=== PATIENT | male | born 1940 | race Caucasian/White ===

== ENCOUNTER 2017-06-22 16:45 | Emergency (ER) | payer MEDICARE ==
[~2017-06-22] VITALS: Ht 177.8 cm; Wt 94.4 kg
[~2017-06-22 16:45] MED LIST: ACET125 PO; CIPR500T4 PO; DICY1TAB26 PO; KCL20 PO; LEVO112T2 PO; TAB-TAB PO
[2017-06-22 16:54] VITALS: BP 121/58; PULSE 73; RESP 18; TEMP 98
[2017-06-22] MEDS ORDERED: PRED5TAB PO (17:35)
[2017-06-22] MEDS ORDERED: LISI10TA3 PO (17:35)
[2017-06-22] MEDS ORDERED: MULTTAB67 PO (17:35)
[2017-06-22] MEDS ORDERED: LEVO112T2 PO (17:35)
[2017-06-22] MEDS ORDERED: HYDR25TA5 PO ×2 (17:35→18:25)
--- NOTE | 2017-06-22 17:35 | PD ---
HPI Chief Complaint: Edema Time Seen by Provider: 17:04 Travel History International Travel<30 days: No Contact w/Intl Traveler<30days: No Traveled to known affect area: No History of Present Illness HPI This 76-year-old male is complaining of swelling of his legs. He says he called his doctor today to get a prescription for hydrochlorothiazide which he has been on and he was told he should come here for evaluation. He has had swelling of his legs he says since she's been on prednisone. He is on the prednisone because he had temporal arteritis. He has been on prednisone for about a year and is currently being tapered. He is on 5 mg daily at this time. He gets a little short of breath with exertion. He is not aware of any heart disease. He has a history of vertigo and gets a lot of wax in his years. He says that his ears are clogged up now. PFSH Past Medical History Hx Anticoagulant Therapy: Yes (asa) Cancer: Yes (PROSTATE) Cardiovascular Problems: No Chemotherapy: No Cerebrovascular Accident: No Diabetes: No Diminished Hearing: No Hypertension: Yes Medical other: Yes (TEMPORAL ARTERITIS) Respiratory: No Thyroid Disease: Yes Past Surgical History Cholecystectomy: Yes Other Surgery: Yes (SHUNT IN HEAD, BRAIN TUMOR) Social History Alcohol Use: Yes (DAILY) Tobacco Use: No (QUIT 1984) Substance Use: No Allergies-Medications (Allergen,Severity, Reaction): Coded Allergies: morphine (Unverified Allergy, Severe, CONFUSION, 06/22/17) oyster extract (Unverified Allergy, Mild, Anaphylaxis, 06/22/17) Reported Meds & Prescriptions Reported Meds & Active Scripts Active Reported Prednisone 5 Mg Tab 5 Mg PO DAILY Hydrochlorothiazide 25 Mg Tab 25 Mg PO DAILY Multiple Vitamin 1 Tab 1 Tab PO DAILY Lisinopril 10 Mg Tab 10 Mg PO DAILY Levothyroxine (Levothyroxine Sodium) 112 Mcg Tab 112 Mcg PO DAILY Review of Systems General / Constitutional: No: Fever, Chills Eyes: No: Diploplia HENT: Positive: Headaches, Other (cerumen impaction) Cardiovascular: No: Chest Pain or Discomfort, Palpitations Respiratory: No: Cough, Shortness of Breath Gastrointestinal: No: Vomiting, Diarrhea Musculoskeletal: No: Myalgias Skin: No Rash, No Itching Neurologic: No: Weakness Hematologic/Lymphatic: No: Easy Bruising Physical Exam Narrative GENERAL: [-] SKIN: Focused skin assessment warm/dry. HEAD: Atraumatic. Normocephalic. EYES: Pupils equal and round. No scleral icterus. No injection or drainage. ENT: No nasal bleeding or discharge. Mucous membranes pink and moist. He has bilateral cerumen impactions NECK: Trachea midline. No JVD. CARDIOVASCULAR: Regular rate and rhythm. No murmur appreciated. RESPIRATORY: No accessory muscle use. Clear to auscultation. Breath sounds equal bilaterally. GASTROINTESTINAL: Abdomen soft, non-tender, nondistended. Hepatic and splenic margins not palpable. MUSCULOSKELETAL: No obvious deformities. No clubbing. No cyanosis. No edema. NEUROLOGICAL: Awake and alert. No obvious cranial nerve deficits. Motor grossly within normal limits. Normal speech. PSYCHIATRIC: Appropriate mood and affect; insight and judgment normal. Data Data Last Documented VS Vital Signs Date Time Temp Pulse Resp B/P (MAP) Pulse Ox O2 Delivery O2 Flow Rate FiO2 06/22/17 16:54 98.0 73 18 121/58 (79) Orders Orders Complete Blood Count With Diff (06/22/17 17:26) Comprehensive Metabolic Panel (06/22/17 17:26) B-Type Natriuretic Peptide (06/22/17 17:26) Magnesium (Mg) (06/22/17 17:26) Chest, Single Ap (06/22/17 17:26) Ear Irrigation (06/22/17 17:29) Labs Laboratory Tests Test 06/22/17 17:30 White Blood Count 5.9 TH/MM3 Red Blood Count 4.02 MIL/MM3 Hemoglobin 12.7 GM/DL Hematocrit 36.3 % Mean Corpuscular Volume 90.3 FL Mean Corpuscular Hemoglobin 31.5 PG Mean Corpuscular Hemoglobin Concent 34.9 % Red Cell Distribution Width 13.4 % Platelet Count 183 TH/MM3 Mean Platelet Volume 7.5 FL Neutrophils (%) (Auto) 73.5 % Lymphocytes (%) (Auto) 11.9 % Monocytes (%) (Auto) 13.3 % Eosinophils (%) (Auto) 0.9 % Basophils (%) (Auto) 0.4 % Neutrophils # (Auto) 4.3 TH/MM3 Lymphocytes # (Auto) 0.7 TH/MM3 Monocytes # (Auto) 0.8 TH/MM3 Eosinophils # (Auto) 0.1 TH/MM3 Basophils # (Auto) 0.0 TH/MM3 CBC Comment DIFF FINAL Differential Comment Blood Urea Nitrogen 17 MG/DL Creatinine 0.90 MG/DL Random Glucose 97 MG/DL Total Protein 7.2 GM/DL Albumin 3.2 GM/DL Calcium Level 8.5 MG/DL Magnesium Level 1.8 MG/DL Alkaline Phosphatase 89 U/L Aspartate Amino Transf (AST/SGOT) 26 U/L Alanine Aminotransferase (ALT/SGPT) 21 U/L Total Bilirubin 0.7 MG/DL Sodium Level 132 MEQ/L Potassium Level 3.8 MEQ/L Chloride Level 95 MEQ/L Carbon Dioxide Level 29.0 MEQ/L Anion Gap 8 MEQ/L Estimat Glomerular Filtration Rate 82 ML/MIN B-Type Natriuretic Peptide 99 PG/ML MDM Medical Decision Making Medical Screen Exam Complete: Yes Emergency Medical Condition: Yes Medical Record Reviewed: Yes Differential Diagnosis Differential includes cerumen impaction, CHF, edema Narrative Course BNP is normal and chest x-ray is normal. There is no evidence of CHF. His albumin is slightly low at 3.2 and this may be part of the cause of his edema. He has been on prednisone for some time. His use of been irrigated and repeat examination shows a cerumen to be cleared. Diagnosis Primary Impression: Edema Qualified Codes: R60.9 - Edema, unspecified Additional Impression: Impacted cerumen of both ears Scripts Hydrochlorothiazide (Hydrochlorothiazide) 25 Mg Tab 25 MG PO DAILY, #30 TAB 0 Refills Prov: Basilio Luna MD 06/22/17 Disposition: 01 DISCHARGE HOME Condition: Stable Basilio Luna MD Jun 22, 2017 17:35
[2017-06-22 17:41] LABS: AUTOMATED NEUTROPHIL # 4.3 TH/MM3 (1.8-7.7); BASOPHIL % 0.4 % (0.0-2.0); EOSINOPHIL # 0.1 TH/MM3 (0-0.4); EOSINOPHIL % 0.9 % (0.0-4.0); HEMATOCRIT 36.3 % (39.0-51.0); HEMO FLAGS DIFF FINAL; LYMPH % 11.9 % (9.0-44.0); LYMPHOCYTE # 0.7 TH/MM3 (1.0-4.8); MEAN CELL VOLUME 90.3 FL (80.0-100.0); MEAN CORPUSCULAR HEMOGLOBIN 31.5 PG (27.0-34.0); MEAN CORPUSCULAR HGB CONC 34.9 % (32.0-36.0); MONO % 13.3 % (0.0-8.0); NEUT % 73.5 % (16.0-70.0); PLATELET COUNT 183 TH/MM3 (150-450); RED BLOOD COUNT 4.02 MIL/MM3 (4.50-5.90); RED CELL DISTRIBUTION WIDTH 13.4 % (11.6-17.2); WHITE BLOOD COUNT 5.9 TH/MM3 (4.0-11.0)
[2017-06-22 17:49] LABS: CHLORIDE 95 MEQ/L (98-107); POTASSIUM 3.8 MEQ/L (3.5-5.1); SODIUM (NA) 132 MEQ/L (136-145)
[2017-06-22 17:53] LABS: ANION GAP 8 MEQ/L (5-15); BLOOD UREA NITROGEN 17 MG/DL (7-18); MAGNESIUM 1.8 MG/DL (1.5-2.5)
--- NOTE | 2017-06-22 17:53 | RADRPT ---
EXAM DATE/TIME: 06/22/2017 17:37 [facility] COMPARISON: RIBS LEFT(W PA CXR MIN 3VWS), January 26, 2015, 12:10. INDICATIONS : Chest discomfort; swelling in bilateral lower extremities. MEDICAL HISTORY : Hypertension. Carcinoma, prostatic. Brain tumor. Temporal arteritis. SURGICAL HISTORY : Shunt in head. ENCOUNTER: Initial ACUITY: 1 day PAIN SCORE: 0/10 LOCATION: Bilateral chest FINDINGS: A single view of the chest demonstrates the lungs to be symmetrically aerated without evidence of mas s, infiltrate or effusion. The cardiomediastinal contours are unremarkable. Osseous structures are intact. Shunt catheter tubing is projected over the chest. There are multiple overlying electrocardio gram leads. There are healing right sided rib fractures. CONCLUSION: No acute disease. Grover Akins MD on June 22, 2017 at 17:50 Board Certified Radiologist. This report was verified electronically.
[2017-06-22 17:56] LABS: ALT (GPT) 21 U/L (12-78); AST (GOT) 26 U/L (15-37); GLOMERULAR FILTRATION RATE 82 ML/MIN (>89)
[2017-06-22 17:57] LABS: TOTAL BILIRUBIN ADULT 0.7 MG/DL (0.2-1.0)
[2017-06-22 17:59] LABS: ALKALINE PHOSPHATASE 89 U/L (45-117)
[2017-06-22 18:40] VITALS: BP 118/62; PULSE 82; RESP 18; O2SAT 95
== END 2017-06-22 18:46 | disposition home or self-care (01) ==
LOC: PHED 16:45
DX: R60.9 Edema, unspecified (principal); H61.23 Impacted cerumen, bilateral; Z79.82 Long term (current) use of aspirin; C61 Malignant neoplasm of prostate; I10 Essential (primary) hypertension; Z98.2 Presence of cerebrospinal fluid drainage device; D49.6 Neoplasm of unspecified behavior of brain; R42 Dizziness and giddiness; M31.6 Other giant cell arteritis; R06.02 Shortness of breath
CPT/HCPCS: 71010; 80053; 83735; 83880; 85025; 99284

== ENCOUNTER 2017-08-27 01:23 | Inpatient (IN) | payer MEDICARE ==
[2017-08-27] VITALS (18 sets, daily range): BP systolic 104–130; BP diastolic 55–70; PULSE 47–85; RESP 16–22; TEMP 97.2–98.5; O2SAT 94–98
[~2017-08-27] VITALS: Ht 177.8 cm; Wt 91.0 kg
[2017-08-27 01:12] LABS: AUTOMATED NEUTROPHIL # 6.3 TH/MM3 (1.8-7.7); BASOPHIL % 0.2 % (0.0-2.0); EOSINOPHIL % 0.5 % (0.0-4.0); HEMATOCRIT 35.5 % (39.0-51.0); HEMO FLAGS DIFF FINAL; LYMPH % 9.8 % (9.0-44.0); LYMPHOCYTE # 0.8 TH/MM3 (1.0-4.8); MEAN CELL VOLUME 92.5 FL (80.0-100.0); MEAN CORPUSCULAR HEMOGLOBIN 32.2 PG (27.0-34.0); MEAN CORPUSCULAR HGB CONC 34.8 % (32.0-36.0); NEUT % 79.5 % (16.0-70.0); PLATELET COUNT 155 TH/MM3 (150-450); RED BLOOD COUNT 3.84 MIL/MM3 (4.50-5.90)
[~2017-08-27 01:23] MED LIST changes: -ACET125 PO; -CIPR500T4 PO; -DICY1TAB26 PO; +HYDR25TA5 PO; -KCL20 PO; +LISI10TA3 PO; +MULTTAB67 PO; +PRED5TAB PO; -TAB-TAB PO
[2017-08-27 01:25] LABS: APTT (PATIENT) 30.2 SEC (24.3-30.1); INTERNATIONAL NORMALIZED RATIO 1.1 RATIO; PROTHROMBIN TIME - PATIENT 12.5 SEC (9.8-11.6)
--- NOTE | 2017-08-27 01:29 | RADRPT ---
EXAM DATE/TIME: 08/27/2017 01:03 [facility] COMPARISON: CHEST SINGLE AP, June 22, 2017, 17:37. INDICATIONS : Chest pain. MEDICAL HISTORY : Hypertension. Carcinoma, prostatic. SURGICAL HISTORY : Shunt ENCOUNTER: Initial ACUITY: 1 day PAIN SCORE: 7/10 LOCATION: Bilateral chest FINDINGS: Single AP view of the chest. Lungs are clear. Mild cardiac silhouette enlargement unchanged. No evide nce of pleural effusion or pneumothorax. Old right-sided rib fractures. CONCLUSION: Chronic cardiac silhouette enlargement. No acute cardiopulmonary disease identified. Krystian Spicer MD on August 27, 2017 at 1:26 Board Certified Radiologist. This report was verified electronically.
[2017-08-27 01:41] LABS: BICARBONATE 27.8 MEQ/L (21.0-32.0); MAGNESIUM 1.6 MG/DL (1.5-2.5); POTASSIUM 4.2 MEQ/L (3.5-5.1)
[2017-08-27] MEDS ORDERED: ALUMINUM/MAGNESIUM/SIMETH 30 ML CUP PO ONE (01:45)
[2017-08-27] MEDS ORDERED: PRED10 PO (01:48)
--- NOTE | 2017-08-27 01:56 | PD ---
HPI Chief Complaint: Chest Pain Time Seen by Provider: 01:38 Travel History International Travel<30 days: No Contact w/Intl Traveler<30days: No Traveled to known affect area: No History of Present Illness HPI 76yo M with PMH of HTN and former smoker here with c/o chest pain at around 10: 30 or 11pm tonight. Said he was sitting and watching TV when the pain started. Pain is sharp, constant, midsternal. Nonradiating and associated with diaphoresis. Denies any nausea, sob, vomiting, abdominal pain, focal weakness or numbness. Said pain relieved after sublingual nitro and aspirin given by EVAC. 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 Said never had pain like this before. Denies history of afib. PFSH Past Medical History Hx Anticoagulant Therapy: Yes (asa) Atrial Fibrillation: Yes Cancer: Yes (PROSTATE) Cardiovascular Problems: No Chemotherapy: No Chest Pain: Yes Cerebrovascular Accident: No Diabetes: No Diminished Hearing: No GERD: Yes Hypertension: Yes Respiratory: No Thyroid Disease: Yes Tetanus Vaccination: Unknown Past Surgical History Cholecystectomy: Yes Other Surgery: Yes (SHUNT IN HEAD, BRAIN TUMOR) Social History Alcohol Use: Yes (DAILY) Tobacco Use: No (QUIT 1984) Substance Use: No Allergies-Medications (Allergen,Severity, Reaction): Coded Allergies: morphine (Verified Allergy, Severe, CONFUSION, 08/27/17) oyster extract (Verified Allergy, Mild, Anaphylaxis, 08/27/17) Reported Meds & Prescriptions Reported Meds & Active Scripts Active Hydrochlorothiazide 25 Mg Tab 25 Mg PO DAILY Reported Prednisone 10 Mg Tab 10 Mg PO DAILY Multiple Vitamin 1 Tab 1 Tab PO DAILY Lisinopril 10 Mg Tab 10 Mg PO DAILY Levothyroxine (Levothyroxine Sodium) 112 Mcg Tab 112 Mcg PO DAILY Review of Systems Except as stated in HPI: all other systems reviewed are Neg Physical Exam Narrative GENERAL: 76yo M not in distress. SKIN: Focused skin assessment warm/dry. HEAD: Atraumatic. Normocephalic. EYES: Pupils equal and round. No scleral icterus. No injection or drainage. ENT: No nasal bleeding or discharge. Mucous membranes pink and moist. NECK: Trachea midline. No JVD. CARDIOVASCULAR: Regular rate and rhythm. No murmur appreciated. RESPIRATORY: No accessory muscle use. Clear to auscultation. Breath sounds equal bilaterally. GASTROINTESTINAL: Abdomen soft, non-tender, nondistended. MUSCULOSKELETAL: No obvious deformities. No clubbing. No cyanosis. +Bilateral lower ext edema. NEUROLOGICAL: Awake and alert. No obvious cranial nerve deficits. Motor grossly within normal limits. Normal speech. PSYCHIATRIC: Appropriate mood and affect; insight and judgment normal. Data Data Last Documented VS Vital Signs Date Time Temp Pulse Resp B/P (MAP) Pulse Ox O2 Delivery O2 Flow Rate FiO2 08/27/17 03:45 08/27/17 02:51 82 16 Room Air 08/27/17 01:34 98 Orders Orders Basic Metabolic Panel (Bmp) (08/27/17 01:52) Complete Blood Count With Diff (08/27/17 01:52) Magnesium (Mg) (08/27/17 01:52) Prothrombin Time / Inr (Pt) (08/27/17 01:52) Act Partial Throm Time (Ptt) (08/27/17 01:52) Troponin I (08/27/17 01:52) Chest, Single Ap (08/27/17 01:52) Al-Mag Hy-Si 40-40-4 Mg/Ml Liq (Mag-Al P (08/27/17 01:45) Loom Fixer Supervisor / Telemetry [email or web address] (08/27/17 03:13) Heparin Inj (Heparin Inj) (08/27/17 03:15) Heparin Inj (Heparin Inj) (08/27/17 09:15) Heparin Inj (Heparin Inj) (08/27/17 09:15) Heparin-D5w 25,000 U/250 Ml (Heparin-D5w (08/27/17 03:15) Act Partial Throm Time (Ptt) (08/27/17 03:13) Prothrombin Time / Inr (Pt) (08/27/17 03:13) Cbc No Diff, Includes Plts (08/27/17 03:13) Cbc No Diff, Includes Plts (08/30/17 06:00) Nitroglycerin Sl (Nitrostat Sl) (08/27/17 03:30) Admit Order (Ed Use Only) (08/27/17 03:54) Consult Cardiology (08/27/17 ) Labs Laboratory Tests Test 08/27/17 00:50 White Blood Count 8.0 TH/MM3 Red Blood Count 3.84 MIL/MM3 Hemoglobin 12.4 GM/DL Hematocrit 35.5 % Mean Corpuscular Volume 92.5 FL Mean Corpuscular Hemoglobin 32.2 PG Mean Corpuscular Hemoglobin Concent 34.8 % Red Cell Distribution Width 13.0 % Platelet Count 155 TH/MM3 Mean Platelet Volume 8.7 FL Neutrophils (%) (Auto) 79.5 % Lymphocytes (%) (Auto) 9.8 % Monocytes (%) (Auto) 10.0 % Eosinophils (%) (Auto) 0.5 % Basophils (%) (Auto) 0.2 % Neutrophils # (Auto) 6.3 TH/MM3 Lymphocytes # (Auto) 0.8 TH/MM3 Monocytes # (Auto) 0.8 TH/MM3 Eosinophils # (Auto) 0.0 TH/MM3 Basophils # (Auto) 0.0 TH/MM3 CBC Comment DIFF FINAL Differential Comment Prothrombin Time 12.5 SEC Prothromb Time International Ratio 1.1 RATIO Activated Partial Thromboplast Time 30.2 SEC Blood Urea Nitrogen 8 MG/DL Creatinine 0.66 MG/DL Random Glucose 90 MG/DL Calcium Level 8.6 MG/DL Magnesium Level 1.6 MG/DL Sodium Level 133 MEQ/L Potassium Level 4.2 MEQ/L Chloride Level 99 MEQ/L Carbon Dioxide Level 27.8 MEQ/L Anion Gap 6 MEQ/L Estimat Glomerular Filtration Rate 117 ML/MIN Troponin I 0.53 NG/ML [facility] Medical Decision Making Medical Screen Exam Complete: Yes Emergency Medical Condition: Yes Interpretation(s) EKG: Afib at 71bpm. LAD. No ST segment elevation or depression. Differential Diagnosis ACS vs. new onset afib vs. GERD Narrative Course 76yo M with left sided chest pain while watching TV today. Pt was given ASA and sublingual nitro by EVAC and said pain resolved after sublingual nitro. Pt asking for maalox as per nurse so was given maalox. Labs reviewed and significant for elevated troponin of 0.53. CXR negative. When I informed him of the elevated troponin, he then said that he does have chest pain about 6 out of 10 and didnt tell us earlier because he wanted to go home. I ordered sublingual nitro PRN chest pain and also started pt on heparin drip after negative hemaprompt since pt said he is unsure if he has black stool. Discussed with hospitalist Dr. Angela and accepted to her service in [facility]. Also placed cardiology consult. Critical Care Narrative Aggregate critical care time was 50 minutes. Time to perform other separately billable procedures was not included in the critical care time. My time did not include minutes spent treating any other patients simultaneously or on activities that did not directly contribute to the patient's treatment. The services I provided to this patient were to treat and/or prevent clinically significant deterioration that could result in: cardiovascular collapse or . I provided critical care services requiring my management, as noted below: Chart data review, documentation time, medication orders and management, vital sign assessments/reviewing monitor data, ordering and reviewing lab tests, ordering and interpreting/reviewing x-rays and diagnostic studies, care of the patient and discussion of the patient with the admitting physicians. HemaPrompt Point of Care Internal Pos. & Neg. Controls: Passed Fecal Specimen Occult Blood: Negative Diagnosis Primary Impression: NSTEMI (non-ST elevated myocardial infarction) Admitting Information Admitting Physician Requests: Admit Holly Joyner DO Aug 27, 2017 01:56
[2017-08-27] MEDS ORDERED: HEPARIN SODIUM - IV 10,000 UNITS/10 ML VIAL IV PUSH ONE (03:15)
[2017-08-27] MEDS: HEPARIN-D5W 25,000 U/250 ML 250 ML IV PRN (03:45)
[2017-08-27] MEDS ORDERED: SODIUM CHLORIDE 0.9% FLUSH 10 ML FLUSH IV FLUSH PRN (04:00)
[2017-08-27] MEDS: MORPHINE SULFATE 4 MG/ML INJ IV PUSH PRN ×2 (04:36→09:02)
[2017-08-27] MEDS: NITROGLYCERIN 0.4 MG SL 25 TABS/BTL SL PRN ×3 (04:38→04:51)
[2017-08-27] MEDS ORDERED: NITROGLYCERIN 2% OINT 1 GM PACKET TOP SCH (06:00)
--- NOTE | 2017-08-27 08:13 | HHI.HP ---
[facility] Dot Torrez D.O. Admission Diagnosis NSTEMI Diagnoses: Chief Complaint: Chest pain Travel History International Travel<30 Days: No Contact w/Intl Traveler <30 Da: No Traveled to Known Affected Are: No History of Present Illness This is a pleasant 76 y/o Male with Atrial Fibrillation, Prostate Cancer History , GERD, Hypertension, Hypothyroidism, former Smoker who came to ER at 10:30 PM yesterday night with Atypical Chest pain, that started while he was sitting watching television, the Pain is sharp, constant, midsternal. Nonradiating and associated with diaphoresis. Denies any nausea, sob, vomiting, abdominal pain, focal weakness or numbness. Said pain relieved after sublingual nitro and aspirin given by EVAC. 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 Seen in his bedroom in Critical Care Unit in the presence of nurse Mr. Varner and his Friend Miss Allegra Moreno, the patient continue with chest pain, 10/10 in intensity as a Sharp sensation, non radiated on precordial area and continuous. Doctor Fer insurance specialist consulted and will come to evaluate the patient. Review of Systems Constitutional: DENIES: Fever, Chills, Change in appetite Endocrine: DENIES: Heat/cold intolerance Eyes: DENIES: Blurred vision, Eye pain Cardiovascular: COMPLAINS OF: Chest pain Except as stated in HPI: all other systems reviewed are Neg Past Family Social History Past Medical History Prostate Cancer History status post Radiation therapy GERD Hypertension Hypothyroidism Obesity Alcohol dependency Past Surgical History Cholecystectomy Brain Tumor with Shunt in head Tonsillectomy Reported Medications Reported Meds & Active Scripts Active Hydrochlorothiazide 25 Mg Tab 25 Mg PO DAILY Reported Prednisone 10 Mg Tab 10 Mg PO DAILY Multiple Vitamin 1 Tab 1 Tab PO DAILY Lisinopril 10 Mg Tab 10 Mg PO DAILY Levothyroxine (Levothyroxine Sodium) 112 Mcg Tab 112 Mcg PO DAILY Allergies: Coded Allergies: morphine (Verified Allergy, Severe, CONFUSION, 08/27/17) oyster extract (Verified Allergy, Mild, Anaphylaxis, 08/27/17) Active Ordered Medications Current Medications Medications (Trade) Dose Ordered Sig/Katherine Route Start Time Stop Time Status Last Admin (Heparin Inj) 5,000 units UNSCH PRN IV PUSH 08/27/17 09:15 (Heparin Inj) 2,500 units UNSCH PRN IV PUSH 08/27/17 09:15 Heparin Sodium/ Dextrose 250 ml @ 10 mls/hr TITRATE PRN IV 08/27/17 03:15 08/27/17 03:45 (Nitrostat Sl) 0.4 mg Q5M PRN SL 08/27/17 03:30 08/27/17 04:51 (NS Flush) 2 ml BID IV FLUSH 08/27/17 09:00 (NS Flush) 2 ml UNSCH PRN IV FLUSH 08/27/17 04:00 (Aspirin) 325 mg DAILY PO 08/27/17 09:00 (Nitroglycerin 2% Oint) 1 inch Q6HR TOP 08/27/17 06:00 08/27/17 05:14 (Tylenol) 500 mg Q4H PRN PO 08/27/17 04:00 (Morphine Inj) 2 mg Q3HR PRN IV PUSH 08/27/17 04:00 08/27/17 04:36 Family History Asked and denied. Social History Lives by himself states wants to change his Living [place] and needs to notarize a document, manager market development consulted. alcohol abuse daily more than six Beers daily and One bottle of Wine daily Tobacco dependence he quit in 1984 Physical Exam Vital Signs Vital Signs Date Time Temp Pulse Resp B/P (MAP) Pulse Ox O2 Delivery O2 Flow Rate FiO2 08/27/17 07:45 54 08/27/17 07:45 98.5 64 22 116/63 (80) 97 08/27/17 07:44 97 Nasal Cannula 2.00 08/27/17 06:00 93 Nasal Cannula 2.00 08/27/17 06:00 66 08/27/17 06:00 97.2 79 22 130/65 (86) 94 08/27/17 06:00 97.2 67 22 130/65 (86) 94 08/27/17 05:59 08/27/17 05:55 90 Room Air 08/27/17 05:13 85 16 120/58 (78) 97 Room Air 08/27/17 04:50 85 16 111/55 (73) 98 Room Air 08/27/17 04:38 75 16 129/62 (84) 98 Room Air 08/27/17 03:45 08/27/17 02:51 82 16 115/68 (84) Room Air 08/27/17 01:42 70 16 127/61 (83) Room Air 08/27/17 01:34 73 16 127/61 (83) 98 Physical Exam GENERAL: Obese patient in acute distress due to chest pain. SKIN: Focused skin assessment warm/dry. HEAD: Atraumatic. Normocephalic. EYES: Pupils equal and round. No scleral icterus. No injection or drainage. ENT: No nasal bleeding or discharge. Mucous membranes pink and moist. NECK: Trachea midline. No JVD. CARDIOVASCULAR: Regular rate and rhythm. No murmur appreciated. RESPIRATORY: No accessory muscle use. Clear to auscultation. Breath sounds equal bilaterally. GASTROINTESTINAL: Abdomen soft, non-tender, nondistended. MUSCULOSKELETAL: No obvious deformities. No clubbing. No cyanosis. +Bilateral lower ext edema. 3+ NEUROLOGICAL: Awake and alert. No obvious cranial nerve deficits. Motor grossly within normal limits. Normal speech. PSYCHIATRIC: Appropriate mood and affect; insight and judgment normal. Laboratory Laboratory Tests Test 08/27/17 00:50 White Blood Count 8.0 Red Blood Count 3.84 Hemoglobin 12.4 Hematocrit 35.5 Mean Corpuscular Volume 92.5 Mean Corpuscular Hemoglobin 32.2 Mean Corpuscular Hemoglobin Concent 34.8 Red Cell Distribution Width 13.0 Platelet Count 155 Mean Platelet Volume 8.7 Neutrophils (%) (Auto) 79.5 Lymphocytes (%) (Auto) 9.8 Monocytes (%) (Auto) 10.0 Eosinophils (%) (Auto) 0.5 Basophils (%) (Auto) 0.2 Neutrophils # (Auto) 6.3 Lymphocytes # (Auto) 0.8 Monocytes # (Auto) 0.8 Eosinophils # (Auto) 0.0 Basophils # (Auto) 0.0 CBC Comment DIFF FINAL Differential Comment Prothrombin Time 12.5 Prothromb Time International Ratio 1.1 Activated Partial Thromboplast Time 30.2 Blood Urea Nitrogen 8 Creatinine 0.66 Random Glucose 90 Calcium Level 8.6 Magnesium Level 1.6 Sodium Level 133 Potassium Level 4.2 Chloride Level 99 Carbon Dioxide Level 27.8 Anion Gap 6 Estimat Glomerular Filtration Rate 117 Troponin I 0.53 Result Diagram: 08/27/174908/27/1749 Imaging Last Impressions Chest X-Ray 08/27/17 0152 Signed Impressions: Service Date/Time: Sunday, August 27, 2017 01:03 - CONCLUSION: Chronic cardiac silhouette enlargement. No acute cardiopulmonary disease identified. MD Patrick Garg VTE Risk Assessment Caprini VTE Risk Assessment: Mod/High Risk (score >= 2) Caprini Risk Assessment Model Point Value = 1 Point Value = 2 Point Value = 3 Point Value = 5 Age 41-60 Minor surgery BMI > 25 kg/m2 Swollen legs Varicose veins or History of unexplained or recurrent spontaneous Oral contraceptives or hormone replacement Sepsis (< 1 month) Serious lung disease, including pneumonia (< 1 month) Abnormal pulmonary function Acute myocardial infarction Congestive heart failure (< 1 month) History of inflammatory bowel disease Medical patient at bed rest Age 61-74 Arthroscopic surgery Major open surgery (> 45 min) Laparoscopic surgery (> 45 min) Malignancy Confined to bed (> 72 hours) Immobilizing plaster cast Central venous access Age >= 75 History of VTE Family history of VTE Factor V Leiden Prothrombin [id number] Lupus anticoagulant Anticardiolipin antibodies Elevated serum homocysteine Heparin-induced thrombocytopenia Other congenital or acquired thrombophilia Stroke (< 1 month) Elective arthroplasty Hip, pelvis, or leg fracture Acute spinal cord injury (< 1 month) Prophylaxis Regimen Total Risk Factor Score Risk Level Prophylaxis Regimen 0-1 Low Early ambulation 2 Moderate Order ONE of the following: *Sequential Compression Device (SCD) *Heparin 5000 units SQ BID 3-4 Higher Order ONE of the following medications: *Heparin 5000 units SQ TID *Enoxaparin/Lovenox 40 mg SQ daily (WT < 150 kg, CrCl > 30 mL/min) *Enoxaparin/Lovenox 30 mg SQ daily (WT < 150 kg, CrCl > 10-29 mL/min) *Enoxaparin/Lovenox 30 mg SQ BID (WT < 150 kg, CrCl > 30 mL/min) AND/OR *Sequential Compression Device (SCD) 5 or more Highest Order ONE of the following medications: *Heparin 5000 units SQ TID (Preferred with Epidurals) *Enoxaparin/Lovenox 40 mg SQ daily (WT < 150 kg, CrCl > 30 mL/min) *Enoxaparin/Lovenox 30 mg SQ daily (WT < 150 kg, CrCl > 10-29 mL/min) *Enoxaparin/Lovenox 30 mg SQ BID (WT < 150 kg, CrCl > 30 mL/min) AND *Sequential Compression Device (SCD) Assessment and Plan Assessment and Plan 1. NSTEMI Atypical Chest pain he had an ECG in ER showing no ST segment elevation or depression, on Morphine, Oxygen as needed High intensity statins, will need Beta Blockers at this time with Bradycardia will follow to start this medicine once possible, awaiting for insurance specialist, continue Cardiac Monitoring, Cardiac Enzymes trending down, will need Cardiac Catheterization patient NPO for procedure and continue Cardizem Drip, Needs Dual Antiplatelet Therapy. Aspirin received 325 mg and continue 81 mg daily. 2. Prostate Cancer history status post Radiation therapy 3. GERD on Famotidine 4. Hypertension controlled continue Lisinopril low dose. will need Beta Blockers once he improves his Heart rate sometimes Bradycardic 5. Hypothyroidism continue Hormonal replacement 6. Obesity strongly recommended diet and exercise. 7. Alcohol abuse and dependency he states drinks more than six Beers daily and One bottle of Wine daily, prepare for Withdrawal CIWA protocol started and following 8. chronic swollen legs he states secondary to his chronic Prednisone intake 9. Suspected history of Temporal Arteritis management with Chronic Prednisone use. 10 mg daily DVT prophylaxis with Heparin drip continue present care. Code Status Full Code Discussed Condition With Patient, Nurse Mr. Varner and his Friend Miss Allegra Moreno Physician Certification 2 Midnight Certification Type: Admission for Inpatient Services Order for Inpatient Services The services are ordered in accordance with Medicare regulations or non- Medicare payer requirements, as applicable. In the case of services not specified as inpatient-only, they are appropriately provided as inpatient services in accordance with the 2-midnight benchmark. Estimated LOS (days): 3 days is the estimated time the patient will need to remain in the hospital, assuming treatment plan goals are met and no additional complications. Post-Hospital Plan: Not yet determined Fidel Mo MD Aug 27, 2017 08:13
[2017-08-27 08:20] LABS: HEMATOCRIT 33.6 % (39.0-51.0); MEAN CELL VOLUME 92.7 FL (80.0-100.0); MEAN CORPUSCULAR HGB CONC 34.5 % (32.0-36.0); PLATELET COUNT 143 TH/MM3 (150-450); RED BLOOD COUNT 3.63 MIL/MM3 (4.50-5.90); RED CELL DISTRIBUTION WIDTH 13.1 % (11.6-17.2); REVIEW FLAG FINAL
[2017-08-27 08:29] LABS: INTERNATIONAL NORMALIZED RATIO 1.2 RATIO; PROTHROMBIN TIME - PATIENT 13.4 SEC (9.8-11.6)
[2017-08-27] MEDS: HYDROCHLOROTHIAZIDE 25 MG TAB PO SCH (08:56)
[2017-08-27] MEDS: LISINOPRIL 10 MG TAB PO SCH (08:56)
[2017-08-27] MEDS: MULTIVITAMIN TAB PO SCH (08:56)
[2017-08-27] MEDS: SODIUM CHLORIDE 0.9% FLUSH 10 ML FLUSH IV FLUSH SCH (08:57)
[2017-08-27] MEDS ORDERED: ASPIRIN 325 MG TAB PO SCH (09:00)
[2017-08-27] MEDS ORDERED: HEPARIN SODIUM - IV 10,000 UNITS/10 ML VIAL IV PUSH PRN ×2 (09:15)
[2017-08-27] MEDS ORDERED: LORazepam 1 MG TAB PO PRN (09:30)
[2017-08-27] MEDS ORDERED: FLUMAZENIL 0.5 MG/5 ML VIAL IV PUSH PRN (09:30)
[2017-08-27] MEDS ORDERED: LORazepam 2 MG/ML VIAL IV PUSH PRN ×2 (09:30)
[2017-08-27] MEDS: LEVOTHYROXINE SODIUM 112 MCG TAB PO SCH (09:30)
[2017-08-27] MEDS: FAMOTIDINE 20 MG/2 ML VIAL IV PUSH SCH ×2 (09:30→21:30)
[2017-08-27] MEDS ORDERED: LORazepam 2 MG TAB PO PRN (09:30)
[2017-08-27 09:32] LABS: MAGNESIUM 1.6 MG/DL (1.5-2.5)
[2017-08-27 09:33] LABS: HDL CHOLESTEROL 62.4 MG/DL (40.0-60.0)
[2017-08-27] MEDS: predniSONE 10 MG TAB PO SCH (09:44)
[2017-08-27] MEDS ORDERED: NITROGLYCERIN-D5W 50 MG/250 ML 250 ML ONE (10:00)
[2017-08-27] MEDS ORDERED: CARVEDILOL 3.125 MG TAB PO ONE (10:15)
[2017-08-27] MEDS ORDERED: MAGNESIUM OXIDE 400 MG TAB PO ONE (10:15)
[2017-08-27] MEDS ORDERED: NITROGLYCERIN/DEXTROSE 5% 250 ML for chest pain IV PRN (10:30)
[2017-08-27] MEDS: MAGNESIUM SULFATE 1 GM PREMIX 100 ML IV SCH ×3 (10:45→12:56)
--- NOTE | 2017-08-27 12:12 | EKG ---
Date Performed: 08/27/2017 Time Performed: 08:18:56 PTAGE: 76 years EKG: Atrial fibrillation with PVC(s). Possible septal infarct - age undetermined Abnormal ECG NO PREVIOUS TRACING DOCTOR: Eric Metzger Interpretating Date/Time 08/27/2017 12:11:34
--- NOTE | 2017-08-27 12:37 | MB ---
cc: JEANNINE BUENO M.D. DATE OF CONSULTATION: 08/27/2017 REASON FOR CONSULTATION: HISTORY OF PRESENT ILLNESS: Alvin is a very pleasant 76-year-old gentleman with history of hypertension, previous tobacco use, history of "brain tumor with shunt back in the ," who developed severe chest pain at 10:30 last night while watching television, described as sharp, constant, mid sternal. The patient denies any fever, chills, cough, GI or bleeding, paroxysmal nocturnal dyspnea, orthopnea, syncope or dizziness. The pain was relieved after one sublingual nitroglycerin by EMS. PAST MEDICAL HISTORY: As per the history of present illness. Per the chart he has a history of A-fib, prostate cancer, hypertension. 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 PAST SURGICAL HISTORY: Cholecystectomy, brain tumor and shunt in the head the . SOCIAL HISTORY He drinks alcohol daily. He quit smoking in 1984. ALLERGIES Morphine and oyster extract. MEDICATIONS PRIOR TO ADMISSION: 1. Hydrochlorothiazide 25 daily. 2. Prednisone 10 milligrams daily. 3. Multivitamins. 4. Lisinopril 10 milligrams daily. 5. Levothyroxine 112 micrograms daily. MEDICATIONS IN THE HOSPITAL: 1. Thiamine 100 daily. 2. Aspirin 81 milligrams daily. 3. Atorvastatin 80 milligrams hs. 4. Multivitamins. 5. Levothyroxine 112 micrograms daily. 6. Flumazenil p.r.n. 7. Ativan p.r.n. 8. Heparin bolus and drip. 9. Aspirin 325 x1. 10. Lisinopril 10 milligrams daily. 11. Prednisone 10 milligrams daily. 12. Multivitamins daily. 13. One inch nitro paste q6 hours. PHYSICAL EXAMINATION VITAL SIGNS: Temperature 98.5, pulse ranging between 54 and 66, respiratory 22, blood pressure 116/63. General: He is alert and oriented x3, in no acute distress. Neck: Supple. No JVD, no bruit. Cardiovascular: S1-S2, no murmurs, rubs, or gallops. Lungs: Clear to auscultation bilaterally. Abdomen: Soft, nontender, nondistended, positive bowel sounds. Extremities: No lower extremity edema. LABORATORY DATA White count 7.0, hemoglobin 11.6, hematocrit 33.6, platelet count 143, sodium 133, potassium 4.2, chloride 99, BUN 8, creatinine 0.66, troponin is 0.53 followed by 0.48. CK is 24, magnesium 1.6, LDL 60, HDL 36, INR 1.2, PTT is 51.0. IMAGING STUDIES: Chest x-ray: Chronic cardiac silhouette enlargement. No acute cardiopulmonary disease identified. EKG: Shows questionable A-fib at a rate of 71 beats per minute. FINAL DIAGNOSIS 1. Non-STEMI. 1. New onset atrial fibrillation. 2. Ocular vasculitis 3. History of brain tumor" with shunt placement. 4. Thrombocytopenia 5. Anemia. 6. Alcohol abuse. 7. Hyponatremia. 8. Hypertension. 9. Lower extremity edema. DISCUSSION At this point in time the patient is being treated with aspirin, lisinopril, IV heparin, Lipitor. Will add Coreg 3.25 b.i.d. to his regimen. Will also start him on a nitro drip as he is still having chest pain, although his troponins are trending down. I put in for neurology consult to rule out any contraindications to anticoagulation given his history of brain tumor and shunt placement, as well as ocular vasculitis. RECOMMENDATIONS Recommend to continue enzyme trend and change to IV nitro. I recommend left heart catheterization which will be planned for tomorrow provided there are no neurologic contraindications and/or hematologic contraindications. Will need to follow up the CBC and replace his electrolytes. MD ADRIAN Dash/JAMAL /11:14 AM /1:26 PM
--- NOTE | 2017-08-27 12:38 | EKG ---
Date Performed: 08/27/2017 Time Performed: 01:29:53 PTAGE: 76 years EKG: ATRIAL FIBRILLATION BORDERLINE LEFT AXIS DEVIATION ABNORMAL RHYTHM ECG PREVIOUS TRACING : 06/28/2015 09.08 Compared to prior tracing no significant change DOCTOR: Lawrence Monroe Interpretating Date/Time 08/27/2017 12:34:03
[2017-08-27 13:31] LABS: HEMOGLOBIN A1a 1.5 %; HEMOGLOBIN A1b 0.7 %; HEMOGLOBIN Ao 85.6 %; HEMOGLOBIN F 0.6 %; HEMOGLOBIN LA1C 2.1 %; HEMOGLOBIN P3 3.5 %
[2017-08-27 15:26] LABS: APTT (PATIENT) 52.1 SEC (24.3-30.1)
--- NOTE | 2017-08-27 18:01 | RADRPT ---
EXAM DATE/TIME: 08/27/2017 17:48 [facility] COMPARISON: No previous studies available for comparison. INDICATIONS : Status post brain resection and shunt placement. RADIATION DOSE: 42.54 CTDIvol (mGy) MEDICAL HISTORY : Hypertension. Carcinoma, prostate. SURGICAL HISTORY : Cholecystectomy. ENCOUNTER: Initial ACUITY: 1 day PAIN SCALE: Non-responsive LOCATION: Bilateral head TECHNIQUE: Multiple contiguous axial images were obtained of the head. Using automated exposure control and adj ustment of the mA and/or kV according to patient size, radiation dose was kept as low as reasonably a chievable to obtain optimal diagnostic quality images. DICOM format image data is available electro nically for review and comparison. FINDINGS: CEREBRUM: The ventricles are normal for age. No evidence of midline shift, mass lesion, hemorrhage or acute in farction. No extra-axial fluid collections are seen. Focal encephalomalacia seen in the high right f rontal lobe. There is a right parietal ventriculostomy catheter with tip in the posterior horn of the right lateral ventricle. No ventriculomegaly. No evidence of transependymal flow of CSF. POSTERIOR FOSSA: The cerebellum and brainstem are intact. The 4th ventricle is midline. The cerebellopontine angle i s unremarkable. Anatomic variant Dandy-Walker configuration of the posterior fossa noted. EXTRACRANIAL: The visualized portion of the orbits is intact. SKULL: The calvaria is intact. No evidence of skull fracture. CONCLUSION: 1. No acute intracranial abnormality demonstrated. 2. 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 3. Right parietal ventriculostomy catheter present. No ventriculomegaly or other acute complication d emonstrated. Jose Dimas MD on August 27, 2017 at 17:55 Board Certified Radiologist. This report was verified electronically.
--- NOTE | 2017-08-27 22:03 | EKG ---
Date Performed: 08/27/2017 Time Performed: 13:56:50 PTAGE: 76 years EKG: Atrial fibrillation with PVC(s) or aberrant ventricular conduction. Possible septal infarct - age undetermined Inferior T wave changes are nonspecific Abnormal ECG PREVIOUS TRACING : 08/27/2017 08.18 No significant change from previous tracing noted. DOCTOR: Eric Metzger Interpretating Date/Time 08/27/2017 22:02:02
[2017-08-28] VITALS (25 sets, daily range): BP systolic 104–147; BP diastolic 55–67; PULSE 44–72; RESP 14–18; TEMP 96.9–99.4; O2SAT 90–94
[2017-08-28] MEDS: SODIUM CHLORIDE 0.9% FLUSH 10 ML FLUSH IV FLUSH SCH ×3 (00:01→21:00)
[2017-08-28] MEDS: MAGNESIUM OXIDE 400 MG TAB PO SCH ×3 (00:01→23:00)
[2017-08-28] MEDS: ATORVASTATIN 80 MG TAB PO SCH ×2 (00:01→21:00)
[2017-08-28] MEDS: CARVEDILOL 3.125 MG TAB PO SCH ×3 (00:02→21:00)
[2017-08-28] MEDS: THIAMINE INJ 100 MG in SODIUM CHLORIDE 0.9% INJ 100 ML IV SCH ×2 (00:03→13:04)
[2017-08-28] MEDS: MULTIVITAMIN INJ 10 ML, FOLIC ACID INJ 1 MG in SODIUM CHLORID 0.9% 500 ML INJ 500 ML IV SCH ×2 (00:04→13:04)
[2017-08-28] MEDS: HEPARIN-D5W 25,000 U/250 ML 250 ML IV PRN ×2 (03:59→12:40)
[2017-08-28 05:37] LABS: AUTOMATED NEUTROPHIL # 5.1 TH/MM3 (1.8-7.7); BASOPHIL % 0.3 % (0.0-2.0); EOSINOPHIL # 0.1 TH/MM3 (0-0.4); EOSINOPHIL % 1.8 % (0.0-4.0); HEMATOCRIT 32.8 % (39.0-51.0); HEMO FLAGS DIFF FINAL; LYMPH % 13.8 % (9.0-44.0); LYMPHOCYTE # 0.9 TH/MM3 (1.0-4.8); MEAN CELL VOLUME 94.4 FL (80.0-100.0); MEAN CORPUSCULAR HEMOGLOBIN 32.8 PG (27.0-34.0); MEAN CORPUSCULAR HGB CONC 34.7 % (32.0-36.0); MONO % 8.8 % (0.0-8.0); NEUT % 75.3 % (16.0-70.0); PLATELET COUNT 131 TH/MM3 (150-450); RED BLOOD COUNT 3.47 MIL/MM3 (4.50-5.90); RED CELL DISTRIBUTION WIDTH 13.2 % (11.6-17.2); WHITE BLOOD COUNT 6.8 TH/MM3 (4.0-11.0)
[2017-08-28 05:53] LABS: BICARBONATE 29.6 MEQ/L (21.0-32.0); MAGNESIUM 2.1 MG/DL (1.5-2.5); POTASSIUM 4.4 MEQ/L (3.5-5.1)
[2017-08-28] MEDS: LEVOTHYROXINE SODIUM 112 MCG TAB PO SCH (06:06)
[2017-08-28] MEDS ORDERED: ASPIRIN 81 MG CHEW TAB CHEW SCH (09:00)
[2017-08-28] MEDS: HYDROCHLOROTHIAZIDE 25 MG TAB PO SCH (09:12)
[2017-08-28] MEDS: LISINOPRIL 10 MG TAB PO SCH (09:13)
[2017-08-28] MEDS: MULTIVITAMIN TAB PO SCH (09:13)
[2017-08-28] MEDS: predniSONE 10 MG TAB PO SCH (09:16)
--- NOTE | 2017-08-28 10:15 | MB ---
cc: PURNIMA WHITE DATE OF CONSULTATION 08/27/2017 REASON FOR CONSULTATION [History of shunt in head and brain tumor, NSTEMI, cleared for use of heparin, aspirin and Plavix to IIb/IIIa inhibitors]. HISTORY OF PRESENT ILLNESS Mr. Elizabeth is a 76-year-old male with past medical history of atrial fibrillation, prostate cancer, gastroesophageal reflux disease, hypertension, hypothyroidism, former smoker. He presented to the [facility] with atypical chest pain, diagnosed as NSTEMI. He was recommended heart catheterization and Neurology is consulted for clearance as the patient has history of AV shunt status post brain aneurysm. The patient states that this is , "ridiculous to ask Neurology to see me. I am having a heart problems." The patient states that he had tumor 1971 that was, "benign", removed and a shunt was placed and since that time the patient denies any complaint of headache, double vision, blurred vision, dizziness, TIAs or stroke. "I certainly can take blood thinners I have been on blood thinners." REVIEW OF SYSTEMS A 12-point review of systems is negative except for what is stated in the HPI. PAST MEDICAL HISTORY 1. Prostate cancer. 2. Gastroesophageal reflux disease. 3. Hypertension. 4. Hypothyroidism 5. Smoker. 6. Alcohol dependency. PAST SURGICAL HISTORY 1. Cholecystectomy. 2. Brain tumor resection in 1971 with CROWN PERFORATOR OPERATOR shunt. 3. Tonsillectomy. REPORTED MEDICATIONS 1. Hydrochlorothiazide. 2. Prednisone. 3. Multivitamin. 4. Lisinopril. 5. Levothyroxine. ALLERGIES MORPHINE. FAMILY HISTORY Noncontributory. SOCIAL HISTORY Alcohol abuse. Tobacco dependence, quit in 1984. Denies illicit drug abuse. PHYSICAL EXAMINATION GENERAL: Awake, alert, sits on a chair. Sarcastic behavior. Overweight. HEENT: Atraumatic, normocephalic. Intact hearing. Intact vision. Neck: Supple. No signs of meningeal irritation. CARDIOVASCULAR: Regular rate and rhythm. RESPIRATORY: Clear to auscultation. No wheezes. GASTROINTESTINAL: Soft abdomen nontender. MUSCULOSKELETAL: Moves all extremities equally. NEUROLOGICAL: Awake, alert and oriented to time, person and place. No dysarthria. No dysphasia. Cranial nerves II-XII are intact. Motor and sensory system are intact, 5/5 muscle strength. No abnormal movement. Normal tone. Sensation intact bilateral and symmetrical to light touch and temperature. Reflexes 1+ bilateral symmetrical. Plantars are bilaterally downgoing. PSYCHIATRY: Appropriate mood and affect. No hallucinations. LABORATORY DATA WBC 7, hemoglobin 11.6, platelet 143. Sodium 133, potassium 4.2, anion gap 6, BUN 8, creatinine 0.66. CK 24, INR 1.20. DIAGNOSTIC IMAGING - Head CT scan - No acute intracranial abnormality demonstrated. 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 Right parietal ventriculostomy catheter present. No ventriculomegaly or complication demonstrated. DIAGNOSTIC IMPRESSION 1. History of benign brain tumor removed in 1971 status post CROWN PERFORATOR OPERATOR shunt. 2. Neurologic examination is nonfocal. 3. Neurologic investigation did not reveal an acute intracranial abnormality. 4. Stable CROWN PERFORATOR OPERATOR shunt, uncomplicated. PLAN - The patient is stable from the neurologic stand point, there is no evidence that patient with this condition are at more risk of adverse effects secondary to antiplatelets or anticoagulants than the general population. - Patient should be clear from the neurology stand point for using heparin, antiplatelets and IIb/IIIa inhibitors, by the trade sales assistant Thank you for the opportunity to participate in the care of your patient. MD HANH Aiken/RADHA /11:34 PM /11:04 AM MTDD
[2017-08-28] MEDS: FAMOTIDINE 20 MG/2 ML VIAL IV PUSH SCH ×2 (10:39→21:30)
[2017-08-28 11:32] LABS: APTT (PATIENT) 39.6 SEC (24.3-30.1)
[2017-08-28] MEDS: SODIUM CHLOR 0.9% 1000 ML INJ 1,000 ML IV SCH (13:13)
--- NOTE | 2017-08-28 16:28 | HHI.PR ---
Subjective Remarks This is a pleasant 76 y/o Male with Atrial Fibrillation, Prostate Cancer History , GERD, Hypertension, Hypothyroidism, former Smoker who came to ER at 10:30 PM yesterday night with Atypical Chest pain, that started while he was sitting watching television, the Pain is sharp, constant, midsternal. Nonradiating and associated with diaphoresis. Denies any nausea, sob, vomiting, abdominal pain, focal weakness or numbness. Said pain relieved after sublingual nitro and aspirin given by EVAC. Never had tax manager public or stress test. Seen in his bedroom in Critical Care Unit in the presence of nurse Mr. Varner and [facility], the patient continue with chest pain, 10/10 in intensity as a Sharp sensation, non radiated on precordial area and continuous. Doctor Fer information specialist consulted and will come to evaluate the patient. 08/28: Stable in his bedroom seen in the presence of nurse Delia, no nausea , vomit or diarrhea, later today will go for Cardiac Catheterization. Objective Vital Signs Date Time Temp Pulse Resp B/P (MAP) Pulse Ox O2 Delivery O2 Flow Rate FiO2 08/28/17 16:00 45 08/28/17 15:28 98.3 52 16 118/56 (76) 94 08/28/17 15:04 93 Room Air 08/28/17 15:00 44 08/28/17 14:00 46 08/28/17 13:00 52 08/28/17 12:00 59 08/28/17 11:18 98.6 53 14 104/55 (71) 94 08/28/17 11:00 94 Room Air 08/28/17 11:00 52 08/28/17 10:00 52 08/28/17 09:00 72 08/28/17 08:36 92 Room Air 08/28/17 08:31 99.4 58 16 115/57 (76) 92 08/28/17 08:00 52 08/28/17 07:00 50 08/28/17 04:28 Room Air 08/28/17 04:00 52 08/28/17 03:00 46 08/28/17 02:00 46 08/28/17 01:00 54 08/28/17 00:36 90 Room Air 08/28/17 00:31 98.1 50 18 109/59 (76) 90 08/28/17 00:00 58 08/27/17 23:00 47 08/27/17 22:00 48 08/27/17 21:00 52 08/27/17 21:00 91 Room Air 08/27/17 20:27 54 108/59 08/27/17 20:00 97.6 54 18 104/59 (74) 98 08/27/17 20:00 52 08/27/17 19:00 61 I/O 08/27/17 08/27/17 08/27/17 08/28/17 08/28/17 08/28/17 07:00 15:00 23:00 07:00 15:00 23:00 Intake Total 100 ml 100 ml 1032 ml Output Total 872 ml Balance 100 ml 100 ml 160 ml Intake Oral 240 ml IV Total 100 ml 100 ml 792 ml Output Urine Total 872 ml Result Diagram: 08/28/17 0411 08/28/17 0411 Imaging Last Impressions Chest X-Ray 08/27/17 0152 Signed Impressions: Service Date/Time: Sunday, August 27, 2017 01:03 - CONCLUSION: Chronic cardiac silhouette enlargement. No acute cardiopulmonary disease identified. Krystian Spicer MD Head CT 08/27/17 0000 Signed Impressions: Service Date/Time: Sunday, August 27, 2017 17:48 - CONCLUSION: 1. No acute intracranial abnormality demonstrated. 2. 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 3. Right parietal ventriculostomy catheter present. No ventriculomegaly or other acute complication demonstrated. Jose Dimas MD Procedures None Other Results Laboratory Tests Test 08/27/17 07:10 08/27/17 11:15 08/27/17 14:25 08/28/17 04:11 Prothrombin Time 13.4 SEC Prothromb Time International Ratio 1.2 RATIO Hemoglobin A1c 5.6 % Triglycerides Level 36 MG/DL Cholesterol Level 130 MG/DL LDL Cholesterol 60 MG/DL HDL Cholesterol 62.4 MG/DL Cholesterol/HDL Ratio 2.08 RATIO Vitamin B12 Level 423 PG/ML Free Thyroxine 0.90 NG/DL Thyroid Stimulating Hormone 3rd Gen 12.200 uIU/ML Total Creatine Kinase 17 U/L Troponin I 0.33 NG/ML White Blood Count 6.8 TH/MM3 Red Blood Count 3.47 MIL/MM3 Hemoglobin 11.4 GM/DL Hematocrit 32.8 % Mean Corpuscular Volume 94.4 FL Mean Corpuscular Hemoglobin 32.8 PG Mean Corpuscular Hemoglobin Concent 34.7 % Red Cell Distribution Width 13.2 % Platelet Count 131 TH/MM3 Mean Platelet Volume 8.9 FL Neutrophils (%) (Auto) 75.3 % Lymphocytes (%) (Auto) 13.8 % Monocytes (%) (Auto) 8.8 % Eosinophils (%) (Auto) 1.8 % Basophils (%) (Auto) 0.3 % Neutrophils # (Auto) 5.1 TH/MM3 Lymphocytes # (Auto) 0.9 TH/MM3 Monocytes # (Auto) 0.6 TH/MM3 Eosinophils # (Auto) 0.1 TH/MM3 Basophils # (Auto) 0.0 TH/MM3 CBC Comment DIFF FINAL Differential Comment Blood Urea Nitrogen 14 MG/DL Creatinine 0.68 MG/DL Random Glucose 97 MG/DL Calcium Level 8.3 MG/DL Magnesium Level 2.1 MG/DL Sodium Level 136 MEQ/L Potassium Level 4.4 MEQ/L Chloride Level 99 MEQ/L Carbon Dioxide Level 29.6 MEQ/L Anion Gap 7 MEQ/L Estimat Glomerular Filtration Rate 113 ML/MIN Test 08/28/17 10:50 Activated Partial Thromboplast Time 39.6 SEC Objective Remarks GENERAL: Obese patient, no acute distress. SKIN: Focused skin assessment warm/dry. HEAD: Atraumatic. Normocephalic. EYES: Pupils equal and round. No scleral icterus. No injection or drainage. ENT: No nasal bleeding or discharge. Mucous membranes pink and moist. NECK: Trachea midline. No JVD. CARDIOVASCULAR: Regular rate and rhythm. No murmur appreciated. RESPIRATORY: No accessory muscle use. Clear to auscultation. Breath sounds equal bilaterally. GASTROINTESTINAL: Abdomen soft, non-tender, nondistended. MUSCULOSKELETAL: No obvious deformities. No clubbing. No cyanosis. +Bilateral lower ext edema. 3+ NEUROLOGICAL: Awake and alert. No obvious cranial nerve deficits. Motor grossly within normal limits. Normal speech. PSYCHIATRIC: Appropriate mood and affect; insight and judgment normal. Medications and IVs Current Medications Medications (Trade) Dose Ordered Sig/Katherine Route Start Time Stop Time Status Last Admin (Heparin Inj) 5,000 units UNSCH PRN IV PUSH 08/27/17 09:15 (Heparin Inj) 2,500 units UNSCH PRN IV PUSH 08/27/17 09:15 Heparin Sodium/ Dextrose 250 ml @ 10 mls/hr TITRATE PRN IV 08/27/17 03:15 08/28/17 12:40 (Nitrostat Sl) 0.4 mg Q5M PRN SL 08/27/17 03:30 08/27/17 04:51 (NS Flush) 2 ml BID IV FLUSH 08/27/17 09:00 08/28/17 13:13 (NS Flush) 2 ml UNSCH PRN IV FLUSH 08/27/17 04:00 (Tylenol) 500 mg Q4H PRN PO 08/27/17 04:00 (Morphine Inj) 2 mg Q3HR PRN IV PUSH 08/27/17 04:00 08/27/17 09:02 (Hydrodiuril) 25 mg DAILY PO 08/27/17 09:00 08/28/17 09:12 (Synthroid) 112 mcg DAILY@0600 PO 08/27/17 09:30 08/28/17 06:06 (Prinivil) 10 mg DAILY PO 08/27/17 09:00 08/28/17 09:13 (Deltasone) 10 mg DAILY PO 08/27/17 09:00 08/28/17 09:16 (Theragran) 1 tab DAILY PO 08/27/17 09:00 08/28/17 09:13 (Lipitor) 80 mg HS PO 08/27/17 21:00 08/28/17 00:01 (Aspirin Chew) 81 mg DAILY CHEW 08/28/17 09:00 08/28/17 09:12 Multivitamins 10 ml/Folic Acid 1 mg/Sodium Chloride 510.2 ml @ 125 mls/hr Q24H IV 08/27/17 10:00 09/01/17 09:59 08/28/17 13:04 Thiamine HCl 100 mg/Sodium Chloride 101 ml @ 100 mls/hr Q24H IV 08/27/17 10:00 08/30/17 09:59 08/28/17 13:04 (Vitamin B1) 100 mg DAILY PO 08/31/17 09:00 (Romazicon Inj) 0.2 mg Q1M PRN IV PUSH 08/27/17 09:30 (Ativan) 1 mg Q4H PRN PO 08/27/17 09:30 (Ativan Inj) 1 mg Q4H PRN IV PUSH 08/27/17 09:30 (Ativan) 2 mg Q2H PRN PO 08/27/17 09:30 (Ativan Inj) 2 mg Q2H PRN IV PUSH 08/27/17 09:30 (Ativan Inj) 2 mg Q1H PRN IV PUSH 08/27/17 09:30 (Ativan Inj) 2 mg Q15M PRN IV PUSH 08/27/17 09:30 (Pepcid Inj) 20 mg Q12H IV PUSH 08/27/17 09:30 08/28/17 10:39 (Coreg) 3.125 mg Q12HR PO 08/27/17 21:00 08/28/17 09:12 (Mag-Ox) 400 mg Q12H PO 08/27/17 23:00 08/28/17 10:40 Nitroglycerin/ Dextrose 250 ml @ 1.5 mls/hr TITRATE PRN IV 08/27/17 10:30 Sodium Chloride 1,000 ml @ 84 mls/hr [id number] IV 08/28/17 11:00 08/28/17 13:13 A/P Assessment and Plan 1. NSTEMI Atypical Chest pain he had an ECG in ER showing no ST segment elevation or depression, on Morphine, Oxygen as needed High intensity statins, will need Beta Blockers at this time with Bradycardia will follow to start this medicine once possible, awaiting for information specialist, continue Cardiac Monitoring, Cardiac Enzymes trending down, will need Cardiac Catheterization patient NPO for procedure and continue Cardizem Drip, Needs Dual Antiplatelet Therapy. Aspirin received 325 mg and continue 81 mg daily. will go later for Cardiac Cath awaiting final by information specialist. Bradycardia at this time placed parameters to Beta Blockers. 2. New Onset of Atrial Fibrillation started on Beta blockers by information specialist at this time Bradycardia placed parameters. 3. GERD on Famotidine 4. Hypertension controlled continue Lisinopril low dose. will need Beta Blockers once he improves his Heart rate sometimes Bradycardic 5. Hypothyroidism continue Hormonal replacement 6. Obesity strongly recommended diet and exercise. 7. Alcohol abuse and dependency he states drinks more than six Beers daily and One bottle of Wine daily, prepare for Withdrawal CIWA protocol started and following 8. chronic swollen legs he states secondary to his chronic Prednisone intake 9. History of Temporal Arteritis management with Chronic Prednisone use. 10 mg daily 10. Prostate Cancer history status post Radiation therapy DVT prophylaxis with Heparin drip continue present care. Code Status Full Code Discussed Condition With Patient and nurse Miss Lin. Discharge Planning Once cleared by information specialist. Fidel Mo MD Aug 28, 2017 16:28
[2017-08-28] MEDS ORDERED: methylPREDNISolone SOD SUCC 125 MG/2 ML VIAL IV PUSH ONE (16:45)
[2017-08-28] MEDS ORDERED: IOHEXOL 350 MG/ML 50 ML BTL (for Cath Lab) OTHER ONE (17:20)
[2017-08-28] MEDS ORDERED: IOHEXOL 350 MG/ML 100 ML BTL (for Cath Lab) OTHER ONE (17:20)
[2017-08-28] MEDS ORDERED: HEPARIN-NS/PF INJ 500 ML ONE ×2 (17:29)
[2017-08-28] MEDS ORDERED: diphenhydrAMINE HCL 50 MG/ML VIAL ONE (17:33)
[2017-08-28] MEDS ORDERED: MIDAZOLAM HCL 2 MG/2 ML VIAL ONE (17:33)
[2017-08-28] MEDS ORDERED: FAMOTIDINE 20 MG/2 ML VIAL ONE (17:33)
[2017-08-28] MEDS ORDERED: HEPARIN SODIUM - IV 10,000 UNITS/10 ML VIAL ONE (17:45)
[2017-08-28] MEDS ORDERED: TIROFIBAN INFUSION INJ 250 ML IV ONE (18:13)
[2017-08-28] MEDS ORDERED: CLOPIDOGREL 300 MG TAB ONE (18:13)
[2017-08-28] MEDS: TIROFIBAN INFUSION INJ 250 ML IV SCH (18:20)
[2017-08-28] MEDS ORDERED: SODIUM CHLORIDE 0.9% FLUSH 10 ML FLUSH IV FLUSH PRN (18:30)
[2017-08-28] MEDS ORDERED: CLOPIDOGREL 300 MG TAB PO ONE (18:30)
[2017-08-28] MEDS ORDERED: MISC INFORMATION XX ONE (18:30)
--- NOTE | 2017-08-28 19:00 | CATHPROC ---
[employer] HIS Report Study Information Study Number Admission Scheduled Start Study Start [id number] Aug 27 2017 3:56AM 08/28/2017 Aug 28 2017 5:27PM [place] Service Cardiac Catheterization Admit Source Facility Department Other [facility] - General Car Supervisor Yard Physician and Clinical Staff Initial Lawrence Koehler Rod Straightener Maritza Thakkar BSN Rod Straightener Dayna Mehta,AMBROSE Recorder Evgeny Roy RCIS(BS) Scrub Gerson Torres RCIS(BS) Procedures Performed Procedure Location (Site) Vessel Name Coronary Angiograms LCA Left Coronary Coronary Angiograms RCA Right Coronary L Heart Cath LV Gram-hand inj. LV LV Ventricle Stent LAD Mid Left Coronary Wire insertion Fem Art (right) Femoral Art Equipment Time Associate Media Director Description Size Mfg Part Number Used/Scraped TRANSDUCER, NORMAN [id number] 17:43 LANDON YOUNG * Used W/STOCKCOCK *[id number] [phone] *[id number] [phone] *[id number] [id number] *[id number] [id number] *[id number] [phone] *[id number] [phone] *[id number] 17:43 MEDLINE IND[employer] PACK, CCL CUSTOM * Used *[id number] 17:43 In[employer]ix PACER PEN, SKIN DUAL W/ RULER * Used *[id number] 18:10 MEDTRONIC STENT, 2.75 12 INTEGRITY 2.75 12 Used *[id number] 18:12 [employer] MEDICAL 30 DUDLEY INDEFLATOR Used *[id number] 18:36 [employer] MEDICAL SHEATH, FR6.5 PRELUDE 11CM FR 6.5 038ACT Used *[id number] 17:43 [employer] MEDICAL WIRE, 3MMJ .035 180CM 180CM Used *[id number] 17:43 NAMIC MANIFOLD, 4 PORT * Used *[id number] 17:43 NYCOMED OMNIPAQUE, 350 MG, 150ML 150ML [id number] Used [id number] 17:43 MIRANDA MEDICAL BLANKET,WARM AIR CCL * Used *[id number] 17:43 TERUMO MEDICAL SHEATH, FR4 TERUMO (10CM) FR 4 Used *[id number] 17:48 VOLCANO PRIME WIRE, VERRATA 185CM 185CM [id number] *[id number] Used 18:05 VOLCANO PRIME WIREKYRACATRINA 185CM 185CM 23383 *[id number] Used Equipment Model, Serial, Lot Number and Expiration Data Description Model Number Serial Number Lot Number Expiration Date PRIME WIRESTEPHANI 185CM [id number] 07-22-2020 PRIME WIRE, VERRATA 185CM [id number] 07-22-2020 STENT, 2.75 12 INTEGRITY [id number] 11-28-2018 History: Current Medications Medication Dosage/Unit Route Frequency Last Date/Time Taken ASA Beta Jigar Statins (any) History: Allergies Allergy Reaction morphine CONFUSION oyster extract Anaphylaxis History: Risk Factors Family History of Hypertension Dyslipidemia Previous VT Previous Heart Failure Premature CAD Yes No Yes No No Prior Valve Prior PCI Prior CABG Surgery No No No Cerebrovascular Peripheral Artery Chronic Lung On Dialysis Diabetes Disease Disease Disease No Yes No No No History: Stress Tests Stress or Imaging Studies Performed No History: Other Current Smoker Method Quit Packs a Day Years Used Pack Years Yes Cigarettes 35 Years Ago 1 15 15 Labs Hgb (g/dl) Hct (%) WBC (l/cumm) Platelets (thousands) 11.60-17.00 35.00-51.00 4.00-11.00 150.00-450.00 11.4 32.8 6.8 131 Glucose (mg/dl) BUN (mg/dl) Creatinine (mg/dl) BUN:Creatinine (1:x) 74.00-106.00 7.00-18.00 0.50-1.30 10.00-20.00 97 14 0.6 23.3 Na (meq/l) K (meq/l) 136.00-145.00 3.50-5.10 136 4.4 INR (PTT:PT) 0.90-1.10 1.2 Troponin I (ng/ml) CPK (u/l) CPK-MB (ng/ML) 0.02-0.05 26.00-308.00 0.50-3.60 0.33 17 Not Drawn Medication Medication Total Dose (Bolus/Oral) Medication Total Dosage/Unit 1% XYLOCAINE 20 mL AGGRASTAT BOLUS 50 mL ATROPINE 0.6 mg BENADRYL 50 mg HEPARIN 6800 units PEPCID 20 mg PLAVIX 600 mg VERSED 1 mg Medications (Bolus/Oral) Medication Time Given Dosage/Unit Administered By Reason BENADRYL 08/28/2017 5:36:00 PM 50 mg Maritza Thakkar 50 mg BENADRYL given in lab by Maritza Thakkar BSN in Right Forearm via Peripheral IV. Ordered Lawrence Silva. PEPCID 08/28/2017 5:37:00 PM 20 mg Maritza Thakkar 20 mg PEPCID given in lab by Maritza Thakkar BSN in Right Forearm via Peripheral IV. Ordered by Lawrence Monroe. VERSED 08/28/2017 5:38:00 PM 1 mg Maritza Thakkar 1 mg VERSED given in lab by Maritza Thakkar BSN in Right Forearm via Peripheral IV. Ordered by Lawrence Murcia. ATROPINE 08/28/2017 5:39:00 PM 0.6 mg Maritza Thakkar 0.6 mg ATROPINE given in lab by Maritza Thakkar BSN in Right Forearm via Peripheral IV. Ordered by Lawrence Monroe. 1% XYLOCAINE 08/28/2017 5:39:23 PM 20 mL Lawrence Monroe 20 mL 1% XYLOCAINE given in lab by Lawrence Monroe in Right Groin via Subcutaneous. Ordered by Lawrence Jerome. HEPARIN 08/28/2017 5:46:48 PM 5800 units Maritza Thakkar 5800 units HEPARIN given in lab by Maritza Thakkar BSN in Right Forearm via Peripheral IV. Order ed by Lawrence Monroe. HEPARIN 08/28/2017 6:04:03 PM 1000 units Dayna Mehta 1000 units HEPARIN given in lab by Dayna Mehta, RN in Right Forearm via Peripheral IV. Ordered by Lawrence Monroe. AGGRASTAT BOLUS 08/28/2017 6:17:25 PM 50 mL Maritza Thakkar 50 mL AGGRASTAT BOLUS given in lab by Maritza Thakkar BSN in Right Forearm via Peripheral IV. Or dered by Lawrence Monroe. PLAVIX 08/28/2017 6:27:00 PM 600 mg Maritza Thakkar 600 mg PLAVIX given in lab by Maritza Thakkar BSN via Oral. Ordered by Lawrence Monroe. Medication (Drip) Medication Time Given Dosage/Unit Concentration/Unit Diluent (ml) Solution AGGRASTAT DRIP 08/28/2017 6:20:00 PM 0.155 mcg/kg/min 12.5 mg 250 NaCl .9 0.155 mcg/kg/min AGGRASTAT DRIP given in lab by Maritza Thakkar BSN in Right Forearm via Periphe ral IV. Pump/Drip Flow = 18 ml/hr using NaCl .9 with a concentration of 12.5 mg in 250 ml. Ordered by Lawrence Monroe. IV Solutions 08/28/2017 5:26:56 PM 0 mL (IV) 500 NaCl .9 Patient arrived on IV Solutions in Right Forearm via Peripheral IV. Pump/Drip Flow = 20 ml/hr using N aCl .9. Ordered by Lawrence Monroe. Chronological Log Time Study Chronological Log 16:50:40 MD arrived. 17:20:41 Patient arrived via Bed. 17:20:44 Patient Name, D.O.B, / Armband Verified By R.N. 17:20:46 Consent signed by the physician and the patient and verified by the General Car Supervisor Yard staff. 17:26:49 Pre-op and post- op instructions given; patient acknowledges understanding of instructions. 17:26:49 Verbal Stimulation=2 Physical Stimulation=2 Airway=2 Respiration=2 TOTAL=8. (0=absent, 1=li mited, 2=present) 17:26:50 Presedation assessment performed by General Car Supervisor Yard RN. 17:26:50 Immediate Presedation assesment performed by physician. 17:26:51 Patient has been NPO for More than 6Hrs. 17:26:51 Skin Breakdown- 17:26:52 Patient Warmer Placed on the Table. 17:26:54 Bartolome Prominences Protected 17:26:56 A # 20 IV was noted in the Forearm (right). Grade = 0 Patient arrived on IV Solutions in Right Forearm via Peripheral IV. Pump/Drip Flow = 20 ml/hr u sing NaCl .9. Ordered 17:26:56 by Lawrence Monroe. 17:26:57 History and physical on the chart or being dictated. Vitals capture started with the following parameters, Patient=Adult, Interval=5 min, Initial Pr cwscju=364 mmHg, 17:26:58 Deflation Rate=5 mmHg, Cuff placed on Left Arm 17:27:46 HR=53 bpm, ETHI=875/71 mmhg, SpO2=97.0 %, Resp=18 B/min, Pain=0, Kurt=10, Gillis=2 17:32:35 HR=52 bpm, KFHQ=732/88 mmhg, SpO2=95.0 %, Resp=17 B/min, Pain=0, Kurt=10, Gillis=2 50 mg BENADRYL given in lab by Maritza Thakkar , DANTEN in Right Forearm via Peripheral IV. Ord ered by Fer, 17:36:00 Lawrence. 17:36:28 Pressure channel 1 zeroed. 20 mg PEPCID given in lab by Maritza Thakkar , DANTEN in Right Forearm via Peripheral IV. Order ed by Fer, 17:37:00 Lawrence. 1 mg VERSED given in lab by Maritza Thakkar BSN in Right Forearm via Peripheral IV. Ordere d by Fer, 17:38:00 Lawrence. 17:38:17 HR=48 bpm, INIG=959/79 mmhg, SpO2=95.0 %, Resp=16 B/min, Pain=0, Kurt=10, Gillis=2 0.6 mg ATROPINE given in lab by Martiza Thakkar , DANTEN in Right Forearm via Peripheral IV. Or dered by Fer, 17:39:00 Lawrence. Time Out. Correct patient, correct procedure, correct physician, power injector not loaded with contrast with surgical 17:39:21 team present. Time Out Concurred by MD and individual staff in procedure. 17:39:22 Case Start 20 mL 1% XYLOCAINE given in lab by Lawrence Monroe in Right Groin via Subcutaneous. Ordered by Fer, 17:39:23 Lawrence. 17:39:26 Access site was Right Femoral Artery. 17:39:28 A SHEATH, FR4 TERUMO (10CM) FR 4 was advanced into the Fem Art (right) using the Percutaneo us technique. A JR 4.0 INFINITI CATHETER FR 4 was advanced over a wire. OMNIPAQUE, 350 MG, 150ML 150ML was us ed for 17:39:54 injections. 17:40:01 The LV was manually injected with 8 cc's and visualized. OMNIPAQUE, 350 MG, 150ML 150ML use d. Recorded Pressure: LV, HR=62, Condition=Condition 1 17:40:08 (Left Ventricle) LV 138/10/19 Recorded Pressure: LV, Ao, HR=57, Condition=Condition 1 17:40:24 (Left Ventricle) LV 141/12/20, (Aorta) Ao 136/47/90 17:40:39 The RCA was injected and visualized at various angles. OMNIPAQUE, 350 MG, 150ML 150ML used . Recorded Pressure: Ao, HR=55, Condition=Condition 1 17:40:58 (Aorta) Ao 121/59/83 17:42:19 Catheter was removed A JL 5.0 INFINITI CATHETER FR 4 was advanced over a wire. OMNIPAQUE, 350 MG, 150ML 150ML was us ed for 17:42:26 injections. 17:42:27 The LCA was injected and visualized at various angles. OMNIPAQUE, 350 MG, 150ML 150ML used . 17:42:39 HR=65 bpm, NKBR=346/73 mmhg, SpO2=91.0 %, Resp=16 B/min, Pain=0, Kurt=10, Gillis=2 5800 units HEPARIN given in lab by Maritza Thakkar BSN in Right Forearm via Peripheral IV. Ordered by 17:46:48 Lawrence Monroe. 17:47:12 Reference ECG taken 17:47:38 HR=63 bpm, IWDP=844/71 mmhg, SpO2=92.0 %, Resp=18 B/min, Pain=0, Kurt=10, Gillis=2 17:48:59 Catheter was removed A SHEATH, FR6.5 PRELUDE 11CM FR 6.5 was exchanged in the Fem Art (right). This was necessary in order to 17:49:00 accomodate a larger catheter. A XB 4.0 GUIDE CATHETER FR 6 was advanced over a wire. OMNIPAQUE, 350 MG, 150ML 150ML was used for 17:49:34 injections. 17:50:34 Activated Clotting Time Drawn 17:50:38 ACT (Normal Range 90-180) = 170 17:51:24 Catheter was removed A XB 3.5 GUIDE CATHETER FR 6 was advanced over a wire. OMNIPAQUE, 350 MG, 150ML 150ML was used for 17:51:25 injections. 17:52:41 HR=62 bpm, OQBY=490/68 mmhg, SpO2=97.0 %, Resp=21 B/min, Pain=0, Kurt=10, Gillis=2 A JL 5.0 GUIDE CATHETER FR 7 was advanced over a wire. OMNIPAQUE, 350 MG, 150ML 150ML was used for 17:55:30 injections. 17:57:38 HR=65 bpm, JYIE=882/74 mmhg, SpO2=92.0 %, Resp=22 B/min 17:57:39 Catheter was removed 17:58:35 A AL 2 GUIDE CATHETER FR 6 was advanced over a wire. OMNIPAQUE, 350 MG, 150ML 150ML was use d for injections. 18:01:18 A PRIME WIRE, VERRATA 185CM 185CM was inserted via Fem Art (right). 18:02:39 HR=62 bpm, EWYS=839/71 mmhg, Resp=20 B/min, Pain=0, Kurt=10, Gillis=2 18:03:44 Activated Clotting Time Drawn 18:03:57 ACT (Normal Range 90-180) = 246 1000 units HEPARIN given in lab by Dayna Mehta RN in Right Forearm via Peripheral IV. Orde red by Fer, 18:04:03 Lawrence. 18:07:00 Interventional wire has crossed the lesion 18:07:43 HR=55 bpm, ZJOD=967/68 mmhg, SpO2=94.0 %, Resp=15 B/min, Pain=0, Kurt=10, Gillis=2 18:10:32 Flow Wire was was placed in the LAD Mid. The FFR measures ~FFR~ percent. The IFR measures 0 .69 Percent. An STENT, 2.75 12 INTEGRITY 2.75 12 Bare Metal Stent was inserted through a AL 2 GUIDE CATHETER FR 6 over a 18:11:28 PRIME WIRE, VERRATA 185CM 185CM. A STENT, 2.75 12 INTEGRITY 2.75 12 was deployed using a 30 DUDLEY INDEFLATOR at 9 atmospheres for 15 seconds in 18:11:30 the LAD Mid. 18:12:44 HR=60 bpm, BGUE=701/74 mmhg, SpO2=93.0 %, Resp=16 B/min, Pain=0, Kurt=10, Gillis=2 18:14:29 Delivery device removed 18:15:32 Case End 18:15:40 Activated Clotting Time Drawn 50 mL AGGRASTAT BOLUS given in lab by Maritza Thakkar BSN in Right Forearm via Peripheral IV. Ordered by 18:17:25 Lawrence Monroe. 18:17:45 HR=56 bpm, KKZV=042/73 mmhg, SpO2=93.0 %, Resp=11 B/min, Pain=0, Kurt=10, Gillis=2 0.155 mcg/kg/min AGGRASTAT DRIP given in lab by Maritza Thakkar BSN in Right Forearm via P eripheral IV. 18:20:00 Pump/Drip Flow = 18 ml/hr using NaCl .9 with a concentration of 12.5 mg in 250 ml. Ordered by Lawrence Murcia. 18:22:13 Vitals capture stopped. 18:22:14 ACT (Normal Range 90-180) = 273 18:22:59 In the Fem Art (right) the SHEATH, FR6.5 PRELUDE 11CM FR 6.[address] by Lawrence Jerome. 18:26:43 Sterile dressing applied to site 18:26:44 No case complications noted. 18:26:45 Cine recording checked. 18:26:48 Bedside Report will be given. 18:26:49 Implantable Device card placed in patient's chart. 18:26:50 Contrast Scanned 18:26:55 A Left Heart Cath was performed. 18:27:00 600 mg PLAVIX given in lab by Maritza Thakkar BSN via Oral. Ordered by Baltazar Monroe. 18:27:30 Patient moved to [facility] End Study - Contrast Media Used In Study Contrast Total Opened (mL) Total Used (mL) Total Wasted (mL) Omnipaque 135 135 0 End Study - Maximum Contrast Load Max Contrast Load (mL) 808.3 End Study - Radiation Exposure Fluoro Time (minutes) 11.1 End Study - Patient Disposition Complications Transferred To Interventional Outcome No Critical Care Bed successful
[2017-08-28] MEDS: LORazepam 2 MG/ML VIAL IV PUSH PRN ×3 (19:26→20:37)
[2017-08-29] VITALS (27 sets, daily range): BP systolic 122–158; BP diastolic 70–95; PULSE 47–73; RESP 14–24; TEMP 96.6–97.9; O2SAT 93–99
[2017-08-29 04:50] LABS: AUTOMATED NEUTROPHIL # 5.5 TH/MM3 (1.8-7.7); BASOPHIL % 0.1 % (0.0-2.0); HEMATOCRIT 32.9 % (39.0-51.0); HEMO FLAGS DIFF FINAL; LYMPH % 4.6 % (9.0-44.0); LYMPHOCYTE # 0.3 TH/MM3 (1.0-4.8); MEAN CELL VOLUME 93.4 FL (80.0-100.0); MEAN CORPUSCULAR HEMOGLOBIN 32.9 PG (27.0-34.0); MEAN CORPUSCULAR HGB CONC 35.2 % (32.0-36.0); MONO % 1.2 % (0.0-8.0); NEUT % 94.1 % (16.0-70.0); PLATELET COUNT 131 TH/MM3 (150-450); RED BLOOD COUNT 3.52 MIL/MM3 (4.50-5.90); RED CELL DISTRIBUTION WIDTH 12.9 % (11.6-17.2); WHITE BLOOD COUNT 5.9 TH/MM3 (4.0-11.0)
[2017-08-29 05:20] LABS: HDL CHOLESTEROL 70.2 MG/DL (40.0-60.0); POTASSIUM 3.5 MEQ/L (3.5-5.1)
[2017-08-29] MEDS: LEVOTHYROXINE SODIUM 112 MCG TAB PO SCH (06:00)
[2017-08-29] MEDS: TIROFIBAN INFUSION INJ 250 ML IV SCH (06:04)
[2017-08-29] MEDS: SODIUM CHLOR 0.9% 1000 ML INJ 1,000 ML IV SCH ×2 (06:04→11:59)
[2017-08-29] MEDS: LORazepam 2 MG/ML VIAL IV PUSH PRN (06:19)
--- NOTE | 2017-08-29 08:01 | MA ---
cc: JEANNINE BUENO M.D. DATE 08/28/2017 PROCEDURE PERFORMED Left heart catheterization, left ventriculography, coronary angiography, IFR of the mid-LAD bare metal stent placement of the mid-LAD. INDICATION Non-STEMI. New onset atrial fibrillation. Coronary artery disease. DESCRIPTION OF PROCEDURE 4-[place] JR4 and JL5 diagnostic catheters were used to perform left and right coronary angiography and left ventriculography. FINDINGS LV pressures: 120/16-17. Ejection fraction is 55%. The left ventricle appears to be mildly enlarged fluoroscopically. CORONARY ANGIOGRAPHY The right coronary artery is large and dominant. There is mild plaque in the mid-segment and the distal segment up to 10-20% angiographically. It is a large vessel probably 4.5 mm in diameter throughout most of its length and tapering to about a 4-mm vessel distally. The left main coronary artery has no significant disease angiographically. The left circumflex vessel has an ostial 50% stenosis. This supplies a small distal posterolateral artery which itself has no significant coronary disease. The LAD is transapical. There is a mid to distal 70% stenosis. The first diagonal artery is a large vessel which has a proximal bifurcation in the medial branch, has an ostial 80% stenosis. The more lateral branch has an ostial 40% stenosis. The more lateral branch is a 3.5 to 4 mm diameter vessel. The left main has an ostial 45% stenosis which I can only appreciate in the cranial view, did not see it in the JESSICA caudal or SLAUGHTER caudal views. INTERVENTION The 6-[place] sheath was exchanged for a 4-[place] sheath. 60 units/kg of heparin was given, ACT was 246. An additional 1000 units of heparin was given as it took multiple attempts to engage the left main with the catheter. Final ACT was 273. I tried to engage the left main coronary artery with a 6-[place] XB 4.0 guide. A 6-[place] XB 3.5 guide, a 6-[place] JL5 guide, all unsuccessful. I was able to cannulate the ostium of the left main with a 6-[place] AL2 guide. I then placed a 0.014 Garrard pressure wire into the proximal LAD. The introducer was removed and the guide catheter was thoroughly flushed with 30 cc of normal saline. Pressure wave form and normalization was then performed. I then crossed the mid-LAD lesion. IFR was 0.69. Based on the IFR of 0.69, I made the decision to proceed to PCI of the mid-LAD. I placed a 2.75/12 Integrity stent directly. One inflation to 16 atmospheres for 20 seconds. NOTE: The distal segment of the stent was not fully deployed but this was at maximal pressure. Stenosis went from 70% to 0% with JAIME-3 flow. CONCLUSIONS 1. Non-STEMI culprit 70% mid-LAD lesion with an IFR of 0.69. 2. Otherwise 50% ostial left circumflex and 80% small medial branch of the first diagonal artery, as detailed above. Mild disease in the right coronary artery. 3. Normal LV systolic function at 55%. 4. IFR of the mid-LAD equal to 0.69. 5. Successful PCI with bare metal stent of the mid-LAD from 70% to 0% with JAIME-3 flow. RECOMMENDATIONS 1. Recommend Plavix 600 mg p.o. load, then 75 mg/day for 12-15 months. 2. Aspirin 162 mg daily. 3. Aggrastat drip per protocol. 4. We will treat lipids per NCP guidelines. The patient is bradycardic, therefore beta blockers are contrindicated. We will start AKHIL inhibitor if there are no contraindications from a renal standpoint or hemodynamic standpoint. 5. Strongly recommend alcohol cessation. MD ADRIAN Dash/RADHA /6:26 PM /7:43 AM
[2017-08-29] MEDS: CLOPIDOGREL 75 MG TAB PO SCH (08:37)
[2017-08-29] MEDS: ASPIRIN 81 MG CHEW TAB PO SCH (08:39)
[2017-08-29] MEDS: LISINOPRIL 10 MG TAB PO SCH (08:41)
[2017-08-29] MEDS: CARVEDILOL 3.125 MG TAB PO SCH ×2 (08:43→21:47)
[2017-08-29] MEDS: HYDROCHLOROTHIAZIDE 25 MG TAB PO SCH (08:44)
[2017-08-29] MEDS: predniSONE 10 MG TAB PO SCH (08:45)
[2017-08-29] MEDS: MULTIVITAMIN TAB PO SCH (08:47)
[2017-08-29] MEDS: SODIUM CHLORIDE 0.9% FLUSH 10 ML FLUSH IV FLUSH SCH ×2 (08:52→21:00)
[2017-08-29] MEDS: FAMOTIDINE 20 MG/2 ML VIAL IV PUSH SCH ×2 (08:56→21:48)
[2017-08-29 09:30] LABS: APTT (PATIENT) 31.5 SEC (24.3-30.1)
[2017-08-29] MEDS: MAGNESIUM OXIDE 400 MG TAB PO SCH ×2 (11:08→23:00)
[2017-08-29] MEDS: MULTIVITAMIN INJ 10 ML, FOLIC ACID INJ 1 MG in SODIUM CHLORID 0.9% 500 ML INJ 500 ML IV SCH (11:58)
[2017-08-29] MEDS: THIAMINE INJ 100 MG in SODIUM CHLORIDE 0.9% INJ 100 ML IV SCH (11:59)
--- NOTE | 2017-08-29 13:23 | PD.CARD.PN ---
Subjective Subjective Remarks restrained, in nad Objective Medications Current Medications Medications (Trade) Dose Ordered Sig/Katherine Route Start Time Stop Time Status Last Admin (Nitrostat Sl) 0.4 mg Q5M PRN SL 08/27/17 03:30 08/27/17 04:51 (Tylenol) 500 mg Q4H PRN PO 08/27/17 04:00 (Morphine Inj) 2 mg Q3HR PRN IV PUSH 08/27/17 04:00 08/27/17 09:02 (Hydrodiuril) 25 mg DAILY PO 08/27/17 09:00 08/29/17 08:44 (Synthroid) 112 mcg DAILY@0600 PO 08/27/17 09:30 08/28/17 06:06 (Prinivil) 10 mg DAILY PO 08/27/17 09:00 08/29/17 08:41 (Deltasone) 10 mg DAILY PO 08/27/17 09:00 08/29/17 08:45 (Theragran) 1 tab DAILY PO 08/27/17 09:00 08/28/17 09:13 (Lipitor) 80 mg HS PO 08/27/17 21:00 08/28/17 00:01 Multivitamins 10 ml/Folic Acid 1 mg/Sodium Chloride 510.2 ml @ 125 mls/hr Q24H IV 08/27/17 10:00 09/01/17 09:59 08/29/17 11:58 Thiamine HCl 100 mg/Sodium Chloride 101 ml @ 100 mls/hr Q24H IV 08/27/17 10:00 08/30/17 09:59 08/29/17 11:59 (Vitamin B1) 100 mg DAILY PO 08/31/17 09:00 (Romazicon Inj) 0.2 mg Q1M PRN IV PUSH 08/27/17 09:30 (Ativan) 1 mg Q4H PRN PO 08/27/17 09:30 (Ativan Inj) 1 mg Q4H PRN IV PUSH 08/27/17 09:30 08/29/17 06:19 (Ativan) 2 mg Q2H PRN PO 08/27/17 09:30 (Ativan Inj) 2 mg Q2H PRN IV PUSH 08/27/17 09:30 08/28/17 20:01 (Ativan Inj) 2 mg Q1H PRN IV PUSH 08/27/17 09:30 08/29/17 02:00 (Ativan Inj) 2 mg Q15M PRN IV PUSH 08/27/17 09:30 08/28/17 20:37 (Pepcid Inj) 20 mg Q12H IV PUSH 08/27/17 09:30 08/29/17 08:56 (Coreg) 3.125 mg Q12HR PO 08/27/17 21:00 08/29/17 08:43 (Mag-Ox) 400 mg Q12H PO 08/27/17 23:00 08/29/17 11:08 Nitroglycerin/ Dextrose 250 ml @ 1.5 mls/hr TITRATE PRN IV 08/27/17 10:30 Sodium Chloride 1,000 ml @ 84 mls/hr [id number] IV 08/28/17 11:00 08/29/17 11:59 (NS Flush) 2 ml UNSCH PRN IV FLUSH 08/28/17 18:30 (NS Flush) 2 ml BID IV FLUSH 08/28/17 21:00 08/28/17 21:00 (Aspirin Chew) 162 mg DAILY PO 08/29/17 09:00 08/29/17 08:39 (Plavix) 75 mg DAILY PO 08/29/17 09:00 08/29/17 08:37 Vital Signs / I&O Vital Signs Date Time Temp Pulse Resp B/P (MAP) Pulse Ox O2 Delivery O2 Flow Rate FiO2 08/29/17 11:00 96.6 63 14 148/83 (104) 93 08/29/17 07:15 96.8 67 14 148/82 (104) 96 08/29/17 06:00 66 08/29/17 05:07 97.8 73 16 142/94 (110) 96 08/29/17 05:04 98 Nasal Cannula 2.00 08/29/17 05:00 66 08/29/17 04:00 64 08/29/17 03:00 50 08/29/17 02:00 60 08/29/17 01:00 56 08/29/17 00:12 97.8 60 16 122/70 (87) 96 08/29/17 00:06 96 Nasal Cannula 2.00 08/29/17 00:00 56 08/28/17 23:00 61 08/28/17 22:00 58 08/28/17 21:00 52 08/28/17 20:30 93 Nasal Cannula 2.00 08/28/17 20:00 96.9 60 16 147/67 (93) 90 08/28/17 20:00 58 08/28/17 19:00 58 08/28/17 17:00 50 08/28/17 16:00 45 08/28/17 15:28 98.3 52 16 118/56 (76) 94 08/28/17 15:04 93 Room Air 08/28/17 15:00 44 08/28/17 14:00 46 I/O 08/28/17 08/28/17 08/28/17 08/29/17 08/29/17 08/29/17 07:00 15:00 23:00 07:00 15:00 23:00 Intake Total 1032 ml 1127 ml 1362 ml 712 ml Output Total 872 ml 720 ml 350 ml Balance 160 ml 407 ml 1012 ml 712 ml Intake Oral 240 ml 240 ml IV Total 792 ml 1127 ml 1122 ml 712 ml Output Urine Total 872 ml 720 ml 350 ml # Voids 1 # Bowel Movements 0 Physical Exam GENERAL: SKIN: Warm and dry. HEAD: Normocephalic. EYES: No scleral icterus. No injection or drainage. NECK: Supple, trachea midline. No JVD or lymphadenopathy. CARDIOVASCULAR: Regular rate and rhythm without murmurs, gallops, or rubs. RESPIRATORY: Breath sounds equal bilaterally. No accessory muscle use. GASTROINTESTINAL: Abdomen soft, non-tender, nondistended. MUSCULOSKELETAL: No cyanosis, or edema. BACK: Nontender without obvious deformity. No CVA tenderness. Laboratory Laboratory Tests Test 08/29/17 04:19 08/29/17 09:06 White Blood Count 5.9 TH/MM3 Red Blood Count 3.52 MIL/MM3 Hemoglobin 11.6 GM/DL Hematocrit 32.9 % Mean Corpuscular Volume 93.4 FL Mean Corpuscular Hemoglobin 32.9 PG Mean Corpuscular Hemoglobin Concent 35.2 % Red Cell Distribution Width 12.9 % Platelet Count 131 TH/MM3 Mean Platelet Volume 8.6 FL Neutrophils (%) (Auto) 94.1 % Lymphocytes (%) (Auto) 4.6 % Monocytes (%) (Auto) 1.2 % Eosinophils (%) (Auto) 0.0 % Basophils (%) (Auto) 0.1 % Neutrophils # (Auto) 5.5 TH/MM3 Lymphocytes # (Auto) 0.3 TH/MM3 Monocytes # (Auto) 0.1 TH/MM3 Eosinophils # (Auto) 0.0 TH/MM3 Basophils # (Auto) 0.0 TH/MM3 CBC Comment DIFF FINAL Differential Comment Blood Urea Nitrogen 13 MG/DL Creatinine 0.65 MG/DL Random Glucose 142 MG/DL Calcium Level 8.0 MG/DL Sodium Level 136 MEQ/L Potassium Level 3.5 MEQ/L Chloride Level 102 MEQ/L Carbon Dioxide Level 24.0 MEQ/L Anion Gap 10 MEQ/L Estimat Glomerular Filtration Rate 119 ML/MIN Total Creatine Kinase 22 U/L Triglycerides Level 36 MG/DL Cholesterol Level 141 MG/DL LDL Cholesterol 64 MG/DL HDL Cholesterol 70.2 MG/DL Cholesterol/HDL Ratio 2.00 RATIO Activated Partial Thromboplast Time 31.5 SEC Assessment and Plan Problem List: (1) NSTEMI (non-ST elevated myocardial infarction) ICD Codes: I21.4 - Non-ST elevation (NSTEMI) myocardial infarction (2) CAD (coronary artery disease) ICD Codes: I25.10 - Atherosclerotic heart disease of [place] coronary artery without angina pectoris (3) Altered mental status ICD Codes: R41.82 - Altered mental status, unspecified (4) ETOH abuse ICD Codes: F10.10 - Alcohol abuse, uncomplicated Assessment and Plan 1.) CAD -0 Code Status 1.) CAD - s/p pci mid lad, continue aspirin, plavix 2.) AMS - started after benedryl and versed administration prior to cath, reconsult neurology, d/w nurse at nursing station Lawrence Monroe MD Aug 29, 2017 13:23
--- NOTE | 2017-08-29 13:31 | HHI.PR ---
Subjective Remarks This is a pleasant 76 y/o Male with Atrial Fibrillation, Prostate Cancer History , GERD, Hypertension, Hypothyroidism, former Smoker who came to ER at 10:30 PM yesterday night with Atypical Chest pain, that started while he was sitting watching television, the Pain is sharp, constant, midsternal. Nonradiating and associated with diaphoresis. Denies any nausea, sob, vomiting, abdominal pain, focal weakness or numbness. Said pain relieved after sublingual nitro and aspirin given by [facility]. 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 Seen in his bedroom in Critical Care Unit in the presence of nurse Abhishek Telly and his Friend Miss Allegra Moreno, the patient continue with chest pain, 10/10 in intensity as a Sharp sensation, non radiated on precordial area and continuous. Doctor Fer appointment specialist consulted and will come to evaluate the patient. 08/28: Stable in his bedroom seen in the presence of nurse Miss Bookerie, no nausea , vomit or diarrhea, later today will go for Cardiac Catheterization. 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 at this time restrained, his Primary appointment specialist Doctor Fer asked for Neurology specialist evaluation, I saw the patient in the room Delia, will replace electrolytes and complete laboratory with Ammonia level and Vitamin levels. continue Banana Bag. Objective Vital Signs Date Time Temp Pulse Resp B/P (MAP) Pulse Ox O2 Delivery O2 Flow Rate FiO2 08/29/17 11:00 93 Nasal Cannula 3.00 08/29/17 11:00 96.6 63 14 148/83 (104) 93 08/29/17 07:15 96.8 67 14 148/82 (104) 96 08/29/17 07:00 96 Nasal Cannula 3.00 08/29/17 06:00 66 08/29/17 05:07 97.8 73 16 142/94 (110) 96 08/29/17 05:04 98 Nasal Cannula 2.00 08/29/17 05:00 66 08/29/17 04:00 64 08/29/17 03:00 50 08/29/17 02:00 60 08/29/17 01:00 56 08/29/17 00:12 97.8 60 16 122/70 (87) 96 08/29/17 00:06 96 Nasal Cannula 2.00 08/29/17 00:00 56 08/28/17 23:00 61 08/28/17 22:00 58 08/28/17 21:00 52 08/28/17 20:30 93 Nasal Cannula 2.00 08/28/17 20:00 96.9 60 16 147/67 (93) 90 08/28/17 20:00 58 08/28/17 19:00 58 08/28/17 17:00 50 08/28/17 16:00 45 08/28/17 15:28 98.3 52 16 118/56 (76) 94 08/28/17 15:04 93 Room Air 08/28/17 15:00 44 08/28/17 14:00 46 I/O 08/28/17 08/28/17 08/28/17 08/29/17 08/29/17 08/29/17 07:00 15:00 23:00 07:00 15:00 23:00 Intake Total 1032 ml 1127 ml 1362 ml 712 ml Output Total 872 ml 720 ml 350 ml Balance 160 ml 407 ml 1012 ml 712 ml Intake Oral 240 ml 240 ml IV Total 792 ml 1127 ml 1122 ml 712 ml Output Urine Total 872 ml 720 ml 350 ml # Voids 1 # Bowel Movements 0 Result Diagram: 08/29/17 0419 08/29/17 0419 Imaging Last Impressions Chest X-Ray 08/27/17 0152 Signed Impressions: Service Date/Time: Sunday, August 27, 2017 01:03 - CONCLUSION: Chronic cardiac silhouette enlargement. No acute cardiopulmonary disease identified. Krystian Spicer MD Head CT 08/27/17 0000 Signed Impressions: Service Date/Time: Sunday, August 27, 2017 17:48 - CONCLUSION: 1. No acute intracranial abnormality demonstrated. 2. 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 3. Right parietal ventriculostomy catheter present. No ventriculomegaly or other acute complication demonstrated. Jose Dimas MD Procedures None Other Results Laboratory Tests Test 08/27/17 07:10 08/27/17 11:15 08/27/17 14:25 08/28/17 04:11 Prothrombin Time 13.4 SEC Prothromb Time International Ratio 1.2 RATIO Hemoglobin A1c 5.6 % Vitamin B12 Level 423 PG/ML Free Thyroxine 0.90 NG/DL Thyroid Stimulating Hormone 3rd Gen 12.200 uIU/ML Troponin I 0.33 NG/ML Blood Urea Nitrogen 14 MG/DL Creatinine 0.68 MG/DL Random Glucose 97 MG/DL Calcium Level 8.3 MG/DL Magnesium Level 2.1 MG/DL Sodium Level 136 MEQ/L Potassium Level 4.4 MEQ/L Chloride Level 99 MEQ/L Carbon Dioxide Level 29.6 MEQ/L Test 08/29/17 04:19 08/29/17 09:06 White Blood Count 5.9 TH/MM3 Red Blood Count 3.52 MIL/MM3 Hemoglobin 11.6 GM/DL Hematocrit 32.9 % Mean Corpuscular Volume 93.4 FL Mean Corpuscular Hemoglobin 32.9 PG Mean Corpuscular Hemoglobin Concent 35.2 % Red Cell Distribution Width 12.9 % Platelet Count 131 TH/MM3 Mean Platelet Volume 8.6 FL Neutrophils (%) (Auto) 94.1 % Lymphocytes (%) (Auto) 4.6 % Monocytes (%) (Auto) 1.2 % Eosinophils (%) (Auto) 0.0 % Basophils (%) (Auto) 0.1 % Neutrophils # (Auto) 5.5 TH/MM3 Lymphocytes # (Auto) 0.3 TH/MM3 Monocytes # (Auto) 0.1 TH/MM3 Eosinophils # (Auto) 0.0 TH/MM3 Basophils # (Auto) 0.0 TH/MM3 CBC Comment DIFF FINAL Differential Comment Blood Urea Nitrogen 13 MG/DL Creatinine 0.65 MG/DL Random Glucose 142 MG/DL Calcium Level 8.0 MG/DL Sodium Level 136 MEQ/L Potassium Level 3.5 MEQ/L Chloride Level 102 MEQ/L Carbon Dioxide Level 24.0 MEQ/L Anion Gap 10 MEQ/L Estimat Glomerular Filtration Rate 119 ML/MIN Total Creatine Kinase 22 U/L Triglycerides Level 36 MG/DL Cholesterol Level 141 MG/DL LDL Cholesterol 64 MG/DL HDL Cholesterol 70.2 MG/DL Cholesterol/HDL Ratio 2.00 RATIO Activated Partial Thromboplast Time 31.5 SEC Objective Remarks GENERAL: Obese patient, no acute distress. SKIN: Focused skin assessment warm/dry. HEAD: Atraumatic. Normocephalic. EYES: Pupils equal and round. No scleral icterus. No injection or drainage. ENT: No nasal bleeding or discharge. Mucous membranes pink and moist. NECK: Trachea midline. No JVD. CARDIOVASCULAR: Regular rate and rhythm. No murmur appreciated. RESPIRATORY: No accessory muscle use. Clear to auscultation. Breath sounds equal bilaterally. GASTROINTESTINAL: Abdomen soft, non-tender, nondistended. MUSCULOSKELETAL: No obvious deformities. No clubbing. No cyanosis. +Bilateral lower ext edema. 3+ NEUROLOGICAL: Alert no focal deficits. PSYCHIATRIC: difficult to evaluate. Medications and IVs Current Medications Medications (Trade) Dose Ordered Sig/Katherine Route Start Time Stop Time Status Last Admin (Nitrostat Sl) 0.4 mg Q5M PRN SL 08/27/17 03:30 08/27/17 04:51 (Tylenol) 500 mg Q4H PRN PO 08/27/17 04:00 (Morphine Inj) 2 mg Q3HR PRN IV PUSH 08/27/17 04:00 08/27/17 09:02 (Hydrodiuril) 25 mg DAILY PO 08/27/17 09:00 08/29/17 08:44 (Synthroid) 112 mcg DAILY@0600 PO 08/27/17 09:30 08/28/17 06:06 (Prinivil) 10 mg DAILY PO 08/27/17 09:00 08/29/17 08:41 (Deltasone) 10 mg DAILY PO 08/27/17 09:00 08/29/17 08:45 (Theragran) 1 tab DAILY PO 08/27/17 09:00 08/28/17 09:13 (Lipitor) 80 mg HS PO 08/27/17 21:00 08/28/17 00:01 Multivitamins 10 ml/Folic Acid 1 mg/Sodium Chloride 510.2 ml @ 125 mls/hr Q24H IV 08/27/17 10:00 09/01/17 09:59 08/29/17 11:58 Thiamine HCl 100 mg/Sodium Chloride 101 ml @ 100 mls/hr Q24H IV 08/27/17 10:00 08/30/17 09:59 08/29/17 11:59 (Vitamin B1) 100 mg DAILY PO 08/31/17 09:00 (Romazicon Inj) 0.2 mg Q1M PRN IV PUSH 08/27/17 09:30 (Ativan) 1 mg Q4H PRN PO 08/27/17 09:30 (Ativan Inj) 1 mg Q4H PRN IV PUSH 08/27/17 09:30 08/29/17 06:19 (Ativan) 2 mg Q2H PRN PO 08/27/17 09:30 (Ativan Inj) 2 mg Q2H PRN IV PUSH 08/27/17 09:30 08/28/17 20:01 (Ativan Inj) 2 mg Q1H PRN IV PUSH 08/27/17 09:30 08/29/17 02:00 (Ativan Inj) 2 mg Q15M PRN IV PUSH 08/27/17 09:30 08/28/17 20:37 (Pepcid Inj) 20 mg Q12H IV PUSH 08/27/17 09:30 08/29/17 08:56 (Coreg) 3.125 mg Q12HR PO 08/27/17 21:00 08/29/17 08:43 (Mag-Ox) 400 mg Q12H PO 08/27/17 23:00 08/29/17 11:08 Nitroglycerin/ Dextrose 250 ml @ 1.5 mls/hr TITRATE PRN IV 08/27/17 10:30 Sodium Chloride 1,000 ml @ 84 mls/hr [id number] IV 08/28/17 11:00 08/29/17 11:59 (NS Flush) 2 ml UNSCH PRN IV FLUSH 08/28/17 18:30 (NS Flush) 2 ml BID IV FLUSH 08/28/17 21:00 08/28/17 21:00 (Aspirin Chew) 162 mg DAILY PO 08/29/17 09:00 08/29/17 08:39 (Plavix) 75 mg DAILY PO 08/29/17 09:00 08/29/17 08:37 A/P Assessment and Plan 1. NSTEMI Atypical Chest pain he had an ECG in ER showing no ST segment elevation or depression, on Morphine, Oxygen as needed High intensity statins, will need Beta Blockers at this time with Bradycardia will follow to start this medicine once possible, awaiting for appointment specialist, continue Cardiac Monitoring, Cardiac Enzymes trending down, status post Cardiac Cath found Mid LAD lesion, 50% ostial left circumflex and 80% small medial branch of the first diagonal artery. EF 55%, successful PCI with BMS to Mid LAD from 70% to 1%, recommended to continue Plavix and Aspirin. Aggrastat drip per protocol. as per Doctor Lawrence Monroe. 2. New Onset of Atrial Fibrillation started on Beta blockers by appointment specialist at this time Bradycardia discontinued BB by Cardiology. 3. GERD on Famotidine 4. Hypertension controlled continue Lisinopril low dose. will need Beta Blockers once he improves his Heart rate sometimes Bradycardic 5. Hypothyroidism continue Hormonal replacement 6. Obesity strongly recommended diet and exercise. 7. Alcohol abuse and dependency at this time having Encephalopathy due to alcohol withdrawal, continue CIWA protocol, Banana bag Ammonia level and replace electrolytes, lactulose. ammonia level 32, as per Cardiology neurology specialist consult to rule out ANS. 8. chronic swollen legs he states secondary to his chronic Prednisone intake 9. History of Temporal Arteritis management with Chronic Prednisone use. 10 mg daily 10. Prostate Cancer history status post Radiation therapy DVT prophylaxis with Heparin drip continue present care. Code Status Full Code Discussed Condition With Patient and nurse Miss Lin. Discharge Planning Once cleared by appointment specialist. Fidel Mo MD Aug 29, 2017 13:31
[2017-08-29] MEDS: POTASSIUM CHLOR 10 MEQ PREMIX 100 ML IV SCH ×3 (17:45→23:10)
[2017-08-29] MEDS ORDERED: QUEtiapine FUMARATE 25 MG TAB PO PRN (18:30)
--- NOTE | 2017-08-29 18:45 | EKG ---
Date Performed: 08/28/2017 Time Performed: 19:02:04 PTAGE: 76 years EKG: Atrial fibrillation with slow ventricular response. Possible septal infarct - age undetermi kenya Inferior T wave changes are nonspecific Abnormal ECG Compared to prior tracing no significant zulay nge PREVIOUS TRACING : 08/27/2017 13.56 DOCTOR: Daya Tipton Interpretating Date/Time 08/29/2017 18:44:38
--- NOTE | 2017-08-29 21:43 | HHI.PR ---
Review/Management Diagnosis 1. 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 2. Neurologic examination is nonfocal. 3. Neurologic investigation did not reveal an acute intracranial abnormality. 4. Stable [employer] shunt, uncomplicated. 5. Alcohol abuse, daily Plan - Neuro checks Q1h - No Benzodiazepines - Seroquel 50mg prn nightly - MRI brain - DVT prophylaxis - Fall precautions - CIWA protocol Diagnosis/Plan: Subjective Subjective Comments Requested by Dr. Monroe to see for an episode of agitation, disorientation, and being combative over night Patient is asleep at time of encounter RN describes an episode of disorientation, agitation, after the cardiac procedure and last night No reported seizure activity, no slurred speech, no reported extremity weakness Received Lorazepam twice after which he become more agitated Active Medications Current Medications Medications (Trade) Dose Ordered Sig/Katherine Route Start Time Stop Time Status Last Admin (Nitrostat Sl) 0.4 mg Q5M PRN SL 08/27/17 03:30 08/27/17 04:51 (Tylenol) 500 mg Q4H PRN PO 08/27/17 04:00 (Morphine Inj) 2 mg Q3HR PRN IV PUSH 08/27/17 04:00 08/27/17 09:02 (Hydrodiuril) 25 mg DAILY PO 08/27/17 09:00 08/29/17 08:44 (Synthroid) 112 mcg DAILY@0600 PO 08/27/17 09:30 08/28/17 06:06 (Prinivil) 10 mg DAILY PO 08/27/17 09:00 08/29/17 08:41 (Deltasone) 10 mg DAILY PO 08/27/17 09:00 08/29/17 08:45 (Theragran) 1 tab DAILY PO 08/27/17 09:00 08/28/17 09:13 (Lipitor) 80 mg HS PO 08/27/17 21:00 08/28/17 00:01 Multivitamins 10 ml/Folic Acid 1 mg/Sodium Chloride 510.2 ml @ 125 mls/hr Q24H IV 08/27/17 10:00 09/01/17 09:59 08/29/17 11:58 Thiamine HCl 100 mg/Sodium Chloride 101 ml @ 100 mls/hr Q24H IV 08/27/17 10:00 08/30/17 09:59 08/29/17 11:59 (Vitamin B1) 100 mg DAILY PO 08/31/17 09:00 (Romazicon Inj) 0.2 mg Q1M PRN IV PUSH 08/27/17 09:30 (Pepcid Inj) 20 mg Q12H IV PUSH 08/27/17 09:30 08/29/17 08:56 (Coreg) 3.125 mg Q12HR PO 08/27/17 21:00 08/29/17 08:43 (Mag-Ox) 400 mg Q12H PO 08/27/17 23:00 08/29/17 11:08 Nitroglycerin/ Dextrose 250 ml @ 1.5 mls/hr TITRATE PRN IV 08/27/17 10:30 Sodium Chloride 1,000 ml @ 84 mls/hr [id number] IV 08/28/17 11:00 08/29/17 11:59 (NS Flush) 2 ml UNSCH PRN IV FLUSH 08/28/17 18:30 (NS Flush) 2 ml BID IV FLUSH 08/28/17 21:00 08/28/17 21:00 (Aspirin Chew) 162 mg DAILY PO 08/29/17 09:00 08/29/17 08:39 (Plavix) 75 mg DAILY PO 08/29/17 09:00 08/29/17 08:37 (Lactulose Liq) 30 ml QID PO 08/29/17 18:00 (SEROquel) 50 mg HS PRN PO 08/29/17 18:30 Allergies Allergies Coded Allergies morphine (Verified Allergy, Severe, CONFUSION, 08/27/17) oyster extract (Verified Allergy, Mild, Anaphylaxis, 08/27/17) Review of Systems All other ROS: ROS reviewed as documented in chart Exam I&O / VS 08/29/17 08/29/17 08/30/17 15:00 23:00 07:00 Intake Total 712 ml 1100 ml Balance 712 ml 1100 ml IV Total 712 ml 1100 ml # Voids 5 # Bowel Movements 1 Vital Signs Date Time Temp Pulse Resp B/P (MAP) Pulse Ox O2 Delivery O2 Flow Rate FiO2 08/29/17 18:00 55 08/29/17 17:00 62 08/29/17 16:00 47 08/29/17 15:00 58 08/29/17 15:00 97 Nasal Cannula 2.00 08/29/17 15:00 97.9 60 18 155/71 (99) 97 08/29/17 14:00 66 08/29/17 13:00 62 08/29/17 12:00 58 08/29/17 11:00 93 Nasal Cannula 3.00 08/29/17 11:00 58 08/29/17 11:00 96.6 63 14 148/83 (104) 93 08/29/17 10:00 56 08/29/17 09:00 52 08/29/17 08:00 58 08/29/17 08:00 56 08/29/17 07:15 96.8 67 14 148/82 (104) 96 08/29/17 07:00 49 08/29/17 07:00 96 Nasal Cannula 3.00 08/29/17 06:00 66 08/29/17 05:07 97.8 73 16 142/94 (110) 96 08/29/17 05:04 98 Nasal Cannula 2.00 08/29/17 05:00 66 08/29/17 04:00 64 08/29/17 03:00 50 08/29/17 02:00 60 08/29/17 01:00 56 08/29/17 00:12 97.8 60 16 122/70 (87) 96 08/29/17 00:06 96 Nasal Cannula 2.00 08/29/17 00:00 56 08/28/17 23:00 61 08/28/17 22:00 58 Exam Comments Asleep during the encounter, arousable s/p episode of agitation Objective Radiology Results Last 72 hours Impressions Chest X-Ray 08/27/17 0152 Signed Impressions: Service Date/Time: Sunday, August 27, 2017 01:03 - CONCLUSION: Chronic cardiac silhouette enlargement. No acute cardiopulmonary disease identified. Krystian Spicer MD Head CT 08/27/17 0000 Signed Impressions: Service Date/Time: Sunday, August 27, 2017 17:48 - CONCLUSION: 1. No acute intracranial abnormality demonstrated. 2. 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 3. Right parietal ventriculostomy catheter present. No ventriculomegaly or other acute complication demonstrated. Jose Dimas MD Micro and Labs Laboratory Tests Test 08/29/17 04:19 08/29/17 09:06 08/29/17 13:57 White Blood Count 5.9 Red Blood Count 3.52 Hemoglobin 11.6 Hematocrit 32.9 Mean Corpuscular Volume 93.4 Mean Corpuscular Hemoglobin 32.9 Mean Corpuscular Hemoglobin Concent 35.2 Red Cell Distribution Width 12.9 Platelet Count 131 Mean Platelet Volume 8.6 Neutrophils (%) (Auto) 94.1 Lymphocytes (%) (Auto) 4.6 Monocytes (%) (Auto) 1.2 Eosinophils (%) (Auto) 0.0 Basophils (%) (Auto) 0.1 Neutrophils # (Auto) 5.5 Lymphocytes # (Auto) 0.3 Monocytes # (Auto) 0.1 Eosinophils # (Auto) 0.0 Basophils # (Auto) 0.0 CBC Comment DIFF FINAL Differential Comment Blood Urea Nitrogen 13 Creatinine 0.65 Random Glucose 142 Calcium Level 8.0 Sodium Level 136 Potassium Level 3.5 Chloride Level 102 Carbon Dioxide Level 24.0 Anion Gap 10 Estimat Glomerular Filtration Rate 119 Total Creatine Kinase 22 Triglycerides Level 36 Cholesterol Level 141 LDL Cholesterol 64 HDL Cholesterol 70.2 Cholesterol/HDL Ratio 2.00 Activated Partial Thromboplast Time 31.5 Ammonia 32 Vitamin B12 Level 1022 Folate GREATER THAN 20.0 Terry Frederick MD Aug 29, 2017 21:43
[2017-08-29] MEDS: ATORVASTATIN 80 MG TAB PO SCH (21:47)
[2017-08-30] VITALS (28 sets, daily range): BP systolic 111–180; BP diastolic 57–81; PULSE 46–84; RESP 16–22; TEMP 97.3–98; O2SAT 94–99
[2017-08-30] MEDS: LACTULOSE SYRUP 20 GM/30 ML CUP PO SCH ×6 (01:33→21:56)
[2017-08-30] MEDS ORDERED: POTASSIUM CHLORIDE 20 MEQ CONTROLLED RELEASE TAB PO ONE (02:00)
[2017-08-30] MEDS ORDERED: FUROSEMIDE 40 MG/4 ML VIAL IV PUSH ONE (02:00)
[2017-08-30] MEDS ORDERED: DEXMEDETOMIDINE INJ 200 MCG in SODIUM CHLORIDE 0.9% INJ 50 ML IV PRN (02:15)
[2017-08-30] MEDS: RESP: IPRATROPIUM 0.5 MG/2.5 ML NEB NEB PRN ×2 (02:25→12:16)
[2017-08-30 05:19] LABS: MEAN CELL VOLUME 92.4 FL (80.0-100.0); MEAN CORPUSCULAR HEMOGLOBIN 32.8 PG (27.0-34.0); MEAN CORPUSCULAR HGB CONC 35.5 % (32.0-36.0); PLATELET COUNT 165 TH/MM3 (150-450); RED BLOOD COUNT 3.89 MIL/MM3 (4.50-5.90); RED CELL DISTRIBUTION WIDTH 13.3 % (11.6-17.2); REVIEW FLAG FINAL; WHITE BLOOD COUNT 11.9 TH/MM3 (4.0-11.0)
[2017-08-30 05:39] LABS: BICARBONATE 25.3 MEQ/L (21.0-32.0); POTASSIUM 3.5 MEQ/L (3.5-5.1)
[2017-08-30] MEDS: LEVOTHYROXINE SODIUM 112 MCG TAB PO SCH ×2 (06:00→06:28)
[2017-08-30] MEDS ORDERED: amLODIPine BESYLATE 5 MG TAB PO ONE (07:30)
--- NOTE | 2017-08-30 09:07 | HHI.PR ---
Subjective Remarks This is a pleasant 76 y/o Male with Atrial Fibrillation, Prostate Cancer History , GERD, Hypertension, Hypothyroidism, former Smoker who came to ER at 10:30 PM yesterday night with Atypical Chest pain, that started while he was sitting watching television, the Pain is sharp, constant, midsternal. Nonradiating and associated with diaphoresis. Denies any nausea, sob, vomiting, abdominal pain, focal weakness or numbness. Said pain relieved after sublingual nitro and aspirin given by EVAC. Never had supervisor slashing department or stress test. Seen in his bedroom in Critical Care Unit in the presence of nurse Mr. Varner and his Friend Miss Allegra Moreno, the patient continue with chest pain, 10/10 in intensity as a Sharp sensation, non radiated on precordial area and continuous. Doctor Fer global marketing specialist consulted and will come to evaluate the patient. 08/28: Stable in his bedroom seen in the presence of nurse Miss Lin, no nausea , vomit or diarrhea, later today will go for Cardiac Catheterization. 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 at this time restrained, his Primary global marketing specialist Doctor Fer asked for Neurology specialist evaluation, I saw the patient in the room Miss Lin, will replace electrolytes and complete laboratory with Ammonia level and Vitamin levels. continue Banana Bag. 08/30: With diagnosis of NSTEMI had Cardiac Cath yesterday, Mid LAD lesion 70%, ostial left circumflex 80%, Mild disease of the RCA LVEF 55%, successful PCI with BMS to Mid LAD from 70% to 0%, to continue Plavix and Aspirin, due to Bradycardia BB contraindicated Primary [employer] Supervisor Doctor Lawrence Monroe, stable in his bedroom with Uncontrolled blood pressure started on clonidine by mouth every 8 hours. if systolic blood pressure over 130 mm Hg. No nausea, vomit or diarrhea. Objective Vital Signs Date Time Temp Pulse Resp B/P (MAP) Pulse Ox O2 Delivery O2 Flow Rate FiO2 08/30/17 07:37 99 Nasal Cannula 2.00 08/30/17 07:37 97.7 61 20 180/80 (113) 99 08/30/17 06:00 62 08/30/17 05:00 72 08/30/17 04:00 80 08/30/17 03:00 96 Nasal Cannula 3.00 08/30/17 03:00 84 08/30/17 03:00 97.3 69 22 173/81 (111) 99 08/30/17 02:29 97 Nasal Cannula 3.00 08/30/17 02:00 70 08/30/17 01:00 68 08/30/17 00:00 72 08/29/17 23:00 98 Nasal Cannula 3.00 08/29/17 23:00 66 22 158/95 (116) 99 08/29/17 23:00 60 08/29/17 22:00 60 08/29/17 21:00 68 08/29/17 20:00 60 08/29/17 19:00 99 Nasal Cannula 3.00 08/29/17 19:00 70 08/29/17 19:00 62 24 158/77 (104) 99 08/29/17 18:00 55 08/29/17 17:00 62 08/29/17 16:00 47 08/29/17 15:00 58 08/29/17 15:00 97 Nasal Cannula 2.00 08/29/17 15:00 97.9 60 18 155/71 (99) 97 08/29/17 14:00 66 08/29/17 13:00 62 08/29/17 12:00 58 08/29/17 11:00 93 Nasal Cannula 3.00 08/29/17 11:00 58 08/29/17 11:00 96.6 63 14 148/83 (104) 93 08/29/17 10:00 56 I/O 08/29/17 08/29/17 08/29/17 08/30/17 08/30/17 08/30/17 07:00 15:00 23:00 07:00 15:00 23:00 Intake Total 1362 ml 712 ml 1100 ml 480 ml Output Total 350 ml 450 ml Balance 1012 ml 712 ml 1100 ml 30 ml Intake Oral 240 ml 480 ml IV Total 1122 ml 712 ml 1100 ml Output Urine Total 350 ml 450 ml # Voids 1 5 5 # Bowel Movements 0 1 1 Result Diagram: 08/30/17 0501 08/30/17 0501 Imaging Last Impressions Chest X-Ray 08/27/17 0152 Signed Impressions: Service Date/Time: Sunday, August 27, 2017 01:03 - CONCLUSION: Chronic cardiac silhouette enlargement. No acute cardiopulmonary disease identified. Krystian Spicer MD Head CT 08/27/17 0000 Signed Impressions: Service Date/Time: Sunday, August 27, 2017 17:48 - CONCLUSION: 1. No acute intracranial abnormality demonstrated. 2. 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 3. Right parietal ventriculostomy catheter present. No ventriculomegaly or other acute complication demonstrated. Jose Dimas MD Procedures 08/29/17 With diagnosis of NSTEMI had Cardiac Cath yesterday, Mid LAD lesion 70% , ostial left circumflex 80%, Mild disease of the RCA LVEF 55%, successful PCI with BMS to Mid LAD from 70% to 0%, to continue Plavix and Aspirin, due to Bradycardia BB contraindicated Primary [employer] Supervisor Doctor Lawrence Monroe. Other Results Laboratory Tests Test 08/27/17 07:10 08/27/17 11:15 08/27/17 14:25 08/29/17 04:19 Prothrombin Time 13.4 SEC Prothromb Time International Ratio 1.2 RATIO Hemoglobin A1c 5.6 % Free Thyroxine 0.90 NG/DL Thyroid Stimulating Hormone 3rd Gen 12.200 uIU/ML Troponin I 0.33 NG/ML Neutrophils (%) (Auto) 94.1 % Lymphocytes (%) (Auto) 4.6 % Monocytes (%) (Auto) 1.2 % Eosinophils (%) (Auto) 0.0 % Basophils (%) (Auto) 0.1 % Neutrophils # (Auto) 5.5 TH/MM3 Lymphocytes # (Auto) 0.3 TH/MM3 Monocytes # (Auto) 0.1 TH/MM3 Eosinophils # (Auto) 0.0 TH/MM3 Basophils # (Auto) 0.0 TH/MM3 CBC Comment DIFF FINAL Differential Comment Total Creatine Kinase 22 U/L Triglycerides Level 36 MG/DL Cholesterol Level 141 MG/DL LDL Cholesterol 64 MG/DL HDL Cholesterol 70.2 MG/DL Cholesterol/HDL Ratio 2.00 RATIO Test 08/29/17 09:06 08/29/17 13:57 08/30/17 05:01 Activated Partial Thromboplast Time 31.5 SEC Ammonia 32 MCMOL/L Vitamin B12 Level 1022 PG/ML Folate GREATER THAN 20.0 NG/ML White Blood Count 11.9 TH/MM3 Red Blood Count 3.89 MIL/MM3 Hemoglobin 12.8 GM/DL Hematocrit 36.0 % Mean Corpuscular Volume 92.4 FL Mean Corpuscular Hemoglobin 32.8 PG Mean Corpuscular Hemoglobin Concent 35.5 % Red Cell Distribution Width 13.3 % Platelet Count 165 TH/MM3 Mean Platelet Volume 8.6 FL Blood Urea Nitrogen 12 MG/DL Creatinine 0.67 MG/DL Random Glucose 112 MG/DL Calcium Level 8.5 MG/DL Phosphorus Level 1.2 MG/DL Magnesium Level 2.0 MG/DL Sodium Level 138 MEQ/L Potassium Level 3.5 MEQ/L Chloride Level 104 MEQ/L Carbon Dioxide Level 25.3 MEQ/L Anion Gap 9 MEQ/L Estimat Glomerular Filtration Rate 115 ML/MIN Objective Remarks GENERAL: Obese patient, no acute distress. SKIN: Focused skin assessment warm/dry. HEAD: Atraumatic. Normocephalic. EYES: Pupils equal and round. No scleral icterus. No injection or drainage. ENT: No nasal bleeding or discharge. Mucous membranes pink and moist. NECK: Trachea midline. No JVD. CARDIOVASCULAR: Regular rate and rhythm. No murmur appreciated. RESPIRATORY: No accessory muscle use. Clear to auscultation. Breath sounds equal bilaterally. GASTROINTESTINAL: Abdomen soft, non-tender, nondistended. MUSCULOSKELETAL: No obvious deformities. No clubbing. No cyanosis. +Bilateral lower ext edema. 3+ NEUROLOGICAL: Alert no focal deficits. confused. PSYCHIATRIC: difficult to evaluate. Medications and IVs Current Medications Medications (Trade) Dose Ordered Sig/Katherine Route Start Time Stop Time Status Last Admin (Nitrostat Sl) 0.4 mg Q5M PRN SL 08/27/17 03:30 08/27/17 04:51 (Tylenol) 500 mg Q4H PRN PO 08/27/17 04:00 (Morphine Inj) 2 mg Q3HR PRN IV PUSH 08/27/17 04:00 08/27/17 09:02 (Hydrodiuril) 25 mg DAILY PO 08/27/17 09:00 08/29/17 08:44 (Synthroid) 112 mcg DAILY@0600 PO 08/27/17 09:30 08/28/17 06:06 (Prinivil) 10 mg DAILY PO 08/27/17 09:00 08/29/17 08:41 (Deltasone) 10 mg DAILY PO 08/27/17 09:00 08/29/17 08:45 (Theragran) 1 tab DAILY PO 08/27/17 09:00 08/28/17 09:13 (Lipitor) 80 mg HS PO 08/27/17 21:00 08/29/17 21:47 Multivitamins 10 ml/Folic Acid 1 mg/Sodium Chloride 510.2 ml @ 125 mls/hr Q24H IV 08/27/17 10:00 09/01/17 09:59 08/29/17 11:58 Thiamine HCl 100 mg/Sodium Chloride 101 ml @ 100 mls/hr Q24H IV 08/27/17 10:00 08/30/17 09:59 08/29/17 11:59 (Vitamin B1) 100 mg DAILY PO 08/31/17 09:00 (Romazicon Inj) 0.2 mg Q1M PRN IV PUSH 08/27/17 09:30 (Pepcid Inj) 20 mg Q12H IV PUSH 08/27/17 09:30 08/29/17 21:48 (Coreg) 3.125 mg Q12HR PO 08/27/17 21:00 08/29/17 21:47 (Mag-Ox) 400 mg Q12H PO 08/27/17 23:00 08/29/17 23:00 Nitroglycerin/ Dextrose 250 ml @ 1.5 mls/hr TITRATE PRN IV 08/27/17 10:30 Sodium Chloride 1,000 ml @ 84 mls/hr [id number] IV 08/28/17 11:00 08/29/17 11:59 (NS Flush) 2 ml UNSCH PRN IV FLUSH 08/28/17 18:30 (NS Flush) 2 ml BID IV FLUSH 08/28/17 21:00 08/28/17 21:00 (Aspirin Chew) 162 mg DAILY PO 08/29/17 09:00 08/29/17 08:39 (Plavix) 75 mg DAILY PO 08/29/17 09:00 08/29/17 08:37 (Lactulose Liq) 30 ml QID PO 08/29/17 18:00 08/30/17 01:45 (SEROquel) 50 mg HS PRN PO 08/29/17 18:30 08/29/17 21:47 (Atrovent Neb) 0.5 mg Q2HR NEB PRN NEB 08/30/17 02:00 08/30/17 02:25 (Norvasc) 5 mg DAILY PO 08/31/17 09:00 A/P Assessment and Plan 1. NSTEMI Atypical Chest pain he had an ECG in ER showing no ST segment elevation or depression, on Morphine, Oxygen as needed High intensity statins, will need Beta Blockers at this time with Bradycardia will follow to start this medicine once possible, awaiting for global marketing specialist, continue Cardiac Monitoring, Cardiac Enzymes trending down, status post Cardiac Cath found Mid LAD lesion, 50% ostial left circumflex and 80% small medial branch of the first diagonal artery. EF 55%, successful PCI with BMS to Mid LAD from 70% to 1%, recommended to continue Plavix and Aspirin. Aggrastat drip per protocol. as per Doctor Lawrence Monroe. 2. New Onset of Atrial Fibrillation started on Beta blockers by global marketing specialist at this time Bradycardia discontinued BB by Cardiology. 3. GERD on Famotidine 4. Hypertension Uncontrolled added Clonidine for blood pressure over 130 mm Hg. 5. Hypothyroidism continue Hormonal replacement 6. Obesity strongly recommended diet and exercise. 7. Alcohol abuse and dependency at this time having Encephalopathy due to alcohol withdrawal, continue CIWA protocol, Banana bag Ammonia level and replace electrolytes, lactulose. ammonia level 32, as per Cardiology neurology specialist consult to rule out ANS. asked for MRI and Radiology will follow if is feasible without harm. 8. chronic swollen legs he states secondary to his chronic Prednisone intake 9. History of Temporal Arteritis management with Chronic Prednisone use. 10 mg daily 10. Prostate Cancer history status post Radiation therapy 11. Hypophosphatemia level 1.2 started Replacement. and following. DVT prophylaxis with Heparin drip continue present care. Code Status Full Code Discussed Condition With Patient and nurse Miss Goyal. Discharge Planning Once cleared by global marketing specialist. Fidel Mo MD Aug 30, 2017 09:07
[2017-08-30] MEDS: LISINOPRIL 10 MG TAB PO SCH (09:54)
[2017-08-30] MEDS: FAMOTIDINE 20 MG/2 ML VIAL IV PUSH SCH ×3 (09:54→21:56)
[2017-08-30] MEDS: MULTIVITAMIN TAB PO SCH (09:54)
[2017-08-30] MEDS: predniSONE 10 MG TAB PO SCH (09:55)
[2017-08-30] MEDS: HYDROCHLOROTHIAZIDE 25 MG TAB PO SCH (09:55)
[2017-08-30] MEDS: ASPIRIN 81 MG CHEW TAB PO SCH (09:55)
[2017-08-30] MEDS: cloNIDine HCL 0.1 MG TAB PO SCH ×2 (09:55→17:49)
[2017-08-30] MEDS: CLOPIDOGREL 75 MG TAB PO SCH (09:55)
[2017-08-30] MEDS: SODIUM CHLORIDE 0.9% FLUSH 10 ML FLUSH IV FLUSH SCH ×2 (09:56→21:57)
[2017-08-30] MEDS: MULTIVITAMIN INJ 10 ML, FOLIC ACID INJ 1 MG in SODIUM CHLORID 0.9% 500 ML INJ 500 ML IV SCH (10:19)
[2017-08-30] MEDS: SODIUM CHLOR 0.9% 1000 ML INJ 1,000 ML IV SCH ×2 (10:40→22:35)
[2017-08-30] MEDS ORDERED: POTASSIUM PHOSPHATE INJ 21 MMOL in SODIUM CHLORIDE 0.9% INJ 150 ML IV ONE (11:00)
[2017-08-30] MEDS: MAGNESIUM OXIDE 400 MG TAB PO SCH ×2 (11:29→21:57)
--- NOTE | 2017-08-30 13:10 | PD.CARD.PN ---
Subjective Subjective Remarks restrained, in nad, slightly more lucid and verbal c/w yesterday Objective Medications Current Medications Medications (Trade) Dose Ordered Sig/Katherine Route Start Time Stop Time Status Last Admin (Nitrostat Sl) 0.4 mg Q5M PRN SL 08/27/17 03:30 08/27/17 04:51 (Tylenol) 500 mg Q4H PRN PO 08/27/17 04:00 (Morphine Inj) 2 mg Q3HR PRN IV PUSH 08/27/17 04:00 08/27/17 09:02 (Hydrodiuril) 25 mg DAILY PO 08/27/17 09:00 08/30/17 09:55 (Synthroid) 112 mcg DAILY@0600 PO 08/27/17 09:30 08/28/17 06:06 (Prinivil) 10 mg DAILY PO 08/27/17 09:00 08/30/17 09:54 (Deltasone) 10 mg DAILY PO 08/27/17 09:00 08/30/17 09:55 (Theragran) 1 tab DAILY PO 08/27/17 09:00 08/30/17 09:54 (Lipitor) 80 mg HS PO 08/27/17 21:00 08/29/17 21:47 Multivitamins 10 ml/Folic Acid 1 mg/Sodium Chloride 510.2 ml @ 125 mls/hr Q24H IV 08/27/17 10:00 09/01/17 09:59 08/30/17 10:19 (Vitamin B1) 100 mg DAILY PO 08/31/17 09:00 (Romazicon Inj) 0.2 mg Q1M PRN IV PUSH 08/27/17 09:30 (Pepcid Inj) 20 mg Q12H IV PUSH 08/27/17 09:30 08/30/17 09:54 (Mag-Ox) 400 mg Q12H PO 08/27/17 23:00 08/30/17 11:29 Nitroglycerin/ Dextrose 250 ml @ 1.5 mls/hr TITRATE PRN IV 08/27/17 10:30 Sodium Chloride 1,000 ml @ 84 mls/hr [id number] IV 08/28/17 11:00 08/29/17 11:59 (NS Flush) 2 ml UNSCH PRN IV FLUSH 08/28/17 18:30 (NS Flush) 2 ml BID IV FLUSH 08/28/17 21:00 08/30/17 09:56 (Aspirin Chew) 162 mg DAILY PO 08/29/17 09:00 08/30/17 09:55 (Plavix) 75 mg DAILY PO 08/29/17 09:00 08/30/17 09:55 (Lactulose Liq) 30 ml QID PO 08/29/17 18:00 08/30/17 09:54 (SEROquel) 50 mg HS PRN PO 08/29/17 18:30 08/29/17 21:47 (Atrovent Neb) 0.5 mg Q2HR NEB PRN NEB 08/30/17 02:00 08/30/17 12:16 (Norvasc) 5 mg DAILY PO 08/31/17 09:00 Potassium Phosphate 21 mmol/ Sodium Chloride 157 ml @ 38.75 mls/ hr ONCE ONCE IV 08/30/17 11:00 08/30/17 15:03 08/30/17 11:29 (Catapres) 0.1 mg Q8H PO 08/30/17 10:00 08/30/17 09:55 Vital Signs / I&O Vital Signs Date Time Temp Pulse Resp B/P (MAP) Pulse Ox O2 Delivery O2 Flow Rate FiO2 08/30/17 13:04 68 08/30/17 12:18 94 08/30/17 12:00 62 08/30/17 11:57 99 Room Air 08/30/17 11:57 97.7 62 20 117/57 (77) 99 08/30/17 11:00 79 08/30/17 10:00 76 08/30/17 09:00 64 08/30/17 08:00 76 08/30/17 07:37 99 Nasal Cannula 2.00 08/30/17 07:37 97.7 61 20 180/80 (113) 99 08/30/17 07:00 79 08/30/17 06:00 62 08/30/17 05:00 72 08/30/17 04:00 80 08/30/17 03:00 96 Nasal Cannula 3.00 08/30/17 03:00 84 08/30/17 03:00 97.3 69 22 173/81 (111) 99 08/30/17 02:29 97 Nasal Cannula 3.00 08/30/17 02:00 70 08/30/17 01:00 68 08/30/17 00:00 72 08/29/17 23:00 98 Nasal Cannula 3.00 08/29/17 23:00 66 22 158/95 (116) 99 08/29/17 23:00 60 08/29/17 22:00 60 08/29/17 21:00 68 08/29/17 20:00 60 08/29/17 19:00 99 Nasal Cannula 3.00 08/29/17 19:00 70 08/29/17 19:00 62 24 158/77 (104) 99 08/29/17 18:00 55 08/29/17 17:00 62 08/29/17 16:00 47 08/29/17 15:00 58 08/29/17 15:00 97 Nasal Cannula 2.00 08/29/17 15:00 97.9 60 18 155/71 (99) 97 08/29/17 14:00 66 I/O 08/29/17 08/29/17 08/29/17 08/30/17 08/30/17 08/30/17 07:00 15:00 23:00 07:00 15:00 23:00 Intake Total 1362 ml 712 ml 1100 ml 480 ml Output Total 350 ml 450 ml Balance 1012 ml 712 ml 1100 ml 30 ml Intake Oral 240 ml 480 ml IV Total 1122 ml 712 ml 1100 ml Output Urine Total 350 ml 450 ml # Voids 1 5 5 # Bowel Movements 0 1 1 Physical Exam GENERAL: SKIN: Warm and dry. HEAD: Normocephalic. EYES: No scleral icterus. No injection or drainage. NECK: Supple, trachea midline. No JVD or lymphadenopathy. CARDIOVASCULAR: Regular rate and rhythm without murmurs, gallops, or rubs. RESPIRATORY: Breath sounds equal bilaterally. No accessory muscle use. GASTROINTESTINAL: Abdomen soft, non-tender, nondistended. MUSCULOSKELETAL: No cyanosis, or edema. BACK: Nontender without obvious deformity. No CVA tenderness. Laboratory Laboratory Tests Test 08/29/17 13:57 08/30/17 05:01 Ammonia 32 MCMOL/L Vitamin B12 Level 1022 PG/ML Folate GREATER THAN 20.0 NG/ML White Blood Count 11.9 TH/MM3 Red Blood Count 3.89 MIL/MM3 Hemoglobin 12.8 GM/DL Hematocrit 36.0 % Mean Corpuscular Volume 92.4 FL Mean Corpuscular Hemoglobin 32.8 PG Mean Corpuscular Hemoglobin Concent 35.5 % Red Cell Distribution Width 13.3 % Platelet Count 165 TH/MM3 Mean Platelet Volume 8.6 FL Blood Urea Nitrogen 12 MG/DL Creatinine 0.67 MG/DL Random Glucose 112 MG/DL Calcium Level 8.5 MG/DL Phosphorus Level 1.2 MG/DL Magnesium Level 2.0 MG/DL Sodium Level 138 MEQ/L Potassium Level 3.5 MEQ/L Chloride Level 104 MEQ/L Carbon Dioxide Level 25.3 MEQ/L Anion Gap 9 MEQ/L Estimat Glomerular Filtration Rate 115 ML/MIN Assessment and Plan Problem List: (1) NSTEMI (non-ST elevated myocardial infarction) ICD Codes: I21.4 - Non-ST elevation (NSTEMI) myocardial infarction (2) CAD (coronary artery disease) ICD Codes: I25.10 - Atherosclerotic heart disease of [place] coronary artery without angina pectoris (3) Altered mental status ICD Codes: R41.82 - Altered mental status, unspecified (4) ETOH abuse ICD Codes: F10.10 - Alcohol abuse, uncomplicated Assessment and Plan 1.) CAD -pod # 2 pci mid lad, continue aspirin, plavix, lipitor, coreg; ams started prior to cath as soon as he got 1 mg of versed; he got 4 doses of ativan subsequently, last 6 am 08/29/17; there is mild improvement in ams; mri ordered but radiology evaluating shunt for contranidications prior to proceeding Lawrence Monroe MD Aug 30, 2017 13:10
[2017-08-30] MEDS ORDERED: CARVEDILOL 3.125 MG TAB PO ONE (13:15)
[2017-08-30] MEDS: MAGNESIUM SULFAT 1 GM PREMIX 100 ML x2 bags IV SCH ×2 (14:22→15:29)
[2017-08-30 15:23] LABS: POTASSIUM 3.6 MEQ/L (3.5-5.1)
[2017-08-30] MEDS: SUCRALFATE 1 GM/10 ML CUP PO SCH ×2 (17:49→21:56)
[2017-08-30] MEDS ORDERED: CARVEDILOL 3.125 MG TAB PO SCH (21:00)
[2017-08-30] MEDS: ATORVASTATIN 80 MG TAB PO SCH (21:57)
[2017-08-30] MEDS: QUEtiapine FUMARATE 100 MG TAB PO SCH (23:24)
[2017-08-31] VITALS (32 sets, daily range): BP systolic 102–162; BP diastolic 61–86; PULSE 40–66; RESP 16–20; TEMP 97.6–98.1; O2SAT 95–98
[2017-08-31] MEDS: cloNIDine HCL 0.1 MG TAB PO SCH ×3 (02:00→17:49)
[2017-08-31] MEDS: FAMOTIDINE 20 MG/2 ML VIAL IV PUSH SCH ×2 (02:04→14:42)
[2017-08-31] MEDS: RESP: IPRATROPIUM 0.5 MG/2.5 ML NEB NEB PRN (02:23)
[2017-08-31] MEDS: LEVOTHYROXINE SODIUM 112 MCG TAB PO SCH (05:32)
[2017-08-31 05:49] LABS: BICARBONATE 26.9 MEQ/L (21.0-32.0); POTASSIUM 3.6 MEQ/L (3.5-5.1)
[2017-08-31] MEDS ORDERED: ATROPINE SULFATE 1 MG/10 ML SYRINGE IV PUSH PRN (07:00)
[2017-08-31] MEDS: SODIUM CHLORIDE 0.9% FLUSH 10 ML FLUSH IV FLUSH SCH ×2 (08:20→22:10)
[2017-08-31] MEDS: SUCRALFATE 1 GM/10 ML CUP PO SCH ×4 (08:21→22:10)
[2017-08-31] MEDS: LISINOPRIL 10 MG TAB PO SCH (09:00)
[2017-08-31] MEDS ORDERED: amLODIPine BESYLATE 5 MG TAB PO SCH (09:00)
[2017-08-31] MEDS: LACTULOSE SYRUP 20 GM/30 ML CUP PO SCH ×4 (09:29→22:10)
[2017-08-31] MEDS: THIAMINE HCL 100 MG TAB PO SCH (09:31)
[2017-08-31] MEDS: HYDROCHLOROTHIAZIDE 25 MG TAB PO SCH (09:31)
[2017-08-31] MEDS: predniSONE 10 MG TAB PO SCH (09:31)
[2017-08-31] MEDS: MULTIVITAMIN TAB PO SCH (09:31)
[2017-08-31] MEDS: ASPIRIN 81 MG CHEW TAB PO SCH (09:31)
[2017-08-31] MEDS: CLOPIDOGREL 75 MG TAB PO SCH (09:31)
[2017-08-31] MEDS ORDERED: MULTIVITAMIN INJ 10 ML in SODIUM CHLORID 0.9% 500 ML INJ 500 ML IV SCH (10:00)
[2017-08-31] MEDS: SODIUM CHLOR 0.9% 1000 ML INJ 1,000 ML IV SCH ×2 (10:30→22:12)
[2017-08-31] MEDS: FOLIC ACID 1 MG TAB PO SCH (10:42)
[2017-08-31] MEDS: MAGNESIUM OXIDE 400 MG TAB PO SCH ×2 (10:43→22:10)
[2017-08-31] MEDS: RESP: ALBUTEROL 2.5 MG/IPRATROPIUM 0.5 MG NEB (SCH) NEB ×3 (11:09→20:45)
--- NOTE | 2017-08-31 11:49 | HHI.PR ---
Subjective Remarks This is a pleasant 76 y/o Male with Atrial Fibrillation, Prostate Cancer History , GERD, Hypertension, Hypothyroidism, former Smoker who came to ER at 10:30 PM yesterday night with Atypical Chest pain, that started while he was sitting watching television, the Pain is sharp, constant, midsternal. Nonradiating and associated with diaphoresis. Denies any nausea, sob, vomiting, abdominal pain, focal weakness or numbness. Said pain relieved after sublingual nitro and aspirin given by EVAC. Never had heel seat pounder or stress test. Seen in his bedroom in Critical Care Unit in the presence of nurse Mr. Varner and his Friend Miss Allegra Moreno, the patient continue with chest pain, 10/10 in intensity as a Sharp sensation, non radiated on precordial area and continuous. Doctor Fer auto radiator specialist consulted and will come to evaluate the patient. 08/28: Stable in his bedroom seen in the presence of nurse Miss Bookerie, no nausea , vomit or diarrhea, later today will go for Cardiac Catheterization. 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 at this time restrained, his Primary auto radiator specialist Doctor Fer asked for Neurology specialist evaluation, I saw the patient in the room Miss Lin, will replace electrolytes and complete laboratory with Ammonia level and Vitamin levels. continue Banana Bag. 08/30: With diagnosis of NSTEMI had Cardiac Cath yesterday, Mid LAD lesion 70%, ostial left circumflex 80%, Mild disease of the RCA LVEF 55%, successful PCI with BMS to Mid LAD from 70% to 0%, to continue Plavix and Aspirin, due to Bradycardia BB contraindicated Primary Audio Visual Specialist Doctor Lawrence Monroe, stable in his bedroom with Uncontrolled blood pressure started on clonidine by mouth every 8 hours. if systolic blood pressure over 130 mm Hg. 08/31: Seen in her bedroom stable in the presence of nurse Miss Ontiverosie will continue replacement of his Electrolytes no nausea,v omit or diarrhea. Objective Vital Signs Date Time Temp Pulse Resp B/P (MAP) Pulse Ox O2 Delivery O2 Flow Rate FiO2 08/31/17 11:10 98 08/31/17 10:44 103/62 (76) 08/31/17 10:08 66 08/31/17 09:00 56 08/31/17 08:00 40 08/31/17 07:54 97 Room Air 08/31/17 07:54 97.7 45 20 132/73 (92) 97 08/31/17 07:00 41 08/31/17 06:09 41 08/31/17 05:21 40 08/31/17 04:20 42 08/31/17 03:00 97.7 42 17 130/61 (84) 97 08/31/17 03:00 58 08/31/17 03:00 97 Room Air 08/31/17 02:24 97 21 08/31/17 02:22 50 08/31/17 01:19 57 08/31/17 00:00 59 08/30/17 23:35 97 Room Air 08/30/17 23:35 98.0 46 18 124/67 (86) 97 08/30/17 23:01 46 08/30/17 22:00 48 08/30/17 21:00 48 08/30/17 20:03 97.8 48 16 111/62 (78) 97 08/30/17 20:03 97 Room Air 08/30/17 20:03 54 08/30/17 18:00 48 08/30/17 17:00 54 08/30/17 16:00 54 08/30/17 16:00 97.7 55 20 111/64 (80) 96 08/30/17 16:00 99 Room Air 08/30/17 15:00 52 08/30/17 14:00 66 08/30/17 13:04 68 08/30/17 12:18 94 08/30/17 12:00 62 08/30/17 11:57 99 Room Air 08/30/17 11:57 97.7 62 20 117/57 (77) 99 I/O 08/30/17 08/30/17 08/30/17 08/31/17 08/31/17 08/31/17 07:00 15:00 23:00 07:00 15:00 23:00 Intake Total 480 ml 1830 ml 480 ml Output Total 450 ml 500 ml 600 ml Balance 30 ml 1330 ml -120 ml Intake Oral 480 ml 480 ml 480 ml IV Total 1350 ml Output Urine Total 450 ml 500 ml 600 ml # Voids 5 3 # Bowel Movements 1 3 Result Diagram: 08/30/17 0501 08/31/17 0507 Imaging Last Impressions Chest X-Ray 08/27/17 0152 Signed Impressions: Service Date/Time: Sunday, August 27, 2017 01:03 - CONCLUSION: Chronic cardiac silhouette enlargement. No acute cardiopulmonary disease identified. Krystian Spicer MD Head CT 08/27/17 0000 Signed Impressions: Service Date/Time: Sunday, August 27, 2017 17:48 - CONCLUSION: 1. No acute intracranial abnormality demonstrated. 2. 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 3. Right parietal ventriculostomy catheter present. No ventriculomegaly or other acute complication demonstrated. Jose Dimas MD Procedures 08/29/17 With diagnosis of NSTEMI had Cardiac Cath yesterday, Mid LAD lesion 70% , ostial left circumflex 80%, Mild disease of the RCA LVEF 55%, successful PCI with BMS to Mid LAD from 70% to 0%, to continue Plavix and Aspirin, due to Bradycardia BB contraindicated Primary Audio Visual Specialist Doctor Lawrence Monroe. Other Results Laboratory Tests Test 08/27/17 07:10 08/27/17 11:15 08/27/17 14:25 08/29/17 04:19 Prothrombin Time 13.4 SEC Prothromb Time International Ratio 1.2 RATIO Hemoglobin A1c 5.6 % Free Thyroxine 0.90 NG/DL Thyroid Stimulating Hormone 3rd Gen 12.200 uIU/ML Troponin I 0.33 NG/ML Neutrophils (%) (Auto) 94.1 % Lymphocytes (%) (Auto) 4.6 % Monocytes (%) (Auto) 1.2 % Eosinophils (%) (Auto) 0.0 % Basophils (%) (Auto) 0.1 % Neutrophils # (Auto) 5.5 TH/MM3 Lymphocytes # (Auto) 0.3 TH/MM3 Monocytes # (Auto) 0.1 TH/MM3 Eosinophils # (Auto) 0.0 TH/MM3 Basophils # (Auto) 0.0 TH/MM3 CBC Comment DIFF FINAL Differential Comment Total Creatine Kinase 22 U/L Triglycerides Level 36 MG/DL Cholesterol Level 141 MG/DL LDL Cholesterol 64 MG/DL HDL Cholesterol 70.2 MG/DL Cholesterol/HDL Ratio 2.00 RATIO Test 08/29/17 09:06 08/29/17 13:57 08/30/17 05:01 08/31/17 05:07 Activated Partial Thromboplast Time 31.5 SEC Ammonia 32 MCMOL/L Vitamin B12 Level 1022 PG/ML Folate GREATER THAN 20.0 NG/ML White Blood Count 11.9 TH/MM3 Red Blood Count 3.89 MIL/MM3 Hemoglobin 12.8 GM/DL Hematocrit 36.0 % Mean Corpuscular Volume 92.4 FL Mean Corpuscular Hemoglobin 32.8 PG Mean Corpuscular Hemoglobin Concent 35.5 % Red Cell Distribution Width 13.3 % Platelet Count 165 TH/MM3 Mean Platelet Volume 8.6 FL Blood Urea Nitrogen 12 MG/DL 10 MG/DL Creatinine 0.67 MG/DL 0.55 MG/DL Random Glucose 112 MG/DL 91 MG/DL Calcium Level 8.5 MG/DL 8.4 MG/DL Phosphorus Level 1.2 MG/DL 2.3 MG/DL Magnesium Level 2.0 MG/DL Sodium Level 138 MEQ/L 137 MEQ/L Potassium Level 3.5 MEQ/L 3.6 MEQ/L Chloride Level 104 MEQ/L 103 MEQ/L Carbon Dioxide Level 25.3 MEQ/L 26.9 MEQ/L Anion Gap 7 MEQ/L Estimat Glomerular Filtration Rate 144 ML/MIN Objective Remarks GENERAL: Obese patient, no acute distress. SKIN: Focused skin assessment warm/dry. HEAD: Atraumatic. Normocephalic. EYES: Pupils equal and round. No scleral icterus. No injection or drainage. ENT: No nasal bleeding or discharge. Mucous membranes pink and moist. NECK: Trachea midline. No JVD. CARDIOVASCULAR: Regular rate and rhythm. No murmur appreciated. RESPIRATORY: No accessory muscle use. Clear to auscultation. Breath sounds equal bilaterally. GASTROINTESTINAL: Abdomen soft, non-tender, nondistended. MUSCULOSKELETAL: No obvious deformities. No clubbing. No cyanosis. +Bilateral lower ext edema. 3+ NEUROLOGICAL: Alert no focal deficits. confused. PSYCHIATRIC: difficult to evaluate. Medications and IVs Current Medications Medications (Trade) Dose Ordered Sig/Katherine Route Start Time Stop Time Status Last Admin (Nitrostat Sl) 0.4 mg Q5M PRN SL 08/27/17 03:30 08/27/17 04:51 (Tylenol) 500 mg Q4H PRN PO 08/27/17 04:00 (Morphine Inj) 2 mg Q3HR PRN IV PUSH 08/27/17 04:00 08/27/17 09:02 (Hydrodiuril) 25 mg DAILY PO 08/27/17 09:00 08/31/17 09:31 (Synthroid) 112 mcg DAILY@0600 PO 08/27/17 09:30 08/31/17 05:32 (Prinivil) 10 mg DAILY PO 08/27/17 09:00 08/30/17 09:54 (Deltasone) 10 mg DAILY PO 08/27/17 09:00 08/31/17 09:31 (Theragran) 1 tab DAILY PO 08/27/17 09:00 08/31/17 09:31 (Lipitor) 80 mg HS PO 08/27/17 21:00 08/30/17 21:57 (Vitamin B1) 100 mg DAILY PO 08/31/17 09:00 08/31/17 09:31 (Romazicon Inj) 0.2 mg Q1M PRN IV PUSH 08/27/17 09:30 (Mag-Ox) 400 mg Q12H PO 08/27/17 23:00 08/31/17 10:43 Nitroglycerin/ Dextrose 250 ml @ 1.5 mls/hr TITRATE PRN IV 08/27/17 10:30 Sodium Chloride 1,000 ml @ 84 mls/hr [id number] IV 08/28/17 11:00 08/29/17 11:59 (NS Flush) 2 ml UNSCH PRN IV FLUSH 08/28/17 18:30 (NS Flush) 2 ml BID IV FLUSH 08/28/17 21:00 08/31/17 08:20 (Aspirin Chew) 162 mg DAILY PO 08/29/17 09:00 08/31/17 09:31 (Plavix) 75 mg DAILY PO 08/29/17 09:00 08/31/17 09:31 (Lactulose Liq) 30 ml QID PO 08/29/17 18:00 08/31/17 09:29 (Atrovent Neb) 0.5 mg Q2HR NEB PRN NEB 08/30/17 02:00 08/31/17 02:23 (Norvasc) 5 mg DAILY PO 08/31/17 09:00 (Catapres) 0.1 mg Q8H PO 08/30/17 10:00 08/30/17 17:49 (Pepcid Inj) 20 mg Q12H IV PUSH 08/30/17 14:00 08/31/17 02:04 (Carafate Liq) 1 gm ACHS PO 08/30/17 17:00 08/31/17 08:21 (SEROquel) 100 mg HS PO 08/30/17 21:00 08/30/17 23:24 (Atropine Inj) 0.6 mg UNSCH X1 PRN IV PUSH 08/31/17 07:00 08/31/17 23:59 08/31/17 08:17 Multivitamins 10 ml/Sodium Chloride 510 ml @ 125 mls/hr Q24H IV 08/31/17 10:00 09/01/17 09:59 08/31/17 10:10 (Folate) 1 mg DAILY PO 08/31/17 10:00 08/31/17 10:42 (Duoneb Neb) 1 ampule Q4HR NEB NEB 08/31/17 12:00 A/P Assessment and Plan 1. NSTEMI Atypical Chest pain he had an ECG in ER showing no ST segment elevation or depression, on Morphine, Oxygen as needed High intensity statins, will need Beta Blockers at this time with Bradycardia will follow to start this medicine once possible, awaiting for auto radiator specialist, continue Cardiac Monitoring, Cardiac Enzymes trending down, status post Cardiac Cath found Mid LAD lesion, 50% ostial left circumflex and 80% small medial branch of the first diagonal artery. EF 55%, successful PCI with BMS to Mid LAD from 70% to 1%, recommended to continue Plavix and Aspirin. Aggrastat drip per protocol. as per Doctor Lawrence Monroe. 2. New Onset of Atrial Fibrillation started on Beta blockers by auto radiator specialist at this time Bradycardia discontinued BB by Cardiology. 3. GERD on Famotidine 4. Hypertension Uncontrolled added Clonidine for blood pressure over 130 mm Hg. 5. Hypothyroidism continue Hormonal replacement 6. Obesity strongly recommended diet and exercise. 7. Alcohol abuse and dependency at this time having Encephalopathy due to alcohol withdrawal, continue CIWA protocol, Banana bag Ammonia level and replace electrolytes, lactulose. ammonia level 32, as per Cardiology neurology specialist consult to rule out ANS. asked for MRI and Radiology will follow if is feasible without harm. 8. chronic swollen legs he states secondary to his chronic Prednisone intake 9. History of Temporal Arteritis management with Chronic Prednisone use. 10 mg daily 10. Prostate Cancer history status post Radiation therapy 11. Hypophosphatemia level 2.3 to give 15 mmol of Potassium chloride and cover for Potassium in 3.6 with 10 meq IV. follow in am tomorrow. DVT prophylaxis with Heparin drip continue present care. Code Status Full Code Discussed Condition With Patient and nurse Miss Goyal. Discharge Planning Once cleared by auto radiator specialist. Fidel Mo MD Aug 31, 2017 11:49
[2017-08-31] MEDS ORDERED: POTASSIUM PHOSPHATE INJ 15 MMOL in SODIUM CHLORIDE 0.9% INJ 150 ML IV ONE (14:15)
[2017-08-31] MEDS ORDERED: POTASSIUM CHLOR 10 MEQ PREMIX 100 ML IV ONE (14:15)
--- NOTE | 2017-08-31 14:58 | PD.CARD.PN ---
Subjective Subjective Remarks alert in nad, ox3 Objective Medications Current Medications Medications (Trade) Dose Ordered Sig/Katherine Route Start Time Stop Time Status Last Admin (Nitrostat Sl) 0.4 mg Q5M PRN SL 08/27/17 03:30 08/27/17 04:51 (Tylenol) 500 mg Q4H PRN PO 08/27/17 04:00 (Morphine Inj) 2 mg Q3HR PRN IV PUSH 08/27/17 04:00 08/27/17 09:02 (Hydrodiuril) 25 mg DAILY PO 08/27/17 09:00 08/31/17 09:31 (Synthroid) 112 mcg DAILY@0600 PO 08/27/17 09:30 08/31/17 05:32 (Prinivil) 10 mg DAILY PO 08/27/17 09:00 08/30/17 09:54 (Deltasone) 10 mg DAILY PO 08/27/17 09:00 08/31/17 09:31 (Theragran) 1 tab DAILY PO 08/27/17 09:00 08/31/17 09:31 (Lipitor) 80 mg HS PO 08/27/17 21:00 08/30/17 21:57 (Vitamin B1) 100 mg DAILY PO 08/31/17 09:00 08/31/17 09:31 (Romazicon Inj) 0.2 mg Q1M PRN IV PUSH 08/27/17 09:30 (Mag-Ox) 400 mg Q12H PO 08/27/17 23:00 08/31/17 10:43 Nitroglycerin/ Dextrose 250 ml @ 1.5 mls/hr TITRATE PRN IV 08/27/17 10:30 Sodium Chloride 1,000 ml @ 84 mls/hr [id number] IV 08/28/17 11:00 08/29/17 11:59 (NS Flush) 2 ml UNSCH PRN IV FLUSH 08/28/17 18:30 (NS Flush) 2 ml BID IV FLUSH 08/28/17 21:00 08/31/17 08:20 (Aspirin Chew) 162 mg DAILY PO 08/29/17 09:00 08/31/17 09:31 (Plavix) 75 mg DAILY PO 08/29/17 09:00 08/31/17 09:31 (Lactulose Liq) 30 ml QID PO 08/29/17 18:00 08/31/17 12:13 (Atrovent Neb) 0.5 mg Q2HR NEB PRN NEB 08/30/17 02:00 08/31/17 02:23 (Norvasc) 5 mg DAILY PO 08/31/17 09:00 (Catapres) 0.1 mg Q8H PO 08/30/17 10:00 08/30/17 17:49 (Pepcid Inj) 20 mg Q12H IV PUSH 08/30/17 14:00 08/31/17 14:42 (Carafate Liq) 1 gm ACHS PO 08/30/17 17:00 08/31/17 12:12 (SEROquel) 100 mg HS PO 08/30/17 21:00 08/30/17 23:24 (Atropine Inj) 0.6 mg UNSCH X1 PRN IV PUSH 08/31/17 07:00 08/31/17 23:59 08/31/17 08:17 Multivitamins 10 ml/Sodium Chloride 510 ml @ 125 mls/hr Q24H IV 08/31/17 10:00 09/01/17 09:59 08/31/17 10:10 (Folate) 1 mg DAILY PO 08/31/17 10:00 08/31/17 10:42 (Duoneb Neb) 1 ampule Q4HR NEB NEB 08/31/17 12:00 08/31/17 11:09 Potassium Chloride 100 ml @ 100 mls/hr ONCE ONCE IV 08/31/17 14:15 08/31/17 15:14 08/31/17 14:42 Potassium Phosphate 15 mmol/ Sodium Chloride 155 ml @ 38.75 mls/ hr ONCE ONCE IV 08/31/17 14:15 08/31/17 18:14 Vital Signs / I&O Vital Signs Date Time Temp Pulse Resp B/P (MAP) Pulse Ox O2 Delivery O2 Flow Rate FiO2 08/31/17 13:00 50 08/31/17 12:08 95 Room Air 08/31/17 12:08 97.6 56 20 102/72 (82) 95 08/31/17 12:00 52 08/31/17 11:10 98 08/31/17 11:00 52 08/31/17 10:44 103/62 (76) 08/31/17 10:08 66 08/31/17 09:00 56 08/31/17 08:00 40 08/31/17 07:54 97 Room Air 08/31/17 07:54 97.7 45 20 132/73 (92) 97 08/31/17 07:00 41 08/31/17 06:09 41 08/31/17 05:21 40 08/31/17 04:20 42 08/31/17 03:00 97.7 42 17 130/61 (84) 97 08/31/17 03:00 58 08/31/17 03:00 97 Room Air 08/31/17 02:24 97 21 08/31/17 02:22 50 08/31/17 01:19 57 08/31/17 00:00 59 08/30/17 23:35 97 Room Air 08/30/17 23:35 98.0 46 18 124/67 (86) 97 08/30/17 23:01 46 08/30/17 22:00 48 08/30/17 21:00 48 08/30/17 20:03 97.8 48 16 111/62 (78) 97 08/30/17 20:03 97 Room Air 08/30/17 20:03 54 08/30/17 18:00 48 08/30/17 17:00 54 08/30/17 16:00 54 08/30/17 16:00 97.7 55 20 111/64 (80) 96 08/30/17 16:00 99 Room Air 08/30/17 15:00 52 I/O 08/30/17 08/30/17 08/30/17 08/31/17 08/31/17 08/31/17 07:00 15:00 23:00 07:00 15:00 23:00 Intake Total 480 ml 1830 ml 480 ml 510 ml Output Total 450 ml 500 ml 600 ml Balance 30 ml 1330 ml -120 ml 510 ml Intake Oral 480 ml 480 ml 480 ml IV Total 1350 ml 510 ml Output Urine Total 450 ml 500 ml 600 ml # Voids 5 3 # Bowel Movements 1 3 Physical Exam GENERAL: SKIN: Warm and dry. HEAD: Normocephalic. EYES: No scleral icterus. No injection or drainage. NECK: Supple, trachea midline. No JVD or lymphadenopathy. CARDIOVASCULAR: Regular rate and rhythm without murmurs, gallops, or rubs. RESPIRATORY: Breath sounds equal bilaterally. No accessory muscle use. GASTROINTESTINAL: Abdomen soft, non-tender, nondistended. MUSCULOSKELETAL: No cyanosis, or edema. BACK: Nontender without obvious deformity. No CVA tenderness. Laboratory Laboratory Tests Test 08/31/17 05:07 Blood Urea Nitrogen 10 MG/DL Creatinine 0.55 MG/DL Random Glucose 91 MG/DL Calcium Level 8.4 MG/DL Phosphorus Level 2.3 MG/DL Sodium Level 137 MEQ/L Potassium Level 3.6 MEQ/L Chloride Level 103 MEQ/L Carbon Dioxide Level 26.9 MEQ/L Anion Gap 7 MEQ/L Estimat Glomerular Filtration Rate 144 ML/MIN Assessment and Plan Problem List: (1) NSTEMI (non-ST elevated myocardial infarction) ICD Codes: I21.4 - Non-ST elevation (NSTEMI) myocardial infarction (2) CAD (coronary artery disease) ICD Codes: I25.10 - Atherosclerotic heart disease of [place] coronary artery without angina pectoris (3) Altered mental status ICD Codes: R41.82 - Altered mental status, unspecified (4) ETOH abuse ICD Codes: F10.10 - Alcohol abuse, uncomplicated Assessment and Plan 1.) CAD -pod # 3 pci mid lad, continue aspirin, plavix, lipitor, hold coreg due to bradycardia; ams started prior to cath as soon as he got 1 mg of versed; he got 4 doses of ativan subsequently, last 6 am 08/29/17; mental status appears close to baseline now; mri ordered but radiology evaluating shunt for contranidications prior to proceeding Lawrence Monreo MD Aug 31, 2017 14:58
[2017-08-31] MEDS: QUEtiapine FUMARATE 100 MG TAB PO SCH (22:09)
[2017-08-31] MEDS: ATORVASTATIN 80 MG TAB PO SCH (22:10)
[2017-09-01] VITALS (27 sets, daily range): BP systolic 118–171; BP diastolic 63–83; PULSE 43–78; RESP 16–20; TEMP 97.2–98.2; O2SAT 94–100
[2017-09-01] MEDS: RESP: ALBUTEROL 2.5 MG/IPRATROPIUM 0.5 MG NEB (SCH) NEB ×3 (00:09→07:50)
[2017-09-01] MEDS: cloNIDine HCL 0.1 MG TAB PO SCH ×3 (01:49→17:59)
[2017-09-01] MEDS: FAMOTIDINE 20 MG/2 ML VIAL IV PUSH SCH ×2 (01:50→13:36)
[2017-09-01] MEDS: LEVOTHYROXINE SODIUM 112 MCG TAB PO SCH (07:37)
--- NOTE | 2017-09-01 08:16 | PD.CARD.PN ---
Subjective Subjective Remarks alert in nad, ox3 Objective Medications Current Medications Medications (Trade) Dose Ordered Sig/Katherine Route Start Time Stop Time Status Last Admin (Nitrostat Sl) 0.4 mg Q5M PRN SL 08/27/17 03:30 08/27/17 04:51 (Tylenol) 500 mg Q4H PRN PO 08/27/17 04:00 (Morphine Inj) 2 mg Q3HR PRN IV PUSH 08/27/17 04:00 08/27/17 09:02 (Hydrodiuril) 25 mg DAILY PO 08/27/17 09:00 08/31/17 09:31 (Synthroid) 112 mcg DAILY@0600 PO 08/27/17 09:30 09/01/17 07:37 (Prinivil) 10 mg DAILY PO 08/27/17 09:00 08/30/17 09:54 (Deltasone) 10 mg DAILY PO 08/27/17 09:00 08/31/17 09:31 (Theragran) 1 tab DAILY PO 08/27/17 09:00 08/31/17 09:31 (Lipitor) 80 mg HS PO 08/27/17 21:00 08/31/17 22:10 (Vitamin B1) 100 mg DAILY PO 08/31/17 09:00 08/31/17 09:31 (Romazicon Inj) 0.2 mg Q1M PRN IV PUSH 08/27/17 09:30 (Mag-Ox) 400 mg Q12H PO 08/27/17 23:00 08/31/17 22:10 Nitroglycerin/ Dextrose 250 ml @ 1.5 mls/hr TITRATE PRN IV 08/27/17 10:30 Sodium Chloride 1,000 ml @ 84 mls/hr [id number] IV 08/28/17 11:00 08/31/17 22:12 (NS Flush) 2 ml UNSCH PRN IV FLUSH 08/28/17 18:30 (NS Flush) 2 ml BID IV FLUSH 08/28/17 21:00 08/31/17 22:10 (Aspirin Chew) 162 mg DAILY PO 08/29/17 09:00 08/31/17 09:31 (Plavix) 75 mg DAILY PO 08/29/17 09:00 08/31/17 09:31 (Lactulose Liq) 30 ml QID PO 08/29/17 18:00 08/31/17 22:10 (Atrovent Neb) 0.5 mg Q2HR NEB PRN NEB 08/30/17 02:00 08/31/17 02:23 (Catapres) 0.1 mg Q8H PO 08/30/17 10:00 09/01/17 01:49 (Pepcid Inj) 20 mg Q12H IV PUSH 08/30/17 14:00 09/01/17 01:50 (Carafate Liq) 1 gm ACHS PO 08/30/17 17:00 08/31/17 22:10 (SEROquel) 100 mg HS PO 08/30/17 21:00 08/31/17 22:09 Multivitamins 10 ml/Sodium Chloride 510 ml @ 125 mls/hr Q24H IV 08/31/17 10:00 09/01/17 09:59 08/31/17 10:10 (Folate) 1 mg DAILY PO 08/31/17 10:00 08/31/17 10:42 (Duoneb Neb) 1 ampule Q4HR NEB NEB 08/31/17 12:00 09/01/17 07:50 (Norvasc) 10 mg ONCE ONCE PO 09/01/17 08:15 09/01/17 08:16 (Norvasc) 10 mg DAILY PO 09/02/17 09:00 Vital Signs / I&O Vital Signs Date Time Temp Pulse Resp B/P (MAP) Pulse Ox O2 Delivery O2 Flow Rate FiO2 09/01/17 07:52 95 21 09/01/17 07:30 98.2 54 18 166/83 (110) 100 09/01/17 07:00 43 09/01/17 06:00 48 09/01/17 05:00 48 09/01/17 04:00 46 09/01/17 04:00 97.2 47 16 152/70 (97) 96 09/01/17 03:09 95 Room Air 09/01/17 03:00 56 09/01/17 02:00 56 09/01/17 01:00 56 09/01/17 00:00 62 09/01/17 00:00 97.2 52 16 171/76 (107) 95 08/31/17 23:00 52 08/31/17 22:00 46 08/31/17 21:00 50 08/31/17 20:45 97 21 08/31/17 20:00 98.1 51 16 162/86 (111) 98 08/31/17 20:00 50 08/31/17 19:00 45 08/31/17 18:12 66 08/31/17 17:49 124/65 (84) 08/31/17 17:00 62 08/31/17 16:00 48 08/31/17 15:56 96 Room Air 08/31/17 15:56 97.8 60 20 139/64 (89) 96 08/31/17 15:00 59 08/31/17 14:00 48 08/31/17 13:00 50 08/31/17 12:08 95 Room Air 08/31/17 12:08 97.6 56 20 102/72 (82) 95 08/31/17 12:00 52 08/31/17 11:10 98 08/31/17 11:00 52 08/31/17 10:44 103/62 (76) 08/31/17 10:08 66 08/31/17 09:00 56 I/O 08/31/17 08/31/17 08/31/17 09/01/17 09/01/17 09/01/17 07:00 15:00 23:00 07:00 15:00 23:00 Intake Total 480 ml 510 ml 700 ml 240 ml Output Total 600 ml 600 ml 1225 ml Balance -120 ml 510 ml 100 ml -985 ml Intake Oral 480 ml 600 ml 240 ml IV Total 510 ml 100 ml Output Urine Total 600 ml 600 ml 1225 ml # Bowel Movements 3 1 3 Physical Exam GENERAL: SKIN: Warm and dry. HEAD: Normocephalic. EYES: No scleral icterus. No injection or drainage. NECK: Supple, trachea midline. No JVD or lymphadenopathy. CARDIOVASCULAR: Regular rate and rhythm without murmurs, gallops, or rubs. RESPIRATORY: Breath sounds equal bilaterally. No accessory muscle use. GASTROINTESTINAL: Abdomen soft, non-tender, nondistended. MUSCULOSKELETAL: No cyanosis, or edema. BACK: Nontender without obvious deformity. No CVA tenderness. Laboratory Laboratory Tests Test 09/01/17 05:00 Potassium Level 3.5 MEQ/L Assessment and Plan Problem List: (1) NSTEMI (non-ST elevated myocardial infarction) ICD Codes: I21.4 - Non-ST elevation (NSTEMI) myocardial infarction (2) CAD (coronary artery disease) ICD Codes: I25.10 - Atherosclerotic heart disease of [place] coronary artery without angina pectoris (3) Altered mental status ICD Codes: R41.82 - Altered mental status, unspecified (4) ETOH abuse ICD Codes: F10.10 - Alcohol abuse, uncomplicated Assessment and Plan 1.) CAD -pod # 4 pci mid lad, continue aspirin, plavix, lipitor, hold coreg due to bradycardia; ams started prior to cath as soon as he got 1 mg of versed; he got 4 doses of ativan subsequently, last 6 am 08/29/17; mental status appears close to baseline now; mri ordered but radiology evaluating shunt for contraindications prior to proceeding 2.) Bradycardia - consult Dr Lopez 3.) HTN - increase norvasc 10 mg qd Lawrence Monroe MD Sep 01, 2017 08:16
[2017-09-01] MEDS: LACTULOSE SYRUP 20 GM/30 ML CUP PO SCH ×4 (09:00→20:31)
[2017-09-01] MEDS: FOLIC ACID 1 MG TAB PO SCH (09:26)
[2017-09-01] MEDS: SUCRALFATE 1 GM/10 ML CUP PO SCH ×4 (09:26→20:27)
[2017-09-01] MEDS: ASPIRIN 81 MG CHEW TAB PO SCH (09:27)
[2017-09-01] MEDS: LISINOPRIL 10 MG TAB PO SCH (09:27)
[2017-09-01] MEDS: THIAMINE HCL 100 MG TAB PO SCH (09:28)
[2017-09-01] MEDS: CLOPIDOGREL 75 MG TAB PO SCH (09:28)
[2017-09-01] MEDS: MULTIVITAMIN TAB PO SCH (09:29)
[2017-09-01] MEDS: HYDROCHLOROTHIAZIDE 25 MG TAB PO SCH (09:29)
[2017-09-01] MEDS: predniSONE 10 MG TAB PO SCH (09:30)
[2017-09-01] MEDS: SODIUM CHLORIDE 0.9% FLUSH 10 ML FLUSH IV FLUSH SCH ×2 (09:31→20:27)
[2017-09-01] MEDS: SODIUM CHLOR 0.9% 1000 ML INJ 1,000 ML IV SCH ×2 (10:20→22:15)
[2017-09-01] MEDS: MAGNESIUM OXIDE 400 MG TAB PO SCH ×2 (11:00→22:41)
--- NOTE | 2017-09-01 15:11 | HHI.PR ---
Subjective Remarks This is a pleasant 76 y/o Male with Atrial Fibrillation, Prostate Cancer History , GERD, Hypertension, Hypothyroidism, former Smoker who came to ER at 10:30 PM yesterday night with Atypical Chest pain, that started while he was sitting watching television, the Pain is sharp, constant, midsternal. Nonradiating and associated with diaphoresis. Denies any nausea, sob, vomiting, abdominal pain, focal weakness or numbness. Said pain relieved after sublingual nitro and aspirin given by EVAC. Never had crank hand or stress test. Seen in his bedroom in Critical Care Unit in the presence of nurse Mr. Varner and his Friend Miss Allegra Moreno, the patient continue with chest pain, 10/10 in intensity as a Sharp sensation, non radiated on precordial area and continuous. Doctor Fer correctional casework specialist consulted and will come to evaluate the patient. 08/28: Stable in his bedroom seen in the presence of nurse Delia, no nausea , vomit or diarrhea, later today will go for Cardiac Catheterization. 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 at this time restrained, his Primary correctional casework specialist Doctor Fer asked for Neurology specialist evaluation, I saw the patient in the room Miss Lin, will replace electrolytes and complete laboratory with Ammonia level and Vitamin levels. continue Banana Bag. 08/30: With diagnosis of NSTEMI had Cardiac Cath yesterday, Mid LAD lesion 70%, ostial left circumflex 80%, Mild disease of the RCA LVEF 55%, successful PCI with BMS to Mid LAD from 70% to 0%, to continue Plavix and Aspirin, due to Bradycardia BB contraindicated Primary Parole Director Doctor Lawrence Monroe, stable in his bedroom with Uncontrolled blood pressure started on clonidine by mouth every 8 hours. if systolic blood pressure over 130 mm Hg. 08/31: Seen in her bedroom stable in the presence of nurse Miss Ontiverosie will continue replacement of his Electrolytes no nausea,v omit or diarrhea. 11- PATIENT NEEDS PT AND OT TO SEE DR SAENZ REGARDING AFIB AND BRADYCARDIA ON NO BETA DARA DW PT AND RN AND FAMILY WAS GOING THROUGH ALCOHOL WITHDRAWALS PAST FEW DAY HAD ELEVATED AMMONIA LEVEL HAS VENTICULAR ATRIAL SHUNT NEEDS AGGRESSIVE PT AND OT Objective Vitals Vital Signs Date Time Temp Pulse Resp B/P (MAP) Pulse Ox O2 Delivery O2 Flow Rate FiO2 09/01/17 11:15 98.0 68 18 145/75 (98) 98 09/01/17 11:00 68 09/01/17 07:52 95 21 09/01/17 07:30 98.2 54 18 166/83 (110) 100 09/01/17 07:00 43 09/01/17 06:00 48 09/01/17 05:00 48 09/01/17 04:00 46 09/01/17 04:00 97.2 47 16 152/70 (97) 96 09/01/17 03:09 95 Room Air 09/01/17 03:00 56 09/01/17 02:00 56 09/01/17 01:00 56 09/01/17 00:00 62 09/01/17 00:00 97.2 52 16 171/76 (107) 95 08/31/17 23:00 52 08/31/17 22:00 46 08/31/17 21:00 50 08/31/17 20:45 97 21 08/31/17 20:00 98.1 51 16 162/86 (111) 98 08/31/17 20:00 50 08/31/17 19:00 45 08/31/17 18:12 66 08/31/17 17:49 124/65 (84) 08/31/17 17:00 62 08/31/17 16:00 48 08/31/17 15:56 96 Room Air 08/31/17 15:56 97.8 60 20 139/64 (89) 96 08/31/17 15:00 59 I/O 08/31/17 08/31/17 08/31/17 09/01/17 09/01/17 09/01/17 07:00 15:00 23:00 07:00 15:00 23:00 Intake Total 480 ml 510 ml 700 ml 1240 ml Output Total 600 ml 600 ml 1225 ml Balance -120 ml 510 ml 100 ml 15 ml Intake Oral 480 ml 600 ml 240 ml IV Total 510 ml 100 ml 1000 ml Output Urine Total 600 ml 600 ml 1225 ml # Bowel Movements 3 1 3 Result Diagram: 08/30/17 0501 09/01/17 0500 Other Results Laboratory Tests Test 08/30/17 05:01 08/30/17 14:30 08/31/17 05:07 09/01/17 05:00 White Blood Count 11.9 TH/MM3 Red Blood Count 3.89 MIL/MM3 Hemoglobin 12.8 GM/DL Hematocrit 36.0 % Mean Corpuscular Volume 92.4 FL Mean Corpuscular Hemoglobin 32.8 PG Mean Corpuscular Hemoglobin Concent 35.5 % Red Cell Distribution Width 13.3 % Platelet Count 165 TH/MM3 Mean Platelet Volume 8.6 FL Blood Urea Nitrogen 12 MG/DL 10 MG/DL Creatinine 0.67 MG/DL 0.55 MG/DL Random Glucose 112 MG/DL 91 MG/DL Calcium Level 8.5 MG/DL 8.4 MG/DL Phosphorus Level 1.2 MG/DL 1.9 MG/DL 2.3 MG/DL Magnesium Level 2.0 MG/DL Sodium Level 138 MEQ/L 137 MEQ/L Potassium Level 3.5 MEQ/L 3.6 MEQ/L 3.6 MEQ/L 3.5 MEQ/L Chloride Level 104 MEQ/L 103 MEQ/L Carbon Dioxide Level 25.3 MEQ/L 26.9 MEQ/L Anion Gap 9 MEQ/L 7 MEQ/L Estimat Glomerular Filtration Rate 115 ML/MIN 144 ML/MIN Imaging Last Impressions Chest X-Ray 08/27/17 0152 Signed Impressions: Service Date/Time: Sunday, August 27, 2017 01:03 - CONCLUSION: Chronic cardiac silhouette enlargement. No acute cardiopulmonary disease identified. Krystian Spicer MD Head CT 08/27/17 0000 Signed Impressions: Service Date/Time: Sunday, August 27, 2017 17:48 - CONCLUSION: 1. No acute intracranial abnormality demonstrated. 2. 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 3. Right parietal ventriculostomy catheter present. No ventriculomegaly or other acute complication demonstrated. Jose Dimas MD Objective Remarks GENERAL: AWAKE AND ALERT TALKATIVE AND COOPERATIVE-INTERMITTED CONFUSION DUE TO WITHDRAWALS SKIN: Warm and dry. HEAD: Atraumatic. Normocephalic. EYES: Pupils equal and round. No scleral icterus. No injection or drainage. ENT: No nasal bleeding or discharge. Mucous membranes pink and moist. TONGUE MIDLINE NECK: Trachea midline. No JVD. SUPPLE CARDIOVASCULAR: IRRegular rate and rhythm. DANE- S1, S2 NO S3 OR S4 NO HEAVE OR THRILL RESPIRATORY: No accessory muscle use. Clear to auscultation. Breath sounds equal bilaterally. GASTROINTESTINAL: Abdomen soft, non-tender, nondistended. Hepatic and splenic margins not palpable. MUSCULOSKELETAL: Extremities without clubbing, cyanosis, or edema. No obvious deformities. NEUROLOGICAL: Awake and alert. No obvious cranial nerve deficits. Motor grossly within normal limits. Five out of 5 muscle strength in the arms and legs. Normal speech. PSYCHIATRIC: Appropriate mood and affect; insight and judgment normal. Procedures 08/29/17 With diagnosis of NSTEMI had Cardiac Cath yesterday, Mid LAD lesion 70% , ostial left circumflex 80%, Mild disease of the RCA LVEF 55%, successful PCI with BMS to Mid LAD from 70% to 0%, to continue Plavix and Aspirin, due to Bradycardia BB contraindicated Primary Parole Director Doctor Lawrence Monroe. Medications and IVs Current Medications Al Hydrox/Mg Hydrox/Simethicone (Mag-Al Plus Susp Liq) 30 ml ONCE ONCE PO Last administered on 08/27/17 01:48; Start 08/27/17 at 01:45; Stop 08/27/17 at 01:46; Status DC Heparin Sodium (Porcine) (Heparin Inj) 4,000 units ONCE ONCE IV PUSH Last administered on 08/27/17 03:43; Start 08/27/17 at 03:15; Stop 08/27/17 at 03:22 ; Status DC Heparin Sodium (Porcine) (Heparin Inj) 5,000 units UNSCH PRN IV PUSH APTT LESS THAN 25; Start 08/27/17 at 09:15; Stop 08/28/17 at 18:57; Status DC Heparin Sodium (Porcine) (Heparin Inj) 2,500 units UNSCH PRN IV PUSH APTT 25 TO 39; Start 08/27/17 at 09:15; Stop 08/28/17 at 18:57; Status DC Heparin Sodium/ Dextrose 250 ml @ 10 mls/hr TITRATE PRN IV Coagulation Management Last administered on 08/28/17 12:40; Start 08/27/17 at 03:15; Stop 08/28/17 at 18:57; Status DC Nitroglycerin (Nitrostat Sl) 0.4 mg Q5M PRN SL CHEST PAIN Last administered on 08/27/17 04:51; Start 08/27/17 at 03:30 Sodium Chloride (NS Flush) 2 ml BID IV FLUSH Last administered on 08/28/17 13: 13; Start 08/27/17 at 09:00; Stop 08/28/17 at 19:02; Status DC Sodium Chloride (NS Flush) 2 ml UNSCH PRN IV FLUSH FLUSH AFTER USING IV ACCESS ; Start 08/27/17 at 04:00; Stop 08/28/17 at 19:02; Status DC Aspirin (Aspirin) 325 mg DAILY PO Last administered on 08/27/17 08:57; Start 08/27/17 at 09:00; Stop 08/27/17 at 09:17; Status DC Nitroglycerin (Nitroglycerin 2% Oint) 1 inch Q6HR TOP Last administered on 08/27 05:14; Start 08/27/17 at 06:00; Stop 08/27/17 at 10:48; Status DC Acetaminophen (Tylenol) 500 mg Q4H PRN PO HEADACHE; Start 08/27/17 at 04:00 Morphine Sulfate (Morphine Inj) 2 mg Q3HR PRN IV PUSH PAIN SCALE 6 TO 10 Last administered on 08/27/17 09:02; Start 08/27/17 at 04:00 Hydrochlorothiazide (Hydrodiuril) 25 mg DAILY PO Last administered on 09:29; Start 08/27/17 at 09:00 Levothyroxine Sodium (Synthroid) 112 mcg DAILY@0600 PO Last administered on 07:37; Start 08/27/17 at 09:30 Lisinopril (Prinivil) 10 mg DAILY PO Last administered on 09/01/17 09:27; Start 08/27/17 at 09:00 Prednisone (Deltasone) 10 mg DAILY PO Last administered on 09/01/17 09:30; Start 08/27/17 at 09:00 Multivitamins (Theragran) 1 tab DAILY PO Last administered on 09/01/17 09:29 ; Start 08/27/17 at 09:00 Atorvastatin Calcium (Lipitor) 80 mg HS PO Last administered on 08/31/17 22:10 ; Start 08/27/17 at 21:00 Aspirin (Aspirin Chew) 81 mg DAILY CHEW Last administered on 08/28/17 09:12; Start 08/28/17 at 09:00; Stop 08/28/17 at 19:02; Status DC Multivitamins 10 ml/Folic Acid 1 mg/Sodium Chloride 510.2 ml @ 125 mls/hr Q24H IV Last administered on 08/30/17 10:19; Start 08/27/17 at 10:00; Stop at 09:06; Status DC Thiamine HCl 100 mg/Sodium Chloride 101 ml @ 100 mls/hr Q24H IV Last administered on 08/29/17 11:59; Start 08/27/17 at 10:00; Stop 08/30/17 at 10:05 ; Status DC Thiamine HCl (Vitamin B1) 100 mg DAILY PO Last administered on 09/01/17 09:28 ; Start 08/31/17 at 09:00 Flumazenil (Romazicon Inj) 0.2 mg Q1M PRN IV PUSH SEE LABEL COMMENTS; Start at 09:30 Lorazepam (Ativan) 1 mg Q4H PRN PO CIWA 8 - 10; Start 08/27/17 at 09:30; Stop 08/29/17 at 18:24; Status DC Lorazepam (Ativan Inj) 1 mg Q4H PRN IV PUSH CIWA 8 - 10 Last administered on 06:19; Start 08/27/17 at 09:30; Stop 08/29/17 at 18:24; Status DC Lorazepam (Ativan) 2 mg Q2H PRN PO CIWA 11-14; Start 08/27/17 at 09:30; Stop 08/29/17 at 18:24; Status DC Lorazepam (Ativan Inj) 2 mg Q2H PRN IV PUSH CIWA 11-14 Last administered on 20:01; Start 08/27/17 at 09:30; Stop 08/29/17 at 18:24; Status DC Lorazepam (Ativan Inj) 2 mg Q1H PRN IV PUSH CIWA 15-20 Last administered on 02:00; Start 08/27/17 at 09:30; Stop 08/29/17 at 18:24; Status DC Lorazepam (Ativan Inj) 2 mg Q15M PRN IV PUSH CIWA > 20 Last administered on 20:37; Start 08/27/17 at 09:30; Stop 08/29/17 at 18:24; Status DC Famotidine (Pepcid Inj) 20 mg Q12H IV PUSH Last administered on 08/30/17 21:56 ; Start 08/27/17 at 09:30; Stop 08/31/17 at 09:47; Status DC Nitroglycerin/ Dextrose 250 ml @ As Directed STK-MED ONCE .ROUTE Last administered on 08/27/17 10:00; Start 08/27/17 at 10:00; Stop 08/27/17 at 10:01 ; Status DC Carvedilol (Coreg) 3.125 mg ONCE ONCE PO Last administered on 08/27/17 10:15 ; Start 08/27/17 at 10:15; Stop 08/27/17 at 10:39; Status DC Carvedilol (Coreg) 3.125 mg Q12HR PO Last administered on 08/29/17 21:47; Start 08/27/17 at 21:00; Stop 08/30/17 at 09:14; Status DC Magnesium Sulfate/ Dextrose 100 ml @ 100 mls/hr Q1H IV Last administered on 12:56; Start 08/27/17 at 10:45; Stop 08/27/17 at 12:44; Status DC Magnesium Oxide (Mag-Ox) 400 mg ONCE ONCE PO Last administered on 08/27/17 12 :07; Start 08/27/17 at 10:15; Stop 08/27/17 at 10:39; Status DC Magnesium Oxide (Mag-Ox) 400 mg Q12H PO Last administered on 09/01/17 11:00; Start 08/27/17 at 23:00 Nitroglycerin/ Dextrose 250 ml @ 1.5 mls/hr TITRATE PRN IV Chest pain; Start 08/27/17 at 10:30 Sodium Chloride 1,000 ml @ 84 mls/hr [id number] IV Last administered on 10:20; Start 08/28/17 at 11:00 Methylprednisolone Sodium Succinate (SoluMEDROL INJ) 125 mg ONCE ONCE IV PUSH Last administered on 08/28/17 16:45; Start 08/28/17 at 16:45; Stop 08/28/17 at 16:59; Status DC Heparin Sodium/ Sodium Chloride 500 ml @ As Directed STK-MED ONCE .ROUTE Last administered on 08/28/17 17:29; Start 08/28/17 at 17:29; Stop 08/28/17 at 17:30 ; Status DC Heparin Sodium/ Sodium Chloride 500 ml @ As Directed STK-MED ONCE .ROUTE Last administered on 08/28/17 17:29; Start 08/28/17 at 17:29; Stop 08/28/17 at 17:30 ; Status DC Diphenhydramine HCl (Benadryl Inj) 50 mg STK-MED ONCE .ROUTE Last administered on 08/28/17 17:36; Start 08/28/17 at 17:33; Stop 08/28/17 at 17:34; Status DC Midazolam HCl (Versed Inj) 2 mg STK-MED ONCE .ROUTE Last administered on 17:38; Start 08/28/17 at 17:33; Stop 08/28/17 at 17:34; Status DC Famotidine (Pepcid Inj) 20 mg STK-MED ONCE .ROUTE Last administered on 17:37; Start 08/28/17 at 17:33; Stop 08/28/17 at 17:34; Status DC Heparin Sodium (Porcine) (Heparin Inj) 10,000 units STK-MED ONCE .ROUTE Last administered on 08/28/17 17:46; Start 08/28/17 at 17:45; Stop 08/28/17 at 17:46 ; Status DC Clopidogrel Bisulfate (Plavix) 600 mg STK-MED ONCE .ROUTE ; Start 08/28/17 at 18 :13; Stop 08/28/17 at 18:14; Status DC Tirofiban/Sodium Chloride 250 ml @ As Directed STK-MED ONCE IV ; Start at 18:13; Stop 08/28/17 at 18:14; Status DC Sodium Chloride (NS Flush) 2 ml UNSCH PRN IV FLUSH FLUSH AFTER USING IV ACCESS ; Start 08/28/17 at 18:30 Sodium Chloride (NS Flush) 2 ml BID IV FLUSH Last administered on 09/01/17 09 :31; Start 08/28/17 at 21:00 Aspirin (Aspirin Chew) 162 mg DAILY PO Last administered on 09/01/17 09:27; Start 08/29/17 at 09:00 Clopidogrel Bisulfate (Plavix) 600 mg ONCE ONCE PO Last administered on 18:27; Start 08/28/17 at 18:30; Stop 08/28/17 at 18:55; Status DC Clopidogrel Bisulfate (Plavix) 75 mg DAILY PO Last administered on 09/01/17 09:28; Start 08/29/17 at 09:00 Tirofiban/Sodium Chloride 250 ml @ 17.46 mls/ hr [id number] IV Last administered on 08/29/17 06:04; Start 08/28/17 at 18:25; Stop 08/29/17 at 12:24; Status DC Miscellaneous Information 1 ONCE ONCE XX ; Start 08/28/17 at 18:30; Stop at 18:56; Status DC Iohexol (OMNIPAQUE 350 INJ (Turn Machine Operator)) 100 ml STK-MED ONCE OTHER ; Start at 17:20; Stop 08/29/17 at 08:18; Status DC Iohexol (OMNIPAQUE 350 INJ (Turn Machine Operator)) 50 ml STK-MED ONCE OTHER ; Start at 17:20; Stop 08/29/17 at 08:18; Status DC Lactulose (Lactulose Liq) 30 ml QID PO Last administered on 08/31/17 22:10; Start 08/29/17 at 18:00 Potassium Chloride 100 ml @ 100 mls/hr Q1H IV Last administered on 08/29/17 23:10; Start 08/29/17 at 15:00; Stop 08/29/17 at 17:59; Status DC Quetiapine Fumarate (SEROquel) 50 mg HS PRN PO SLEEP Last administered on 21:47; Start 08/29/17 at 18:30; Stop 08/30/17 at 13:48; Status DC Ipratropium Sabine (Atrovent Neb) 0.5 mg Q2HR NEB PRN NEB wheezing Last administered on 08/31/17 02:23; Start 08/30/17 at 02:00 Furosemide (Lasix Inj) 40 mg ONCE ONCE IV PUSH Last administered on 08/30/17 02:30; Start 08/30/17 at 02:00; Stop 08/30/17 at 02:09; Status DC Potassium Chloride (KCl) 40 meq ONCE ONCE PO Last administered on 08/30/17 02 :30; Start 08/30/17 at 02:00; Stop 08/30/17 at 02:09; Status DC Dexmedetomidine HCl 200 mcg/ Sodium Chloride 52 ml @ 4.94 mls/hr TITRATE PRN IV SEDATION; Start 08/30/17 at 02:15; Stop 08/30/17 at 04:45; Status DC Amlodipine Besylate (Norvasc) 5 mg ONCE ONCE PO Last administered on 08:52; Start 08/30/17 at 07:30; Stop 08/30/17 at 08:26; Status DC Amlodipine Besylate (Norvasc) 5 mg DAILY PO ; Start 08/31/17 at 09:00; Stop 08/08 at 08:07; Status DC Potassium Phosphate 21 mmol/ Sodium Chloride 157 ml @ 38.75 mls/ hr ONCE ONCE IV Last administered on 08/30/17 11:29; Start 08/30/17 at 11:00; Stop at 15:03; Status DC Clonidine (Catapres) 0.1 mg Q8H PO Last administered on 09/01/17 09:30; Start 08/30/17 at 10:00 Carvedilol (Coreg) 3.125 mg ONCE ONCE PO Last administered on 08/30/17 14:05 ; Start 08/30/17 at 13:15; Stop 08/30/17 at 13:50; Status DC Carvedilol (Coreg) 3.125 mg Q12HR PO Last administered on 08/30/17 21:57; Start 08/30/17 at 21:00; Stop 08/31/17 at 06:49; Status DC Famotidine (Pepcid Inj) 20 mg Q12H IV PUSH Last administered on 09/01/17 13: 36; Start 08/30/17 at 14:00 Sucralfate (Carafate Liq) 1 gm ACHS PO Last administered on 09/01/17 12:10; Start 08/30/17 at 17:00 Quetiapine Fumarate (SEROquel) 100 mg HS PO Last administered on 08/31/17 22: 09; Start 08/30/17 at 21:00 Magnesium Sulfate/ Dextrose 100 ml @ 100 mls/hr Q1H IV Last administered on 15:29; Start 08/30/17 at 14:00; Stop 08/30/17 at 15:59; Status DC Atropine Sulfate (Atropine Inj) 0.6 mg UNSCH X1 PRN IV PUSH SEE COMMENT Last administered on 08/31/17 08:17; Start 08/31/17 at 07:00; Stop 08/31/17 at 23:59 ; Status DC Multivitamins 10 ml/Sodium Chloride 510 ml @ 125 mls/hr Q24H IV Last administered on 08/31/17 10:10; Start 08/31/17 at 10:00; Stop 09/01/17 at 09: 59; Status DC Folic Acid (Folate) 1 mg DAILY PO Last administered on 09/01/17 09:26; Start 08/31/17 at 10:00 Albuterol/ Ipratropium (Duoneb Neb) 1 ampule Q4HR NEB NEB Last administered on 09/01/17 07:50; Start 08/31/17 at 12:00; Stop 09/01/17 at 08:48; Status DC Potassium Chloride 100 ml @ 100 mls/hr ONCE ONCE IV Last administered on 08/31 14:42; Start 08/31/17 at 14:15; Stop 08/31/17 at 15:14; Status DC Potassium Phosphate 15 mmol/ Sodium Chloride 155 ml @ 38.75 mls/ hr ONCE ONCE IV Last administered on 08/31/17 17:47; Start 08/31/17 at 14:15; Stop at 18:14; Status DC Amlodipine Besylate (Norvasc) 10 mg ONCE ONCE PO Last administered on 09:30; Start 09/01/17 at 08:15; Stop 09/01/17 at 08:16; Status DC Amlodipine Besylate (Norvasc) 10 mg DAILY PO ; Start 09/02/17 at 09:00 Urinary Catheter: No Vascular Central Line Catheter: No A/P Assessment and Plan 1. NSTEMI Atypical Chest pain he had an ECG in ER showing no ST segment elevation or depression, on Morphine, Oxygen as needed High intensity statins, will need Beta Blockers at this time with Bradycardia will follow to start this medicine once possible, awaiting for correctional casework specialist, continue Cardiac Monitoring, Cardiac Enzymes trending down, status post Cardiac Cath found Mid LAD lesion, 50% ostial left circumflex and 80% small medial branch of the first diagonal artery. EF 55%, successful PCI with BMS to Mid LAD from 70% to 1%, recommended to continue Plavix and Aspirin. Aggrastat drip per protocol. as per Doctor Lawrence Monroe. 2. New Onset of Atrial Fibrillation started on Beta blockers by correctional casework specialist at this time Bradycardia discontinued BB by Cardiology. 3. GERD on Famotidine 4. Hypertension Uncontrolled added Clonidine for blood pressure over 130 mm Hg. 5. Hypothyroidism continue Hormonal replacement 6. Obesity strongly recommended diet and exercise. 7. Alcohol abuse and dependency at this time having Encephalopathy due to alcohol withdrawal, continue CIWA protocol, Banana bag Ammonia level and replace electrolytes, lactulose. ammonia level 32, as per Cardiology neurology specialist consult to rule out ANS. asked for MRI and Radiology will follow if is feasible without harm. 8. chronic swollen legs he states secondary to his chronic Prednisone intake 9. History of Temporal Arteritis management with Chronic Prednisone use. 10 mg daily 10. Prostate Cancer history status post Radiation therapy 11. Hypophosphatemia level 2.3 to give 15 mmol of Potassium chloride and cover for Potassium in 3.6 with 10 meq IV. follow in am tomorrow. DVT prophylaxis with Heparin drip continue present care. NEEDS AGGRESSIVE PT AND OT DR SAENZ TO CONSULT REGARDING BRADYCARDIA Discharge Planning EPS EVAL NEEDS PT AND OT ALCOHOL WITHDRAWAL PROTOCOLS Carson Posey DO Sep 01, 2017 15:11
[2017-09-01] MEDS ORDERED: LORazepam 2 MG/ML VIAL IV PUSH PRN ×4 (15:15)
[2017-09-01] MEDS ORDERED: FLUMAZENIL 0.5 MG/5 ML VIAL IV PUSH PRN (15:15)
[2017-09-01] MEDS ORDERED: HALOPERIDOL LACTATE 5 MG/ML AMP IM PRN (15:15)
[2017-09-01] MEDS ORDERED: LORazepam 1 MG TAB PO PRN (15:15)
[2017-09-01] MEDS ORDERED: LORazepam 2 MG TAB PO PRN (15:15)
[2017-09-01] MEDS ORDERED: SODIUM CHLORIDE 0.9% FLUSH 10 ML FLUSH IV FLUSH PRN (15:15)
--- NOTE | 2017-09-01 16:40 | MB ---
cc: BECKIE SAENZ M.D. DATE OF CONSULTATION: 09/01/2017. REASON FOR CONSULTATION: Symptomatic bradycardia. HISTORY OF PRESENT ILLNESS: Mr. Elizabeth is a 76-year-old gentleman with history of coronary artery disease, recent PTCA plus stent by Dr. Monroe on August 28, history of high blood pressure, obesity, alcohol dependency who developed severe symptomatic bradycardia. Multiple pauses of over 3.5 seconds during the night. The rate was in the 40s. I was consulted for evaluation and management. The chart was reviewed. The patient was evaluated. ALLERGIES: 1. MORPHINE. 2. OYSTERS. SOCIAL HISTORY: The patient is a heavy drinker. FAMILY HISTORY: Noncontributory to his current medical condition. He only mentioned that his dad has a pacemaker. No clear indication. MEDICATIONS: The patient is currently on: 1. Multivitamin. 2. Nitroglycerin sublingual PRN. 3. Albuterol. 4. Amlodipine 10 milligrams a day. 5. He is on aspirin 162 milligrams a day. 6. Atorvastatin 80 milligrams a day. 7. Catapres PRN. 8. Plavix 75 milligrams a day. 9. Famotidine. 10. Folic acid. 11. Haldol. REVIEW OF SYSTEMS: He refers feeling okay. Weakness. No chest pain. No chest discomfort. PHYSICAL EXAMINATION: GENERAL: Alert. The gentleman apparently is oriented to son and space. VITAL SIGNS: Blood pressure 145/75, pulse is 52, respiratory rate 18. LUNGS: Ventilated. CARDIOVASCULAR: S1-S2. No gallop. No murmur. ABDOMEN: Abdomen obese, no mass, no bruits. EXTREMITIES: No edema. The edema is significantly improved in the last days. EKGS: Electrocardiogram shows an irregular heart rate, possible atrial fibrillation. Poor R-wave progression. LABS: Hemoglobin is 12.8, white blood cells 11.9. Potassium 3.5, creatinine is 0.55. ASSESSMENT AND RECOMMENDATIONS: Mr. Elizabeth currently is stable. He has atrial fibrillation and symptomatic bradycardia. He states his dad had a bad experience with a pacemaker in the past. He does not want to have the device inserted. I discussed the case extensively with him and his girlfriend. The risks, the nature and the benefits of the procedure were clearly stated to him. The risks include pneumothorax, cardiac perforation, stroke and even . At this point, he will let me know his decision. If the gentleman agrees, he is a good candidate for Micra pacemaker insertion. MD AGUILAR Rios/RAULITO /4:20 PM /4:25 PM
[2017-09-01] MEDS: ATORVASTATIN 80 MG TAB PO SCH (20:28)
[2017-09-01] MEDS: QUEtiapine FUMARATE 100 MG TAB PO SCH (20:28)
[2017-09-02] VITALS (24 sets, daily range): BP systolic 110–155; BP diastolic 57–95; PULSE 40–58; RESP 18; TEMP 97.5–98.4; O2SAT 95–98
[2017-09-02] MEDS: FAMOTIDINE 20 MG/2 ML VIAL IV PUSH SCH ×2 (02:25→14:00)
[2017-09-02] MEDS: cloNIDine HCL 0.1 MG TAB PO SCH ×3 (02:27→16:32)
[2017-09-02 04:25] LABS: ANION GAP 7 MEQ/L (5-15); AST (GOT) 20 U/L (15-37); BICARBONATE 29.3 MEQ/L (21.0-32.0); BLOOD UREA NITROGEN 11 MG/DL (7-18); CHLORIDE 103 MEQ/L (98-107); GLOMERULAR FILTRATION RATE 123 ML/MIN (>89); MAGNESIUM 1.8 MG/DL (1.5-2.5); POTASSIUM 3.8 MEQ/L (3.5-5.1); SODIUM (NA) 139 MEQ/L (136-145)
[2017-09-02 04:26] LABS: ALT (GPT) 26 U/L (12-78)
[2017-09-02 04:34] LABS: ALKALINE PHOSPHATASE 90 U/L (45-117); FREE T4 1.04 NG/DL (0.76-1.46); TOTAL BILIRUBIN ADULT 0.6 MG/DL (0.2-1.0)
[2017-09-02 04:54] LABS: AUTOMATED NEUTROPHIL # 5.2 TH/MM3 (1.8-7.7); BASOPHIL % 0.3 % (0.0-2.0); EOSINOPHIL # 0.2 TH/MM3 (0-0.4); EOSINOPHIL % 3.4 % (0.0-4.0); HEMATOCRIT 35.6 % (39.0-51.0); LYMPH % 12.3 % (9.0-44.0); LYMPHOCYTE # 0.8 TH/MM3 (1.0-4.8); MEAN CELL VOLUME 93.6 FL (80.0-100.0); MEAN CORPUSCULAR HEMOGLOBIN 33.8 PG (27.0-34.0); MONO % 8.7 % (0.0-8.0); NEUT % 75.3 % (16.0-70.0); PLATELET COUNT 172 TH/MM3 (150-450); RED CELL DISTRIBUTION WIDTH 12.9 % (11.6-17.2); WHITE BLOOD COUNT 6.9 TH/MM3 (4.0-11.0)
[2017-09-02 05:28] LABS: HEMO FLAGS AUTO DIFF; MEAN CORPUSCULAR HGB CONC 36.1 % (32.0-36.0)
[2017-09-02] MEDS: LEVOTHYROXINE SODIUM 112 MCG TAB PO SCH (05:54)
[2017-09-02] MEDS: ASPIRIN 81 MG CHEW TAB PO SCH (08:59)
[2017-09-02] MEDS: CLOPIDOGREL 75 MG TAB PO SCH (08:59)
[2017-09-02] MEDS: LACTULOSE SYRUP 20 GM/30 ML CUP PO SCH ×4 (08:59→20:36)
[2017-09-02] MEDS: MULTIVITAMIN TAB PO SCH (08:59)
[2017-09-02] MEDS: predniSONE 10 MG TAB PO SCH (09:00)
[2017-09-02] MEDS: SUCRALFATE 1 GM/10 ML CUP PO SCH ×4 (09:00→20:44)
[2017-09-02] MEDS: THIAMINE HCL 100 MG TAB PO SCH (09:00)
[2017-09-02] MEDS: SODIUM CHLORIDE 0.9% FLUSH 10 ML FLUSH IV FLUSH SCH ×2 (09:00→20:45)
[2017-09-02] MEDS: LISINOPRIL 10 MG TAB PO SCH (09:00)
[2017-09-02] MEDS: FOLIC ACID 1 MG TAB PO SCH (09:00)
[2017-09-02 09:56] LABS: SCAN/DIFF AUTO DIFF CONFIRMED
--- NOTE | 2017-09-02 10:17 | PD.CARD.PN ---
Subjective Subjective Remarks alert in nad, ox3, lucid Objective Medications Current Medications Medications (Trade) Dose Ordered Sig/Katherine Route Start Time Stop Time Status Last Admin (Nitrostat Sl) 0.4 mg Q5M PRN SL 08/27/17 03:30 08/27/17 04:51 (Tylenol) 500 mg Q4H PRN PO 08/27/17 04:00 (Morphine Inj) 2 mg Q3HR PRN IV PUSH 08/27/17 04:00 08/27/17 09:02 (Hydrodiuril) 25 mg DAILY PO 08/27/17 09:00 09/01/17 09:29 (Synthroid) 112 mcg DAILY@0600 PO 08/27/17 09:30 09/02/17 05:54 (Prinivil) 10 mg DAILY PO 08/27/17 09:00 09/02/17 09:00 (Deltasone) 10 mg DAILY PO 08/27/17 09:00 09/02/17 09:00 (Theragran) 1 tab DAILY PO 08/27/17 09:00 09/02/17 08:59 (Lipitor) 80 mg HS PO 08/27/17 21:00 09/01/17 20:28 (Vitamin B1) 100 mg DAILY PO 08/31/17 09:00 09/02/17 09:00 (Mag-Ox) 400 mg Q12H PO 08/27/17 23:00 09/01/17 22:41 Nitroglycerin/ Dextrose 250 ml @ 1.5 mls/hr TITRATE PRN IV 08/27/17 10:30 Sodium Chloride 1,000 ml @ 84 mls/hr [id number] IV 08/28/17 11:00 09/01/17 22:15 (Aspirin Chew) 162 mg DAILY PO 08/29/17 09:00 09/02/17 08:59 (Plavix) 75 mg DAILY PO 08/29/17 09:00 09/02/17 08:59 (Lactulose Liq) 30 ml QID PO 08/29/17 18:00 09/02/17 08:59 (Atrovent Neb) 0.5 mg Q2HR NEB PRN NEB 08/30/17 02:00 08/31/17 02:23 (Catapres) 0.1 mg Q8H PO 08/30/17 10:00 09/02/17 09:00 (Pepcid Inj) 20 mg Q12H IV PUSH 08/30/17 14:00 09/02/17 02:25 (Carafate Liq) 1 gm ACHS PO 08/30/17 17:00 09/02/17 09:00 (SEROquel) 100 mg HS PO 08/30/17 21:00 09/01/17 20:28 (Folate) 1 mg DAILY PO 08/31/17 10:00 09/02/17 09:00 (Norvasc) 10 mg DAILY PO 09/02/17 09:00 09/02/17 08:59 (Romazicon Inj) 0.2 mg Q1M PRN IV PUSH 09/01/17 15:15 (Ativan) 1 mg Q4H PRN PO 09/01/17 15:15 (Ativan Inj) 1 mg Q4H PRN IV PUSH 09/01/17 15:15 (Ativan) 2 mg Q2H PRN PO 09/01/17 15:15 (Ativan Inj) 2 mg Q2H PRN IV PUSH 09/01/17 15:15 (Ativan Inj) 2 mg Q1H PRN IV PUSH 09/01/17 15:15 (Ativan Inj) 2 mg Q15M PRN IV PUSH 09/01/17 15:15 (Haldol Inj) 2 mg Q15M PRN IM 09/01/17 15:15 (NS Flush) 2 ml UNSCH PRN IV FLUSH 09/01/17 15:15 (NS Flush) 2 ml BID IV FLUSH 09/01/17 21:00 09/02/17 09:00 Vital Signs / I&O Vital Signs Date Time Temp Pulse Resp B/P (MAP) Pulse Ox O2 Delivery O2 Flow Rate FiO2 09/02/17 08:00 50 09/02/17 08:00 98.4 54 18 148/78 (101) 95 09/02/17 07:00 49 09/02/17 06:21 45 09/02/17 05:04 58 09/02/17 04:03 51 09/02/17 03:17 98.2 54 18 146/73 (97) 95 09/02/17 03:15 52 09/02/17 02:12 48 09/02/17 01:05 53 09/02/17 00:09 53 09/01/17 23:00 97.3 52 18 118/64 (82) 94 09/01/17 23:00 54 09/01/17 22:00 54 09/01/17 21:00 62 09/01/17 20:00 64 09/01/17 19:00 68 09/01/17 19:00 98.0 62 18 123/70 (87) 96 09/01/17 18:00 78 09/01/17 17:00 70 09/01/17 16:00 68 09/01/17 15:00 98.0 63 20 131/63 (85) 98 09/01/17 15:00 63 09/01/17 14:00 52 09/01/17 13:00 64 09/01/17 12:00 50 09/01/17 11:15 98.0 68 18 145/75 (98) 98 09/01/17 11:00 68 I/O 09/01/17 09/01/17 09/01/17 09/02/17 09/02/17 09/02/17 07:00 15:00 23:00 07:00 15:00 23:00 Intake Total 1240 ml 1051 ml 1373 ml Output Total 1225 ml 1550 ml 850 ml Balance 15 ml -499 ml 523 ml Intake Oral 240 ml 520 ml 480 ml IV Total 1000 ml 531 ml 893 ml Output Urine Total 1225 ml 1550 ml 850 ml # Bowel Movements 3 0 0 Physical Exam GENERAL: SKIN: Warm and dry. HEAD: Normocephalic. EYES: No scleral icterus. No injection or drainage. NECK: Supple, trachea midline. No JVD or lymphadenopathy. CARDIOVASCULAR: Regular rate and rhythm without murmurs, gallops, or rubs. RESPIRATORY: Breath sounds equal bilaterally. No accessory muscle use. GASTROINTESTINAL: Abdomen soft, non-tender, nondistended. MUSCULOSKELETAL: No cyanosis, or edema. BACK: Nontender without obvious deformity. No CVA tenderness. Laboratory Laboratory Tests Test 09/02/17 03:48 White Blood Count 6.9 TH/MM3 Red Blood Count 3.80 MIL/MM3 Hemoglobin 12.8 GM/DL Hematocrit 35.6 % Mean Corpuscular Volume 93.6 FL Mean Corpuscular Hemoglobin 33.8 PG Mean Corpuscular Hemoglobin Concent 36.1 % Red Cell Distribution Width 12.9 % Platelet Count 172 TH/MM3 Mean Platelet Volume 8.8 FL Neutrophils (%) (Auto) 75.3 % Lymphocytes (%) (Auto) 12.3 % Monocytes (%) (Auto) 8.7 % Eosinophils (%) (Auto) 3.4 % Basophils (%) (Auto) 0.3 % Neutrophils # (Auto) 5.2 TH/MM3 Lymphocytes # (Auto) 0.8 TH/MM3 Monocytes # (Auto) 0.6 TH/MM3 Eosinophils # (Auto) 0.2 TH/MM3 Basophils # (Auto) 0.0 TH/MM3 CBC Comment AUTO DIFF Differential Comment AUTO DIFF CONFIRMED Blood Urea Nitrogen 11 MG/DL Creatinine 0.63 MG/DL Random Glucose 101 MG/DL Total Protein 6.5 GM/DL Albumin 2.8 GM/DL Calcium Level 8.2 MG/DL Phosphorus Level 1.9 MG/DL Magnesium Level 1.8 MG/DL Alkaline Phosphatase 90 U/L Aspartate Amino Transf (AST/SGOT) 20 U/L Alanine Aminotransferase (ALT/SGPT) 26 U/L Total Bilirubin 0.6 MG/DL Sodium Level 139 MEQ/L Potassium Level 3.8 MEQ/L Chloride Level 103 MEQ/L Carbon Dioxide Level 29.3 MEQ/L Anion Gap 7 MEQ/L Estimat Glomerular Filtration Rate 123 ML/MIN Ammonia 14 MCMOL/L Free Thyroxine 1.04 NG/DL Thyroid Stimulating Hormone 3rd Gen 11.700 uIU/ML Assessment and Plan Problem List: (1) NSTEMI (non-ST elevated myocardial infarction) ICD Codes: I21.4 - Non-ST elevation (NSTEMI) myocardial infarction (2) CAD (coronary artery disease) ICD Codes: I25.10 - Atherosclerotic heart disease of [place] coronary artery without angina pectoris (3) Altered mental status ICD Codes: R41.82 - Altered mental status, unspecified (4) ETOH abuse ICD Codes: F10.10 - Alcohol abuse, uncomplicated Assessment and Plan 1.) CAD -pod # 5 pci mid lad, continue aspirin, plavix, lipitor, hold coreg due to bradycardia; ams started prior to cath as soon as he got 1 mg of versed; he got 4 doses of ativan subsequently, last 6 am 08/29/17; mental status appears close to baseline now; mri ordered but radiology evaluating shunt for contraindications prior to proceeding 2.) Bradycardia - Dr Lopez rec ppm, patient undecided @ ppm 3.) HTN - increase norvasc 10 mg qd Lawrence Monroe MD Sep 02, 2017 10:17
[2017-09-02] MEDS: SODIUM CHLOR 0.9% 1000 ML INJ 1,000 ML IV SCH (12:17)
[2017-09-02] MEDS: ACETAMINOPHEN 500 MG CPLT PO PRN (12:17)
[2017-09-02] MEDS: MAGNESIUM OXIDE 400 MG TAB PO SCH ×2 (12:17→22:59)
[2017-09-02] MEDS: HYDROCHLOROTHIAZIDE 25 MG TAB PO SCH (12:20)
[2017-09-02] MEDS: ATORVASTATIN 80 MG TAB PO SCH (20:45)
[2017-09-02] MEDS: QUEtiapine FUMARATE 100 MG TAB PO SCH (20:45)
[2017-09-02] MEDS: POTASSIUM PHOSPHATE/SODIUM PHOSPHATE 250 MG TAB PO SCH ×2 (21:09→22:58)
[2017-09-02] MEDS: NITROGLYCERIN 0.4 MG SL 25 TABS/BTL SL PRN (23:22)
--- NOTE | 2017-09-02 23:28 | HHI.PR ---
Subjective Remarks Deferred entry - patient seen earlier at 7:30pm patient c/o dizziness upon standing. denies cp/sob. Still bradycardic although slightly improved. Objective Vitals Vital Signs Date Time Temp Pulse Resp B/P (MAP) Pulse Ox O2 Delivery O2 Flow Rate FiO2 09/02/17 22:00 53 09/02/17 19:00 97.5 54 18 116/57 (76) 98 09/02/17 19:00 51 09/02/17 18:00 58 09/02/17 17:00 54 09/02/17 16:00 58 09/02/17 15:51 98.4 42 18 130/67 (88) 95 09/02/17 15:00 57 09/02/17 14:00 46 09/02/17 13:17 20 09/02/17 13:00 48 09/02/17 12:00 42 09/02/17 12:00 98.4 42 18 155/95 (115) 95 09/02/17 11:00 40 09/02/17 10:00 48 09/02/17 09:00 48 09/02/17 08:00 50 09/02/17 08:00 98.4 54 18 148/78 (101) 95 09/02/17 07:00 49 09/02/17 06:21 45 09/02/17 05:04 58 09/02/17 04:03 51 09/02/17 03:17 98.2 54 18 146/73 (97) 95 09/02/17 03:15 52 09/02/17 02:12 48 09/02/17 01:05 53 09/02/17 00:09 53 I/O 09/02/17 09/02/17 09/02/17 09/03/17 09/03/17 09/03/17 07:00 15:00 23:00 07:00 15:00 23:00 Intake Total 1373 ml 1795 ml Output Total 850 ml 1450 ml Balance 523 ml 345 ml Intake Oral 480 ml 975 ml IV Total 893 ml 820 ml Output Urine Total 850 ml 1450 ml # Bowel Movements 0 0 Result Diagram: 09/02/17 0348 09/02/17 0348 Imaging Last Impressions Chest X-Ray 08/27/17 015 Signed Impressions: Service Date/Time: Dhiraj, August 27, 2017 01:03 - CONCLUSION: Chronic cardiac silhouette enlargement. No acute cardiopulmonary disease identified. Krystian Spicer MD Head CT 08/27/17 0000 Signed Impressions: Service Date/Time: Sunday, August 27, 2017 17:48 - CONCLUSION: 1. No acute intracranial abnormality demonstrated. 2. 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 3. Right parietal ventriculostomy catheter present. No ventriculomegaly or other acute complication demonstrated. Jose Dimas MD Objective Remarks AAOx3 nad Clear lungs BL S1S2 RRR, bradycardic, no MRG abdomen, soft, nt, nd no edema in lower extremities Procedures 08/29/17 With diagnosis of NSTEMI had Cardiac Cath yesterday, Mid LAD lesion 70% , ostial left circumflex 80%, Mild disease of the RCA LVEF 55%, successful PCI with BMS to Mid LAD from 70% to 0%, to continue Plavix and Aspirin, due to Bradycardia BB contraindicated Primary Registered Safety Engineer Doctor Lawrence Monroe. A/P Problem List: (1) Symptomatic bradycardia ICD Code: R00.1 - Bradycardia, unspecified Status: Acute (2) NSTEMI (non-ST elevated myocardial infarction) ICD Code: I21.4 - Non-ST elevation (NSTEMI) myocardial infarction Status: Resolved (3) ETOH abuse ICD Code: F10.10 - Alcohol abuse, uncomplicated Status: Chronic (4) Alcohol withdrawal ICD Code: F10.239 - Alcohol dependence with withdrawal, unspecified Status: Resolved (5) New onset atrial fibrillation ICD Code: I48.91 - Unspecified atrial fibrillation Assessment and Plan 1. NSTEMI Atypical Chest pain he had an ECG in ER showing no ST segment elevation or depression, on Morphine, Oxygen as needed High intensity statins, will need Beta Blockers at this time with Bradycardia will follow to start this medicine once possible, awaiting for instrumentation specialist, continue Cardiac Monitoring, Cardiac Enzymes trending down, status post Cardiac Cath found Mid LAD lesion, 50% ostial left circumflex and 80% small medial branch of the first diagonal artery. EF 55%, successful PCI with BMS to Mid LAD from 70% to 1%, recommended to continue Plavix and Aspirin. Aggrastat drip per protocol. as per Doctor Lawrence Monroe. 2. New Onset of Atrial Fibrillation started on Beta blockers by instrumentation specialist at this time Bradycardia discontinued BB by Cardiology. 3. GERD on Famotidine 4. Hypertension Uncontrolled added Clonidine for blood pressure over 130 mm Hg. 5. Hypothyroidism continue Hormonal replacement 6. Obesity strongly recommended diet and exercise. 7. Alcohol abuse and dependency at this time having Encephalopathy due to alcohol withdrawal, continue CIWA protocol, Banana bag Ammonia level and replace electrolytes, lactulose. ammonia level 32, as per Cardiology neurology specialist consult to rule out ANS. asked for MRI and Radiology will follow if is feasible without harm. 09/02 Encephalopathy much improved. 8. chronic swollen legs he states secondary to his chronic Prednisone intake 9. History of Temporal Arteritis management with Chronic Prednisone use. 10 mg daily 10. Prostate Cancer history status post Radiation therapy 11. Hypophosphatemia level 2.3 to give 15 mmol of Potassium chloride and cover for Potassium in 3.6 with 10 meq IV. follow in am tomorrow. 09/02 Replace with neutraphos orally and contrinue to monitor levels. 12. Symptomatic bradycardia: Patient seen by cardiology Dr Lopez who recommended pacemaker implantation however patient making up his mind. Explained to patient briefly about pacemakers. Beta feliciano discontinued by cardiology due to bradycardia. Continue to monitor on telemetry. 13. Dizziness: Likely due to symptomatic bradycardia, however will check orthostatics. DVT prophylaxis with Heparin drip continue present care. Jaswant Sanz MD Sep 02, 2017 23:28
[2017-09-03] VITALS (24 sets, daily range): BP systolic 104–132; BP diastolic 60–76; PULSE 35–73; RESP 16–18; TEMP 97.4–98.2; O2SAT 95–100
[2017-09-03] MEDS: cloNIDine HCL 0.1 MG TAB PO SCH ×3 (02:00→17:10)
[2017-09-03] MEDS: FAMOTIDINE 20 MG/2 ML VIAL IV PUSH SCH ×2 (02:49→14:00)
[2017-09-03] MEDS: POTASSIUM PHOSPHATE/SODIUM PHOSPHATE 250 MG TAB PO SCH ×4 (05:19→23:48)
[2017-09-03] MEDS: LEVOTHYROXINE SODIUM 112 MCG TAB PO SCH (05:19)
[2017-09-03] MEDS: predniSONE 10 MG TAB PO SCH ×2 (09:00→09:14)
[2017-09-03] MEDS: LACTULOSE SYRUP 20 GM/30 ML CUP PO SCH ×4 (09:14→21:00)
[2017-09-03] MEDS: CLOPIDOGREL 75 MG TAB PO SCH (09:14)
[2017-09-03] MEDS: FOLIC ACID 1 MG TAB PO SCH (09:14)
[2017-09-03] MEDS: SUCRALFATE 1 GM/10 ML CUP PO SCH ×4 (09:14→21:00)
[2017-09-03] MEDS: MULTIVITAMIN TAB PO SCH (09:15)
[2017-09-03] MEDS: HYDROCHLOROTHIAZIDE 25 MG TAB PO SCH (09:15)
[2017-09-03] MEDS: ASPIRIN 81 MG CHEW TAB PO SCH (09:15)
[2017-09-03] MEDS: LISINOPRIL 10 MG TAB PO SCH (09:16)
[2017-09-03] MEDS: SODIUM CHLORIDE 0.9% FLUSH 10 ML FLUSH IV FLUSH SCH ×2 (09:16→21:00)
[2017-09-03] MEDS: THIAMINE HCL 100 MG TAB PO SCH (09:16)
[2017-09-03 10:34] LABS: HEMOGLOBIN A1a 1.4 %; HEMOGLOBIN A1b 0.7 %; HEMOGLOBIN Ao 85.8 %; HEMOGLOBIN F 0.9 %; HEMOGLOBIN P3 3.5 %
--- NOTE | 2017-09-03 10:36 | PD.CARD.PN ---
Subjective Subjective Remarks asleep in nad Objective Medications Current Medications Medications (Trade) Dose Ordered Sig/Katherine Route Start Time Stop Time Status Last Admin (Nitrostat Sl) 0.4 mg Q5M PRN SL 08/27/17 03:30 09/02/17 23:22 (Tylenol) 500 mg Q4H PRN PO 08/27/17 04:00 09/02/17 12:17 (Morphine Inj) 2 mg Q3HR PRN IV PUSH 08/27/17 04:00 08/27/17 09:02 (Hydrodiuril) 25 mg DAILY PO 08/27/17 09:00 09/03/17 09:15 (Synthroid) 112 mcg DAILY@0600 PO 08/27/17 09:30 09/03/17 05:19 (Prinivil) 10 mg DAILY PO 08/27/17 09:00 09/03/17 09:16 (Deltasone) 10 mg DAILY PO 08/27/17 09:00 09/02/17 09:00 (Theragran) 1 tab DAILY PO 08/27/17 09:00 09/03/17 09:15 (Lipitor) 80 mg HS PO 08/27/17 21:00 09/02/17 20:45 (Vitamin B1) 100 mg DAILY PO 08/31/17 09:00 09/03/17 09:16 (Mag-Ox) 400 mg Q12H PO 08/27/17 23:00 09/02/17 22:59 Nitroglycerin/ Dextrose 250 ml @ 1.5 mls/hr TITRATE PRN IV 08/27/17 10:30 (Aspirin Chew) 162 mg DAILY PO 08/29/17 09:00 09/03/17 09:15 (Plavix) 75 mg DAILY PO 08/29/17 09:00 09/03/17 09:14 (Lactulose Liq) 30 ml QID PO 08/29/17 18:00 09/03/17 09:14 (Atrovent Neb) 0.5 mg Q2HR NEB PRN NEB 08/30/17 02:00 08/31/17 02:23 (Catapres) 0.1 mg Q8H PO 08/30/17 10:00 09/03/17 09:14 (Pepcid Inj) 20 mg Q12H IV PUSH 08/30/17 14:00 09/03/17 02:49 (Carafate Liq) 1 gm ACHS PO 08/30/17 17:00 09/03/17 09:14 (SEROquel) 100 mg HS PO 08/30/17 21:00 09/02/17 20:45 (Folate) 1 mg DAILY PO 08/31/17 10:00 09/03/17 09:14 (Norvasc) 10 mg DAILY PO 09/02/17 09:00 09/03/17 09:16 (Romazicon Inj) 0.2 mg Q1M PRN IV PUSH 09/01/17 15:15 (Ativan) 1 mg Q4H PRN PO 09/01/17 15:15 (Ativan Inj) 1 mg Q4H PRN IV PUSH 09/01/17 15:15 (Ativan) 2 mg Q2H PRN PO 09/01/17 15:15 (Ativan Inj) 2 mg Q2H PRN IV PUSH 09/01/17 15:15 (Ativan Inj) 2 mg Q1H PRN IV PUSH 09/01/17 15:15 (Ativan Inj) 2 mg Q15M PRN IV PUSH 09/01/17 15:15 (Haldol Inj) 2 mg Q15M PRN IM 09/01/17 15:15 (NS Flush) 2 ml UNSCH PRN IV FLUSH 09/01/17 15:15 (NS Flush) 2 ml BID IV FLUSH 09/01/17 21:00 09/03/17 09:16 (K-Phos Neutral) 250 mg Q6HR PO 09/02/17 19:15 09/03/17 05:19 Vital Signs / I&O Vital Signs Date Time Temp Pulse Resp B/P (MAP) Pulse Ox O2 Delivery O2 Flow Rate FiO2 09/03/17 09:00 73 09/03/17 08:00 64 09/03/17 08:00 98.0 53 18 132/76 (94) 100 09/03/17 07:00 35 09/03/17 06:00 45 09/03/17 05:00 38 09/03/17 04:00 45 09/03/17 03:33 98.2 53 18 107/71 (83) 100 09/03/17 03:00 51 11/12/17 01:00 42 09/02/17 23:48 18 09/02/17 23:00 98.3 47 18 110/69 (83) 98 09/02/17 23:00 46 09/02/17 22:00 53 09/02/17 19:00 97.5 54 18 116/57 (76) 98 09/02/17 19:00 51 09/02/17 18:00 58 09/02/17 17:00 54 09/02/17 16:00 58 09/02/17 15:51 98.4 42 18 130/67 (88) 95 09/02/17 15:00 57 09/02/17 14:00 46 09/02/17 13:17 20 09/02/17 13:00 48 09/02/17 12:00 42 09/02/17 12:00 98.4 42 18 155/95 (115) 95 09/02/17 11:00 40 I/O 09/02/17 09/02/17 09/02/17 09/03/17 09/03/17 09/03/17 07:00 15:00 23:00 07:00 15:00 23:00 Intake Total 1373 ml 1795 ml 240 ml Output Total 850 ml 1450 ml 800 ml Balance 523 ml 345 ml -560 ml Intake Oral 480 ml 975 ml 240 ml IV Total 893 ml 820 ml Output Urine Total 850 ml 1450 ml 800 ml # Bowel Movements 0 0 Physical Exam GENERAL: SKIN: Warm and dry. HEAD: Normocephalic. EYES: No scleral icterus. No injection or drainage. NECK: Supple, trachea midline. No JVD or lymphadenopathy. CARDIOVASCULAR: Regular rate and rhythm without murmurs, gallops, or rubs. RESPIRATORY: Breath sounds equal bilaterally. No accessory muscle use. GASTROINTESTINAL: Abdomen soft, non-tender, nondistended. MUSCULOSKELETAL: No cyanosis, or edema. BACK: Nontender without obvious deformity. No CVA tenderness. Assessment and Plan Problem List: (1) NSTEMI (non-ST elevated myocardial infarction) ICD Codes: I21.4 - Non-ST elevation (NSTEMI) myocardial infarction Status: Resolved (2) CAD (coronary artery disease) ICD Codes: I25.10 - Atherosclerotic heart disease of [place] coronary artery without angina pectoris (3) Altered mental status ICD Codes: R41.82 - Altered mental status, unspecified (4) ETOH abuse ICD Codes: F10.10 - Alcohol abuse, uncomplicated Status: Chronic Assessment and Plan 1.) CAD -pod # 6 pci mid lad, continue aspirin, plavix, lipitor, hold coreg due to bradycardia; ams started prior to cath as soon as he got 1 mg of versed; he got 4 doses of ativan subsequently, last 6 am 08/29/17; mental status appears close to baseline now; mri ordered but radiology evaluating shunt for contraindications prior to proceeding 2.) Bradycardia - Dr Lopez rec ppm, patient undecided @ ppm 3.) HTN - increase norvasc 10 mg qd 4.) AF - not a good candidate for noac or coumadin due to fall risk, chronic alcoholism and uncertain follow up and compliance capabilities Lawrence Monroe MD Sep 03, 2017 10:36
[2017-09-03] MEDS: MAGNESIUM OXIDE 400 MG TAB PO SCH ×2 (11:00→23:47)
[2017-09-03 11:34] LABS: AUTOMATED NEUTROPHIL # 6.3 TH/MM3 (1.8-7.7); BASOPHIL % 0.4 % (0.0-2.0); EOSINOPHIL # 0.2 TH/MM3 (0-0.4); EOSINOPHIL % 2.6 % (0.0-4.0); HEMATOCRIT 34.6 % (39.0-51.0); HEMO FLAGS DIFF FINAL; LYMPH % 10.3 % (9.0-44.0); LYMPHOCYTE # 0.8 TH/MM3 (1.0-4.8); MEAN CELL VOLUME 93.9 FL (80.0-100.0); MEAN CORPUSCULAR HEMOGLOBIN 33.5 PG (27.0-34.0); MEAN CORPUSCULAR HGB CONC 35.6 % (32.0-36.0); MONO % 8.5 % (0.0-8.0); NEUT % 78.2 % (16.0-70.0); PLATELET COUNT 175 TH/MM3 (150-450); RED BLOOD COUNT 3.68 MIL/MM3 (4.50-5.90); RED CELL DISTRIBUTION WIDTH 12.9 % (11.6-17.2)
[2017-09-03 11:54] LABS: ALT (GPT) 24 U/L (12-78); ANION GAP 5 MEQ/L (5-15); AST (GOT) 17 U/L (15-37); BICARBONATE 31.1 MEQ/L (21.0-32.0); BLOOD UREA NITROGEN 13 MG/DL (7-18); CHLORIDE 101 MEQ/L (98-107); GLOMERULAR FILTRATION RATE 98 ML/MIN (>89); POTASSIUM 3.4 MEQ/L (3.5-5.1); SODIUM (NA) 137 MEQ/L (136-145)
[2017-09-03 11:57] LABS: ALKALINE PHOSPHATASE 92 U/L (45-117); TOTAL BILIRUBIN ADULT 0.5 MG/DL (0.2-1.0)
--- NOTE | 2017-09-03 18:13 | HHI.PR ---
Subjective Remarks Denies cp/sob. Still feels dizzy especially upon standing. Objective Vitals Vital Signs Date Time Temp Pulse Resp B/P (MAP) Pulse Ox O2 Delivery O2 Flow Rate FiO2 09/03/17 17:00 64 09/03/17 16:00 67 09/03/17 15:12 98.1 64 18 130/68 (88) 100 09/03/17 15:00 65 09/03/17 14:00 67 09/03/17 13:00 64 09/03/17 12:00 64 09/03/17 12:00 60 09/03/17 12:00 98.2 64 18 126/64 (84) 100 09/03/17 11:00 47 09/03/17 10:00 51 09/03/17 09:00 73 09/03/17 08:00 64 09/03/17 08:00 98.0 53 18 132/76 (94) 100 09/03/17 07:00 35 09/03/17 06:00 45 09/03/17 05:00 38 09/03/17 04:00 45 09/03/17 03:33 98.2 53 18 107/71 (83) 100 09/03/17 03:00 51 09/03/17 01:00 42 09/02/17 23:48 18 09/02/17 23:00 98.3 47 18 110/69 (83) 98 09/02/17 23:00 46 09/02/17 22:00 53 09/02/17 19:00 97.5 54 18 116/57 (76) 98 09/02/17 19:00 51 I/O 09/02/17 09/02/17 09/02/17 09/03/17 09/03/17 09/03/17 07:00 15:00 23:00 07:00 15:00 23:00 Intake Total 1373 ml 1795 ml 240 ml 750 ml Output Total 850 ml 1450 ml 800 ml 950 ml Balance 523 ml 345 ml -560 ml -200 ml Intake Oral 480 ml 975 ml 240 ml 750 ml IV Total 893 ml 820 ml Output Urine Total 850 ml 1450 ml 800 ml 950 ml # Bowel Movements 0 0 0 Result Diagram: 09/03/17 1120 09/03/17 1120 Objective Remarks AAOx3 nad Clear lungs BL S1S2 RRR, bradycardic, no MRG abdomen, soft, nt, nd no edema in lower extremities Procedures 08/29/17 With diagnosis of NSTEMI had Cardiac Cath yesterday, Mid LAD lesion 70% , ostial left circumflex 80%, Mild disease of the RCA LVEF 55%, successful PCI with BMS to Mid LAD from 70% to 0%, to continue Plavix and Aspirin, due to Bradycardia BB contraindicated Primary Dirt Supervisor Doctor Lawrence Monroe. Medications and IVs Current Medications Medications (Trade) Dose Ordered Sig/Katherine Route Start Time Stop Time Status Last Admin (Nitrostat Sl) 0.4 mg Q5M PRN SL 08/27/17 03:30 09/02/17 23:22 (Tylenol) 500 mg Q4H PRN PO 08/27/17 04:00 09/03/17 18:42 (Morphine Inj) 2 mg Q3HR PRN IV PUSH 08/27/17 04:00 08/27/17 09:02 (Hydrodiuril) 25 mg DAILY PO 08/27/17 09:00 09/03/17 09:15 (Synthroid) 112 mcg DAILY@0600 PO 08/27/17 09:30 09/03/17 05:19 (Prinivil) 10 mg DAILY PO 08/27/17 09:00 09/03/17 09:16 (Deltasone) 10 mg DAILY PO 08/27/17 09:00 09/02/17 09:00 (Theragran) 1 tab DAILY PO 08/27/17 09:00 09/03/17 09:15 (Lipitor) 80 mg HS PO 08/27/17 21:00 09/02/17 20:45 (Vitamin B1) 100 mg DAILY PO 08/31/17 09:00 09/03/17 09:16 (Mag-Ox) 400 mg Q12H PO 08/27/17 23:00 09/02/17 22:59 Nitroglycerin/ Dextrose 250 ml @ 1.5 mls/hr TITRATE PRN IV 08/27/17 10:30 (Aspirin Chew) 162 mg DAILY PO 08/29/17 09:00 09/03/17 09:15 (Plavix) 75 mg DAILY PO 08/29/17 09:00 09/03/17 09:14 (Lactulose Liq) 30 ml QID PO 08/29/17 18:00 09/03/17 17:10 (Atrovent Neb) 0.5 mg Q2HR NEB PRN NEB 08/30/17 02:00 08/31/17 02:23 (Catapres) 0.1 mg Q8H PO 08/30/17 10:00 09/03/17 17:10 (Pepcid Inj) 20 mg Q12H IV PUSH 08/30/17 14:00 09/03/17 02:49 (Carafate Liq) 1 gm ACHS PO 08/30/17 17:00 09/03/17 17:10 (SEROquel) 100 mg HS PO 08/30/17 21:00 09/02/17 20:45 (Folate) 1 mg DAILY PO 08/31/17 10:00 09/03/17 09:14 (Norvasc) 10 mg DAILY PO 09/02/17 09:00 09/03/17 09:16 (Romazicon Inj) 0.2 mg Q1M PRN IV PUSH 09/01/17 15:15 (Ativan) 1 mg Q4H PRN PO 09/01/17 15:15 (Ativan Inj) 1 mg Q4H PRN IV PUSH 09/01/17 15:15 (Ativan) 2 mg Q2H PRN PO 09/01/17 15:15 (Ativan Inj) 2 mg Q2H PRN IV PUSH 09/01/17 15:15 (Ativan Inj) 2 mg Q1H PRN IV PUSH 09/01/17 15:15 (Ativan Inj) 2 mg Q15M PRN IV PUSH 09/01/17 15:15 (Haldol Inj) 2 mg Q15M PRN IM 09/01/17 15:15 (NS Flush) 2 ml UNSCH PRN IV FLUSH 09/01/17 15:15 (NS Flush) 2 ml BID IV FLUSH 09/01/17 21:00 09/03/17 09:16 (K-Phos Neutral) 250 mg Q6HR PO 09/02/17 19:15 09/03/17 17:10 A/P Problem List: (1) Symptomatic bradycardia ICD Code: R00.1 - Bradycardia, unspecified Status: Acute (2) NSTEMI (non-ST elevated myocardial infarction) ICD Code: I21.4 - Non-ST elevation (NSTEMI) myocardial infarction Status: Resolved (3) ETOH abuse ICD Code: F10.10 - Alcohol abuse, uncomplicated Status: Chronic (4) Alcohol withdrawal ICD Code: F10.239 - Alcohol dependence with withdrawal, unspecified Status: Resolved (5) New onset atrial fibrillation ICD Code: I48.91 - Unspecified atrial fibrillation Assessment and Plan 1. NSTEMI Atypical Chest pain he had an ECG in ER showing no ST segment elevation or depression, on Morphine, Oxygen as needed High intensity statins, will need Beta Blockers at this time with Bradycardia will follow to start this medicine once possible, awaiting for brand specialist, continue Cardiac Monitoring, Cardiac Enzymes trending down, status post Cardiac Cath found Mid LAD lesion, 50% ostial left circumflex and 80% small medial branch of the first diagonal artery. EF 55%, successful PCI with BMS to Mid LAD from 70% to 1%, recommended to continue Plavix and Aspirin. Aggrastat drip per protocol. as per Doctor Lawrence Monroe. 2. New Onset of Atrial Fibrillation started on Beta blockers by brand specialist at this time Bradycardia discontinued BB by Cardiology. 3. GERD on Famotidine 4. Hypertension Uncontrolled added Clonidine for blood pressure over 130 mm Hg. 5. Hypothyroidism continue Hormonal replacement 6. Obesity strongly recommended diet and exercise. 7. Alcohol abuse and dependency at this time having Encephalopathy due to alcohol withdrawal, continue CIWA protocol, Banana bag Ammonia level and replace electrolytes, lactulose. ammonia level 32, as per Cardiology neurology specialist consult to rule out ANS. asked for MRI and Radiology will follow if is feasible without harm. Encephalopathy much improved. 8. chronic swollen legs he states secondary to his chronic Prednisone intake 9. History of Temporal Arteritis management with Chronic Prednisone use. 10 mg daily 10. Prostate Cancer history status post Radiation therapy 11. Hypophosphatemia level 2.3 to give 15 mmol of Potassium chloride and cover for Potassium in 3.6 with 10 meq IV. follow in am tomorrow. 09/02 Replace with neutraphos orally and contrinue to monitor levels. 12. Symptomatic bradycardia: Patient seen by cardiology Dr Lopez who recommended pacemaker implantation however patient making up his mind. Explained to patient briefly about pacemakers. Beta feliciano discontinued by cardiology due to bradycardia. Continue to monitor on telemetry. 13. Dizziness: Likely due to symptomatic bradycardia, however will check orthostatics. DVT prophylaxis with Heparin drip continue present care. Jaswant Sanz MD Sep 03, 2017 18:13
[2017-09-03] MEDS: ACETAMINOPHEN 500 MG CPLT PO PRN (18:42)
[2017-09-03] MEDS: ATORVASTATIN 80 MG TAB PO SCH (21:45)
[2017-09-03] MEDS: QUEtiapine FUMARATE 100 MG TAB PO SCH (21:45)
[2017-09-04] VITALS (27 sets, daily range): BP systolic 114–141; BP diastolic 64–70; PULSE 40–85; RESP 16–18; TEMP 97.3–98.1; O2SAT 95–98
[2017-09-04] MEDS: cloNIDine HCL 0.1 MG TAB PO SCH ×3 (02:00→16:59)
[2017-09-04] MEDS: FAMOTIDINE 20 MG/2 ML VIAL IV PUSH SCH ×2 (02:57→14:14)
[2017-09-04] MEDS: LEVOTHYROXINE SODIUM 112 MCG TAB PO SCH (06:30)
[2017-09-04] MEDS: POTASSIUM PHOSPHATE/SODIUM PHOSPHATE 250 MG TAB PO SCH ×3 (06:31→17:00)
[2017-09-04] MEDS: SUCRALFATE 1 GM/10 ML CUP PO SCH ×4 (08:30→23:00)
[2017-09-04] MEDS: CLOPIDOGREL 75 MG TAB PO SCH (08:31)
[2017-09-04] MEDS: LACTULOSE SYRUP 20 GM/30 ML CUP PO SCH ×4 (08:31→21:21)
[2017-09-04] MEDS: THIAMINE HCL 100 MG TAB PO SCH (08:31)
[2017-09-04] MEDS: MULTIVITAMIN TAB PO SCH (08:31)
[2017-09-04] MEDS: predniSONE 10 MG TAB PO SCH (08:32)
[2017-09-04] MEDS: FOLIC ACID 1 MG TAB PO SCH (08:32)
[2017-09-04] MEDS: ASPIRIN 81 MG CHEW TAB PO SCH (08:32)
[2017-09-04] MEDS: HYDROCHLOROTHIAZIDE 25 MG TAB PO SCH (08:35)
[2017-09-04] MEDS: SODIUM CHLORIDE 0.9% FLUSH 10 ML FLUSH IV FLUSH SCH ×2 (08:35→21:00)
[2017-09-04] MEDS: LISINOPRIL 10 MG TAB PO SCH (08:35)
[2017-09-04] MEDS: MAGNESIUM OXIDE 400 MG TAB PO SCH (11:55)
--- NOTE | 2017-09-04 13:34 | HHI.PR ---
Subjective Remarks denies cp/sob Objective Vitals Vital Signs Date Time Temp Pulse Resp B/P (MAP) Pulse Ox O2 Delivery O2 Flow Rate FiO2 09/04/17 12:00 63 09/04/17 11:00 85 09/04/17 11:00 97.7 72 18 123/66 (85) 95 09/04/17 10:00 66 09/04/17 09:00 58 09/04/17 08:00 48 09/04/17 07:13 40 09/04/17 07:13 97.5 49 16 135/67 (89) 96 09/04/17 06:00 44 09/04/17 05:00 46 09/04/17 04:00 54 09/04/17 03:03 97.3 44 16 114/64 (81) 95 09/04/17 03:00 48 09/04/17 02:00 46 09/04/17 01:00 44 09/04/17 00:00 50 09/03/17 23:00 97.4 45 16 117/60 (79) 95 09/03/17 23:00 54 09/03/17 22:00 60 09/03/17 21:00 54 09/03/17 20:00 50 09/03/17 20:00 16 09/03/17 19:45 97.6 47 16 104/67 (79) 97 09/03/17 19:00 48 09/03/17 17:00 64 09/03/17 16:00 67 09/03/17 15:12 98.1 64 18 130/68 (88) 100 09/03/17 15:00 65 09/03/17 14:00 67 I/O 09/03/17 09/03/17 09/03/17 09/04/17 09/04/17 09/04/17 07:00 15:00 23:00 07:00 15:00 23:00 Intake Total 240 ml 750 ml 480 ml Output Total 800 ml 950 ml 825 ml Balance -560 ml -200 ml -345 ml Intake Oral 240 ml 750 ml 480 ml Output Urine Total 800 ml 950 ml 825 ml # Bowel Movements 0 Result Diagram: 09/03/17 1120 09/03/17 1120 Imaging Last Impressions Chest X-Ray 08/27/17 0152 Signed Impressions: Service Date/Time: Sunday, August 27, 2017 01:03 - CONCLUSION: Chronic cardiac silhouette enlargement. No acute cardiopulmonary disease identified. Krystian Spicer MD Head CT 08/27/17 0000 Signed Impressions: Service Date/Time: Sunday, August 27, 2017 17:48 - CONCLUSION: 1. No acute intracranial abnormality demonstrated. 2. 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 3. Right parietal ventriculostomy catheter present. No ventriculomegaly or other acute complication demonstrated. Jose Dimas MD Objective Remarks AAOx3 nad Clear lungs BL S1S2 RRR, bradycardic, no MRG abdomen, soft, nt, nd no edema in lower extremities Procedures 08/29/17 With diagnosis of NSTEMI had Cardiac Cath yesterday, Mid LAD lesion 70% , ostial left circumflex 80%, Mild disease of the RCA LVEF 55%, successful PCI with BMS to Mid LAD from 70% to 0%, to continue Plavix and Aspirin, due to Bradycardia BB contraindicated Primary Dental Laboratory Technician Apprentice Doctor Lawrence Monroe. Medications and IVs Current Medications Medications (Trade) Dose Ordered Sig/Katherine Route Start Time Stop Time Status Last Admin (Nitrostat Sl) 0.4 mg Q5M PRN SL 08/27/17 03:30 09/02/17 23:22 (Tylenol) 500 mg Q4H PRN PO 08/27/17 04:00 09/03/17 18:42 (Morphine Inj) 2 mg Q3HR PRN IV PUSH 08/27/17 04:00 08/27/17 09:02 (Hydrodiuril) 25 mg DAILY PO 08/27/17 09:00 09/03/17 09:15 (Synthroid) 112 mcg DAILY@0600 PO 08/27/17 09:30 09/04/17 06:30 (Prinivil) 10 mg DAILY PO 08/27/17 09:00 09/03/17 09:16 (Deltasone) 10 mg DAILY PO 08/27/17 09:00 09/04/17 08:32 (Theragran) 1 tab DAILY PO 08/27/17 09:00 09/04/17 08:31 (Lipitor) 80 mg HS PO 08/27/17 21:00 09/03/17 21:45 (Vitamin B1) 100 mg DAILY PO 08/31/17 09:00 09/04/17 08:31 (Mag-Ox) 400 mg Q12H PO 08/27/17 23:00 09/04/17 11:55 Nitroglycerin/ Dextrose 250 ml @ 1.5 mls/hr TITRATE PRN IV 08/27/17 10:30 (Aspirin Chew) 162 mg DAILY PO 08/29/17 09:00 09/04/17 08:32 (Plavix) 75 mg DAILY PO 08/29/17 09:00 09/04/17 08:31 (Lactulose Liq) 30 ml QID PO 08/29/17 18:00 09/04/17 11:54 (Atrovent Neb) 0.5 mg Q2HR NEB PRN NEB 08/30/17 02:00 08/31/17 02:23 (Catapres) 0.1 mg Q8H PO 08/30/17 10:00 09/03/17 17:10 (Pepcid Inj) 20 mg Q12H IV PUSH 08/30/17 14:00 09/04/17 02:57 (Carafate Liq) 1 gm ACHS PO 08/30/17 17:00 09/04/17 11:54 (SEROquel) 100 mg HS PO 08/30/17 21:00 09/03/17 21:45 (Folate) 1 mg DAILY PO 08/31/17 10:00 09/04/17 08:32 (Norvasc) 10 mg DAILY PO 09/02/17 09:00 09/03/17 09:16 (Romazicon Inj) 0.2 mg Q1M PRN IV PUSH 09/01/17 15:15 (Ativan) 1 mg Q4H PRN PO 09/01/17 15:15 (Ativan Inj) 1 mg Q4H PRN IV PUSH 09/01/17 15:15 (Ativan) 2 mg Q2H PRN PO 09/01/17 15:15 (Ativan Inj) 2 mg Q2H PRN IV PUSH 09/01/17 15:15 (Ativan Inj) 2 mg Q1H PRN IV PUSH 09/01/17 15:15 (Ativan Inj) 2 mg Q15M PRN IV PUSH 09/01/17 15:15 (Haldol Inj) 2 mg Q15M PRN IM 09/01/17 15:15 (NS Flush) 2 ml UNSCH PRN IV FLUSH 09/01/17 15:15 (NS Flush) 2 ml BID IV FLUSH 09/01/17 21:00 09/04/17 08:35 (K-Phos Neutral) 250 mg Q6HR PO 09/02/17 19:15 09/04/17 11:55 A/P Problem List: (1) Symptomatic bradycardia ICD Code: R00.1 - Bradycardia, unspecified Status: Acute (2) NSTEMI (non-ST elevated myocardial infarction) ICD Code: I21.4 - Non-ST elevation (NSTEMI) myocardial infarction Status: Resolved (3) ETOH abuse ICD Code: F10.10 - Alcohol abuse, uncomplicated Status: Chronic (4) Alcohol withdrawal ICD Code: F10.239 - Alcohol dependence with withdrawal, unspecified Status: Resolved (5) New onset atrial fibrillation ICD Code: I48.91 - Unspecified atrial fibrillation Assessment and Plan 1. NSTEMI Atypical Chest pain he had an ECG in ER showing no ST segment elevation or depression, on Morphine, Oxygen as needed High intensity statins, will need Beta Blockers at this time with Bradycardia will follow to start this medicine once possible, awaiting for energy specialist, continue Cardiac Monitoring, Cardiac Enzymes trending down, status post Cardiac Cath found Mid LAD lesion, 50% ostial left circumflex and 80% small medial branch of the first diagonal artery. EF 55%, successful PCI with BMS to Mid LAD from 70% to 1%, recommended to continue Plavix and Aspirin. Aggrastat drip per protocol. as per Doctor Lawrence Monroe. 2. New Onset of Atrial Fibrillation started on Beta blockers by energy specialist at this time Bradycardia discontinued BB by Cardiology. 3. GERD on Famotidine 4. Hypertension Uncontrolled added Clonidine for blood pressure over 130 mm Hg. 5. Hypothyroidism continue Hormonal replacement 6. Obesity strongly recommended diet and exercise. 7. Alcohol abuse and dependency at this time having Encephalopathy due to alcohol withdrawal, continue CIWA protocol, Banana bag Ammonia level and replace electrolytes, lactulose. ammonia level 32, as per Cardiology neurology specialist consult to rule out ANS. asked for MRI and Radiology will follow if is feasible without harm. Encephalopathy resolved 8. chronic swollen legs he states secondary to his chronic Prednisone intake 9. History of Temporal Arteritis management with Chronic Prednisone use. 10 mg daily 10. Prostate Cancer history status post Radiation therapy 11. Hypophosphatemia level 2.3 to give 15 mmol of Potassium chloride and cover for Potassium in 3.6 with 10 meq IV. follow in am tomorrow. 09/02 Replace with neutraphos orally and contrinue to monitor levels. 12. Symptomatic bradycardia: Patient seen by cardiology Dr Lopez who recommended pacemaker implantation however patient making up his mind. Explained to patient briefly about pacemakers. Beta feliciano discontinued by cardiology due to bradycardia. Continue to monitor on telemetry. 09/04 Patient willing to have procedure. Will await Dr Lopez's recommendations. 13. Dizziness: Likely due to symptomatic bradycardia, however will check orthostatics. DVT prophylaxis with Heparin drip continue present care. Discharge Planning Continue to monitor in [facility]. Possible PM implantation. Jaswant Sanz MD Sep 04, 2017 13:34
--- NOTE | 2017-09-04 13:56 | PD.CARD.PN ---
Subjective Subjective Remarks alert in nad, still dizzy with ambulation Objective Medications Current Medications Medications (Trade) Dose Ordered Sig/Katherine Route Start Time Stop Time Status Last Admin (Nitrostat Sl) 0.4 mg Q5M PRN SL 08/27/17 03:30 09/02/17 23:22 (Tylenol) 500 mg Q4H PRN PO 08/27/17 04:00 09/03/17 18:42 (Morphine Inj) 2 mg Q3HR PRN IV PUSH 08/27/17 04:00 08/27/17 09:02 (Hydrodiuril) 25 mg DAILY PO 08/27/17 09:00 09/03/17 09:15 (Synthroid) 112 mcg DAILY@0600 PO 08/27/17 09:30 09/04/17 06:30 (Prinivil) 10 mg DAILY PO 08/27/17 09:00 09/03/17 09:16 (Deltasone) 10 mg DAILY PO 08/27/17 09:00 09/04/17 08:32 (Theragran) 1 tab DAILY PO 08/27/17 09:00 09/04/17 08:31 (Lipitor) 80 mg HS PO 08/27/17 21:00 09/03/17 21:45 (Vitamin B1) 100 mg DAILY PO 08/31/17 09:00 09/04/17 08:31 (Mag-Ox) 400 mg Q12H PO 08/27/17 23:00 09/04/17 11:55 Nitroglycerin/ Dextrose 250 ml @ 1.5 mls/hr TITRATE PRN IV 08/27/17 10:30 (Aspirin Chew) 162 mg DAILY PO 08/29/17 09:00 09/04/17 08:32 (Plavix) 75 mg DAILY PO 08/29/17 09:00 09/04/17 08:31 (Lactulose Liq) 30 ml QID PO 08/29/17 18:00 09/04/17 11:54 (Atrovent Neb) 0.5 mg Q2HR NEB PRN NEB 08/30/17 02:00 08/31/17 02:23 (Catapres) 0.1 mg Q8H PO 08/30/17 10:00 09/03/17 17:10 (Pepcid Inj) 20 mg Q12H IV PUSH 08/30/17 14:00 09/04/17 02:57 (Carafate Liq) 1 gm ACHS PO 08/30/17 17:00 09/04/17 11:54 (SEROquel) 100 mg HS PO 08/30/17 21:00 09/03/17 21:45 (Folate) 1 mg DAILY PO 08/31/17 10:00 09/04/17 08:32 (Norvasc) 10 mg DAILY PO 09/02/17 09:00 09/03/17 09:16 (Romazicon Inj) 0.2 mg Q1M PRN IV PUSH 09/01/17 15:15 (Ativan) 1 mg Q4H PRN PO 09/01/17 15:15 (Ativan Inj) 1 mg Q4H PRN IV PUSH 09/01/17 15:15 (Ativan) 2 mg Q2H PRN PO 09/01/17 15:15 (Ativan Inj) 2 mg Q2H PRN IV PUSH 09/01/17 15:15 (Ativan Inj) 2 mg Q1H PRN IV PUSH 09/01/17 15:15 (Ativan Inj) 2 mg Q15M PRN IV PUSH 09/01/17 15:15 (Haldol Inj) 2 mg Q15M PRN IM 09/01/17 15:15 (NS Flush) 2 ml UNSCH PRN IV FLUSH 09/01/17 15:15 (NS Flush) 2 ml BID IV FLUSH 09/01/17 21:00 09/04/17 08:35 (K-Phos Neutral) 250 mg Q6HR PO 09/02/17 19:15 09/04/17 11:55 Vital Signs / I&O Vital Signs Date Time Temp Pulse Resp B/P (MAP) Pulse Ox O2 Delivery O2 Flow Rate FiO2 09/04/17 12:00 63 09/04/17 11:00 85 09/04/17 11:00 97.7 72 18 123/66 (85) 95 09/04/17 10:00 66 09/04/17 09:00 58 09/04/17 08:00 48 09/04/17 07:13 40 09/04/17 07:13 97.5 49 16 135/67 (89) 96 09/04/17 06:00 44 09/04/17 05:00 46 09/04/17 04:00 54 09/04/17 03:03 97.3 44 16 114/64 (81) 95 09/04/17 03:00 48 09/04/17 02:00 46 09/04/17 01:00 44 09/04/17 00:00 50 09/03/17 23:00 97.4 45 16 117/60 (79) 95 09/03/17 23:00 54 09/03/17 22:00 60 09/03/17 21:00 54 09/03/17 20:00 50 09/03/17 20:00 16 09/03/17 19:45 97.6 47 16 104/67 (79) 97 09/03/17 19:00 48 09/03/17 17:00 64 09/03/17 16:00 67 09/03/17 15:12 98.1 64 18 130/68 (88) 100 09/03/17 15:00 65 09/03/17 14:00 67 I/O 09/03/17 09/03/17 09/03/17 09/04/17 09/04/17 09/04/17 07:00 15:00 23:00 07:00 15:00 23:00 Intake Total 240 ml 750 ml 480 ml Output Total 800 ml 950 ml 825 ml Balance -560 ml -200 ml -345 ml Intake Oral 240 ml 750 ml 480 ml Output Urine Total 800 ml 950 ml 825 ml # Bowel Movements 0 Physical Exam GENERAL: SKIN: Warm and dry. HEAD: Normocephalic. EYES: No scleral icterus. No injection or drainage. NECK: Supple, trachea midline. No JVD or lymphadenopathy. CARDIOVASCULAR: Regular rate and rhythm without murmurs, gallops, or rubs. RESPIRATORY: Breath sounds equal bilaterally. No accessory muscle use. GASTROINTESTINAL: Abdomen soft, non-tender, nondistended. MUSCULOSKELETAL: No cyanosis, or edema. BACK: Nontender without obvious deformity. No CVA tenderness. Assessment and Plan Problem List: (1) NSTEMI (non-ST elevated myocardial infarction) ICD Codes: I21.4 - Non-ST elevation (NSTEMI) myocardial infarction Status: Resolved (2) CAD (coronary artery disease) ICD Codes: I25.10 - Atherosclerotic heart disease of [place] coronary artery without angina pectoris (3) Altered mental status ICD Codes: R41.82 - Altered mental status, unspecified (4) ETOH abuse ICD Codes: F10.10 - Alcohol abuse, uncomplicated Status: Chronic Assessment and Plan 1.) CAD -pod # 6 pci mid lad, continue aspirin, plavix, lipitor, hold coreg due to bradycardia; ams started prior to cath as soon as he got 1 mg of versed; he got 4 doses of ativan subsequently, last 6 am 08/29/17; mental status appears close to baseline now; mri ordered but radiology evaluating shunt for contraindications prior to proceeding 2.) Bradycardia - Dr Lopez rec ppm, ppm planned for 09/05/17 3.) HTN - increase norvasc 10 mg qd 4.) AF - not a good candidate for noac or coumadin due to fall risk, chronic alcoholism and uncertain follow up and compliance capabilities Lawrence Monroe MD Sep 04, 2017 13:56
[2017-09-04] MEDS: ATORVASTATIN 80 MG TAB PO SCH (21:21)
[2017-09-04] MEDS: QUEtiapine FUMARATE 100 MG TAB PO SCH (21:21)
[2017-09-05] VITALS (26 sets, daily range): BP systolic 107–128; BP diastolic 55–70; PULSE 35–80; RESP 16–18; TEMP 97.6–98.1; O2SAT 95–99
[2017-09-05] MEDS: MAGNESIUM OXIDE 400 MG TAB PO SCH ×3 (00:29→23:29)
[2017-09-05] MEDS ORDERED: POVIDONE IODINE 5% (ANTISEPSIS KIT) 4 APPLICATIONS EACH NARE PRN (01:15)
[2017-09-05] MEDS ORDERED: INSULIN HUMAN REGULAR 1,000 UNITS/10 ML VIAL SQ PRN (01:15)
[2017-09-05] MEDS ORDERED: CHLORHEXIDINE GLUCONATE 2 % 1 PACK (2 CLOTHS) TOPICAL PRN (01:15)
[2017-09-05] MEDS ORDERED: METOPROLOL TARTRATE 25 MG TAB PO PRN (01:15)
[2017-09-05] MEDS ORDERED: LACTATED RINGER'S 1000 ML IV PRN (01:15)
[2017-09-05] MEDS ORDERED: SODIUM CHLORID 0.9% 500 ML IV PRN (01:15)
[2017-09-05] MEDS: cloNIDine HCL 0.1 MG TAB PO SCH ×3 (02:00→18:10)
[2017-09-05] MEDS: FAMOTIDINE 20 MG/2 ML VIAL IV PUSH SCH ×2 (03:29→14:53)
[2017-09-05 05:05] LABS: HEMATOCRIT 37.2 % (39.0-51.0); MEAN CELL VOLUME 93.1 FL (80.0-100.0); MEAN CORPUSCULAR HEMOGLOBIN 32.5 PG (27.0-34.0); MEAN CORPUSCULAR HGB CONC 34.9 % (32.0-36.0); PLATELET COUNT 189 TH/MM3 (150-450); RED CELL DISTRIBUTION WIDTH 13.1 % (11.6-17.2); REVIEW FLAG FINAL
[2017-09-05 05:27] LABS: BICARBONATE 26.7 MEQ/L (21.0-32.0); POTASSIUM 3.4 MEQ/L (3.5-5.1)
[2017-09-05] MEDS: POTASSIUM PHOSPHATE/SODIUM PHOSPHATE 250 MG TAB PO SCH ×4 (05:39→18:10)
[2017-09-05] MEDS: LEVOTHYROXINE SODIUM 112 MCG TAB PO SCH (05:39)
[2017-09-05] MEDS ORDERED: HEPARIN-NS/PF INJ 1,000 ML ONE (07:07)
[2017-09-05] MEDS ORDERED: HEPARIN SODIUM - IV 10,000 UNITS/10 ML VIAL ONE (07:17)
[2017-09-05] MEDS ORDERED: LORazepam 2 MG/ML VIAL IV PUSH PRN (08:00)
[2017-09-05] MEDS ORDERED: BACITRACIN OINT 0.9 GM PKT TOP ONE (08:00)
[2017-09-05] MEDS: SUCRALFATE 1 GM/10 ML CUP PO SCH ×4 (08:00→19:42)
[2017-09-05] MEDS ORDERED: METOCLOPRAMIDE HCL 10 MG/2 ML VIAL IV PUSH PRN (08:00)
[2017-09-05] MEDS ORDERED: ATROPINE SULFATE 1 MG/ML VIAL IV PUSH PRN (08:00)
[2017-09-05] MEDS ORDERED: SODIUM CHLOR 0.9% 250 ML INJ 250 ML IV PRN (08:00)
[2017-09-05] MEDS ORDERED: LIDOCAINE HCL 1% 50 ML VIAL INFIL PRN (08:00)
[2017-09-05] MEDS ORDERED: ONDANSETRON HCL 4 MG/2 ML VIAL IV PUSH PRN (09:00)
[2017-09-05] MEDS: LACTULOSE SYRUP 20 GM/30 ML CUP PO SCH ×4 (09:00→21:52)
[2017-09-05] MEDS: THIAMINE HCL 100 MG TAB PO SCH (09:00)
[2017-09-05] MEDS: FOLIC ACID 1 MG TAB PO SCH (09:27)
[2017-09-05] MEDS: ASPIRIN 81 MG CHEW TAB PO SCH (09:27)
[2017-09-05] MEDS: MULTIVITAMIN TAB PO SCH (09:28)
[2017-09-05] MEDS: HYDROCHLOROTHIAZIDE 25 MG TAB PO SCH (09:28)
[2017-09-05] MEDS: predniSONE 10 MG TAB PO SCH (09:28)
[2017-09-05] MEDS: SODIUM CHLORIDE 0.9% FLUSH 10 ML FLUSH IV FLUSH SCH ×2 (09:28→21:52)
[2017-09-05] MEDS: LISINOPRIL 10 MG TAB PO SCH (09:28)
[2017-09-05] MEDS: CLOPIDOGREL 75 MG TAB PO SCH (09:28)
--- NOTE | 2017-09-05 10:04 | MP ---
cc: BECKIE SAENZ M.D. DATE OF SURGERY 09/05/2017 OPERATIVE PROCEDURE Single chamber Micra pacemaker insertion. INDICATIONS FOR PROCEDURE Mr. Elizabeth is a 76-year-old gentleman with symptomatic bradycardia, AV block, significant pause, atrial fibrillation to undergo permanent pacemaker insertion. The risks, the nature and the benefit of the procedure are clearly stated to him. The risks include pneumothorax, cardiac perforation, stroke and even . The patient understood and agreed to proceed. PROCEDURE After written informed consent was obtained, the patient was brought to the EP Lab where he was prepped and draped in the usual sterile fashion. Conscious sedation was initiated and maintained throughout the procedure by the anesthesiologist. Once sedation verified, the right inguinal area was anesthetized with 2% Xylocaine. Using modified Seldinger technique, the right femoral vein was cannulated on one occasion and one guidewire was advanced. Over the wire a stiff Amplatz was advanced and placed all the way to the superior vena cava. Then a 1-cm incision was made at the entrance point. Then the area was progressively dilated using a 12, 16 and a 20-Cameroonian dilator. Then subsequently the delivery sheath was advanced over the wire. Then the wire and the dilator were removed. Then the myocardial image system was advanced through the sheath. The sheath was pulled back all the way to the inferior vena cava. And the Micra was placed at the right ventricular septal area. After the confirmation on the fluoroscopic guidance and contrast injection, the Micra was delivered. After adequate pacing and sensing thresholds were obtained on multiple occasions which did measure around 5 to 6 times. Then at this point the Micra was released, the suture was cut. 2-0 Ethibond suture was placed at the exit point to prevent back bleeding. Then the sheath and the delivery system were removed. I did tie the suture to prevent bleeding. Hemostasis was performed. The suture will be removed 6 hours after the case. No incident reported. The patient tolerated the procedure, blood loss minimal. 1. IMPLANTED HARDWARE: The implanted pacemaker is a Medtronic Micra, model number [id number], serial [id number]. 2. THRESHOLDS: The right ventricular pacing threshold in the bipolar mode was 0.5 volts at 0.24 milliseconds. Lead impedance 640 ohms, R-wave at 17 mV. 3. SETTINGS: The device set in a VVIR 70, upper limit 100 beats per minute. CONCLUSIONS Successful permanent pacemaker insertion. COMMENT AND RECOMMENDATIONS The patient is going to be transferred to the telemetry unit, will be observed and when stable can be discharged home by the managing team. Beckie Saenz MD HS/SSB /8:03 AM /9:55 AM
--- NOTE | 2017-09-05 10:19 | CATHPROC ---
Critical Media HIS Report Study Information Study Number Scheduled Start Study Start [id number] 09/05/2017 Sep 05 2017 6:35AM Referring Institution Admit Source Facility Department 1 Other [facility] - Manager Rn Physician and Clinical Staff Initial Kyler Crawford Assistant County Attorney Leonel Avalos,RN Assistant County Attorney Genevieve Monroe,LEASE ATTENDANT Other Anesthesia, SENIOR INSIGHT MANAGER INTERNATIONAL Recorder Leonel Avalos,RN Recorder Claudia West RN Scrub Gabino Barry,RT(R) Procedures Performed Procedure Location (Site) Vessel Name Venogram RV Ventricle Wire insertion Fem Vein (right) Femoral Vein Equipment Time Warp Knit Operator Description Size Mfg Part Number Used/Scraped BIOSENSE FOOTE 11:05 SET, TUBING COOLFLOW * [id number] Used INC. [id number] 07:17 COOK/PACER DILATOR SET (MICRA) FR8-12 Used *[id number] WIRE, GUIDE AMPLATZ STIFF [id number] 07:17 COOK/PACER 3MMJ Used 180CM *[id number] 09:58 MEDLINE INDUSTRIES PACK, CCL CUSTOM * Used *[id number] 10:54 MEDLINE PACER SIMPSON, LIMB * 2530 *[id number] Used [id number] 10:02 NAMIC TUBING, HIGH PRESSURE 20" 20" Used *[id number] 10:02 NAMIC TUBING, HIGH PRESSURE 20" 20" Used *[id number] 09:34 NYCOMED OMNIPAQUE, 300 MG, 150ML 150ML [id number] Used 07:17 NYCOMED OMNIPAQUE, 300 MG, 50ML 50ML [id number] Used SUTURE, 0 ETHIBOND [CT1] (CX21D), 8pk [id number] 07:49 [facility] BLANKET,WARM AIR CCL * Used *[id number] 10:51 VITATRON MEDTRONIC SHEATH, INTRODUCER (MICRA) Used *[id number] SYSTEM, TRANS-CATHETER [id number] 07:46 VITATRON MEDTRONIC Used PACING (MICRA) *[id number] History: Allergies Allergy Reaction morphine CONFUSION oyster extract Anaphylaxis History: Risk Factors Hypertension Yes Labs Hgb (g/dl) Hct (%) RBC (MIL/MM3) WBC (l/cumm) Platelets (thousands) 11.60-17.00 35.00-51.00 4.00-5.90 4.00-11.00 150.00-450.00 13.0 37 5 6 189 Glucose (mg/dl) BUN (mg/dl) Creatinine (mg/dl) BUN:Creatinine (1:x) 74.00-106.00 7.00-18.00 0.50-1.30 10.00-20.00 85 15 0.6 25 Na (meq/l) K (meq/l) 136.00-145.00 3.50-5.10 138 3.4 INR (PTT:PT) 0.90-1.10 1.2 Medication Medication Total Dose (Bolus/Oral) Medication Total Dosage/Unit 2% XYLOCAINE 50 mL HEPARIN 4000 units Medications (Bolus/Oral) Medication Time Given Dosage/Unit Administered By Reason 2% XYLOCAINE 09/05/2017 7:25:57 AM 50 mL Kyler Lopez 50 mL 2% XYLOCAINE given in lab by Kyler Lopez in Right Groin via Subcutaneous. HEPARIN 09/05/2017 7:32:45 AM 4000 units Anesthesia, SENIOR INSIGHT MANAGER INTERNATIONAL As per physicians ve rbal order 4000 units HEPARIN given in lab by Anesthesia, SENIOR INSIGHT MANAGER INTERNATIONAL via Peripheral IV. Ordered by Kyler Lopez. Reas on: As per physicians verbal order. Initial Case Assessment Cardiovascular HR Rhythm NIBP Chest Pain 58 sb 161/72 0 Edema Present Skin color Skin Mild Normal Warm Dry Circulatory - Right Pulses Dorsalis Pedis 1 Scale (0,1,2,3,4,d) Circulatory - Left Pulses Dorsalis Pedis 1 Scale (0,1,2,3,4,d) Circulatory - Lower Extremities Color Lower Right Color Lower Left Normal Normal Neurological State Oriented to time-place- Alert Moves all extremities person Respiration - General Respiration Rate SpO2 (%) O2 (lpm) (B/min) 20 100 10 Final Case Assessment Cardiovascular HR Rhythm NIBP Chest Pain 69 sr 112/70 0 Edema Present Skin color Skin None Normal Warm Circulatory - Right Pulses Dorsalis Pedis 1 Scale (0,1,2,3,4,d) Circulatory - Left Pulses Dorsalis Pedis 1 Scale (0,1,2,3,4,d) Circulatory - Lower Extremities Color Lower Right Color Lower Left Normal Normal Neurological State Oriented to time-place- Lethargic Moves all extremities person Respiration - General Respiration Rate SpO2 (%) (B/min) 12 96 Chronological Log Time Study Chronological Log 6:54:52 Patient arrived via Bed. 6:54:53 Patient Name, D.O.B, / Armband Verified By R.N. 6:54:54 Consent signed by the physician and the patient and verified by the Manager Rn staff. 6:54:56 Pre-op and post- op instructions given; patient acknowledges understanding of instructions. 6:55:01 Verbal Stimulation=2 Physical Stimulation=2 Airway=2 Respiration=2 TOTAL=8. (0=absent, 1=li mited, 2=present) 7:05:34 Anesthesia at bedside. Assumes care of patient. Tristan 7:08:35 Patient has been NPO for More than 6Hrs. 7:08:36 Skin Breakdown-gemeralized ecchymosis 7:08:36 Patient Warmer Placed on the Table. 7:08:37 Disposable Defibrillator Pads Placed On Patient. 7:08:38 Bartolome Prominences Protected 7:08:40 A # 20 IV was noted in the Antecubital (right). Grade = 0 0.9ns kvo 7:08:40 A # 20 IV was noted in the Forearm (left). Grade = 0 0.9ns kvo 7:08:41 History and physical on the chart. 7:08:44 Table restraints applied according to hospital policy 7:09:48 Bilateral groins prepped with 2% chlorhexidine, and draped after a 3 minute waiting time. 7:12:59 MD paged Assessment: Initial Case, HR=58 BPM, Rhythm=sb, RMYZ=571/72 mmhg, Chest Pain=0, Edema=Mild, [place] r=Normal, Skin = Warm, Dry Right Pulses: Jack Ped=1 Left Pulses: Jack Ped=1 7:20:43 Lower Right Extremities: Color=Normal Lower Left Extremities: Color=Normal Neurological: State=Alert, Ox3, GALARZA Respiration: Resp=20 B/min, CpF7=419 %, O2=10 lpm 7:20:55 Pressure channel 1 zeroed. 7:23:19 MD arrived. 7:24:00 Reference ECG taken Time Out. Correct patient, procedure, procedure equipment, site and side verified with physician present. Time 7:25:00 concurred by MD, individual staff and SENIOR INSIGHT MANAGER INTERNATIONAL. Time Out #2 - Consents verified, patient in correct position, all results are labled and display ed, safety precautions 7:25:20 taken, antibiotics administered. Time out concurred by MD, individual staff and SENIOR INSIGHT MANAGER INTERNATIONAL in procedur e 7:25:43 Case Start 7:25:57 50 mL 2% XYLOCAINE given in lab by Kyler Lopez in Right Groin via Subcutaneous. 7:26:33 Vascular access was obtained in the Fem Vein (right). 7:27:07 A WIRE, GUIDE AMPLATZ STIFF 180CM 3MMJ was inserted via Fem Vein (right). 7:28:39 Figure 8 knot using Ethibond placed to Right Fem Vein. 7:29:10 A DILATOR SET (MICRA) FR8-12 was advanced into the Fem Vein (right) using the Modified Seldi nger technique. 8 A DILATOR SET (MICRA) FR8-12 was exchanged in the Fem Vein (right). This was necessary in order to accomodate a 7:29:33 larger catheter. 12 A DILATOR SET (MICRA) FR8-12 was exchanged in the Fem Vein (right). This was necessary in order to accomodate a 7:29:49 larger catheter. 16 A DILATOR SET (MICRA) FR8-12 was exchanged in the Fem Vein (right). This was necessary in order to accomodate a 7:30:04 larger catheter. 20 4000 units HEPARIN given in lab by Anesthesia, SENIOR INSIGHT MANAGER INTERNATIONAL via Peripheral IV. Ordered by Kyler Lopez. Reason: As per 7:32:45 physicians verbal order. 7:33:15 A SHEATH, INTRODUCER (MICRA) was advanced into the Fem Vein (right) using the Modified Seldi nger technique. 7:33:55 Dilator and wire removed. Heparin drip attached to introducer 7:35:00 Micra device prepped and set up. 7:39:10 2nd Micra opened and prepped. 1st Micra malfunctioned, unable to flush. 7:42:41 A SYSTEM, TRANS-CATHETER PACING (MICRA) was advanced via right fem vein and placed in the RV . 2nd Micra The RV was manually injected with 10 cc's of contrast. OMNIPAQUE, 300 MG, 50ML 50ML used. to vis ualize septal 7:42:53 placement 7:44:57 Micra deployed and placement confirmed under fluoro in 2 views. 7:48:54 The RV/Micra device impedance and threshold being tested. 7:50:17 Delivery system and introducer removed from Fem Vein Right. 7:51:51 [address] Pressure held 20 minutes by DB. Figure 8 knot to be removed at 15:30 . 8:03:00 [facility]U called. Spoke to Lizz 8:03:21 Bedside Report will be given. 8:14:05 Implant Procedure was performed. 8:14:11 A PPM Implant . (Single) Micra 8:14:26 A sterile dressing applied to right fem site. Site wnl. 8:14:45 Case End 8:15:20 No case complications noted. 8:15:21 Cine recording checked. 8:15:25 Implantable Device card placed in patient's chart. 8:15:39 Defibrillator and ground pads removed. Skin intact. Assessment: Final Case, HR=69 BPM, Rhythm=sr, DFAE=285/70 mmhg, Chest Pain=0, Edema=None, [place] r=Normal, Skin = Warm Right Pulses: Jack Ped=1 Left Pulses: Jack Ped=1 8:18:36 Lower Right Extremities: Color=Normal Lower Left Extremities: Color=Normal Neurological: State=Lethargic, Ox3, G[place]AR[place] Respiration: Resp=12 B/min, SpO2=96 % 8:25:27 Patient moved to [facility] End Study - Contrast Media Used In Study Contrast Total Opened (mL) Total Used (mL) Total Wasted (mL) Omnipaque 200 10 190 End Study - Maximum Contrast Load Max Contrast Load (mL) 750.0 End Study - Radiation Exposure Fluoro Time (minutes) 2.2 End Study - Sheaths Sheaths Pulled By Sheath Hold Time (min) Gabino Barry 20 End Study - Patient Disposition Complications Transferred To Interventional Outcome No Telemetry Bed successful
--- NOTE | 2017-09-05 11:05 | HHI.PR ---
Subjective Remarks This is a pleasant 76 y/o Male with Atrial Fibrillation, Prostate Cancer History , GERD, Hypertension, Hypothyroidism, former Smoker who came to ER at 10:30 PM yesterday night with Atypical Chest pain, that started while he was sitting watching television, the Pain is sharp, constant, midsternal. Nonradiating and associated with diaphoresis. Denies any nausea, sob, vomiting, abdominal pain, focal weakness or numbness. Said pain relieved after sublingual nitro and aspirin given by EVAC. Never had commercial loan assistant or stress test. Seen in his bedroom in Critical Care Unit in the presence of nurse Mr. Varner and his Friend Miss Allegra Moreno, the patient continue with chest pain, 10/10 in intensity as a Sharp sensation, non radiated on precordial area and continuous. Doctor Fer water resource engineering specialist consulted and will come to evaluate the patient. 08/28: Stable in his bedroom seen in the presence of nurse Delia, no nausea , vomit or diarrhea, later today will go for Cardiac Catheterization. 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 at this time restrained, his Primary water resource engineering specialist Doctor Fer asked for Neurology specialist evaluation, I saw the patient in the room Miss Lin, will replace electrolytes and complete laboratory with Ammonia level and Vitamin levels. continue Banana Bag. 08/30: With diagnosis of NSTEMI had Cardiac Cath yesterday, Mid LAD lesion 70%, ostial left circumflex 80%, Mild disease of the RCA LVEF 55%, successful PCI with BMS to Mid LAD from 70% to 0%, to continue Plavix and Aspirin, due to Bradycardia BB contraindicated Primary Color Mixer Doctor Lawrence Monroe, stable in his bedroom with Uncontrolled blood pressure started on clonidine by mouth every 8 hours. if systolic blood pressure over 130 mm Hg. 08/31: Seen in her bedroom stable in the presence of nurse Miss Ontiverosie will continue replacement of his Electrolytes no nausea,v omit or diarrhea. 11- PATIENT NEEDS PT AND OT TO SEE DR SAENZ REGARDING AFIB AND BRADYCARDIA ON NO BETA FELICIANO DW PT AND RN AND FAMILY WAS GOING THROUGH ALCOHOL WITHDRAWALS PAST FEW DAY HAD ELEVATED AMMONIA LEVEL HAS VENTICULAR ATRIAL SHUNT NEEDS AGGRESSIVE PT AND OT 11-14 HAD MICRA PACER PLACED THROUGH RIGHT GROIN TODAY LETHARGIC POST PROCEDURE DW RN AND PT NEEDS PT AND OT POSSIBLE DC IN NEXT 24-48 HOURS REPLACE POTASSIUM Objective Vitals Vital Signs Date Time Temp Pulse Resp B/P (MAP) Pulse Ox O2 Delivery O2 Flow Rate FiO2 09/05/17 10:00 75 09/05/17 09:00 68 09/05/17 08:45 69 09/05/17 08:45 98.1 76 18 126/70 (88) 95 09/05/17 06:00 47 09/05/17 05:00 51 09/05/17 04:00 37 09/05/17 03:20 97.6 42 16 128/63 (84) 98 09/05/17 03:00 35 09/05/17 02:00 37 09/05/17 01:00 49 09/05/17 00:00 39 09/04/17 23:30 97.7 51 16 128/65 (86) 96 09/04/17 23:00 68 09/04/17 22:00 44 09/04/17 21:00 50 09/04/17 20:30 97.7 47 16 141/66 (91) 97 09/04/17 20:00 54 09/04/17 19:00 47 09/04/17 18:00 72 09/04/17 17:00 66 09/04/17 16:00 64 09/04/17 15:00 79 09/04/17 15:00 98.1 51 18 138/70 (92) 98 09/04/17 14:00 63 09/04/17 13:00 66 09/04/17 12:00 63 09/04/17 11:00 85 09/04/17 11:00 97.7 72 18 123/66 (85) 95 I/O 09/04/17 09/04/17 09/04/17 09/05/17 09/05/17 09/05/17 07:00 15:00 23:00 07:00 15:00 23:00 Intake Total 480 ml 720 ml 200 ml Output Total 825 ml 810 ml 1050 ml Balance -345 ml -90 ml -850 ml Intake Oral 480 ml 720 ml 200 ml Output Urine Total 825 ml 810 ml 1050 ml # Bowel Movements 4 0 Result Diagram: 09/05/17 0438 09/05/17 0348 Other Results Laboratory Tests Test 09/03/17 11:20 09/05/17 03:48 09/05/17 04:38 White Blood Count 8.0 TH/MM3 6.0 TH/MM3 Red Blood Count 3.68 MIL/MM3 4.00 MIL/MM3 Hemoglobin 12.3 GM/DL 13.0 GM/DL Hematocrit 34.6 % 37.2 % Mean Corpuscular Volume 93.9 FL 93.1 FL Mean Corpuscular Hemoglobin 33.5 PG 32.5 PG Mean Corpuscular Hemoglobin Concent 35.6 % 34.9 % Red Cell Distribution Width 12.9 % 13.1 % Platelet Count 175 TH/MM3 189 TH/MM3 Mean Platelet Volume 8.6 FL 8.7 FL Neutrophils (%) (Auto) 78.2 % Lymphocytes (%) (Auto) 10.3 % Monocytes (%) (Auto) 8.5 % Eosinophils (%) (Auto) 2.6 % Basophils (%) (Auto) 0.4 % Neutrophils # (Auto) 6.3 TH/MM3 Lymphocytes # (Auto) 0.8 TH/MM3 Monocytes # (Auto) 0.7 TH/MM3 Eosinophils # (Auto) 0.2 TH/MM3 Basophils # (Auto) 0.0 TH/MM3 CBC Comment DIFF FINAL Differential Comment Blood Urea Nitrogen 13 MG/DL 15 MG/DL Creatinine 0.77 MG/DL 0.62 MG/DL Random Glucose 175 MG/DL 85 MG/DL Total Protein 6.3 GM/DL Albumin 2.9 GM/DL Calcium Level 8.1 MG/DL 8.5 MG/DL Phosphorus Level 2.5 MG/DL Magnesium Level 2.0 MG/DL Alkaline Phosphatase 92 U/L Aspartate Amino Transf (AST/SGOT) 17 U/L Alanine Aminotransferase (ALT/SGPT) 24 U/L Total Bilirubin 0.5 MG/DL Sodium Level 137 MEQ/L 138 MEQ/L Potassium Level 3.4 MEQ/L 3.4 MEQ/L Chloride Level 101 MEQ/L 104 MEQ/L Carbon Dioxide Level 31.1 MEQ/L 26.7 MEQ/L Anion Gap 5 MEQ/L 7 MEQ/L Estimat Glomerular Filtration Rate 98 ML/MIN 126 ML/MIN Imaging Last Impressions Chest X-Ray 08/27/17 8452 Signed Impressions: Service Date/Time: Sunday, August 27, 2017 01:03 - CONCLUSION: Chronic cardiac silhouette enlargement. No acute cardiopulmonary disease identified. Krystian Spicer MD Head CT 08/27/17 0000 Signed Impressions: Service Date/Time: Sunday, August 27, 2017 17:48 - CONCLUSION: 1. No acute intracranial abnormality demonstrated. 2. 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 3. Right parietal ventriculostomy catheter present. No ventriculomegaly or other acute complication demonstrated. Jose Dimas MD Objective Remarks GENERAL: AWAKE AND ALERT TALKATIVE AND COOPERATIVE-INTERMITTED CONFUSION DUE TO SEDATION SKIN: Warm and dry. HEAD: Atraumatic. Normocephalic. EYES: Pupils equal and round. No scleral icterus. No injection or drainage. EOMI ENT: No nasal bleeding or discharge. Mucous membranes pink and moist. TONGUE MIDLINE NECK: Trachea midline. No JVD. SUPPLE CARDIOVASCULAR: IRRegular rate and rhythm. PACED CURRENTLY S1, S2 NO S3 OR S4 RESPIRATORY: No accessory muscle use. Clear to auscultation. Breath sounds equal bilaterally. GASTROINTESTINAL: Abdomen soft, non-tender, nondistended. Hepatic and splenic margins not palpable. MUSCULOSKELETAL: Extremities without clubbing, cyanosis, or edema. No obvious deformities. NEUROLOGICAL: Awake and alert. No obvious cranial nerve deficits. Motor grossly within normal limits. Five out of 5 muscle strength in the arms and legs. Normal speech.RIGHT GROIN IS DRESSED PSYCHIATRIC: Appropriate mood and affect; insight and judgment normal. Procedures 08/29/17 With diagnosis of NSTEMI had Cardiac Cath yesterday, Mid LAD lesion 70% , ostial left circumflex 80%, Mild disease of the RCA LVEF 55%, successful PCI with BMS to Mid LAD from 70% to 0%, to continue Plavix and Aspirin, due to Bradycardia BB contraindicated Primary Color Mixer Doctor Lawrence Monroe. OPERATIVE REPORT Pt Name: JESSICA LAY#: [id number]: HCPCAttended By:Carson SalazarAbhishek Kalpesh, DOAcct #:[id number] By: Draft Signed reports reside in the EMR cc: BECKIE SAENZ M.D. DATE OF SURGERY 09/05/2017 OPERATIVE PROCEDURE Single chamber Micra pacemaker insertion. INDICATIONS FOR PROCEDURE Mr. Lay is a 76-year-old gentleman with symptomatic bradycardia, AV block, significant pause, atrial fibrillation to undergo permanent pacemaker insertion. The risks, the nature and the benefit of the procedure are clearly stated to him. The risks include pneumothorax, cardiac perforation, stroke and even . The patient understood and agreed to proceed. PROCEDURE After written informed consent was obtained, the patient was brought to the EP Lab where he was prepped and draped in the usual sterile fashion. Conscious sedation was initiated and maintained throughout the procedure by the anesthesiologist. Once sedation verified, the right inguinal area was anesthetized with 2% Xylocaine. Using modified Seldinger technique, the right femoral vein was cannulated on one occasion and one guidewire was advanced. Over the wire a stiff Amplatz was advanced and placed all the way to the superior vena cava. Then a 1-cm incision was made at the entrance point. Then the area was progressively dilated using a 12, 16 and a 20-Croatian dilator. Then subsequently the delivery sheath was advanced over the wire. Then the wire and the dilator were removed. Then the myocardial image system was advanced through the sheath. The sheath was pulled back all the way to the inferior vena cava. And the Micra was placed at the right ventricular septal area. After the confirmation on the fluoroscopic guidance and contrast injection, the Micra was delivered. After adequate pacing and sensing thresholds were obtained on multiple occasions which did measure around 5 to 6 times. Then at this point the Micra was released, the suture was cut. 2-0 Ethibond suture was placed at the exit point to prevent back bleeding. Then the sheath and the delivery system were removed. I did tie the suture to prevent bleeding. Hemostasis was performed. The suture will be removed 6 hours after the case. No incident reported. The patient tolerated the procedure, blood loss minimal. 1. IMPLANTED HARDWARE: The implanted pacemaker is a Medtronic Micra, model number [id number], serial [id number]. 2. THRESHOLDS: The right ventricular pacing threshold in the bipolar mode was 0.5 volts at 0.24 milliseconds. Lead impedance 640 ohms, R-wave at 17 mV. 3. SETTINGS: The device set in a VVIR 70, upper limit 100 beats per minute. CONCLUSIONS Successful permanent pacemaker insertion. COMMENT AND RECOMMENDATIONS The patient is going to be transferred to the telemetry unit, will be observed and when stable can be discharged home by the managing team. Medications and IVs Current Medications Al Hydrox/Mg Hydrox/Simethicone (Mag-Al Plus Susp Liq) 30 ml ONCE ONCE PO Last administered on 08/27/17 01:48; Start 08/27/17 at 01:45; Stop 08/27/17 at 01:46; Status DC Heparin Sodium (Porcine) (Heparin Inj) 4,000 units ONCE ONCE IV PUSH Last administered on 08/27/17 03:43; Start 08/27/17 at 03:15; Stop 08/27/17 at 03:22 ; Status DC Heparin Sodium (Porcine) (Heparin Inj) 5,000 units UNSCH PRN IV PUSH APTT LESS THAN 25; Start 08/27/17 at 09:15; Stop 08/28/17 at 18:57; Status DC Heparin Sodium (Porcine) (Heparin Inj) 2,500 units UNSCH PRN IV PUSH APTT 25 TO 39; Start 08/27/17 at 09:15; Stop 08/28/17 at 18:57; Status DC Heparin Sodium/ Dextrose 250 ml @ 10 mls/hr TITRATE PRN IV Coagulation Management Last administered on 08/28/17 12:40; Start 08/27/17 at 03:15; Stop 08/28/17 at 18:57; Status DC Nitroglycerin (Nitrostat Sl) 0.4 mg Q5M PRN SL CHEST PAIN Last administered on 09/02/17 23:22; Start 08/27/17 at 03:30 Sodium Chloride (NS Flush) 2 ml BID IV FLUSH Last administered on 08/28/17 13: 13; Start 08/27/17 at 09:00; Stop 08/28/17 at 19:02; Status DC Sodium Chloride (NS Flush) 2 ml UNSCH PRN IV FLUSH FLUSH AFTER USING IV ACCESS ; Start 08/27/17 at 04:00; Stop 08/28/17 at 19:02; Status DC Aspirin (Aspirin) 325 mg DAILY PO Last administered on 08/27/17 08:57; Start 08/27/17 at 09:00; Stop 08/27/17 at 09:17; Status DC Nitroglycerin (Nitroglycerin 2% Oint) 1 inch Q6HR TOP Last administered on 08/27 05:14; Start 08/27/17 at 06:00; Stop 08/27/17 at 10:48; Status DC Acetaminophen (Tylenol) 500 mg Q4H PRN PO HEADACHE Last administered on 18:42; Start 08/27/17 at 04:00 Morphine Sulfate (Morphine Inj) 2 mg Q3HR PRN IV PUSH PAIN SCALE 6 TO 10 Last administered on 08/27/17 09:02; Start 08/27/17 at 04:00 Hydrochlorothiazide (Hydrodiuril) 25 mg DAILY PO Last administered on 09:28; Start 08/27/17 at 09:00 Levothyroxine Sodium (Synthroid) 112 mcg DAILY@0600 PO Last administered on 05:39; Start 08/27/17 at 09:30 Lisinopril (Prinivil) 10 mg DAILY PO Last administered on 09/05/17 09:28; Start 08/27/17 at 09:00 Prednisone (Deltasone) 10 mg DAILY PO Last administered on 09/05/17 09:28; Start 08/27/17 at 09:00 Multivitamins (Theragran) 1 tab DAILY PO Last administered on 09/05/17 09:28 ; Start 08/27/17 at 09:00 Atorvastatin Calcium (Lipitor) 80 mg HS PO Last administered on 09/04/17 21: 21; Start 08/27/17 at 21:00 Aspirin (Aspirin Chew) 81 mg DAILY CHEW Last administered on 08/28/17 09:12; Start 08/28/17 at 09:00; Stop 08/28/17 at 19:02; Status DC Multivitamins 10 ml/Folic Acid 1 mg/Sodium Chloride 510.2 ml @ 125 mls/hr Q24H IV Last administered on 08/30/17 10:19; Start 08/27/17 at 10:00; Stop at 09:06; Status DC Thiamine HCl 100 mg/Sodium Chloride 101 ml @ 100 mls/hr Q24H IV Last administered on 08/29/17 11:59; Start 08/27/17 at 10:00; Stop 08/30/17 at 10:05 ; Status DC Thiamine HCl (Vitamin B1) 100 mg DAILY PO Last administered on 09/05/17 09:00 ; Start 08/31/17 at 09:00 Flumazenil (Romazicon Inj) 0.2 mg Q1M PRN IV PUSH SEE LABEL COMMENTS; Start at 09:30; Stop 09/01/17 at 15:15; Status DC Lorazepam (Ativan) 1 mg Q4H PRN PO CIWA 8 - 10; Start 08/27/17 at 09:30; Stop 08/29/17 at 18:24; Status DC Lorazepam (Ativan Inj) 1 mg Q4H PRN IV PUSH CIWA 8 - 10 Last administered on 06:19; Start 08/27/17 at 09:30; Stop 08/29/17 at 18:24; Status DC Lorazepam (Ativan) 2 mg Q2H PRN PO CIWA 11-14; Start 08/27/17 at 09:30; Stop 08/29/17 at 18:24; Status DC Lorazepam (Ativan Inj) 2 mg Q2H PRN IV PUSH CIWA 11-14 Last administered on 20:01; Start 08/27/17 at 09:30; Stop 08/29/17 at 18:24; Status DC Lorazepam (Ativan Inj) 2 mg Q1H PRN IV PUSH CIWA 15-20 Last administered on 02:00; Start 08/27/17 at 09:30; Stop 08/29/17 at 18:24; Status DC Lorazepam (Ativan Inj) 2 mg Q15M PRN IV PUSH CIWA > 20 Last administered on 20:37; Start 08/27/17 at 09:30; Stop 08/29/17 at 18:24; Status DC Famotidine (Pepcid Inj) 20 mg Q12H IV PUSH Last administered on 08/30/17 21:56 ; Start 08/27/17 at 09:30; Stop 08/31/17 at 09:47; Status DC Nitroglycerin/ Dextrose 250 ml @ As Directed STK-MED ONCE .ROUTE Last administered on 08/27/17 10:00; Start 08/27/17 at 10:00; Stop 08/27/17 at 10:01 ; Status DC Carvedilol (Coreg) 3.125 mg ONCE ONCE PO Last administered on 08/27/17 10:15 ; Start 08/27/17 at 10:15; Stop 08/27/17 at 10:39; Status DC Carvedilol (Coreg) 3.125 mg Q12HR PO Last administered on 08/29/17 21:47; Start 08/27/17 at 21:00; Stop 08/30/17 at 09:14; Status DC Magnesium Sulfate/ Dextrose 100 ml @ 100 mls/hr Q1H IV Last administered on 12:56; Start 08/27/17 at 10:45; Stop 08/27/17 at 12:44; Status DC Magnesium Oxide (Mag-Ox) 400 mg ONCE ONCE PO Last administered on 08/27/17 12 :07; Start 08/27/17 at 10:15; Stop 08/27/17 at 10:39; Status DC Magnesium Oxide (Mag-Ox) 400 mg Q12H PO Last administered on 09/05/17 00:29; Start 08/27/17 at 23:00 Nitroglycerin/ Dextrose 250 ml @ 1.5 mls/hr TITRATE PRN IV Chest pain; Start 08/27/17 at 10:30 Sodium Chloride 1,000 ml @ 84 mls/hr [id number] IV Last administered on 12:17; Start 08/28/17 at 11:00; Stop 09/02/17 at 23:02; Status DC Methylprednisolone Sodium Succinate (SoluMEDROL INJ) 125 mg ONCE ONCE IV PUSH Last administered on 08/28/17 16:45; Start 08/28/17 at 16:45; Stop 08/28/17 at 16:59; Status DC Heparin Sodium/ Sodium Chloride 500 ml @ As Directed STK-MED ONCE .ROUTE Last administered on 08/28/17 17:29; Start 08/28/17 at 17:29; Stop 08/28/17 at 17:30 ; Status DC Heparin Sodium/ Sodium Chloride 500 ml @ As Directed STK-MED ONCE .ROUTE Last administered on 08/28/17 17:29; Start 08/28/17 at 17:29; Stop 08/28/17 at 17:30 ; Status DC Diphenhydramine HCl (Benadryl Inj) 50 mg STK-MED ONCE .ROUTE Last administered on 08/28/17 17:36; Start 08/28/17 at 17:33; Stop 08/28/17 at 17:34; Status DC Midazolam HCl (Versed Inj) 2 mg STK-MED ONCE .ROUTE Last administered on 17:38; Start 08/28/17 at 17:33; Stop 08/28/17 at 17:34; Status DC Famotidine (Pepcid Inj) 20 mg STK-MED ONCE .ROUTE Last administered on 17:37; Start 08/28/17 at 17:33; Stop 08/28/17 at 17:34; Status DC Heparin Sodium (Porcine) (Heparin Inj) 10,000 units STK-MED ONCE .ROUTE Last administered on 08/28/17 17:46; Start 08/28/17 at 17:45; Stop 08/28/17 at 17:46 ; Status DC Clopidogrel Bisulfate (Plavix) 600 mg STK-MED ONCE .ROUTE ; Start 08/28/17 at 18 :13; Stop 08/28/17 at 18:14; Status DC Tirofiban/Sodium Chloride 250 ml @ As Directed STK-MED ONCE IV ; Start at 18:13; Stop 08/28/17 at 18:14; Status DC Sodium Chloride (NS Flush) 2 ml UNSCH PRN IV FLUSH FLUSH AFTER USING IV ACCESS ; Start 08/28/17 at 18:30; Stop 09/01/17 at 15:16; Status DC Sodium Chloride (NS Flush) 2 ml BID IV FLUSH Last administered on 09/01/17 09 :31; Start 08/28/17 at 21:00; Stop 09/01/17 at 15:16; Status DC Aspirin (Aspirin Chew) 162 mg DAILY PO Last administered on 09/05/17 09:27; Start 08/29/17 at 09:00 Clopidogrel Bisulfate (Plavix) 600 mg ONCE ONCE PO Last administered on 18:27; Start 08/28/17 at 18:30; Stop 08/28/17 at 18:55; Status DC Clopidogrel Bisulfate (Plavix) 75 mg DAILY PO Last administered on 09/05/17 09:28; Start 08/29/17 at 09:00 Tirofiban/Sodium Chloride 250 ml @ 17.46 mls/ hr [id number] IV Last administered on 08/29/17 06:04; Start 08/28/17 at 18:25; Stop 08/29/17 at 12:24; Status DC Miscellaneous Information 1 ONCE ONCE XX ; Start 08/28/17 at 18:30; Stop at 18:56; Status DC Iohexol (OMNIPAQUE 350 INJ (Office Machinery Or Equipment Installer)) 100 ml STK-MED ONCE OTHER Last administered on 08/28/17 17:20; Start 08/28/17 at 17:20; Stop 08/29/17 at 08:18 ; Status DC Iohexol (OMNIPAQUE 350 INJ (Office Machinery Or Equipment Installer)) 50 ml STK-MED ONCE OTHER ; Start at 17:20; Stop 08/29/17 at 08:18; Status DC Lactulose (Lactulose Liq) 30 ml QID PO Last administered on 09/04/17 21:21; Start 08/29/17 at 18:00 Potassium Chloride 100 ml @ 100 mls/hr Q1H IV Last administered on 08/29/17 23:10; Start 08/29/17 at 15:00; Stop 08/29/17 at 17:59; Status DC Quetiapine Fumarate (SEROquel) 50 mg HS PRN PO SLEEP Last administered on 21:47; Start 08/29/17 at 18:30; Stop 08/30/17 at 13:48; Status DC Ipratropium [place] (Atrovent Neb) 0.5 mg Q2HR NEB PRN NEB wheezing Last administered on 08/31/17 02:23; Start 08/30/17 at 02:00 Furosemide (Lasix Inj) 40 mg ONCE ONCE IV PUSH Last administered on 08/30/17 02:30; Start 08/30/17 at 02:00; Stop 08/30/17 at 02:09; Status DC Potassium Chloride (KCl) 40 meq ONCE ONCE PO Last administered on 08/30/17 02 :30; Start 08/30/17 at 02:00; Stop 08/30/17 at 02:09; Status DC Dexmedetomidine HCl 200 mcg/ Sodium Chloride 52 ml @ 4.94 mls/hr TITRATE PRN IV SEDATION; Start 08/30/17 at 02:15; Stop 08/30/17 at 04:45; Status DC Amlodipine Besylate (Norvasc) 5 mg ONCE ONCE PO Last administered on 08:52; Start 08/30/17 at 07:30; Stop 08/30/17 at 08:26; Status DC Amlodipine Besylate (Norvasc) 5 mg DAILY PO ; Start 08/31/17 at 09:00; Stop 08/08 at 08:07; Status DC Potassium Phosphate 21 mmol/ Sodium Chloride 157 ml @ 38.75 mls/ hr ONCE ONCE IV Last administered on 08/30/17 11:29; Start 08/30/17 at 11:00; Stop at 15:03; Status DC Clonidine (Catapres) 0.1 mg Q8H PO Last administered on 09/05/17 09:27; Start 08/30/17 at 10:00 Carvedilol (Coreg) 3.125 mg ONCE ONCE PO Last administered on 08/30/17 14:05 ; Start 08/30/17 at 13:15; Stop 08/30/17 at 13:50; Status DC Carvedilol (Coreg) 3.125 mg Q12HR PO Last administered on 08/30/17 21:57; Start 08/30/17 at 21:00; Stop 08/31/17 at 06:49; Status DC Famotidine (Pepcid Inj) 20 mg Q12H IV PUSH Last administered on 09/05/17 03: 29; Start 08/30/17 at 14:00 Sucralfate (Carafate Liq) 1 gm ACHS PO Last administered on 09/04/17 23:00; Start 08/30/17 at 17:00 Quetiapine Fumarate (SEROquel) 100 mg HS PO Last administered on 09/04/17 21: 21; Start 08/30/17 at 21:00 Magnesium Sulfate/ Dextrose 100 ml @ 100 mls/hr Q1H IV Last administered on 15:29; Start 08/30/17 at 14:00; Stop 08/30/17 at 15:59; Status DC Atropine Sulfate (Atropine Inj) 0.6 mg UNSCH X1 PRN IV PUSH SEE COMMENT Last administered on 08/31/17 08:17; Start 08/31/17 at 07:00; Stop 08/31/17 at 23:59 ; Status DC Multivitamins 10 ml/Sodium Chloride 510 ml @ 125 mls/hr Q24H IV Last administered on 08/31/17 10:10; Start 08/31/17 at 10:00; Stop 09/01/17 at 09: 59; Status DC Folic Acid (Folate) 1 mg DAILY PO Last administered on 09/05/17 09:27; Start 08/31/17 at 10:00 Albuterol/ Ipratropium (Duoneb Neb) 1 ampule Q4HR NEB NEB Last administered on 09/01/17 07:50; Start 08/31/17 at 12:00; Stop 09/01/17 at 08:48; Status DC Potassium Chloride 100 ml @ 100 mls/hr ONCE ONCE IV Last administered on 08/31 14:42; Start 08/31/17 at 14:15; Stop 08/31/17 at 15:14; Status DC Potassium Phosphate 15 mmol/ Sodium Chloride 155 ml @ 38.75 mls/ hr ONCE ONCE IV Last administered on 08/31/17 17:47; Start 08/31/17 at 14:15; Stop at 18:14; Status DC Amlodipine Besylate (Norvasc) 10 mg ONCE ONCE PO Last administered on 09:30; Start 09/01/17 at 08:15; Stop 09/01/17 at 08:16; Status DC Amlodipine Besylate (Norvasc) 10 mg DAILY PO Last administered on 09/05/17 09 :28; Start 09/02/17 at 09:00 Flumazenil (Romazicon Inj) 0.2 mg Q1M PRN IV PUSH SEE LABEL COMMENTS; Start at 15:15 Lorazepam (Ativan) 1 mg Q4H PRN PO CIWA 8 - 10; Start 09/01/17 at 15:15 Lorazepam (Ativan Inj) 1 mg Q4H PRN IV PUSH CIWA 8 - 10; Start 09/01/17 at 15: 15 Lorazepam (Ativan) 2 mg Q2H PRN PO CIWA 11-14; Start 09/01/17 at 15:15 Lorazepam (Ativan Inj) 2 mg Q2H PRN IV PUSH CIWA 11-14; Start 09/01/17 at 15: 15 Lorazepam (Ativan Inj) 2 mg Q1H PRN IV PUSH CIWA 15-20; Start 09/01/17 at 15: 15 Lorazepam (Ativan Inj) 2 mg Q15M PRN IV PUSH CIWA > 20; Start 09/01/17 at 15: 15 Haloperidol Lactate (Haldol Inj) 2 mg Q15M PRN IM SEE LABEL COMMENTS; Start at 15:15 Sodium Chloride (NS Flush) 2 ml UNSCH PRN IV FLUSH FLUSH AFTER USING IV ACCESS ; Start 09/01/17 at 15:15 Sodium Chloride (NS Flush) 2 ml BID IV FLUSH Last administered on 09/05/17t 09 :28; Start 09/01/17 at 21:00 Potassium Phos/ Sodium Phos (K-Phos Neutral) 250 mg Q6HR PO Last administered on 09/05/17t 05:39; Start 09/02/17 at 19:15 Lactated Ringer's 1,000 ml @ 30 mls/hr Q24H PRN IV SEE LABEL COMMENTS; Start 09/05/17 at 01:15; Stop 09/08/17 at 01:14 Sodium Chloride 500 ml @ 30 mls/hr [id number] PRN IV SEE LABEL COMMENTS; Start at 01:15; Stop 09/08/17 at 01:14 Metoprolol Tartrate (Lopressor) 25 mg PRINTMAKER PRN PO SEE LABEL COMMENTS; Start 09/05/17 at 01:15; Stop 09/08/17 at 01:14 Povidone Iodine (Betadine 5% Antisepsis Kit) 1 applic PRINTMAKER PRN EACH NARE SEE LABEL COMMENTS; Start 09/05/17 at 01:15; Stop 09/08/17 at 01:14 Chlorhexidine Gluconate (Chlorhexidine 2% Cloth) 3 pack PRINTMAKER PRN TOPICAL SEE LABEL COMMENTS; Start 09/05/17 at 01:15; Stop 09/08/17 at 01:14 Insulin Human Regular (NovoLIN R INJ) See Protocol Table ... PRINTMAKER PRN SQ SEE PROTOCOL TABLE; Start 09/05/17 at 01:15; Stop 09/08/17 at 01:14 Heparin Sodium/ Sodium Chloride 1,000 ml @ As Directed STK-MED ONCE .ROUTE ; Start 09/05/17 at 07:07; Stop 09/05/17 at 07:08; Status DC Heparin Sodium (Porcine) (Heparin Inj) 10,000 units STK-MED ONCE .ROUTE ; Start 09/05/17 at 07:17; Stop 09/05/17 at 07:18; Status DC Lorazepam (Ativan Inj) 0.5 mg UNSCH PRN IV PUSH ANXIETY; Start 09/05/17 at 08: 00; Stop 09/06/17 at 07:59 Atropine Sulfate (Atropine Inj) 0.5 mg UNSCH PRN IV PUSH VAGAL REPONSE; Start 09/05/17 at 08:00 Sodium Chloride 250 ml @ 500 mls/hr ONCE PRN IV VAGAL REPONSE; Start at 08:00; Stop 09/06/17 at 07:59 Metoclopramide HCl (Reglan Inj) 10 mg Q4H PRN IV PUSH NAUSEA; Start 09/05/17 at 08:00; Stop 09/05/17 at 08:20; Status DC Ondansetron HCl (Zofran Inj) 4 mg Q4H PRN IV PUSH NAUSEA; Start 09/05/17 at 09 :00 Lidocaine HCl (Xylocaine 1% Inj (50 ml)) 10 ml UNSCH PRN INFIL SHEATH REMOVAL; Start 09/05/17 at 08:00; Stop 09/06/17 at 07:59 Bacitracin (Bacitracin Oint Packet) 0.9 gm ONCE ONCE TOP ; Start 09/05/17 at 08:00; Stop 09/05/17 at 08:01; Status DC A/P Problem List: (1) Symptomatic bradycardia ICD Code: R00.1 - Bradycardia, unspecified Status: Acute (2) NSTEMI (non-ST elevated myocardial infarction) ICD Code: I21.4 - Non-ST elevation (NSTEMI) myocardial infarction Status: Resolved (3) ETOH abuse ICD Code: F10.10 - Alcohol abuse, uncomplicated Status: Chronic (4) Alcohol withdrawal ICD Code: F10.239 - Alcohol dependence with withdrawal, unspecified Status: Resolved (5) New onset atrial fibrillation ICD Code: I48.91 - Unspecified atrial fibrillation Assessment and Plan 1. NSTEMI Atypical Chest pain he had an ECG in ER showing no ST segment elevation or depression, on Morphine, Oxygen as needed High intensity statins, will need Beta Blockers at this time with Bradycardia will follow to start this medicine once possible, awaiting for water resource engineering specialist, continue Cardiac Monitoring, Cardiac Enzymes trending down, status post Cardiac Cath found Mid LAD lesion, 50% ostial left circumflex and 80% small medial branch of the first diagonal artery. EF 55%, successful PCI with BMS to Mid LAD from 70% to 1%, recommended to continue Plavix and Aspirin. Aggrastat drip per protocol. as per Doctor Lawrence Monroe. 2. New Onset of Atrial Fibrillation started on Beta blockers by water resource engineering specialist at this time Bradycardia discontinued BB by Cardiology. 3. GERD on Famotidine 4. Hypertension Uncontrolled added Clonidine for blood pressure over 130 mm Hg. 5. Hypothyroidism continue Hormonal replacement 6. Obesity strongly recommended diet and exercise. 7. Alcohol abuse and dependency at this time having Encephalopathy due to alcohol withdrawal, continue CIWA protocol, Banana bag Ammonia level and replace electrolytes, lactulose. ammonia level 32, as per Cardiology neurology specialist consult to rule out ANS. asked for MRI and Radiology will follow if is feasible without harm. Encephalopathy resolved 8. chronic swollen legs he states secondary to his chronic Prednisone intake 9. History of Temporal Arteritis management with Chronic Prednisone use. 10 mg daily 10. Prostate Cancer history status post Radiation therapy 11. Hypophosphatemia level 2.3 to give 15 mmol of Potassium chloride and cover for Potassium in 3.6 with 10 meq IV. follow in am tomorrow. 09/02 Replace with neutraphos orally and contrinue to monitor levels. 12. Symptomatic bradycardia: Patient seen by cardiology Dr Saenz who recommended pacemaker implantation however patient making up his mind. Explained to patient briefly about pacemakers. Beta feliciano discontinued by cardiology due to bradycardia. Continue to monitor on telemetry. 09/04 Patient willing to have procedure.DR SAENZ PLACED MICRA PM--HAD MICRA PACEMAKER PLACED TODAY 11-14 TOLERATED WELL 13. Dizziness: Likely due to symptomatic bradycardia, however will check orthostatics. HYPOKALEMIA WILL REPLACE DVT prophylaxis with Heparin drip continue present care. Discharge Planning NEEDS PT AND OT Carson Posey DO Sep 05, 2017 11:05
[2017-09-05] MEDS ORDERED: POTASSIUM CHLORIDE 10 MEQ CONTROLLED RELEASE TAB PO ONE (11:15)
--- NOTE | 2017-09-05 13:48 | PD.CARD.PN ---
Subjective Subjective Remarks alert in nad, s/p ppm Objective Medications Current Medications Medications (Trade) Dose Ordered Sig/Katherine Route Start Time Stop Time Status Last Admin (Nitrostat Sl) 0.4 mg Q5M PRN SL 08/27/17 03:30 09/02/17 23:22 (Tylenol) 500 mg Q4H PRN PO 08/27/17 04:00 09/03/17 18:42 (Morphine Inj) 2 mg Q3HR PRN IV PUSH 08/27/17 04:00 08/27/17 09:02 (Hydrodiuril) 25 mg DAILY PO 08/27/17 09:00 09/05/17 09:28 (Synthroid) 112 mcg DAILY@0600 PO 08/27/17 09:30 09/05/17 05:39 (Prinivil) 10 mg DAILY PO 08/27/17 09:00 09/05/17 09:28 (Deltasone) 10 mg DAILY PO 08/27/17 09:00 09/05/17 09:28 (Theragran) 1 tab DAILY PO 08/27/17 09:00 09/05/17 09:28 (Lipitor) 80 mg HS PO 08/27/17 21:00 09/04/17 21:21 (Vitamin B1) 100 mg DAILY PO 08/31/17 09:00 09/05/17 09:00 (Mag-Ox) 400 mg Q12H PO 08/27/17 23:00 09/05/17 11:46 Nitroglycerin/ Dextrose 250 ml @ 1.5 mls/hr TITRATE PRN IV 08/27/17 10:30 (Aspirin Chew) 162 mg DAILY PO 08/29/17 09:00 09/05/17 09:27 (Plavix) 75 mg DAILY PO 08/29/17 09:00 09/05/17 09:28 (Lactulose Liq) 30 ml QID PO 08/29/17 18:00 09/04/17 21:21 (Atrovent Neb) 0.5 mg Q2HR NEB PRN NEB 08/30/17 02:00 08/31/17 02:23 (Catapres) 0.1 mg Q8H PO 08/30/17 10:00 09/05/17 09:27 (Pepcid Inj) 20 mg Q12H IV PUSH 08/30/17 14:00 09/05/17 03:29 (Carafate Liq) 1 gm ACHS PO 08/30/17 17:00 09/04/17 23:00 (SEROquel) 100 mg HS PO 08/30/17 21:00 09/04/17 21:21 (Folate) 1 mg DAILY PO 08/31/17 10:00 09/05/17 09:27 (Norvasc) 10 mg DAILY PO 09/02/17 09:00 09/05/17 09:28 (Romazicon Inj) 0.2 mg Q1M PRN IV PUSH 09/01/17 15:15 (Ativan) 1 mg Q4H PRN PO 09/01/17 15:15 (Ativan Inj) 1 mg Q4H PRN IV PUSH 09/01/17 15:15 (Ativan) 2 mg Q2H PRN PO 09/01/17 15:15 (Ativan Inj) 2 mg Q2H PRN IV PUSH 09/01/17 15:15 (Ativan Inj) 2 mg Q1H PRN IV PUSH 09/01/17 15:15 (Ativan Inj) 2 mg Q15M PRN IV PUSH 09/01/17 15:15 (Haldol Inj) 2 mg Q15M PRN IM 09/01/17 15:15 (NS Flush) 2 ml UNSCH PRN IV FLUSH 09/01/17 15:15 (NS Flush) 2 ml BID IV FLUSH 09/01/17 21:00 09/05/17 09:28 (K-Phos Neutral) 250 mg Q6HR PO 09/02/17 19:15 09/05/17 12:43 Lactated Ringer's 1,000 ml @ 30 mls/hr Q24H PRN IV 09/05/17 01:15 09/08/17 01:14 Sodium Chloride 500 ml @ 30 mls/hr [id number] PRN IV 09/05/17 01:15 09/08/17 01:14 (Lopressor) 25 mg REGULATORY ATTORNEY PRN PO 09/05/17 01:15 09/08/17 01:14 (Betadine 5% Antisepsis Kit) 1 applic REGULATORY ATTORNEY PRN EACH NARE 09/05/17 01:15 09/08/17 01:14 (Chlorhexidine 2% Cloth) 3 pack REGULATORY ATTORNEY PRN TOPICAL 09/05/17 01:15 09/08/17 01:14 (NovoLIN R INJ) See Protocol Table ... REGULATORY ATTORNEY PRN SQ 09/05/17 01:15 09/08/17 01:14 (Ativan Inj) 0.5 mg UNSCH PRN IV PUSH 09/05/17 08:00 09/06/17 07:59 (Atropine Inj) 0.5 mg UNSCH PRN IV PUSH 09/05/17 08:00 Sodium Chloride 250 ml @ 500 mls/hr ONCE PRN IV 09/05/17 08:00 09/06/17 07:59 (Zofran Inj) 4 mg Q4H PRN IV PUSH 09/05/17 09:00 (Xylocaine 1% Inj (50 ml)) 10 ml UNSCH PRN INFIL 09/05/17 08:00 09/06/17 07:59 Vital Signs / I&O Vital Signs Date Time Temp Pulse Resp B/P (MAP) Pulse Ox O2 Delivery O2 Flow Rate FiO2 09/05/17 13:00 68 09/05/17 12:00 69 09/05/17 11:00 69 09/05/17 11:00 97.6 80 16 126/61 (82) 98 09/05/17 10:00 75 09/05/17 09:00 68 09/05/17 08:45 69 09/05/17 08:45 98.1 76 18 126/70 (88) 95 09/05/17 06:00 47 09/05/17 05:00 51 09/05/17 04:00 37 09/05/17 03:20 97.6 42 16 128/63 (84) 98 09/05/17 03:00 35 09/05/17 02:00 37 09/05/17 01:00 49 09/05/17 00:00 39 09/04/17 23:30 97.7 51 16 128/65 (86) 96 09/04/17 23:00 68 09/04/17 22:00 44 09/04/17 21:00 50 09/04/17 20:30 97.7 47 16 141/66 (91) 97 09/04/17 20:00 54 09/04/17 19:00 47 09/04/17 18:00 72 09/04/17 17:00 66 09/04/17 16:00 64 09/04/17 15:00 79 09/04/17 15:00 98.1 51 18 138/70 (92) 98 09/04/17 14:00 63 I/O 09/04/17 09/04/17 09/04/17 09/05/17 09/05/17 09/05/17 07:00 15:00 23:00 07:00 15:00 23:00 Intake Total 480 ml 720 ml 200 ml Output Total 825 ml 810 ml 1050 ml Balance -345 ml -90 ml -850 ml Intake Oral 480 ml 720 ml 200 ml Output Urine Total 825 ml 810 ml 1050 ml # Bowel Movements 4 0 Physical Exam GENERAL: SKIN: Warm and dry. HEAD: Normocephalic. EYES: No scleral icterus. No injection or drainage. NECK: Supple, trachea midline. No JVD or lymphadenopathy. CARDIOVASCULAR: Regular rate and rhythm without murmurs, gallops, or rubs. RESPIRATORY: Breath sounds equal bilaterally. No accessory muscle use. GASTROINTESTINAL: Abdomen soft, non-tender, nondistended. MUSCULOSKELETAL: No cyanosis, or edema. BACK: Nontender without obvious deformity. No CVA tenderness. Laboratory Laboratory Tests Test 09/05/17 03:48 09/05/17 04:38 Blood Urea Nitrogen 15 MG/DL Creatinine 0.62 MG/DL Random Glucose 85 MG/DL Calcium Level 8.5 MG/DL Sodium Level 138 MEQ/L Potassium Level 3.4 MEQ/L Chloride Level 104 MEQ/L Carbon Dioxide Level 26.7 MEQ/L Anion Gap 7 MEQ/L Estimat Glomerular Filtration Rate 126 ML/MIN White Blood Count 6.0 TH/MM3 Red Blood Count 4.00 MIL/MM3 Hemoglobin 13.0 GM/DL Hematocrit 37.2 % Mean Corpuscular Volume 93.1 FL Mean Corpuscular Hemoglobin 32.5 PG Mean Corpuscular Hemoglobin Concent 34.9 % Red Cell Distribution Width 13.1 % Platelet Count 189 TH/MM3 Mean Platelet Volume 8.7 FL Assessment and Plan Problem List: (1) NSTEMI (non-ST elevated myocardial infarction) ICD Codes: I21.4 - Non-ST elevation (NSTEMI) myocardial infarction Status: Resolved (2) CAD (coronary artery disease) ICD Codes: I25.10 - Atherosclerotic heart disease of [place] coronary artery without angina pectoris (3) Altered mental status ICD Codes: R41.82 - Altered mental status, unspecified (4) ETOH abuse ICD Codes: F10.10 - Alcohol abuse, uncomplicated Status: Chronic Assessment and Plan 1.) CAD -pod # 6 pci mid lad, continue aspirin, plavix, lipitor, hold coreg due to bradycardia; ams started prior to cath as soon as he got 1 mg of versed; he got 4 doses of ativan subsequently, last 6 am 08/29/17; mental status appears close to baseline now; mri ordered but radiology evaluating shunt for contraindications prior to proceeding 2.) Bradycardia - resolved s/p Dr Lopez ppm placement 09/05/17 3.) HTN - increase norvasc 10 mg qd 4.) AF - not a good candidate for noac or coumadin due to fall risk, chronic alcoholism and uncertain follow up and compliance capabilities Lawrence Monroe MD Sep 05, 2017 13:48
[2017-09-05] MEDS: ACETAMINOPHEN 500 MG CPLT PO PRN (19:42)
--- NOTE | 2017-09-05 21:23 | EKG ---
Date Performed: 09/05/2017 Time Performed: 09:09:58 PTAGE: 76 years EKG: Demand pacing. Incomplete LBBB Cannot rule out septal infarct - age undetermined LVH with s econdary repolarization abnormality Inferior/lateral ST-T changes Abnormal ECG PREVIOUS TRACING : 08/28/2017 19.02 Compared to the previous tracing V pacing now present DOCTOR: Aaron Garcia Interpretating Date/Time 09/05/2017 21:22:02
[2017-09-05] MEDS: QUEtiapine FUMARATE 100 MG TAB PO SCH (21:52)
[2017-09-05] MEDS: ATORVASTATIN 80 MG TAB PO SCH (21:52)
[2017-09-06] VITALS (15 sets, daily range): BP systolic 117–137; BP diastolic 61–65; PULSE 66–88; RESP 16; TEMP 97.4–98.2; O2SAT 97–100
[2017-09-06] MEDS: cloNIDine HCL 0.1 MG TAB PO SCH ×2 (02:00→09:05)
[2017-09-06] MEDS: FAMOTIDINE 20 MG/2 ML VIAL IV PUSH SCH (02:08)
[2017-09-06] MEDS: POTASSIUM PHOSPHATE/SODIUM PHOSPHATE 250 MG TAB PO SCH ×3 (02:08→11:12)
[2017-09-06] MEDS: LEVOTHYROXINE SODIUM 112 MCG TAB PO SCH (05:01)
[2017-09-06 05:18] LABS: AUTOMATED NEUTROPHIL # 4.6 TH/MM3 (1.8-7.7); BASOPHIL % 0.5 % (0.0-2.0); EOSINOPHIL # 0.1 TH/MM3 (0-0.4); EOSINOPHIL % 1.7 % (0.0-4.0); HEMATOCRIT 35.9 % (39.0-51.0); HEMO FLAGS DIFF FINAL; LYMPH % 16.8 % (9.0-44.0); LYMPHOCYTE # 1.1 TH/MM3 (1.0-4.8); MEAN CELL VOLUME 92.1 FL (80.0-100.0); MEAN CORPUSCULAR HEMOGLOBIN 32.8 PG (27.0-34.0); MEAN CORPUSCULAR HGB CONC 35.7 % (32.0-36.0); MONO % 9.9 % (0.0-8.0); NEUT % 71.1 % (16.0-70.0); PLATELET COUNT 186 TH/MM3 (150-450); RED CELL DISTRIBUTION WIDTH 13.2 % (11.6-17.2); WHITE BLOOD COUNT 6.5 TH/MM3 (4.0-11.0)
[2017-09-06 05:44] LABS: ANION GAP 7 MEQ/L (5-15); AST (GOT) 21 U/L (15-37); BICARBONATE 27.1 MEQ/L (21.0-32.0); BLOOD UREA NITROGEN 15 MG/DL (7-18); CHLORIDE 103 MEQ/L (98-107); GLOMERULAR FILTRATION RATE 123 ML/MIN (>89); MAGNESIUM 1.8 MG/DL (1.5-2.5); POTASSIUM 3.5 MEQ/L (3.5-5.1); SODIUM (NA) 137 MEQ/L (136-145)
[2017-09-06 05:48] LABS: ALKALINE PHOSPHATASE 82 U/L (45-117); ALT (GPT) 26 U/L (12-78); TOTAL BILIRUBIN ADULT 0.9 MG/DL (0.2-1.0)
--- NOTE | 2017-09-06 08:50 | PD.CARD.PN ---
Subjective Subjective Remarks Feels ok. Objective Medications Current Medications Medications (Trade) Dose Ordered Sig/Katherine Route Start Time Stop Time Status Last Admin (Nitrostat Sl) 0.4 mg Q5M PRN SL 08/27/17 03:30 09/02/17 23:22 (Tylenol) 500 mg Q4H PRN PO 08/27/17 04:00 09/05/17 19:42 (Morphine Inj) 2 mg Q3HR PRN IV PUSH 08/27/17 04:00 08/27/17 09:02 (Hydrodiuril) 25 mg DAILY PO 08/27/17 09:00 09/05/17 09:28 (Synthroid) 112 mcg DAILY@0600 PO 08/27/17 09:30 09/06/17 05:01 (Prinivil) 10 mg DAILY PO 08/27/17 09:00 09/05/17 09:28 (Deltasone) 10 mg DAILY PO 08/27/17 09:00 09/05/17 09:28 (Theragran) 1 tab DAILY PO 08/27/17 09:00 09/05/17 09:28 (Lipitor) 80 mg HS PO 08/27/17 21:00 09/05/17 21:52 (Vitamin B1) 100 mg DAILY PO 08/31/17 09:00 09/05/17 09:00 (Mag-Ox) 400 mg Q12H PO 08/27/17 23:00 09/05/17 23:29 Nitroglycerin/ Dextrose 250 ml @ 1.5 mls/hr TITRATE PRN IV 08/27/17 10:30 (Aspirin Chew) 162 mg DAILY PO 08/29/17 09:00 09/05/17 09:27 (Plavix) 75 mg DAILY PO 08/29/17 09:00 09/05/17 09:28 (Lactulose Liq) 30 ml QID PO 08/29/17 18:00 09/05/17 21:52 (Atrovent Neb) 0.5 mg Q2HR NEB PRN NEB 08/30/17 02:00 08/31/17 02:23 (Catapres) 0.1 mg Q8H PO 08/30/17 10:00 09/05/17 18:10 (Pepcid Inj) 20 mg Q12H IV PUSH 08/30/17 14:00 09/06/17 02:08 (Carafate Liq) 1 gm ACHS PO 08/30/17 17:00 09/05/17 19:42 (SEROquel) 100 mg HS PO 08/30/17 21:00 09/05/17 21:52 (Folate) 1 mg DAILY PO 08/31/17 10:00 09/05/17 09:27 (Norvasc) 10 mg DAILY PO 09/02/17 09:00 09/05/17 09:28 (Romazicon Inj) 0.2 mg Q1M PRN IV PUSH 09/01/17 15:15 (Ativan) 1 mg Q4H PRN PO 09/01/17 15:15 (Ativan Inj) 1 mg Q4H PRN IV PUSH 09/01/17 15:15 (Ativan) 2 mg Q2H PRN PO 09/01/17 15:15 (Ativan Inj) 2 mg Q2H PRN IV PUSH 09/01/17 15:15 (Ativan Inj) 2 mg Q1H PRN IV PUSH 09/01/17 15:15 (Ativan Inj) 2 mg Q15M PRN IV PUSH 09/01/17 15:15 (Haldol Inj) 2 mg Q15M PRN IM 09/01/17 15:15 (NS Flush) 2 ml UNSCH PRN IV FLUSH 09/01/17 15:15 (NS Flush) 2 ml BID IV FLUSH 09/01/17 21:00 09/05/17 21:52 (K-Phos Neutral) 250 mg Q6HR PO 09/02/17 19:15 09/06/17 05:02 Lactated Ringer's 1,000 ml @ 30 mls/hr Q24H PRN IV 09/05/17 01:15 09/08/17 01:14 Sodium Chloride 500 ml @ 30 mls/hr [id number] PRN IV 09/05/17 01:15 09/08/17 01:14 (Lopressor) 25 mg ELECTROMAGNET CRANE OPERATOR PRN PO 09/05/17 01:15 09/08/17 01:14 (Betadine 5% Antisepsis Kit) 1 applic ELECTROMAGNET CRANE OPERATOR PRN EACH NARE 09/05/17 01:15 09/08/17 01:14 (Chlorhexidine 2% Cloth) 3 pack ELECTROMAGNET CRANE OPERATOR PRN TOPICAL 09/05/17 01:15 09/08/17 01:14 (NovoLIN R INJ) See Protocol Table ... ELECTROMAGNET CRANE OPERATOR PRN SQ 09/05/17 01:15 09/08/17 01:14 (Atropine Inj) 0.5 mg UNSCH PRN IV PUSH 09/05/17 08:00 (Zofran Inj) 4 mg Q4H PRN IV PUSH 09/05/17 09:00 Vital Signs / I&O Vital Signs Date Time Temp Pulse Resp B/P (MAP) Pulse Ox O2 Delivery O2 Flow Rate FiO2 09/06/17 06:00 70 09/06/17 05:00 70 09/06/17 04:00 76 09/06/17 04:00 97.4 66 16 119/65 (83) 97 09/06/17 03:00 70 09/06/17 02:00 71 09/06/17 01:00 69 09/06/17 00:00 69 09/05/17 23:30 97.6 71 16 111/62 (78) 96 09/05/17 23:00 70 09/05/17 22:00 70 09/05/17 21:00 68 09/05/17 20:20 97.9 69 16 117/66 (83) 99 09/05/17 20:00 68 09/05/17 19:00 69 09/05/17 18:00 70 09/05/17 17:00 68 09/05/17 16:00 70 09/05/17 15:00 70 09/05/17 15:00 98.0 76 18 107/55 (72) 95 09/05/17 14:00 72 09/05/17 13:00 68 09/05/17 12:00 69 09/05/17 11:00 69 09/05/17 11:00 97.6 80 16 126/61 (82) 98 09/05/17 10:00 75 09/05/17 09:00 68 I/O 09/05/17 09/05/17 09/05/17 09/06/17 09/06/17 09/06/17 07:00 15:00 23:00 07:00 15:00 23:00 Intake Total 200 ml 720 ml 480 ml Output Total 1050 ml 850 ml 1275 ml Balance -850 ml -130 ml -795 ml Intake Oral 200 ml 720 ml 480 ml IV Total 0 ml Output Urine Total 1050 ml 850 ml 1275 ml # Bowel Movements 0 0 0 Physical Exam GENERAL: Well-nourished, well-developed patient. SKIN: Warm and dry. Right groin site soft with no erythema or bruising. HEAD: Normocephalic. EYES: No scleral icterus. No injection or drainage. NECK: Supple, trachea midline. No JVD or lymphadenopathy. CARDIOVASCULAR: Regular rate and rhythm without murmurs, gallops, or rubs. RESPIRATORY: Breath sounds equal bilaterally. No accessory muscle use. GASTROINTESTINAL: Abdomen soft, non-tender, nondistended. EXTREMITIES: No cyanosis, or edema. NEUROLOGICAL: Awake, alert, and oriented x 3. Non-focal. Laboratory Laboratory Tests Test 09/06/17 04:49 White Blood Count 6.5 TH/MM3 Red Blood Count 3.90 MIL/MM3 Hemoglobin 12.8 GM/DL Hematocrit 35.9 % Mean Corpuscular Volume 92.1 FL Mean Corpuscular Hemoglobin 32.8 PG Mean Corpuscular Hemoglobin Concent 35.7 % Red Cell Distribution Width 13.2 % Platelet Count 186 TH/MM3 Mean Platelet Volume 9.1 FL Neutrophils (%) (Auto) 71.1 % Lymphocytes (%) (Auto) 16.8 % Monocytes (%) (Auto) 9.9 % Eosinophils (%) (Auto) 1.7 % Basophils (%) (Auto) 0.5 % Neutrophils # (Auto) 4.6 TH/MM3 Lymphocytes # (Auto) 1.1 TH/MM3 Monocytes # (Auto) 0.6 TH/MM3 Eosinophils # (Auto) 0.1 TH/MM3 Basophils # (Auto) 0.0 TH/MM3 CBC Comment DIFF FINAL Differential Comment Blood Urea Nitrogen 15 MG/DL Creatinine 0.63 MG/DL Random Glucose 82 MG/DL Total Protein 6.8 GM/DL Albumin 3.0 GM/DL Calcium Level 8.5 MG/DL Phosphorus Level 2.3 MG/DL Magnesium Level 1.8 MG/DL Alkaline Phosphatase 82 U/L Aspartate Amino Transf (AST/SGOT) 21 U/L Alanine Aminotransferase (ALT/SGPT) 26 U/L Total Bilirubin 0.9 MG/DL Sodium Level 137 MEQ/L Potassium Level 3.5 MEQ/L Chloride Level 103 MEQ/L Carbon Dioxide Level 27.1 MEQ/L Anion Gap 7 MEQ/L Estimat Glomerular Filtration Rate 123 ML/MIN Imaging Last Impressions Chest X-Ray 08/27/17 0152 Signed Impressions: Service Date/Time: Sunday, August 27, 2017 01:03 - CONCLUSION: Chronic cardiac silhouette enlargement. No acute cardiopulmonary disease identified. Krystian Spicer MD Head CT 08/27/17 0000 Signed Impressions: Service Date/Time: Sunday, August 27, 2017 17:48 - CONCLUSION: 1. No acute intracranial abnormality demonstrated. 2. 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 3. Right parietal ventriculostomy catheter present. No ventriculomegaly or other acute complication demonstrated. Jose Dimas MD Assessment and Plan Problem List: (1) Symptomatic bradycardia ICD Codes: R00.1 - Bradycardia, unspecified Status: Acute Plan: Stable s/p Micra implant. OK to d/c home from EP standpoint when cleared by managing team per my d/w Dr. Lopez. Esme Shahid Sep 06, 2017 08:50
[2017-09-06] MEDS: FOLIC ACID 1 MG TAB PO SCH (09:04)
[2017-09-06] MEDS: THIAMINE HCL 100 MG TAB PO SCH (09:04)
[2017-09-06] MEDS: LISINOPRIL 10 MG TAB PO SCH (09:05)
[2017-09-06] MEDS: ASPIRIN 81 MG CHEW TAB PO SCH (09:05)
[2017-09-06] MEDS: MULTIVITAMIN TAB PO SCH (09:05)
[2017-09-06] MEDS: predniSONE 10 MG TAB PO SCH (09:06)
[2017-09-06] MEDS: CLOPIDOGREL 75 MG TAB PO SCH (09:07)
[2017-09-06] MEDS: HYDROCHLOROTHIAZIDE 25 MG TAB PO SCH (09:07)
[2017-09-06] MEDS: SUCRALFATE 1 GM/10 ML CUP PO SCH ×2 (09:08→11:13)
[2017-09-06] MEDS: LACTULOSE SYRUP 20 GM/30 ML CUP PO SCH (09:08)
[2017-09-06] MEDS: SODIUM CHLORIDE 0.9% FLUSH 10 ML FLUSH IV FLUSH SCH (09:09)
[2017-09-06] MEDS: MAGNESIUM OXIDE 400 MG TAB PO SCH (11:13)
--- NOTE | 2017-09-06 12:16 | HHI.PR ---
Subjective Remarks This is a pleasant 76 y/o Male with Atrial Fibrillation, Prostate Cancer History , GERD, Hypertension, Hypothyroidism, former Smoker who came to ER at 10:30 PM yesterday night with Atypical Chest pain, that started while he was sitting watching television, the Pain is sharp, constant, midsternal. Nonradiating and associated with diaphoresis. Denies any nausea, sob, vomiting, abdominal pain, focal weakness or numbness. Said pain relieved after sublingual nitro and aspirin given by EVAC. Never had commercial plumber or stress test. Seen in his bedroom in Critical Care Unit in the presence of nurse Mr. Varner and his Friend Miss Allegra Moreno, the patient continue with chest pain, 10/10 in intensity as a Sharp sensation, non radiated on precordial area and continuous. Doctor Fer oil fire specialist consulted and will come to evaluate the patient. 08/28: Stable in his bedroom seen in the presence of nurse Delia, no nausea , vomit or diarrhea, later today will go for Cardiac Catheterization. 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 at this time restrained, his Primary oil fire specialist Doctor Fer asked for Neurology specialist evaluation, I saw the patient in the room Miss Lin, will replace electrolytes and complete laboratory with Ammonia level and Vitamin levels. continue Banana Bag. 08/30: With diagnosis of NSTEMI had Cardiac Cath yesterday, Mid LAD lesion 70%, ostial left circumflex 80%, Mild disease of the RCA LVEF 55%, successful PCI with BMS to Mid LAD from 70% to 0%, to continue Plavix and Aspirin, due to Bradycardia BB contraindicated Primary Hydrogeologist Doctor Lawrence Monroe, stable in his bedroom with Uncontrolled blood pressure started on clonidine by mouth every 8 hours. if systolic blood pressure over 130 mm Hg. 08/31: Seen in her bedroom stable in the presence of nurse Miss Ontiverosie will continue replacement of his Electrolytes no nausea,v omit or diarrhea. 11- PATIENT NEEDS PT AND OT TO SEE DR SAENZ REGARDING AFIB AND BRADYCARDIA ON NO BETA FELICIANO DW PT AND RN AND FAMILY WAS GOING THROUGH ALCOHOL WITHDRAWALS PAST FEW DAY HAD ELEVATED AMMONIA LEVEL HAS VENTICULAR ATRIAL SHUNT NEEDS AGGRESSIVE PT AND OT 11-14 HAD MICRA PACER PLACED THROUGH RIGHT GROIN TODAY LETHARGIC POST PROCEDURE DW RN AND PT NEEDS PT AND OT POSSIBLE DC IN NEXT 24-48 HOURS REPLACE POTASSIUM 11-15 CLEARED BY CARDIOLOGY FOR DC DC TO HOME OUTPT PT FR[employer] WHE[employer]ED W[employer]ER Objective Vitals Vital Signs Date Time Temp Pulse Resp B/P (MAP) Pulse Ox O2 Delivery O2 Flow Rate FiO2 09/06/17 12:05 71 09/06/17 11:10 97.6 71 16 117/62 (80) 100 09/06/17 11:00 72 09/06/17 10:00 72 09/06/17 09:00 72 09/06/17 08:53 98.2 72 16 137/61 (86) 100 09/06/17 08:00 72 09/06/17 07:00 70 09/06/17 06:00 70 09/06/17 05:00 70 09/06/17 04:00 76 09/06/17 04:00 97.4 66 16 119/65 (83) 97 09/06/17 03:00 70 09/06/17 02:00 71 09/06/17 01:00 69 09/06/17 00:00 69 09/05/17 23:30 97.6 71 16 111/62 (78) 96 09/05/17 23:00 70 09/05/17 22:00 70 09/05/17 21:00 68 09/05/17 20:20 97.9 69 16 117/66 (83) 99 09/05/17 20:00 68 09/05/17 19:00 69 09/05/17 18:00 70 09/05/17 17:00 68 09/05/17 16:00 70 09/05/17 15:00 70 09/05/17 15:00 98.0 76 18 107/55 (72) 95 09/05/17 14:00 72 09/05/17 13:00 68 I/O 09/05/17 09/05/17 09/05/17 09/06/17 09/06/17 09/06/17 07:00 15:00 23:00 07:00 15:00 23:00 Intake Total 200 ml 720 ml 480 ml Output Total 1050 ml 850 ml 1275 ml Balance -850 ml -130 ml -795 ml Intake Oral 200 ml 720 ml 480 ml IV Total 0 ml Output Urine Total 1050 ml 850 ml 1275 ml # Bowel Movements 0 0 0 Result Diagram: 09/06/17 0449 09/06/17 0449 Other Results Laboratory Tests Test 09/05/17 03:48 09/05/17 04:38 09/06/17 04:49 Blood Urea Nitrogen 15 MG/DL 15 MG/DL Creatinine 0.62 MG/DL 0.63 MG/DL Random Glucose 85 MG/DL 82 MG/DL Calcium Level 8.5 MG/DL 8.5 MG/DL Sodium Level 138 MEQ/L 137 MEQ/L Potassium Level 3.4 MEQ/L 3.5 MEQ/L Chloride Level 104 MEQ/L 103 MEQ/L Carbon Dioxide Level 26.7 MEQ/L 27.1 MEQ/L Anion Gap 7 MEQ/L 7 MEQ/L Estimat Glomerular Filtration Rate 126 ML/MIN 123 ML/MIN White Blood Count 6.0 TH/MM3 6.5 TH/MM3 Red Blood Count 4.00 MIL/MM3 3.90 MIL/MM3 Hemoglobin 13.0 GM/DL 12.8 GM/DL Hematocrit 37.2 % 35.9 % Mean Corpuscular Volume 93.1 FL 92.1 FL Mean Corpuscular Hemoglobin 32.5 PG 32.8 PG Mean Corpuscular Hemoglobin Concent 34.9 % 35.7 % Red Cell Distribution Width 13.1 % 13.2 % Platelet Count 189 TH/MM3 186 TH/MM3 Mean Platelet Volume 8.7 FL 9.1 FL Neutrophils (%) (Auto) 71.1 % Lymphocytes (%) (Auto) 16.8 % Monocytes (%) (Auto) 9.9 % Eosinophils (%) (Auto) 1.7 % Basophils (%) (Auto) 0.5 % Neutrophils # (Auto) 4.6 TH/MM3 Lymphocytes # (Auto) 1.1 TH/MM3 Monocytes # (Auto) 0.6 TH/MM3 Eosinophils # (Auto) 0.1 TH/MM3 Basophils # (Auto) 0.0 TH/MM3 CBC Comment DIFF FINAL Differential Comment Total Protein 6.8 GM/DL Albumin 3.0 GM/DL Phosphorus Level 2.3 MG/DL Magnesium Level 1.8 MG/DL Alkaline Phosphatase 82 U/L Aspartate Amino Transf (AST/SGOT) 21 U/L Alanine Aminotransferase (ALT/SGPT) 26 U/L Total Bilirubin 0.9 MG/DL Imaging Last Impressions Chest X-Ray 08/27/17 0152 Signed Impressions: Service Date/Time: Sunday, August 27, 2017 01:03 - CONCLUSION: Chronic cardiac silhouette enlargement. No acute cardiopulmonary disease identified. Krystian Spicer MD Head CT 08/27/17 0000 Signed Impressions: Service Date/Time: Sunday, August 27, 2017 17:48 - CONCLUSION: 1. No acute intracranial abnormality demonstrated. 2. 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 3. Right parietal ventriculostomy catheter present. No ventriculomegaly or other acute complication demonstrated. Jose Dimas MD Objective Remarks GENERAL: AWAKE AND ALERT TALKATIVE AND COOPERATIVE SKIN: Warm and dry. HEAD: Atraumatic. Normocephalic. EYES: Pupils equal and round. No scleral icterus. No injection or drainage. EOMI ENT: No nasal bleeding or discharge. Mucous membranes pink and moist. TONGUE MIDLINE NECK: Trachea midline. No JVD. SUPPLE CARDIOVASCULAR: IRRegular rate and rhythm. PACED CURRENTLY S1, S2 NO S3 OR S4 RESPIRATORY: No accessory muscle use. Clear to auscultation. Breath sounds equal bilaterally. GASTROINTESTINAL: Abdomen soft, non-tender, nondistended. Hepatic and splenic margins not palpable. MUSCULOSKELETAL: Extremities without clubbing, cyanosis, or edema. No obvious deformities. NEUROLOGICAL: Awake and alert. No obvious cranial nerve deficits. Motor grossly within normal limits. Five out of 5 muscle strength in the arms and legs. Normal speech.RIGHT GROIN IS DRESSED PSYCHIATRIC: Appropriate mood and affect; insight and judgment normal. Procedures 08/29/17 With diagnosis of NSTEMI had Cardiac Cath yesterday, Mid LAD lesion 70% , ostial left circumflex 80%, Mild disease of the RCA LVEF 55%, successful PCI with BMS to Mid LAD from 70% to 0%, to continue Plavix and Aspirin, due to Bradycardia BB contraindicated Primary Hydrogeologist Doctor Lawrence Monroe. OPERATIVE REPORT Pt Name: JESSICA LAY#: [id number]: HCPCAttended By:Carson Posey DOSt. Mary'S Medical Centermanish #:[id number] By: Draft Signed reports reside in the EMR cc: BECKIE SAENZ M.D. DATE OF SURGERY 09/05/2017 OPERATIVE PROCEDURE Single chamber Micra pacemaker insertion. INDICATIONS FOR PROCEDURE Mr. Lay is a 76-year-old gentleman with symptomatic bradycardia, AV block, significant pause, atrial fibrillation to undergo permanent pacemaker insertion. The risks, the nature and the benefit of the procedure are clearly stated to him. The risks include pneumothorax, cardiac perforation, stroke and even . The patient understood and agreed to proceed. PROCEDURE After written informed consent was obtained, the patient was brought to the EP Lab where he was prepped and draped in the usual sterile fashion. Conscious sedation was initiated and maintained throughout the procedure by the anesthesiologist. Once sedation verified, the right inguinal area was anesthetized with 2% Xylocaine. Using modified Seldinger technique, the right femoral vein was cannulated on one occasion and one guidewire was advanced. Over the wire a stiff Amplatz was advanced and placed all the way to the superior vena cava. Then a 1-cm incision was made at the entrance point. Then the area was progressively dilated using a 12, 16 and a 20-Georgian dilator. Then subsequently the delivery sheath was advanced over the wire. Then the wire and the dilator were removed. Then the myocardial image system was advanced through the sheath. The sheath was pulled back all the way to the inferior vena cava. And the Micra was placed at the right ventricular septal area. After the confirmation on the fluoroscopic guidance and contrast injection, the Micra was delivered. After adequate pacing and sensing thresholds were obtained on multiple occasions which did measure around 5 to 6 times. Then at this point the Micra was released, the suture was cut. 2-0 Ethibond suture was placed at the exit point to prevent back bleeding. Then the sheath and the delivery system were removed. I did tie the suture to prevent bleeding. Hemostasis was performed. The suture will be removed 6 hours after the case. No incident reported. The patient tolerated the procedure, blood loss minimal. 1. IMPLANTED HARDWARE: The implanted pacemaker is a Medtronic Micra, model number [id number], serial [id number]. 2. THRESHOLDS: The right ventricular pacing threshold in the bipolar mode was 0.5 volts at 0.24 milliseconds. Lead impedance 640 ohms, R-wave at 17 mV. 3. SETTINGS: The device set in a VVIR 70, upper limit 100 beats per minute. CONCLUSIONS Successful permanent pacemaker insertion. COMMENT AND RECOMMENDATIONS The patient is going to be transferred to the telemetry unit, will be observed and when stable can be discharged home by the managing team. Medications and IVs Current Medications Al Hydrox/Mg Hydrox/Simethicone (Mag-Al Plus Susp Liq) 30 ml ONCE ONCE PO Last administered on 08/27/17 01:48; Start 08/27/17 at 01:45; Stop 08/27/17 at 01:46; Status DC Heparin Sodium (Porcine) (Heparin Inj) 4,000 units ONCE ONCE IV PUSH Last administered on 08/27/17 03:43; Start 08/27/17 at 03:15; Stop 08/27/17 at 03:22 ; Status DC Heparin Sodium (Porcine) (Heparin Inj) 5,000 units UNSCH PRN IV PUSH APTT LESS THAN 25; Start 08/27/17 at 09:15; Stop 08/28/17 at 18:57; Status DC Heparin Sodium (Porcine) (Heparin Inj) 2,500 units UNSCH PRN IV PUSH APTT 25 TO 39; Start 08/27/17 at 09:15; Stop 08/28/17 at 18:57; Status DC Heparin Sodium/ Dextrose 250 ml @ 10 mls/hr TITRATE PRN IV Coagulation Management Last administered on 08/28/17 12:40; Start 08/27/17 at 03:15; Stop 08/28/17 at 18:57; Status DC Nitroglycerin (Nitrostat Sl) 0.4 mg Q5M PRN SL CHEST PAIN Last administered on 09/02/17 23:22; Start 08/27/17 at 03:30 Sodium Chloride (NS Flush) 2 ml BID IV FLUSH Last administered on 08/28/17 13: 13; Start 08/27/17 at 09:00; Stop 08/28/17 at 19:02; Status DC Sodium Chloride (NS Flush) 2 ml UNSCH PRN IV FLUSH FLUSH AFTER USING IV ACCESS ; Start 08/27/17 at 04:00; Stop 08/28/17 at 19:02; Status DC Aspirin (Aspirin) 325 mg DAILY PO Last administered on 08/27/17 08:57; Start 08/27/17 at 09:00; Stop 08/27/17 at 09:17; Status DC Nitroglycerin (Nitroglycerin 2% Oint) 1 inch Q6HR TOP Last administered on 08/27 05:14; Start 08/27/17 at 06:00; Stop 08/27/17 at 10:48; Status DC Acetaminophen (Tylenol) 500 mg Q4H PRN PO HEADACHE Last administered on 19:42; Start 08/27/17 at 04:00 Morphine Sulfate (Morphine Inj) 2 mg Q3HR PRN IV PUSH PAIN SCALE 6 TO 10 Last administered on 08/27/17 09:02; Start 08/27/17 at 04:00 Hydrochlorothiazide (Hydrodiuril) 25 mg DAILY PO Last administered on 09:07; Start 08/27/17 at 09:00 Levothyroxine Sodium (Synthroid) 112 mcg DAILY@0600 PO Last administered on 05:01; Start 08/27/17 at 09:30 Lisinopril (Prinivil) 10 mg DAILY PO Last administered on 09/06/17 09:05; Start 08/27/17 at 09:00 Prednisone (Deltasone) 10 mg DAILY PO Last administered on 09/06/17 09:06; Start 08/27/17 at 09:00 Multivitamins (Theragran) 1 tab DAILY PO Last administered on 09/06/17 09:05 ; Start 08/27/17 at 09:00 Atorvastatin Calcium (Lipitor) 80 mg HS PO Last administered on 09/05/17 21: 52; Start 08/27/17 at 21:00 Aspirin (Aspirin Chew) 81 mg DAILY CHEW Last administered on 08/28/17 09:12; Start 08/28/17 at 09:00; Stop 08/28/17 at 19:02; Status DC Multivitamins 10 ml/Folic Acid 1 mg/Sodium Chloride 510.2 ml @ 125 mls/hr Q24H IV Last administered on 08/30/17 10:19; Start 08/27/17 at 10:00; Stop at 09:06; Status DC Thiamine HCl 100 mg/Sodium Chloride 101 ml @ 100 mls/hr Q24H IV Last administered on 08/29/17 11:59; Start 08/27/17 at 10:00; Stop 08/30/17 at 10:05 ; Status DC Thiamine HCl (Vitamin B1) 100 mg DAILY PO Last administered on 09/06/17 09:04 ; Start 08/31/17 at 09:00 Flumazenil (Romazicon Inj) 0.2 mg Q1M PRN IV PUSH SEE LABEL COMMENTS; Start at 09:30; Stop 09/01/17 at 15:15; Status DC Lorazepam (Ativan) 1 mg Q4H PRN PO CIWA 8 - 10; Start 08/27/17 at 09:30; Stop 08/29/17 at 18:24; Status DC Lorazepam (Ativan Inj) 1 mg Q4H PRN IV PUSH CIWA 8 - 10 Last administered on 06:19; Start 08/27/17 at 09:30; Stop 08/29/17 at 18:24; Status DC Lorazepam (Ativan) 2 mg Q2H PRN PO CIWA 11-14; Start 08/27/17 at 09:30; Stop 08/29/17 at 18:24; Status DC Lorazepam (Ativan Inj) 2 mg Q2H PRN IV PUSH CIWA 11-14 Last administered on 20:01; Start 08/27/17 at 09:30; Stop 08/29/17 at 18:24; Status DC Lorazepam (Ativan Inj) 2 mg Q1H PRN IV PUSH CIWA 15-20 Last administered on 02:00; Start 08/27/17 at 09:30; Stop 08/29/17 at 18:24; Status DC Lorazepam (Ativan Inj) 2 mg Q15M PRN IV PUSH CIWA > 20 Last administered on 20:37; Start 08/27/17 at 09:30; Stop 08/29/17 at 18:24; Status DC Famotidine (Pepcid Inj) 20 mg Q12H IV PUSH Last administered on 08/30/17 21:56 ; Start 08/27/17 at 09:30; Stop 08/31/17 at 09:47; Status DC Nitroglycerin/ Dextrose 250 ml @ As Directed STK-MED ONCE .ROUTE Last administered on 08/27/17 10:00; Start 08/27/17 at 10:00; Stop 08/27/17 at 10:01 ; Status DC Carvedilol (Coreg) 3.125 mg ONCE ONCE PO Last administered on 08/27/17 10:15 ; Start 08/27/17 at 10:15; Stop 08/27/17 at 10:39; Status DC Carvedilol (Coreg) 3.125 mg Q12HR PO Last administered on 08/29/17 21:47; Start 08/27/17 at 21:00; Stop 08/30/17 at 09:14; Status DC Magnesium Sulfate/ Dextrose 100 ml @ 100 mls/hr Q1H IV Last administered on 12:56; Start 08/27/17 at 10:45; Stop 08/27/17 at 12:44; Status DC Magnesium Oxide (Mag-Ox) 400 mg ONCE ONCE PO Last administered on 08/27/17 12 :07; Start 08/27/17 at 10:15; Stop 08/27/17 at 10:39; Status DC Magnesium Oxide (Mag-Ox) 400 mg Q12H PO Last administered on 09/06/17 11:13; Start 08/27/17 at 23:00 Nitroglycerin/ Dextrose 250 ml @ 1.5 mls/hr TITRATE PRN IV Chest pain; Start 08/27/17 at 10:30 Sodium Chloride 1,000 ml @ 84 mls/hr [id number] IV Last administered on 12:17; Start 08/28/17 at 11:00; Stop 09/02/17 at 23:02; Status DC Methylprednisolone Sodium Succinate (SoluMEDROL INJ) 125 mg ONCE ONCE IV PUSH Last administered on 08/28/17 16:45; Start 08/28/17 at 16:45; Stop 08/28/17 at 16:59; Status DC Heparin Sodium/ Sodium Chloride 500 ml @ As Directed STK-MED ONCE .ROUTE Last administered on 08/28/17 17:29; Start 08/28/17 at 17:29; Stop 08/28/17 at 17:30 ; Status DC Heparin Sodium/ Sodium Chloride 500 ml @ As Directed STK-MED ONCE .ROUTE Last administered on 08/28/17 17:29; Start 08/28/17 at 17:29; Stop 08/28/17 at 17:30 ; Status DC Diphenhydramine HCl (Benadryl Inj) 50 mg STK-MED ONCE .ROUTE Last administered on 08/28/17 17:36; Start 08/28/17 at 17:33; Stop 08/28/17 at 17:34; Status DC Midazolam HCl (Versed Inj) 2 mg STK-MED ONCE .ROUTE Last administered on 17:38; Start 08/28/17 at 17:33; Stop 08/28/17 at 17:34; Status DC Famotidine (Pepcid Inj) 20 mg STK-MED ONCE .ROUTE Last administered on 17:37; Start 08/28/17 at 17:33; Stop 08/28/17 at 17:34; Status DC Heparin Sodium (Porcine) (Heparin Inj) 10,000 units STK-MED ONCE .ROUTE Last administered on 08/28/17 17:46; Start 08/28/17 at 17:45; Stop 08/28/17 at 17:46 ; Status DC Clopidogrel Bisulfate (Plavix) 600 mg STK-MED ONCE .ROUTE ; Start 08/28/17 at 18 :13; Stop 08/28/17 at 18:14; Status DC Tirofiban/Sodium Chloride 250 ml @ As Directed STK-MED ONCE IV ; Start at 18:13; Stop 08/28/17 at 18:14; Status DC Sodium Chloride (NS Flush) 2 ml UNSCH PRN IV FLUSH FLUSH AFTER USING IV ACCESS ; Start 08/28/17 at 18:30; Stop 09/01/17 at 15:16; Status DC Sodium Chloride (NS Flush) 2 ml BID IV FLUSH Last administered on 09/01/17 09 :31; Start 08/28/17 at 21:00; Stop 09/01/17 at 15:16; Status DC Aspirin (Aspirin Chew) 162 mg DAILY PO Last administered on 09/06/17 09:05; Start 08/29/17 at 09:00 Clopidogrel Bisulfate (Plavix) 600 mg ONCE ONCE PO Last administered on 18:27; Start 08/28/17 at 18:30; Stop 08/28/17 at 18:55; Status DC Clopidogrel Bisulfate (Plavix) 75 mg DAILY PO Last administered on 09/06/17 09:07; Start 08/29/17 at 09:00 Tirofiban/Sodium Chloride 250 ml @ 17.46 mls/ hr [id number] IV Last administered on 08/29/17 06:04; Start 08/28/17 at 18:25; Stop 08/29/17 at 12:24; Status DC Miscellaneous Information 1 ONCE ONCE XX ; Start 08/28/17 at 18:30; Stop at 18:56; Status DC Iohexol (OMNIPAQUE 350 INJ (Pie Baker)) 100 ml STK-MED ONCE OTHER Last administered on 08/28/17 17:20; Start 08/28/17 at 17:20; Stop 08/29/17 at 08:18 ; Status DC Iohexol (OMNIPAQUE 350 INJ (Pie Baker)) 50 ml STK-MED ONCE OTHER ; Start at 17:20; Stop 08/29/17 at 08:18; Status DC Lactulose (Lactulose Liq) 30 ml QID PO Last administered on 09/06/17 09:08; Start 08/29/17 at 18:00 Potassium Chloride 100 ml @ 100 mls/hr Q1H IV Last administered on 08/29/17 23:10; Start 08/29/17 at 15:00; Stop 08/29/17 at 17:59; Status DC Quetiapine Fumarate (SEROquel) 50 mg HS PRN PO SLEEP Last administered on 21:47; Start 08/29/17 at 18:30; Stop 08/30/17 at 13:48; Status DC Ipratropium [place] (Atrovent Neb) 0.5 mg Q2HR NEB PRN NEB wheezing Last administered on 08/31/17 02:23; Start 08/30/17 at 02:00 Furosemide (Lasix Inj) 40 mg ONCE ONCE IV PUSH Last administered on 08/30/17 02:30; Start 08/30/17 at 02:00; Stop 08/30/17 at 02:09; Status DC Potassium Chloride (KCl) 40 meq ONCE ONCE PO Last administered on 08/30/17 02 :30; Start 08/30/17 at 02:00; Stop 08/30/17 at 02:09; Status DC Dexmedetomidine HCl 200 mcg/ Sodium Chloride 52 ml @ 4.94 mls/hr TITRATE PRN IV SEDATION; Start 08/30/17 at 02:15; Stop 08/30/17 at 04:45; Status DC Amlodipine Besylate (Norvasc) 5 mg ONCE ONCE PO Last administered on 08:52; Start 08/30/17 at 07:30; Stop 08/30/17 at 08:26; Status DC Amlodipine Besylate (Norvasc) 5 mg DAILY PO ; Start 08/31/17 at 09:00; Stop 08/08 at 08:07; Status DC Potassium Phosphate 21 mmol/ Sodium Chloride 157 ml @ 38.75 mls/ hr ONCE ONCE IV Last administered on 08/30/17 11:29; Start 08/30/17 at 11:00; Stop at 15:03; Status DC Clonidine (Catapres) 0.1 mg Q8H PO Last administered on 09/06/17 09:05; Start 08/30/17 at 10:00 Carvedilol (Coreg) 3.125 mg ONCE ONCE PO Last administered on 08/30/17 14:05 ; Start 08/30/17 at 13:15; Stop 08/30/17 at 13:50; Status DC Carvedilol (Coreg) 3.125 mg Q12HR PO Last administered on 08/30/17 21:57; Start 08/30/17 at 21:00; Stop 08/31/17 at 06:49; Status DC Famotidine (Pepcid Inj) 20 mg Q12H IV PUSH Last administered on 09/06/17 02: 08; Start 08/30/17 at 14:00 Sucralfate (Carafate Liq) 1 gm ACHS PO Last administered on 09/06/17 11:13; Start 08/30/17 at 17:00 Quetiapine Fumarate (SEROquel) 100 mg HS PO Last administered on 09/05/17 21: 52; Start 08/30/17 at 21:00 Magnesium Sulfate/ Dextrose 100 ml @ 100 mls/hr Q1H IV Last administered on 15:29; Start 08/30/17 at 14:00; Stop 08/30/17 at 15:59; Status DC Atropine Sulfate (Atropine Inj) 0.6 mg UNSCH X1 PRN IV PUSH SEE COMMENT Last administered on 08/31/17 08:17; Start 08/31/17 at 07:00; Stop 08/31/17 at 23:59 ; Status DC Multivitamins 10 ml/Sodium Chloride 510 ml @ 125 mls/hr Q24H IV Last administered on 08/31/17 10:10; Start 08/31/17 at 10:00; Stop 09/01/17 at 09: 59; Status DC Folic Acid (Folate) 1 mg DAILY PO Last administered on 09/06/17 09:04; Start 08/31/17 at 10:00 Albuterol/ Ipratropium (Duoneb Neb) 1 ampule Q4HR NEB NEB Last administered on 09/01/17 07:50; Start 08/31/17 at 12:00; Stop 09/01/17 at 08:48; Status DC Potassium Chloride 100 ml @ 100 mls/hr ONCE ONCE IV Last administered on 08/31 14:42; Start 08/31/17 at 14:15; Stop 08/31/17 at 15:14; Status DC Potassium Phosphate 15 mmol/ Sodium Chloride 155 ml @ 38.75 mls/ hr ONCE ONCE IV Last administered on 08/31/17 17:47; Start 08/31/17 at 14:15; Stop at 18:14; Status DC Amlodipine Besylate (Norvasc) 10 mg ONCE ONCE PO Last administered on 09:30; Start 09/01/17 at 08:15; Stop 09/01/17 at 08:16; Status DC Amlodipine Besylate (Norvasc) 10 mg DAILY PO Last administered on 09/06/17 09 :04; Start 09/02/17 at 09:00 Flumazenil (Romazicon Inj) 0.2 mg Q1M PRN IV PUSH SEE LABEL COMMENTS; Start at 15:15 Lorazepam (Ativan) 1 mg Q4H PRN PO CIWA 8 - 10; Start 09/01/17 at 15:15 Lorazepam (Ativan Inj) 1 mg Q4H PRN IV PUSH CIWA 8 - 10; Start 09/01/17 at 15: 15 Lorazepam (Ativan) 2 mg Q2H PRN PO CIWA 11-14; Start 09/01/17 at 15:15 Lorazepam (Ativan Inj) 2 mg Q2H PRN IV PUSH CIWA 11-14; Start 09/01/17 at 15: 15 Lorazepam (Ativan Inj) 2 mg Q1H PRN IV PUSH CIWA 15-20; Start 09/01/17 at 15: 15 Lorazepam (Ativan Inj) 2 mg Q15M PRN IV PUSH CIWA > 20; Start 09/01/17 at 15: 15 Haloperidol Lactate (Haldol Inj) 2 mg Q15M PRN IM SEE LABEL COMMENTS; Start at 15:15 Sodium Chloride (NS Flush) 2 ml UNSCH PRN IV FLUSH FLUSH AFTER USING IV ACCESS ; Start 09/01/17 at 15:15 Sodium Chloride (NS Flush) 2 ml BID IV FLUSH Last administered on 09/06/17t 09 :09; Start 09/01/17 at 21:00 Potassium Phos/ Sodium Phos (K-Phos Neutral) 250 mg Q6HR PO Last administered on 09/06/17t 11:12; Start 09/02/17 at 19:15 Lactated Ringer's 1,000 ml @ 30 mls/hr Q24H PRN IV SEE LABEL COMMENTS; Start 09/05/17 at 01:15; Stop 09/08/17 at 01:14 Sodium Chloride 500 ml @ 30 mls/hr [id number] PRN IV SEE LABEL COMMENTS; Start at 01:15; Stop 09/08/17 at 01:14 Metoprolol Tartrate (Lopressor) 25 mg TRENCH PIPE LAYER HELPER PRN PO SEE LABEL COMMENTS; Start 09/05/17 at 01:15; Stop 09/08/17 at 01:14 Povidone Iodine (Betadine 5% Antisepsis Kit) 1 applic TRENCH PIPE LAYER HELPER PRN EACH NARE SEE LABEL COMMENTS; Start 09/05/17 at 01:15; Stop 09/08/17 at 01:14 Chlorhexidine Gluconate (Chlorhexidine 2% Cloth) 3 pack TRENCH PIPE LAYER HELPER PRN TOPICAL SEE LABEL COMMENTS; Start 09/05/17 at 01:15; Stop 09/08/17 at 01:14 Insulin Human Regular (NovoLIN R INJ) See Protocol Table ... TRENCH PIPE LAYER HELPER PRN SQ SEE PROTOCOL TABLE; Start 09/05/17 at 01:15; Stop 09/08/17 at 01:14 Heparin Sodium/ Sodium Chloride 1,000 ml @ As Directed STK-MED ONCE .ROUTE ; Start 09/05/17 at 07:07; Stop 09/05/17 at 07:08; Status DC Heparin Sodium (Porcine) (Heparin Inj) 10,000 units STK-MED ONCE .ROUTE ; Start 09/05/17 at 07:17; Stop 09/05/17 at 07:18; Status DC Lorazepam (Ativan Inj) 0.5 mg UNSCH PRN IV PUSH ANXIETY; Start 09/05/17 at 08: 00; Stop 09/06/17 at 07:59; Status DC Atropine Sulfate (Atropine Inj) 0.5 mg UNSCH PRN IV PUSH VAGAL REPONSE; Start 09/05/17 at 08:00 Sodium Chloride 250 ml @ 500 mls/hr ONCE PRN IV VAGAL REPONSE; Start at 08:00; Stop 09/06/17 at 07:59; Status DC Metoclopramide HCl (Reglan Inj) 10 mg Q4H PRN IV PUSH NAUSEA; Start 09/05/17 at 08:00; Stop 09/05/17 at 08:20; Status DC Ondansetron HCl (Zofran Inj) 4 mg Q4H PRN IV PUSH NAUSEA; Start 09/05/17 at 09 :00 Lidocaine HCl (Xylocaine 1% Inj (50 ml)) 10 ml UNSCH PRN INFIL SHEATH REMOVAL; Start 09/05/17 at 08:00; Stop 09/06/17 at 07:59; Status DC Bacitracin (Bacitracin Oint Packet) 0.9 gm ONCE ONCE TOP ; Start 09/05/17 at 08:00; Stop 09/05/17 at 08:01; Status DC Potassium Chloride (KCl) 40 meq ONCE ONCE PO Last administered on 09/05/17t 11:46; Start 09/05/17 at 11:15; Stop 09/05/17 at 11:16; Status DC A/P Problem List: (1) Symptomatic bradycardia ICD Code: R00.1 - Bradycardia, unspecified Status: Acute (2) NSTEMI (non-ST elevated myocardial infarction) ICD Code: I21.4 - Non-ST elevation (NSTEMI) myocardial infarction Status: Resolved (3) ETOH abuse ICD Code: F10.10 - Alcohol abuse, uncomplicated Status: Chronic (4) Alcohol withdrawal ICD Code: F10.239 - Alcohol dependence with withdrawal, unspecified Status: Resolved (5) New onset atrial fibrillation ICD Code: I48.91 - Unspecified atrial fibrillation Assessment and Plan 1. NSTEMI Atypical Chest pain he had an ECG in ER showing no ST segment elevation or depression, on Morphine, Oxygen as needed High intensity statins, will need Beta Blockers at this time with Bradycardia will follow to start this medicine once possible, awaiting for oil fire specialist, continue Cardiac Monitoring, Cardiac Enzymes trending down, status post Cardiac Cath found Mid LAD lesion, 50% ostial left circumflex and 80% small medial branch of the first diagonal artery. EF 55%, successful PCI with BMS to Mid LAD from 70% to 1%, recommended to continue Plavix and Aspirin. Aggrastat drip per protocol. as per Doctor Lawrence Monroe. 2. New Onset of Atrial Fibrillation started on Beta blockers by oil fire specialist at this time Bradycardia discontinued BB by Cardiology. 3. GERD on Famotidine 4. Hypertension Uncontrolled added Clonidine for blood pressure over 130 mm Hg. 5. Hypothyroidism continue Hormonal replacement 6. Obesity strongly recommended diet and exercise. 7. Alcohol abuse and dependency at this time having Encephalopathy due to alcohol withdrawal, continue CIWA protocol, Banana bag Ammonia level and replace electrolytes, lactulose. ammonia level 32, as per Cardiology neurology specialist consult to rule out ANS. asked for MRI and Radiology will follow if is feasible without harm. Encephalopathy resolved 8. chronic swollen legs he states secondary to his chronic Prednisone intake 9. History of Temporal Arteritis management with Chronic Prednisone use. 10 mg daily 10. Prostate Cancer history status post Radiation therapy 11. Hypophosphatemia level 2.3 to give 15 mmol of Potassium chloride and cover for Potassium in 3.6 with 10 meq IV. follow in am tomorrow. 09/02 Replace with neutraphos orally and contrinue to monitor levels. 12. Symptomatic bradycardia: Patient seen by cardiology Dr Saenz who recommended pacemaker implantation however patient making up his mind. Explained to patient briefly about pacemakers. Beta feliciano discontinued by cardiology due to bradycardia. Continue to monitor on telemetry. 09/04 Patient willing to have procedure.DR SAENZ PLACED MICRA PM--HAD MICRA PACEMAKER PLACED TODAY 09-05 TOLERATED WELL 13. Dizziness: Likely due to symptomatic bradycardia, however will check orthostatics. HYPOKALEMIA WILL REPLACE DVT prophylaxis with Heparin drip continue present care. DOING WELL DC TO HOME TODAY Discharge Planning NEEDS PT AND OT Carson Posey DO Sep 06, 2017 12:16
[2017-09-06] MEDS ORDERED: CLON.1 PO (12:27)
[2017-09-06] MEDS ORDERED: HYDR25TA5 PO (12:27)
[2017-09-06] MEDS ORDERED: MAGN400T2 PO (12:27)
[2017-09-06] MEDS ORDERED: ATOR80TA45 PO (12:27)
[2017-09-06] MEDS ORDERED: LISI10TA3 PO (12:27)
[2017-09-06] MEDS ORDERED: AMLO10 PO (12:27)
[2017-09-06] MEDS ORDERED: MULTTAB67 PO (12:27)
[2017-09-06] MEDS ORDERED: FOLI1TAB6 PO (12:27)
[2017-09-06] MEDS ORDERED: PLAV75TA29 PO (12:27)
[2017-09-06] MEDS ORDERED: NITR0.4S SL (12:27)
[2017-09-06] MEDS ORDERED: LEVO112T2 PO (12:27)
[2017-09-06] MEDS ORDERED: SUCR1S PO (12:27)
[2017-09-06] MEDS ORDERED: PRED10 PO (12:27)
[2017-09-06] MEDS ORDERED: WALKER WHEELS/F1 MIS (12:27)
[2017-09-06] MEDS ORDERED: ASPI81 PO (12:27)
[2017-09-06] MEDS ORDERED: QUET1TAB8 PO (12:27)
[2017-09-06] MEDS ORDERED: THIA100 PO (12:27)
--- NOTE | 2017-09-06 12:33 | HHI.DS ---
Discharge Summary Admission Date Aug 27, 2017 at 03:56 Discharge Date: Sep 06, 2017 Admitting Diagnosis NSTEMI (1) Symptomatic bradycardia ICD Code: R00.1 - Bradycardia, unspecified Diagnosis: Principal Status: Acute (2) NSTEMI (non-ST elevated myocardial infarction) ICD Code: I21.4 - Non-ST elevation (NSTEMI) myocardial infarction Status: Resolved (3) ETOH abuse ICD Code: F10.10 - Alcohol abuse, uncomplicated Diagnosis: Secondary Status: Chronic (4) Alcohol withdrawal ICD Code: F10.239 - Alcohol dependence with withdrawal, unspecified Diagnosis: Secondary Status: Resolved (5) New onset atrial fibrillation ICD Code: I48.91 - Unspecified atrial fibrillation Diagnosis: Principal Procedures 08/29/17 With diagnosis of NSTEMI had Cardiac Cath yesterday, Mid LAD lesion 70% , ostial left circumflex 80%, Mild disease of the RCA LVEF 55%, successful PCI with BMS to Mid LAD from 70% to 0%, to continue Plavix and Aspirin, due to Bradycardia BB contraindicated Primary Levi Maker Doctor Lawrence Monroe. OPERATIVE REPORT Pt Name: JESSICA LAY#: [id number]: HCPCAttended By:Harvinder Suarezt #:[id number] By: Draft Signed reports reside in the EMR cc: BECKIE SAENZ M.D. DATE OF SURGERY 09/05/2017 OPERATIVE PROCEDURE Single chamber Micra pacemaker insertion. INDICATIONS FOR PROCEDURE Mr. Lay is a 76-year-old gentleman with symptomatic bradycardia, AV block, significant pause, atrial fibrillation to undergo permanent pacemaker insertion. The risks, the nature and the benefit of the procedure are clearly stated to him. The risks include pneumothorax, cardiac perforation, stroke and even . The patient understood and agreed to proceed. PROCEDURE After written informed consent was obtained, the patient was brought to the EP Lab where he was prepped and draped in the usual sterile fashion. Conscious sedation was initiated and maintained throughout the procedure by the anesthesiologist. Once sedation verified, the right inguinal area was anesthetized with 2% Xylocaine. Using modified Seldinger technique, the right femoral vein was cannulated on one occasion and one guidewire was advanced. Over the wire a stiff Amplatz was advanced and placed all the way to the superior vena cava. Then a 1-cm incision was made at the entrance point. Then the area was progressively dilated using a 12, 16 and a 20-Frisian dilator. Then subsequently the delivery sheath was advanced over the wire. Then the wire and the dilator were removed. Then the myocardial image system was advanced through the sheath. The sheath was pulled back all the way to the inferior vena cava. And the Micra was placed at the right ventricular septal area. After the confirmation on the fluoroscopic guidance and contrast injection, the Micra was delivered. After adequate pacing and sensing thresholds were obtained on multiple occasions which did measure around 5 to 6 times. Then at this point the Micra was released, the suture was cut. 2-0 Ethibond suture was placed at the exit point to prevent back bleeding. Then the sheath and the delivery system were removed. I did tie the suture to prevent bleeding. Hemostasis was performed. The suture will be removed 6 hours after the case. No incident reported. The patient tolerated the procedure, blood loss minimal. 1. IMPLANTED HARDWARE: The implanted pacemaker is a Medtronic Micra, model number [id number], serial [id number]. 2. THRESHOLDS: The right ventricular pacing threshold in the bipolar mode was 0.5 volts at 0.24 milliseconds. Lead impedance 640 ohms, R-wave at 17 mV. 3. SETTINGS: The device set in a VVIR 70, upper limit 100 beats per minute. CONCLUSIONS Successful permanent pacemaker insertion. COMMENT AND RECOMMENDATIONS The patient is going to be transferred to the telemetry unit, will be observed and when stable can be discharged home by the managing team. Brief History - From Admission This is a pleasant 76 y/o Male with Atrial Fibrillation, Prostate Cancer History , GERD, Hypertension, Hypothyroidism, former Smoker who came to ER at 10:30 PM yesterday night with Atypical Chest pain, that started while he was sitting watching television, the Pain is sharp, constant, midsternal. Nonradiating and associated with diaphoresis. Denies any nausea, sob, vomiting, abdominal pain, focal weakness or numbness. Said pain relieved after sublingual nitro and aspirin given by EVAC. Never had firearms model maker or stress test. Seen in his bedroom in Critical Care Unit in the presence of nurse Mr. Varner and his Friend Miss Allegra Moreno, the patient continue with chest pain, 10/10 in intensity as a Sharp sensation, non radiated on precordial area and continuous. Doctor [facility] timber management specialist consulted and will come to evaluate the patient. CBC/BMP: 09/06/179 09/06/17448 Significant Findings Laboratory Tests Test 09/05/17 03:48 09/05/17 04:38 09/06/17 04:49 Potassium Level 3.4 MEQ/L (3.5-5.1) Red Blood Count 4.00 MIL/MM3 (4.50-5.90) 3.90 MIL/MM3 (4.50-5.90) Hematocrit 37.2 % (39.0-51.0) 35.9 % (39.0-51.0) Hemoglobin 12.8 GM/DL (13.0-17.0) Neutrophils (%) (Auto) 71.1 % (16.0-70.0) Monocytes (%) (Auto) 9.9 % (0.0-8.0) Albumin 3.0 GM/DL (3.4-5.0) Phosphorus Level 2.3 MG/DL (2.5-4.9) Imaging Last Impressions Chest X-Ray 08/27/17 0152 Signed Impressions: Service Date/Time: Sunday, August 27, 2017 01:03 - CONCLUSION: Chronic cardiac silhouette enlargement. No acute cardiopulmonary disease identified. Krystian Spicer MD Head CT 08/27/17 0000 Signed Impressions: Service Date/Time: Sunday, August 27, 2017 17:48 - CONCLUSION: 1. No acute intracranial abnormality demonstrated. 2. 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 3. Right parietal ventriculostomy catheter present. No ventriculomegaly or other acute complication demonstrated. Jose Dimas MD PE at Discharge GENERAL: AWAKE AND ALERT TALKATIVE AND COOPERATIVE SKIN: Warm and dry. HEAD: Atraumatic. Normocephalic. EYES: Pupils equal and round. No scleral icterus. No injection or drainage. EOMI ENT: No nasal bleeding or discharge. Mucous membranes pink and moist. TONGUE MIDLINE NECK: Trachea midline. No JVD. SUPPLE CARDIOVASCULAR: IRRegular rate and rhythm. PACED CURRENTLY S1, S2 NO S3 OR S4 RESPIRATORY: No accessory muscle use. Clear to auscultation. Breath sounds equal bilaterally. GASTROINTESTINAL: Abdomen soft, non-tender, nondistended. Hepatic and splenic margins not palpable. MUSCULOSKELETAL: Extremities without clubbing, cyanosis, or edema. No obvious deformities. NEUROLOGICAL: Awake and alert. No obvious cranial nerve deficits. Motor grossly within normal limits. Five out of 5 muscle strength in the arms and legs. Normal speech.RIGHT GROIN IS DRESSED PSYCHIATRIC: Appropriate mood and affect; insight and judgment normal. Hospital Course This is a pleasant 76 y/o Male with Atrial Fibrillation, Prostate Cancer History , GERD, Hypertension, Hypothyroidism, former Smoker who came to ER at 10:30 PM yesterday night with Atypical Chest pain, that started while he was sitting watching television, the Pain is sharp, constant, midsternal. Nonradiating and associated with diaphoresis. Denies any nausea, sob, vomiting, abdominal pain, focal weakness or numbness. Said pain relieved after sublingual nitro and aspirin given by EVAC. Never had firearms model maker or stress test. Seen in his bedroom in Critical Care Unit in the presence of nurse Mr. Varner and his Friend Miss Allegra Moreno, the patient continue with chest pain, 10/10 in intensity as a Sharp sensation, non radiated on precordial area and continuous. Doctor Monroe timber management specialist consulted and will come to evaluate the patient. 08/28: Stable in his bedroom seen in the presence of nurse Delia, no nausea , vomit or diarrhea, later today will go for Cardiac Catheterization. 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 at this time restrained, his Primary timber management specialist Doctor Monroe asked for Neurology specialist evaluation, I saw the patient in the room Miss Delia, will replace electrolytes and complete laboratory with Ammonia level and Vitamin levels. continue Banana Bag. 08/30: With diagnosis of NSTEMI had Cardiac Cath yesterday, Mid LAD lesion 70%, ostial left circumflex 80%, Mild disease of the RCA LVEF 55%, successful PCI with BMS to Mid LAD from 70% to 0%, to continue Plavix and Aspirin, due to Bradycardia BB contraindicated Primary Levi Maker Doctor Larwence Monroe, stable in his bedroom with Uncontrolled blood pressure started on clonidine by mouth every 8 hours. if systolic blood pressure over 130 mm Hg. 08/31: Seen in her bedroom stable in the presence of nurse Miss Goyal will continue replacement of his Electrolytes no nausea,v omit or diarrhea. 11-10 PATIENT NEEDS PT AND OT TO SEE DR SAENZ REGARDING AFIB AND BRADYCARDIA ON NO BETA DARA DW PT AND RN AND FAMILY WAS GOING THROUGH ALCOHOL WITHDRAWALS PAST FEW DAY HAD ELEVATED AMMONIA LEVEL HAS VENTICULAR ATRIAL SHUNT NEEDS AGGRESSIVE PT AND OT 11-14 HAD MICRA PACER PLACED THROUGH RIGHT GROIN TODAY LETHARGIC POST PROCEDURE DW RN AND PT NEEDS PT AND OT POSSIBLE DC IN NEXT 24-48 HOURS REPLACE POTASSIUM 11-15 CLEARED BY CARDIOLOGY FOR DC DC TO HOME OUTPT PT FRONT WHEELED WALKER SEE MED REC Pt Condition on Discharge: Good Discharge Disposition: Discharge Home Discharge Time: > 30 minutes Discharge Instructions DIET: Follow Instructions for: Heart Healthy Diet Speech Therapy-Diet Recommends: Regular Activities you can perform: Shower Only-No Bath Other Activity Instructions: NO TUB BATHS OR SWIMMING Follow up Referrals: Cardiology - 1 Week with Lawrence Monroe MD Cardiology, Interventional - 2 Weeks with Beckie Saenz MD PCP Follow-up with Dot Higgins D.o. New Medications: Walker with Front Wheels (Walker with Front Wheels) 1 Mis Mis EA .ROUTE DIRECTED for WEAKNESS, #1 0 Refills Amlodipine (Norvasc) 10 Mg Tab 10 MG PO DAILY for Blood Pressure Management, #30 TAB Aspirin (Tgt Aspirin) 81 Mg Chw 162 MG PO DAILY for Blood Clot Prevention, #30 TAB Atorvastatin (Atorvastatin) 80 Mg Tab 80 MG PO HS for Cholesterol Management, #30 TAB Clonidine (Catapres) 0.1 Mg Tab 0.1 MG PO Q8H for Blood Pressure Management, #90 TAB Clopidogrel (Plavix) 75 Mg Tab 75 MG PO DAILY for Blood Clot Prevention, #30 TAB Folic Acid (Folic Acid) 1 Mg Tablet 1 MG PO DAILY for Nutritional Supplement, #30 TAB Magnesium Oxide (Magnesium Oxide) 400 Mg Tab 400 MG PO Q12H for Nutritional Supplement, #60 TAB Nitroglycerin SL (Nitrostat SL) 0.4 Mg Subl 0.4 MG SL Q5M PRN for CHEST PAIN, #60 TAB Quetiapine (Quetiapine) 100 Mg Tab 100 MG PO HS for Anxiety, #30 TAB Sucralfate Liq (Sucralfate Liq) 1 Gram/10 Ml Ade 1 GM PO ACHS for Heartburn Management, #120 GM Thiamine HCl (Gnp Vitamin B-1) 100 Mg Tab 100 MG PO DAILY for Nutritional Supplement, #30 TAB Continued Medications: Hydrochlorothiazide (Hydrochlorothiazide) 25 Mg Tab 25 MG PO DAILY for Blood Pressure Management, #30 TAB 0 Refills (This prescription has been renewed) Levothyroxine (Levothyroxine) 112 Mcg Tab 112 MCG PO DAILY for Thyroid, #30 TAB 0 Refills (This prescription has been renewed) Lisinopril (Lisinopril) 10 Mg Tab 10 MG PO DAILY for Blood Pressure Management, #30 TAB 0 Refills (This prescription has been renewed) Multiple Vitamin (Multiple Vitamin) 1 Tab 1 TAB PO DAILY for Nutritional Supplement, #30 TAB 0 Refills (This prescription has been renewed) Prednisone (Prednisone) 10 Mg Tab 10 MG PO DAILY for Inflammation, #30 TAB 0 Refills (This prescription has been renewed) Carson Posey DO Sep 06, 2017 12:33
--- NOTE | 2017-09-06 12:34 | PD.CARD.PN ---
Subjective Subjective Remarks alert in nad, dizziness improved s/p ppm, denies chest pain Objective Medications Current Medications Medications (Trade) Dose Ordered Sig/Katherine Route Start Time Stop Time Status Last Admin (Nitrostat Sl) 0.4 mg Q5M PRN SL 08/27/17 03:30 09/02/17 23:22 (Tylenol) 500 mg Q4H PRN PO 08/27/17 04:00 09/05/17 19:42 (Morphine Inj) 2 mg Q3HR PRN IV PUSH 08/27/17 04:00 08/27/17 09:02 (Hydrodiuril) 25 mg DAILY PO 08/27/17 09:00 09/06/17 09:07 (Synthroid) 112 mcg DAILY@0600 PO 08/27/17 09:30 09/06/17 05:01 (Prinivil) 10 mg DAILY PO 08/27/17 09:00 09/06/17 09:05 (Deltasone) 10 mg DAILY PO 08/27/17 09:00 09/06/17 09:06 (Theragran) 1 tab DAILY PO 08/27/17 09:00 09/06/17 09:05 (Lipitor) 80 mg HS PO 08/27/17 21:00 09/05/17 21:52 (Vitamin B1) 100 mg DAILY PO 08/31/17 09:00 09/06/17 09:04 (Mag-Ox) 400 mg Q12H PO 08/27/17 23:00 09/06/17 11:13 Nitroglycerin/ Dextrose 250 ml @ 1.5 mls/hr TITRATE PRN IV 08/27/17 10:30 (Aspirin Chew) 162 mg DAILY PO 08/29/17 09:00 09/06/17 09:05 (Plavix) 75 mg DAILY PO 08/29/17 09:00 09/06/17 09:07 (Lactulose Liq) 30 ml QID PO 08/29/17 18:00 09/06/17 09:08 (Atrovent Neb) 0.5 mg Q2HR NEB PRN NEB 08/30/17 02:00 08/31/17 02:23 (Catapres) 0.1 mg Q8H PO 08/30/17 10:00 09/06/17 09:05 (Pepcid Inj) 20 mg Q12H IV PUSH 08/30/17 14:00 09/06/17 02:08 (Carafate Liq) 1 gm ACHS PO 08/30/17 17:00 09/06/17 11:13 (SEROquel) 100 mg HS PO 08/30/17 21:00 09/05/17 21:52 (Folate) 1 mg DAILY PO 08/31/17 10:00 09/06/17 09:04 (Norvasc) 10 mg DAILY PO 09/02/17 09:00 09/06/17 09:04 (Romazicon Inj) 0.2 mg Q1M PRN IV PUSH 09/01/17 15:15 (Ativan) 1 mg Q4H PRN PO 09/01/17 15:15 (Ativan Inj) 1 mg Q4H PRN IV PUSH 09/01/17 15:15 (Ativan) 2 mg Q2H PRN PO 09/01/17 15:15 (Ativan Inj) 2 mg Q2H PRN IV PUSH 09/01/17 15:15 (Ativan Inj) 2 mg Q1H PRN IV PUSH 09/01/17 15:15 (Ativan Inj) 2 mg Q15M PRN IV PUSH 09/01/17 15:15 (Haldol Inj) 2 mg Q15M PRN IM 09/01/17 15:15 (NS Flush) 2 ml UNSCH PRN IV FLUSH 09/01/17 15:15 (NS Flush) 2 ml BID IV FLUSH 09/01/17 21:00 09/06/17 09:09 (K-Phos Neutral) 250 mg Q6HR PO 09/02/17 19:15 09/06/17 11:12 Lactated Ringer's 1,000 ml @ 30 mls/hr Q24H PRN IV 09/05/17 01:15 09/08/17 01:14 Sodium Chloride 500 ml @ 30 mls/hr [id number] PRN IV 09/05/17 01:15 09/08/17 01:14 (Lopressor) 25 mg QUALITY CONTROL ASSESSOR PRN PO 09/05/17 01:15 09/08/17 01:14 (Betadine 5% Antisepsis Kit) 1 applic QUALITY CONTROL ASSESSOR PRN EACH NARE 09/05/17 01:15 09/08/17 01:14 (Chlorhexidine 2% Cloth) 3 pack QUALITY CONTROL ASSESSOR PRN TOPICAL 09/05/17 01:15 09/08/17 01:14 (NovoLIN R INJ) See Protocol Table ... QUALITY CONTROL ASSESSOR PRN SQ 09/05/17 01:15 09/08/17 01:14 (Atropine Inj) 0.5 mg UNSCH PRN IV PUSH 09/05/17 08:00 (Zofran Inj) 4 mg Q4H PRN IV PUSH 09/05/17 09:00 Vital Signs / I&O Vital Signs Date Time Temp Pulse Resp B/P (MAP) Pulse Ox O2 Delivery O2 Flow Rate FiO2 09/06/17 12:05 71 09/06/17 11:10 97.6 71 16 117/62 (80) 100 09/06/17 11:00 72 09/06/17 10:00 72 09/06/17 09:00 72 09/06/17 08:53 98.2 72 16 137/61 (86) 100 09/06/17 08:00 72 09/06/17 07:00 70 09/06/17 06:00 70 09/06/17 05:00 70 09/06/17 04:00 76 09/06/17 04:00 97.4 66 16 119/65 (83) 97 09/06/17 03:00 70 09/06/17 02:00 71 09/06/17 01:00 69 09/06/17 00:00 69 09/05/17 23:30 97.6 71 16 111/62 (78) 96 09/05/17 23:00 70 09/05/17 22:00 70 09/05/17 21:00 68 09/05/17 20:20 97.9 69 16 117/66 (83) 99 09/05/17 20:00 68 09/05/17 19:00 69 09/05/17 18:00 70 09/05/17 17:00 68 09/05/17 16:00 70 09/05/17 15:00 70 09/05/17 15:00 98.0 76 18 107/55 (72) 95 09/05/17 14:00 72 09/05/17 13:00 68 I/O 09/05/17 09/05/17 09/05/17 09/06/17 09/06/17/15/17 07:00 15:00 23:00 07:00 15:00 23:00 Intake Total 200 ml 720 ml 480 ml Output Total 1050 ml 850 ml 1275 ml Balance -850 ml -130 ml -795 ml Intake Oral 200 ml 720 ml 480 ml IV Total 0 ml Output Urine Total 1050 ml 850 ml 1275 ml # Bowel Movements 0 0 0 Physical Exam GENERAL: SKIN: Warm and dry. HEAD: Normocephalic. EYES: No scleral icterus. No injection or drainage. NECK: Supple, trachea midline. No JVD or lymphadenopathy. CARDIOVASCULAR: Regular rate and rhythm without murmurs, gallops, or rubs. RESPIRATORY: Breath sounds equal bilaterally. No accessory muscle use. GASTROINTESTINAL: Abdomen soft, non-tender, nondistended. MUSCULOSKELETAL: No cyanosis, or edema. BACK: Nontender without obvious deformity. No CVA tenderness. Laboratory Laboratory Tests Test 09/06/17 04:49 White Blood Count 6.5 TH/MM3 Red Blood Count 3.90 MIL/MM3 Hemoglobin 12.8 GM/DL Hematocrit 35.9 % Mean Corpuscular Volume 92.1 FL Mean Corpuscular Hemoglobin 32.8 PG Mean Corpuscular Hemoglobin Concent 35.7 % Red Cell Distribution Width 13.2 % Platelet Count 186 TH/MM3 Mean Platelet Volume 9.1 FL Neutrophils (%) (Auto) 71.1 % Lymphocytes (%) (Auto) 16.8 % Monocytes (%) (Auto) 9.9 % Eosinophils (%) (Auto) 1.7 % Basophils (%) (Auto) 0.5 % Neutrophils # (Auto) 4.6 TH/MM3 Lymphocytes # (Auto) 1.1 TH/MM3 Monocytes # (Auto) 0.6 TH/MM3 Eosinophils # (Auto) 0.1 TH/MM3 Basophils # (Auto) 0.0 TH/MM3 CBC Comment DIFF FINAL Differential Comment Blood Urea Nitrogen 15 MG/DL Creatinine 0.63 MG/DL Random Glucose 82 MG/DL Total Protein 6.8 GM/DL Albumin 3.0 GM/DL Calcium Level 8.5 MG/DL Phosphorus Level 2.3 MG/DL Magnesium Level 1.8 MG/DL Alkaline Phosphatase 82 U/L Aspartate Amino Transf (AST/SGOT) 21 U/L Alanine Aminotransferase (ALT/SGPT) 26 U/L Total Bilirubin 0.9 MG/DL Sodium Level 137 MEQ/L Potassium Level 3.5 MEQ/L Chloride Level 103 MEQ/L Carbon Dioxide Level 27.1 MEQ/L Anion Gap 7 MEQ/L Estimat Glomerular Filtration Rate 123 ML/MIN Assessment and Plan Problem List: (1) Symptomatic bradycardia ICD Codes: R00.1 - Bradycardia, unspecified Status: Acute Assessment and Plan 1.) CAD -pod # 9 pci mid lad, continue aspirin, plavix, lipitor, hold coreg due to bradycardia; ams started prior to cath as soon as he got 1 mg of versed; he got 4 doses of ativan subsequently, last 6 am 08/29/17; mental status appears close to baseline now; mri ordered but radiology evaluating shunt for contraindications prior to proceeding 2.) Bradycardia - resolved s/p Dr Lopez ppm placement 09/05/17 3.) HTN - increase norvasc 10 mg qd 4.) AF - not a good candidate for noac or coumadin due to fall risk, chronic alcoholism and uncertain follow up and compliance capabilities 5.) f/u with me 09/07/17; d/w patient Lawrence Monroe MD Sep 06, 2017 12:34
--- NOTE | 2017-09-06 18:58 | EKG ---
Date Performed: 09/05/2017 Time Performed: 18:01:16 PTAGE: 76 years EKG: Demand pacing. Pacemaker rhythm - no further analysis Abnormal ECG PREVIOUS TRACING : 09/05/2017 09.09 Compared to prior tracing no significant change DOCTOR: Aaron Garcia Interpretating Date/Time 09/06/2017 18:56:34
--- NOTE | 2017-09-07 18:18 | EKG ---
Date Performed: 09/06/2017 Time Performed: 09:28:26 PTAGE: 76 years EKG: Demand pacing. Pacemaker rhythm - no further analysis The underlying rhythm is probably atr ial fibrillation. Abnormal ECG PREVIOUS TRACING : 09/05/2017 18.01 Clinical correlation and perhaps interrogation of the pacem bayron will be important to confirm this rhythm including proper therapy. Since the prior tracing, the PVCs have resolved, but the EKG is otherwise without serial change. DOCTOR: Dinora Jarquin Interpretating Date/Time 09/07/2017 18:15:58
== END 2017-09-06 15:15 | disposition home or self-care (01) | DRG 242 ==
LOC: NEPE 01:23 → NEDA 03:56 → HCVI 05:50 → HCPC 14:11
PROVIDERS: ADMIT Hospitalist; ATTEND Hospitalist
PROC: 02703DZ Dilation of Coronary Artery, One Artery with Intraluminal Device, Percutaneous Approach (ICD-10-PCS; 2017-08-28)
PROC: 4A023N7 Measurement of Cardiac Sampling and Pressure, Left Heart, Percutaneous Approach (ICD-10-PCS; 2017-08-28)
PROC: B2111ZZ Fluoroscopy of Multiple Coronary Arteries using Low Osmolar Contrast (ICD-10-PCS; 2017-08-28)
PROC: B2151ZZ Fluoroscopy of Left Heart using Low Osmolar Contrast (ICD-10-PCS; 2017-08-28)
PROC: 02HK3JZ Insertion of Pacemaker Lead into Right Ventricle, Percutaneous Approach (ICD-10-PCS; 2017-09-05)
PROC: 0JH604Z Insertion of Pacemaker, Single Chamber into Chest Subcutaneous Tissue and Fascia, Open Approach (ICD-10-PCS; principal; 2017-09-05 08:30)
DX: I21.4 Non-ST elevation (NSTEMI) myocardial infarction (principal); G93.49 Other encephalopathy; M31.6 Other giant cell arteritis; R00.1 Bradycardia, unspecified; E83.39 Other disorders of phosphorus metabolism; F10.239 Alcohol dependence with withdrawal, unspecified; I25.10 Atherosclerotic heart disease of native coronary artery without angina pectoris; E03.9 Hypothyroidism, unspecified; I10 Essential (primary) hypertension; I48.91 Unspecified atrial fibrillation; E66.9 Obesity, unspecified; K21.9 Gastro-esophageal reflux disease without esophagitis; E87.6 Hypokalemia; I44.30 Unspecified atrioventricular block; Y90.9 Presence of alcohol in blood, level not specified; Z68.28 Body mass index [BMI] 28.0-28.9, adult; Z79.899 Other long term (current) drug therapy; Z79.52 Long term (current) use of systemic steroids; Z92.3 Personal history of irradiation; Z85.46 Personal history of malignant neoplasm of prostate; Z98.2 Presence of cerebrospinal fluid drainage device; Z87.891 Personal history of nicotine dependence; Z86.011 Personal history of benign neoplasm of the brain
CPT/HCPCS: 0387T; 70450; 71010; 76937; 80048; 80053; 80061; 82140; 82550; 82607; 82652; 82746; 82948; 83036; 83735; 84100; 84132; 84439; 84443; 84484; 85002; 85025; 85027; 85610; 85730; 92928; 93005; 93458; 93571; 94640; 94664; 96374; 96375; 99152; 99153; C1769; C1876; C1887; C1893; J0461; J1200; J1644; J1940; J2060; J2250; J2270; J2930; J3246; J3411; J3475; J3480; J7030; J7040; J7512; J7644; L1830; Q9967

== ENCOUNTER 2017-10-19 04:34 | Emergency (ER) | payer MEDICARE ==
[~2017-10-19] VITALS: Ht 177.8 cm; Wt 93.0 kg
[~2017-10-19 04:34] MED LIST changes: +AMLO10 PO; +ASPI81 PO; +ATOR80TA45 PO; +CLON.1 PO; +FOLI1TAB6 PO; +MAGN400T2 PO; +NITR0.4S SL; +PLAV75TA29 PO; +PRED10 PO; -PRED5TAB PO; +QUET1TAB8 PO; +SUCR1S PO; +THIA100 PO; +WALKER WHEELS/F1 MIS
[2017-10-19 04:41] VITALS: BP 123/68; PULSE 74; RESP 18; TEMP 98.2; O2SAT 97
[2017-10-19 05:07] VITALS: BP 123/68; PULSE 74; RESP 18; TEMP 98.2; O2SAT 97
[2017-10-19] MEDS ORDERED: ACETAMINOPHEN/HYDROcodone 325 MG/5 MG TAB PO ONE (05:30)
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
[2017-10-19 06:05] LABS: AUTOMATED NEUTROPHIL # 3.7 TH/MM3 (1.8-7.7); BASOPHIL % 0.5 % (0.0-2.0); EOSINOPHIL # 0.1 TH/MM3 (0-0.4); EOSINOPHIL % 1.1 % (0.0-4.0); HEMATOCRIT 33.8 % (39.0-51.0); HEMOGLOBIN 11.3 GM/DL (13.0-17.0); LYMPHOCYTE # 0.6 TH/MM3 (1.0-4.8); MEAN CELL VOLUME 90.4 FL (80.0-100.0); MEAN CORPUSCULAR HEMOGLOBIN 30.2 PG (27.0-34.0); MEAN CORPUSCULAR HGB CONC 33.4 % (32.0-36.0); MEAN PLATELET VOLUME 7.8 FL (7.0-11.0); MONO % 9.1 % (0.0-8.0); MONOCYTE # 0.4 TH/MM3 (0-0.9); NEUT % 77.3 % (16.0-70.0); PLATELET COUNT 220 TH/MM3 (150-450); RED BLOOD COUNT 3.73 MIL/MM3 (4.50-5.90); RED CELL DISTRIBUTION WIDTH 12.6 % (11.6-17.2); WHITE BLOOD COUNT 4.8 TH/MM3 (4.0-11.0)
[2017-10-19 06:14] LABS: CALCIUM 8.5 MG/DL (8.5-10.1)
--- NOTE | 2017-10-19 06:14 | RADRPT ---
EXAM DATE/TIME: 10/19/2017 05:39 [facility] COMPARISON: No previous studies available for comparison. INDICATIONS : Left wrist pain after fall. MEDICAL HISTORY : None. SURGICAL HISTORY : None. ENCOUNTER: Initial ACUITY: 1 day PAIN SCORE: 7/10 LOCATION: Left medial wrist. FINDINGS: There is an avulsed fracture of the ulnar styloid. There is a complete fracture of the distal radial metaphysis without any significant angulation or displacement. 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 CONCLUSION: Distal radial and ulnar styloid fractures. Robert Gruber MD on October 19, 2017 at 6:11 Board Certified Radiologist. This report was verified electronically.
[2017-10-19 06:15] LABS: BICARBONATE 28.6 MEQ/L (21.0-32.0)
[2017-10-19 06:18] LABS: CREATININE 0.71 MG/DL (0.60-1.30)
[2017-10-19] MEDS ORDERED: TRAM50TA PO (06:30)
[2017-10-19 06:45] VITALS: BP 152/80; RESP 16
== END 2017-10-19 07:00 | disposition home or self-care (01) ==
LOC: PHED 04:34
DX: S52.502A Unspecified fracture of the lower end of left radius, initial encounter for closed fracture (principal); I10 Essential (primary) hypertension; E78.00 Pure hypercholesterolemia, unspecified; I48.91 Unspecified atrial fibrillation; I25.2 Old myocardial infarction; K21.9 Gastro-esophageal reflux disease without esophagitis; Y04.2XXA Assault by strike against or bumped into by another person, initial encounter; Z95.0 Presence of cardiac pacemaker; Z85.46 Personal history of malignant neoplasm of prostate; Z88.5 Allergy status to narcotic agent; Z79.899 Other long term (current) drug therapy
CPT/HCPCS: 29125; 73110; 80048; 80307; 85025

== ENCOUNTER 2017-11-06 15:48 | Emergency (ER) | payer MEDICARE, OTHER ==
[~2017-11-06] VITALS: Ht 177.8 cm; Wt 95.5 kg
[~2017-11-06 15:48] MED LIST changes: +TRAM50TA PO
[2017-11-06 15:50] VITALS: BP 138/71; PULSE 73; RESP 18; TEMP 98.3; O2SAT 98
[2017-11-06] MEDS ORDERED: AMLO10 PO (16:31)
[2017-11-06] MEDS ORDERED: QUET1TAB8 PO (16:31)
[2017-11-06] MEDS ORDERED: HYDR25TA5 PO (16:31)
[2017-11-06] MEDS ORDERED: PLAV75TA29 PO (16:31)
[2017-11-06] MEDS ORDERED: CLON.1 PO (16:31)
[2017-11-06] MEDS ORDERED: ATOR80TA45 PO (16:31)
[2017-11-06] MEDS ORDERED: LISI10TA3 PO (16:31)
--- NOTE | 2017-11-06 16:31 | PD ---
HPI Chief Complaint: Medication Refill Request Time Seen by Provider: 16:20 Travel History International Travel<30 days: No Contact w/Intl Traveler<30days: No Traveled to known affect area: No History of Present Illness HPI This is a 76-year-old male who presents to the emergency department having run out of his medications. He recently had a change in his insurance and following his heart attack he doesn't have his prescriptions that he needs. I did see him recently for a broken arm. He says he has followed with orthopedics since then and there is a cast in place. The patient denies any other complaints. PFSH Past Medical History Hx Anticoagulant Therapy: Yes (asa) Atrial Fibrillation: Yes Heart Rhythm Problems: Yes (AFIB Hx.) Cancer: Yes (PROSTATE) Cardiovascular Problems: Yes ([place], STENT, PACE MAKER) High Cholesterol: Yes Chemotherapy: No Chest Pain: Yes Cerebrovascular Accident: No Diabetes: No Diminished Hearing: No GERD: Yes Hypertension: Yes Respiratory: No Myocardial Infarction: Yes Radiation Therapy: Yes (PROSTATE CANCER) Thyroid Disease: Yes Past Surgical History Cardiac Surgery: Yes ([place], STENT, PACE MAKER 2016) Cholecystectomy: Yes Pacemaker: Yes Other Surgery: Yes (SHUNT IN HEAD, BRAIN TUMOR) Social History Alcohol Use: Yes (DAILY) Tobacco Use: No (QUIT 1984) Substance Use: No Allergies-Medications (Allergen,Severity, Reaction): Coded Allergies: morphine (Verified Allergy, Severe, CONFUSION, 08/27/17) oyster extract (Verified Allergy, Mild, Anaphylaxis, 08/27/17) Reported Meds & Prescriptions Reported Meds & Active Scripts Active Tramadol (Tramadol HCl) 50 Mg Tab 50 Mg PO Q6H PRN Walker with Front Wheels (Device) 1 Mis Mis Ea .ROUTE DIRECTED Gnp Vitamin B-1 (Thiamine HCl) 100 Mg Tab 100 Mg PO DAILY Folic Acid 1 Mg Tablet 1 Mg PO DAILY Sucralfate Liq (Sucralfate) 1 Gram/10 Ml Ade 1 Gm PO ACHS Magnesium Oxide 400 Mg Tab 400 Mg PO Q12H Quetiapine (Quetiapine Fumarate) 100 Mg Tab 100 Mg PO HS Tgt Aspirin (Aspirin) 81 Mg Chw 162 Mg PO DAILY Norvasc (Amlodipine Besylate) 10 Mg Tab 10 Mg PO DAILY Nitrostat SL (Nitroglycerin) 0.4 Mg Subl 0.4 Mg SL Q5M PRN Catapres (Clonidine) 0.1 Mg Tab 0.1 Mg PO Q8H Atorvastatin (Atorvastatin Calcium) 80 Mg Tab 80 Mg PO HS Plavix (Clopidogrel Bisulfate) 75 Mg Tab 75 Mg PO DAILY Prednisone 10 Mg Tab 10 Mg PO DAILY Hydrochlorothiazide 25 Mg Tab 25 Mg PO DAILY Multiple Vitamin 1 Tab 1 Tab PO DAILY Lisinopril 10 Mg Tab 10 Mg PO DAILY Levothyroxine (Levothyroxine Sodium) 112 Mcg Tab 112 Mcg PO DAILY Review of Systems General / Constitutional: No: Fever, Chills Cardiovascular: No: Chest Pain or Discomfort Respiratory: No: Shortness of Breath Physical Exam Narrative GENERAL:Well appearing, no acute distress SKIN: Focused skin assessment warm and dry. HEAD: Atraumatic. Normocephalic. EYES: Pupils equal and round. No injection or drainage. ENT: Moist mucous membranes NECK: Trachea midline. CARDIOVASCULAR: Regular rate and rhythm. No murmur appreciated. RESPIRATORY: Clear to auscultation. Breath sounds equal bilaterally. GASTROINTESTINAL: Abdomen soft, non-tender, nondistended. MUSCULOSKELETAL: Left forearm is casted. NEUROLOGICAL: Awake and alert. No obvious cranial nerve deficits. Moving all extremities. PSYCHIATRIC: Appropriate mood and affect; insight and judgment normal. Data Data Last Documented VS Vital Signs Date Time Temp Pulse Resp B/P (MAP) Pulse Ox O2 Delivery O2 Flow Rate FiO2 11/06/17 15:50 98.3 73 18 138/71 (93) 98 MDM Medical Decision Making Medical Screen Exam Complete: Yes Emergency Medical Condition: Yes Interpretation(s) Afebrile, no tachycardia, normotensive Differential Diagnosis Medication refill Narrative Course This is a 76-year-old male who presents to the emergency department requesting a medication refill. He recently had a change in his primary care physician and has been unable to get his cardiac medications filled. Patient will be given 1 month supply. Otherwise he has no other complaints. Diagnosis Primary Impression: Hypertension Qualified Codes: I10 - Essential (primary) hypertension Patient Instructions: General Instructions Med/Other Pt SpecificInfo: Prescription(s) given Scripts Quetiapine (Quetiapine) 100 Mg Tab 100 MG PO HS for Anxiety, #30 TAB Prov: Meggan Crawford MD 11/06/17 Amlodipine (Norvasc) 10 Mg Tab 10 MG PO DAILY for Blood Pressure Management, #30 TAB Prov: Meggan Crawford MD 11/06/17 Clonidine (Catapres) 0.1 Mg Tab 0.1 MG PO Q8H for Blood Pressure Management, #90 TAB Prov: Meggan Crawford MD 11/06/17 Atorvastatin (Atorvastatin) 80 Mg Tab 80 MG PO HS for Cholesterol Management, #30 TAB Prov: Meggan Crawford MD 11/06/17 Clopidogrel (Plavix) 75 Mg Tab 75 MG PO DAILY for Blood Clot Prevention, #30 TAB Prov: Meggan Crawford MD 11/06/17 Hydrochlorothiazide (Hydrochlorothiazide) 25 Mg Tab 25 MG PO DAILY for Blood Pressure Management, #30 TAB 0 Refills Prov: Meggan Crawford MD 11/06/17 Lisinopril (Lisinopril) 10 Mg Tab 10 MG PO DAILY for Blood Pressure Management, #30 TAB 0 Refills Prov: Meggan Crawford MD 11/06/17 Disposition: 01 DISCHARGE HOME Condition: Stable Meggan Crawford MD Nov 06, 2017 16:31
== END 2017-11-06 17:00 | disposition home or self-care (01) ==
LOC: NEPD 15:48
DX: I10 Essential (primary) hypertension (principal); E78.00 Pure hypercholesterolemia, unspecified; K21.9 Gastro-esophageal reflux disease without esophagitis; I25.2 Old myocardial infarction; Z95.0 Presence of cardiac pacemaker; Z79.82 Long term (current) use of aspirin
CPT/HCPCS: 99281

== ENCOUNTER 2017-11-29 12:10 | Inpatient (IN) | payer OTHER, MEDICARE ==
[2017-11-29] VITALS (8 sets, daily range): BP systolic 112–136; BP diastolic 61–71; PULSE 60–85; RESP 16–20; TEMP 97.4–98.3; O2SAT 97–98
[~2017-11-29] VITALS: Ht 162.6 cm; Wt 90.7 kg
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
[2017-11-29] MEDS ORDERED: SODIUM CHLORIDE 0.9% FLUSH 10 ML FLUSH IVF PRN (12:30)
[2017-11-29] MEDS ORDERED: ASPIRIN 325 MG TAB PO ONE (12:30)
[2017-11-29 12:47] LABS: AUTOMATED NEUTROPHIL # 3.9 TH/MM3 (1.8-7.7); BASOPHIL % 0.8 % (0.0-2.0); EOSINOPHIL # 0.1 TH/MM3 (0-0.4); EOSINOPHIL % 1.4 % (0.0-4.0); HEMATOCRIT 34.8 % (39.0-51.0); HEMOGLOBIN 11.3 GM/DL (13.0-17.0); LYMPHOCYTE # 0.5 TH/MM3 (1.0-4.8); MEAN CELL VOLUME 90.1 FL (80.0-100.0); MEAN CORPUSCULAR HEMOGLOBIN 29.3 PG (27.0-34.0); MEAN CORPUSCULAR HGB CONC 32.6 % (32.0-36.0); MEAN PLATELET VOLUME 8.5 FL (7.0-11.0); MONO % 10.3 % (0.0-8.0); MONOCYTE # 0.5 TH/MM3 (0-0.9); NEUT % 77.5 % (16.0-70.0); PLATELET COUNT 165 TH/MM3 (150-450); RED BLOOD COUNT 3.86 MIL/MM3 (4.50-5.90); RED CELL DISTRIBUTION WIDTH 12.7 % (11.6-17.2)
[2017-11-29 13:03] LABS: CHLORIDE 102 MEQ/L (98-107); SODIUM (NA) 134 MEQ/L (136-145)
[2017-11-29 13:06] LABS: CALCIUM 8.4 MG/DL (8.5-10.1)
[2017-11-29 13:07] LABS: ALBUMIN 3.1 GM/DL (3.4-5.0); BICARBONATE 24.7 MEQ/L (21.0-32.0); BLOOD UREA NITROGEN 9 MG/DL (7-18); GLUCOSE,RANDOM 84 MG/DL (74-106); MAGNESIUM 1.8 MG/DL (1.5-2.5)
[2017-11-29 13:10] LABS: ALT (GPT) 15 U/L (12-78); AST (GOT) 18 U/L (15-37); CREATININE 0.54 MG/DL (0.60-1.30); GLOMERULAR FILTRATION RATE 148 ML/MIN (>89)
[2017-11-29 13:12] LABS: TOTAL PROTEIN 6.8 GM/DL (6.4-8.2)
[2017-11-29 13:13] LABS: ALKALINE PHOSPHATASE 93 U/L (45-117)
[2017-11-29 13:14] LABS: INTERNATIONAL NORMALIZED RATIO 1.3 RATIO; PROTHROMBIN TIME - PATIENT 13.1 SEC (9.8-11.6)
--- NOTE | 2017-11-29 13:14 | RADRPT ---
EXAM DATE/TIME: 11/29/2017 12:38 [facility] COMPARISON: CHEST SINGLE AP, August 27, 2017, 1:03. INDICATIONS : Chest pain MEDICAL HISTORY : Hypertension. Carcinoma, prostate SURGICAL HISTORY : Cholecystectomy. Pacemaker. ENCOUNTER: Initial ACUITY: 2 days PAIN SCORE: 2/10 LOCATION: Bilateral chest FINDINGS: A single view of the chest demonstrates the lungs to be symmetrically aerated without evidence of mas s, infiltrate or effusion. No evidence of pneumothorax. The cardiomediastinal contours are unremarka ble. Old lower lateral right rib fractures. The shunt tubing on the right side terminates at the cavo atrial junction. CONCLUSION: No acute findings in the chest. No focal infiltrates seen. Shubham Dempsey MD on November 29, 2017 at 13:10 Board Certified Radiologist. This report was verified electronically.
[2017-11-29 13:15] LABS: TROPONIN I LESS THAN 0.02 NG/ML (0.02-0.05)
[2017-11-29] MEDS ORDERED: ALPRAZolam 0.25 MG TAB PO PRN (15:15)
[2017-11-29] MEDS ORDERED: ACETAMINOPHEN 500 MG CPLT PO PRN (15:15)
[2017-11-29] MEDS ORDERED: SODIUM CHLORIDE 0.9% FLUSH 10 ML FLUSH IV FLUSH PRN (15:15)
[2017-11-29] MEDS ORDERED: NITROGLYCERIN 0.4 MG SL 25 TABS/BTL SL PRN (15:15)
--- NOTE | 2017-11-29 15:35 | HHI.HP ---
[facility] No Primary Care Physician Admission Diagnosis chest pain Diagnoses: Chief Complaint: Chest pain Travel History International Travel<30 Days: No Contact w/Intl Traveler <30 Da: No Traveled to Known Affected Are: No History of Present Illness Patient stated evaluated today in follow-up from the emergency room for chest pain. He is a 76-year-old gentleman with history of coronary artery disease with a stent placed last year. He is nonadherent with his medications. He is prescribed Plavix and aspirin but has not been taking this is also not been taking his thyroid medicine. He says that he was home and doing some work on the house climbing ladders and doing a lot of extraneous activity and had onset of left-sided chest pain which was substernal and nonradiating but associated with nausea and diaphoresis. He came to the emergency room with his of 4 months. His chest pain resolved after aspirin. EKG was unremarkable for ischemic changes acutely on my review. Chest x-ray was unremarkable as well. Review of Systems Constitutional: DENIES: Diaphoretic episodes, Fatigue, Fever, Weight gain, Weight loss, Chills, Dizziness, Change in appetite, Night Sweats Endocrine: DENIES: Heat/cold intolerance, Polydipsia, Polyuria, Polyphagia Eyes: DENIES: Blurred vision, Diplopia, Eye inflammation, Eye pain, Vision loss , Photosensitivity, Double Vision Ears, nose, mouth, throat: DENIES: Tinnitus, Hearing loss, Vertigo, Nasal discharge, Oral lesions, Throat pain, Hoarseness, Ear Pain, Running Nose, Epistaxis, Sinus Pain, Toothache, Odynophagia Respiratory: DENIES: Apneas, Cough, Snoring, Wheezing, Hemoptysis, Sputum production, Shortness of breath Cardiovascular: COMPLAINS OF: Chest pain, DENIES: Palpitations, Syncope, Dyspnea on Exertion, PND, Lower Extremity Edema, Orthopnea, Claudication Gastrointestinal: DENIES: Abdominal pain, Black stools, Bloody stools, Constipation, Diarrhea, Nausea, Vomiting, Difficulty Swallowing, Anorexia Genitourinary: DENIES: Sexual dysfunction, Urinary frequency, Urinary incontinence, Urgency, Hematuria, Dysuria, Nocturia, Penile Discharge, Testicular Pain, Testicular Swelling Musculoskeletal: DENIES: Joint pain, Muscle aches, Stiffness, Joint Swelling, Back pain, Neck pain Integumentary: DENIES: Abnormal pigmentation, Nail changes, Pruritus, Rash Hematologic/lymphatic: DENIES: Bruising, Lymphadenopathy Immunologic/allergic: DENIES: Eczema, Urticaria Neurologic: DENIES: Abnormal gait, Headache, Localized weakness, Paresthesias, Seizures, Speech Problems, Tremor, Poor Balance Psychiatric: DENIES: Anxiety, Confusion, Mood changes, Depression, Hallucinations, Agitation, Suicidal Ideation, Homicidal Ideation, Delusions Except as stated in HPI: all other systems reviewed are Neg Past Family Social History Past Medical History Hypertension Atrial fibrillation Alcohol dependency Coronary artery disease Past Surgical History Cholecystectomy Brain tumor Cardiac stent Reported Medications Reviewed in the EMR, patient takes no medications due to nonadherence Allergies: Coded Allergies: morphine (Verified Allergy, Severe, CONFUSION, 11/06/17) oyster extract (Verified Allergy, Mild, Anaphylaxis, 11/06/17) Active Ordered Medications Reviewed in the EMR Family History Family history of alcoholism, history of congestive heart failure in his father Social History She drinks a beer daily, alcohol daily Physical Exam Vital Signs Vital Signs Date Time Temp Pulse Resp B/P (MAP) Pulse Ox O2 Delivery O2 Flow Rate FiO2 11/29/17 14:53 75 16 119/61 (80) 98 Room Air 11/29/17 12:15 97 Room Air 11/29/17 12:10 98.3 77 16 112/63 (79) 97 Physical Exam GENERAL: This is a well-nourished, well-developed patient, in no apparent distress. SKIN: No rashes, ecchymoses or lesions. Cool and dry. HEAD: Atraumatic. Normocephalic. No temporal or scalp tenderness. EYES: Pupils equal round and reactive. Extraocular motions intact. No scleral icterus. No injection or drainage. ENT: Nose without bleeding, purulent drainage or septal hematoma. Throat without erythema, tonsillar hypertrophy or exudate. Uvula midline. Airway patent. NECK: Trachea midline. No JVD or lymphadenopathy. Supple, nontender, no meningeal signs. CARDIOVASCULAR: Regular rate and rhythm without murmurs, gallops, or rubs. RESPIRATORY: Clear to auscultation. Breath sounds equal bilaterally. No wheezes , rales, or rhonchi. GASTROINTESTINAL: Abdomen soft, non-tender, nondistended. No hepato-splenomegaly , or palpable masses. No guarding. MUSCULOSKELETAL: Left arm fracture with cast status post follow, otherwise Extremities without clubbing, cyanosis, there is +2 chronic lower extremity edema noted. No calf tenderness. Negative Homans sign bilaterally. NEUROLOGICAL: Awake and alert. Cranial nerves II through XII intact. Motor and sensory grossly within normal limits. Five out of 5 muscle strength in all muscle groups. Normal speech. Laboratory Laboratory Tests Test 11/29/17 12:32 White Blood Count 5.0 Red Blood Count 3.86 Hemoglobin 11.3 Hematocrit 34.8 Mean Corpuscular Volume 90.1 Mean Corpuscular Hemoglobin 29.3 Mean Corpuscular Hemoglobin Concent 32.6 Red Cell Distribution Width 12.7 Platelet Count 165 Mean Platelet Volume 8.5 Neutrophils (%) (Auto) 77.5 Lymphocytes (%) (Auto) 10.0 Monocytes (%) (Auto) 10.3 Eosinophils (%) (Auto) 1.4 Basophils (%) (Auto) 0.8 Neutrophils # (Auto) 3.9 Lymphocytes # (Auto) 0.5 Monocytes # (Auto) 0.5 Eosinophils # (Auto) 0.1 Basophils # (Auto) 0.0 CBC Comment DIFF FINAL Differential Comment Prothrombin Time 13.1 Prothromb Time International Ratio 1.3 Activated Partial Thromboplast Time 26.9 Blood Urea Nitrogen 9 Creatinine 0.54 Random Glucose 84 Total Protein 6.8 Albumin 3.1 Calcium Level 8.4 Magnesium Level 1.8 Alkaline Phosphatase 93 Aspartate Amino Transf (AST/SGOT) 18 Alanine Aminotransferase (ALT/SGPT) 15 Total Bilirubin 1.0 Sodium Level 134 Potassium Level 3.3 Chloride Level 102 Carbon Dioxide Level 24.7 Anion Gap 7 Estimat Glomerular Filtration Rate 148 Total Creatine Kinase 29 Troponin I LESS THAN 0.02 B-Type Natriuretic Peptide 303 Result Diagram: 11/29/17 1232 11/29/17 1232 Imaging Last Impressions Chest X-Ray 11/29/17 1220 Signed Impressions: Service Date/Time: Wednesday, November 29, 2017 12:38 - CONCLUSION: No acute findings in the chest. No focal infiltrates seen. MD Patrick Ty VTE Risk Assessment Patrick VTE Risk Assessment: Mod/High Risk (score >= 2) Caprini Risk Assessment Model Point Value = 1 Point Value = 2 Point Value = 3 Point Value = 5 Age 41-60 Minor surgery BMI > 25 kg/m2 Swollen legs Varicose veins or History of unexplained or recurrent spontaneous Oral contraceptives or hormone replacement Sepsis (< 1 month) Serious lung disease, including pneumonia (< 1 month) Abnormal pulmonary function Acute myocardial infarction Congestive heart failure (< 1 month) History of inflammatory bowel disease Medical patient at bed rest Age 61-74 Arthroscopic surgery Major open surgery (> 45 min) Laparoscopic surgery (> 45 min) Malignancy Confined to bed (> 72 hours) Immobilizing plaster cast Central venous access Age >= 75 History of VTE Family history of VTE Factor V Leiden Prothrombin [id number] Lupus anticoagulant Anticardiolipin antibodies Elevated serum homocysteine Heparin-induced thrombocytopenia Other congenital or acquired thrombophilia Stroke (< 1 month) Elective arthroplasty Hip, pelvis, or leg fracture Acute spinal cord injury (< 1 month) Prophylaxis Regimen Total Risk Factor Score Risk Level Prophylaxis Regimen 0-1 Low Early ambulation 2 Moderate Order ONE of the following: *Sequential Compression Device (SCD) *Heparin 5000 units SQ BID 3-4 Higher Order ONE of the following medications: *Heparin 5000 units SQ TID *Enoxaparin/Lovenox 40 mg SQ daily (WT < 150 kg, CrCl > 30 mL/min) *Enoxaparin/Lovenox 30 mg SQ daily (WT < 150 kg, CrCl > 10-29 mL/min) *Enoxaparin/Lovenox 30 mg SQ BID (WT < 150 kg, CrCl > 30 mL/min) AND/OR *Sequential Compression Device (SCD) 5 or more Highest Order ONE of the following medications: *Heparin 5000 units SQ TID (Preferred with Epidurals) *Enoxaparin/Lovenox 40 mg SQ daily (WT < 150 kg, CrCl > 30 mL/min) *Enoxaparin/Lovenox 30 mg SQ daily (WT < 150 kg, CrCl > 10-29 mL/min) *Enoxaparin/Lovenox 30 mg SQ BID (WT < 150 kg, CrCl > 30 mL/min) AND *Sequential Compression Device (SCD) Assessment and Plan Problem List: (1) Unstable angina ICD Code: I20.0 - Unstable angina Plan: Patient poorly adherent with medical management. Recent echocardiogram done 08/2017 shows ejection fraction of 55%. Patient did have at that time new onset atrial fibrillation and Placement of a mid LAD bare metal stent. Since that time he isn't on Plavix and aspirin which we will continue. Patient also is supposed to be taking blood pressure medications which she has not been taken as well Patient on telemetry Follow cardiac enzymes Morphine, oxygen, Nitrol and heparin (2) Atrial fibrillation ICD Code: I48.91 - Unspecified atrial fibrillation Plan: Not on Anticoagulation due to alcoholism and frequent falls Follow on telemetry (3) Closed left arm fracture ICD Code: S42.302A - Unspecified fracture of shaft of humerus, left arm, initial encounter for closed fracture Plan: Stable at this time status post cast PT eval for stability due to frequent falls (history of alcoholism) (4) Hypokalemia ICD Code: E87.6 - Hypokalemia Plan: Replace, check mag (5) Hypothyroid ICD Code: E03.9 - Hypothyroid Status: Acute Plan: Last TSH was over 11, patient nonadherent Continue to follow repeat TSH and encourage adherence Code Status dnr Discussed Condition With patient, ER , Spouse Kelli Linder MD Nov 29, 2017 15:35
[2017-11-29] MEDS: HEPARIN SODIUM - SQ 10,000 UNITS/ML VIAL SQ SCH (17:25)
[2017-11-29 19:17] LABS: TROPONIN I 0.02 NG/ML (0.02-0.05)
[2017-11-29] MEDS: SODIUM CHLORIDE 0.9% FLUSH 10 ML FLUSH IV FLUSH SCH (20:24)
[2017-11-30] VITALS: BP 119/65; PULSE 79; RESP 20; TEMP 98.9; O2SAT 95
[2017-11-30] MEDS: HEPARIN SODIUM - SQ 10,000 UNITS/ML VIAL SQ SCH ×2 (01:19→09:00)
[2017-11-30 01:57] LABS: MAGNESIUM 1.7 MG/DL (1.5-2.5)
[2017-11-30 02:06] LABS: TROPONIN I 0.02 NG/ML (0.02-0.05)
[2017-11-30 04:00] VITALS: BP 118/60; PULSE 75; RESP 20; TEMP 99.4; O2SAT 93
[2017-11-30 07:50] VITALS: BP 125/65; PULSE 70; RESP 20; TEMP 98.5; O2SAT 95
[2017-11-30 08:15] VITALS: PULSE 75
[2017-11-30] MEDS ORDERED: ASPIRIN 325 MG TAB PO SCH (09:00)
[2017-11-30] MEDS ORDERED: CLOPIDOGREL 75 MG TAB PO SCH (09:00)
[2017-11-30] MEDS: SODIUM CHLORIDE 0.9% FLUSH 10 ML FLUSH IV FLUSH SCH (10:34)
[2017-11-30 10:47] LABS: CHOLESTEROL/ HDL RATIO 2.27 RATIO; HDL CHOLESTEROL 47.4 MG/DL (40.0-60.0)
[2017-11-30 11:50] VITALS: BP 101/55; PULSE 70; RESP 20; TEMP 97.9; O2SAT 94
--- NOTE | 2017-11-30 13:22 | MB ---
cc: MICAH VILLAGRAN MD DATE OF CONSULTATION 11/30/2017 REASON FOR CONSULTATION Chest pain. HISTORY OF PRESENT ILLNESS Mr. Elizabeth is a 76-year-old who does have a history of CAD and prior stent as well as atrial fibrillation. He is noncompliant and has had some difficulties with falls. He reports that he had some severe episodes of chest pain yesterday. He denies any further chest pain today. He indicates he does not want any stress testing or any further procedures. He is requesting discharge. PAST MEDICAL/SURGICAL HISTORY 1. CAD. 2. Hypertension. 3. A-fib. 4. ETOH. 5. Prior a brain tumor status post resection. 6. Cholecystectomy. 7. Noncompliance. ALLERGIES MORPHINE. OYSTERS. FAMILY HISTORY Positive for CHF. SOCIAL HISTORY The patient does drink daily. REVIEW OF SYSTEMS Except as mentioned in the HPI, all 12 systems are negative. PHYSICAL EXAMINATION VITAL SIGNS: On physical examination vital signs are 98.5, 70, 20, 125/65. GENERAL: He is a well-appearing male who is in no apparent distress. NECK: His neck is free from JVD. LUNGS: The lungs are bilaterally clear to auscultation. CARDIOVASCULAR EXAMINATION: He has a normal S1 and S2. No murmurs, rubs or gallops are appreciated. ABDOMEN: Soft. EXTREMITIES: Free from edema. LABORATORY VALUES TSH of 7.35. Serial troponins are less than 0.02. EKG - Paced. ASSESSMENT AND PLAN Chest pain - The patient certainly has a history of CAD. He does not want any further procedures. His EKG and enzymes are unrevealing. Particularly, since he is a DNR, do not feel we should pursue any further evaluation. Additionally, the chest pain may be secondary to his thyroid issues. Elevated TSH - This is being managed by the primary team. Atrial fibrillation - The patient does have good rate control. As stated previously, he has fallen and is not on anticoagulation for that reason. CAD - I would continue the aspirin and Plavix. DISPOSITION It is reasonable for the patient to be discharged home. Micah Villagran M.D. LINDA/RADHA /1:04 PM :12 PM
[2017-11-30] MEDS ORDERED: PRIL20TA2 PO (15:19)
--- NOTE | 2017-11-30 15:20 | HHI.DCPOC ---
Discharge Care Plan Diagnosis: (1) Unstable angina (2) Atrial fibrillation (3) Hypokalemia (4) Hypothyroid (5) Closed left arm fracture Goals to Promote Your Health * To prevent worsening of your condition and complications * To maintain your health at the optimal level Directions to Meet Your Goals Take your medications as prescribed Follow your dietary instruction Follow activity as directed Keep your appointments as scheduled Take your immunizations and boosters as scheduled If your symptoms worsen call your PCP, if no PCP go to Urgent Care Center or Emergency Room Smoking is Dangerous to Your Health. Avoid second hand smoke Call the 24-hour hour crisis hotline for domestic abuse at Yolanda Ramirez Nov 30, 2017 15:20
[2017-11-30] MEDS ORDERED: LISI10TA3 PO (15:42)
[2017-11-30] MEDS ORDERED: HYDR25TA5 PO (15:42)
[2017-11-30] MEDS ORDERED: PLAV75TA29 PO ×2 (15:42)
[2017-11-30] MEDS ORDERED: ATOR80TA45 PO (15:42)
[2017-11-30] MEDS ORDERED: ASPI81 PO (15:42)
--- NOTE | 2017-11-30 16:16 | HHI.PR ---
Subjective Remarks Nursing denies any deterioration since last night. Patient is wanting to go home. Has no chest pain at this time. He says he was not taking his blood thinners at home because some family member told him that it was causing his hands to feel cold. But he demonstrates a willingness to take his medications otherwise when he was informed that it would be crucial to his health. Objective Vital Signs Date Time Temp Pulse Resp B/P (MAP) Pulse Ox O2 Delivery O2 Flow Rate FiO2 11/30/17 11:50 97.9 70 20 101/55 (70) 94 11/30/17 08:15 75 11/30/17 07:50 98.5 70 20 125/65 (85) 95 11/30/17 04:00 99.4 75 20 118/60 (79) 93 11/30/17 00:00 98.9 79 20 119/65 (83) 95 11/29/17 20:05 73 11/29/17 20:00 97.4 85 20 136/71 (92) 97 I/O 11/29/17 11/29/17 11/29/17 11/30/17 11/30/17 11/30/17 07:00 15:00 23:00 07:00 15:00 23:00 Intake Total 240 ml 120 ml Output Total 400 ml Balance 240 ml -280 ml Intake Oral 240 ml 120 ml Output Urine Total 400 ml # Voids 2 # Bowel Movements 0 0 Result Diagram: 11/29/17 1232 11/29/17 1232 Objective Remarks Heart sounds regular rhythm, no murmurs Lying in bed, no acute distress, unlabored breathing, clear lungs bilaterally A/P Assessment and Plan (1) Unstable angina ICD Code: I20.0 - Unstable angina - resolved clinically Plan: Patient poorly adherent with medical management. Recent echocardiogram done 08/2017 shows ejection fraction of 55%. Patient did have at that time new onset atrial fibrillation and Placement of a mid LAD bare metal stent. I had an extensive discussion with Dr. Tipton from cardiology as well as the patient. I related to Dr. Tipton that the patient eventually did affirm willingness to proceed with cardiac workup including a stress tests but she responded that given the patient's DO NOT RESUSCITATE status, she was not going to proceed with immediate cardiac workup and cleared the patient for discharge and for him to optimize his thyroid status first. I spoke with the patient at length and informed him that he needs to take his Plavix aspirin and Lipitor consistently and he said he was willing to abide. I informed him that he needs to follow-up with his court manager no later than 2 weeks after discharge. I informed him that should his chest pain return to return to the emergency department. enzymes trended negative. cardiology reviewed ekgs and saw no acute concerns. (5) Hypothyroid ICD Code: E03.9 - Hypothyroid Status: Acute Plan: Last TSH was over 7, patient nonadherent free t4 ordered. can have his Synthroid adjusted as outpatient. Code Status dnr > 30 min spent upon patient care today. Micky Sandoval MD Nov 30, 2017 16:16
--- NOTE | 2017-11-30 20:29 | EKG ---
Date Performed: 11/29/2017 Time Performed: 12:15:48 PTAGE: 76 years EKG: ELECTRONIC VENTRICULAR PACEMAKER ABNORMAL RHYTHM ECG Since the prior tracing, there has bee n no significant change PREVIOUS TRACING : 09/06/2017 09.28 DOCTOR: Sagar Denton Interpretating Date/Time 11/30/2017 20:21:59
--- NOTE | 2017-11-30 20:30 | EKG ---
Date Performed: 11/29/2017 Time Performed: 21:38:46 PTAGE: 76 years EKG: ELECTRONIC VENTRICULAR PACEMAKER ABNORMAL RHYTHM ECG Since the prior tracing, there has bee n no significant change PREVIOUS TRACING : 11/29/2017 12.15 DOCTOR: Sagar Denton Interpretating Date/Time 11/30/2017 20:22:07
== END 2017-11-30 15:45 | disposition home or self-care (01) | DRG 303 ==
LOC: PHED 12:10 → PHEDA 14:33 → OBSVTOIN 15:06 → PH3A 15:14
PROVIDERS: ADMIT Hospitalist; ATTEND Hospitalist
DX: I25.110 Atherosclerotic heart disease of native coronary artery with unstable angina pectoris (principal); I48.91 Unspecified atrial fibrillation; I10 Essential (primary) hypertension; E03.9 Hypothyroidism, unspecified; E87.6 Hypokalemia; S42.309D Unspecified fracture of shaft of humerus, unspecified arm, subsequent encounter for fracture with routine healing; I25.2 Old myocardial infarction; R29.6 Repeated falls; K21.9 Gastro-esophageal reflux disease without esophagitis; F10.20 Alcohol dependence, uncomplicated; Z66 Do not resuscitate; Z85.46 Personal history of malignant neoplasm of prostate; Z88.5 Allergy status to narcotic agent; Z82.49 Family history of ischemic heart disease and other diseases of the circulatory system; Z81.1 Family history of alcohol abuse and dependence; Z87.891 Personal history of nicotine dependence; Z91.013 Allergy to seafood; Z91.14 Patient's other noncompliance with medication regimen; Z92.3 Personal history of irradiation; Z95.0 Presence of cardiac pacemaker; Z95.5 Presence of coronary angioplasty implant and graft
CPT/HCPCS: 71045; 80053; 80061; 82550; 83735; 83880; 84443; 84484; 85025; 85610; 85730; 93005; 99285; J1644

== ENCOUNTER 2017-12-12 21:15 | Observation (INO) | payer MEDICARE, OTHER ==
[~2017-12-12 21:15] MED LIST changes: -AMLO10 PO; -CLON.1 PO; +IOHEXOL 350 MG/ML 10 ML VIAL (for RAD DIAG) IVCONTRAST ONE; -NITR0.4S SL; -PRED10 PO; +PRIL20TA2 PO
[2017-12-12 21:16] VITALS: O2SAT 93
[2017-12-12 21:35] LABS: AUTOMATED NEUTROPHIL # 3.9 TH/MM3 (1.8-7.7); BASOPHIL % 0.6 % (0.0-2.0); EOSINOPHIL # 0.1 TH/MM3 (0-0.4); EOSINOPHIL % 1.7 % (0.0-4.0); HEMATOCRIT 36.2 % (39.0-51.0); HEMOGLOBIN 12.4 GM/DL (13.0-17.0); LYMPHOCYTE # 1.4 TH/MM3 (1.0-4.8); MEAN CELL VOLUME 87.9 FL (80.0-100.0); MEAN CORPUSCULAR HGB CONC 34.1 % (32.0-36.0); MEAN PLATELET VOLUME 8.1 FL (7.0-11.0); MONOCYTE # 0.5 TH/MM3 (0-0.9); NEUT % 66.7 % (16.0-70.0); PLATELET COUNT 303 TH/MM3 (150-450); RED BLOOD COUNT 4.12 MIL/MM3 (4.50-5.90); RED CELL DISTRIBUTION WIDTH 13.4 % (11.6-17.2); WHITE BLOOD COUNT 5.9 TH/MM3 (4.0-11.0)
[2017-12-12 21:42] LABS: CHLORIDE 99 MEQ/L (98-107); SODIUM (NA) 133 MEQ/L (136-145)
[2017-12-12 21:44] LABS: CALCIUM 8.6 MG/DL (8.5-10.1)
[2017-12-12 21:45] LABS: BICARBONATE 24.1 MEQ/L (21.0-32.0); BLOOD UREA NITROGEN 10 MG/DL (7-18); GLUCOSE,RANDOM 104 MG/DL (74-106); MAGNESIUM 2.1 MG/DL (1.5-2.5)
[2017-12-12 21:48] LABS: CREATININE 0.54 MG/DL (0.60-1.30); GLOMERULAR FILTRATION RATE 148 ML/MIN (>89); INTERNATIONAL NORMALIZED RATIO 1.2 RATIO; PROTHROMBIN TIME - PATIENT 12.5 SEC (9.8-11.6)
[2017-12-12 21:49] VITALS: BP 125/70; PULSE 70; RESP 16; TEMP 97.5; O2SAT 99
[2017-12-12 21:53] LABS: TROPONIN I LESS THAN 0.02 NG/ML (0.02-0.05)
--- NOTE | 2017-12-12 21:57 | PD ---
HPI Chief Complaint: Stroke Alert Time Seen by Provider: 21:20 Travel History International Travel<30 days: No Contact w/Intl Traveler<30days: No History of Present Illness HPI 76yo M with PMH of CAD s/p cardiac stent suppose to be on plavix and aspirin, afib not on anticoagulation due to alcohol abuse and frequent falls was brought in as a stroke alert by EVAC. As per EVAC, pt was sitting at a bar talking to the national business director at 8:55pm. All of a sudden stopped talking and looked to the left. Also had facial droop. Initial NIH was 12 because pt was not able to move his bilateral lower extremity and had a left sided gaze with left facial droop and some dysarthria. PFSH Past Medical History Hx Anticoagulant Therapy: Yes (asa) Atrial Fibrillation: Yes Heart Rhythm Problems: Yes (AFIB Hx.) Cancer: Yes (PROSTATE) Cardiovascular Problems: Yes ([place], STENT, PACE MAKER) High Cholesterol: Yes Chemotherapy: No Chest Pain: Yes Cerebrovascular Accident: No Diabetes: No Diminished Hearing: No GERD: Yes Hypertension: Yes Musculoskeletal: No Psychiatric: No Respiratory: No Myocardial Infarction: Yes Radiation Therapy: Yes (PROSTATE CANCER) Thyroid Disease: Yes Past Surgical History Cardiac Surgery: Yes ([place], STENT, PACE MAKER 2016) Cholecystectomy: Yes Pacemaker: Yes Other Surgery: Yes (SHUNT IN HEAD, BRAIN TUMOR) Social History Alcohol Use: Yes (DAILY) Tobacco Use: No (QUIT 1984) Substance Use: No Allergies-Medications (Allergen,Severity, Reaction): Coded Allergies: morphine (Verified Allergy, Severe, CONFUSION, 12/12/17) oyster extract (Verified Allergy, Mild, Anaphylaxis, 12/12/17) Reported Meds & Prescriptions Reported Meds & Active Scripts Active Plavix (Clopidogrel Bisulfate) 75 Mg Tab 75 Mg PO DAILY 30 Days Atorvastatin (Atorvastatin Calcium) 80 Mg Tab 80 Mg PO HS 30 Days Plavix (Clopidogrel Bisulfate) 75 Mg Tab 75 Mg PO DAILY 30 Days Hydrochlorothiazide 25 Mg Tab 25 Mg PO DAILY 30 Days Lisinopril 10 Mg Tab 10 Mg PO DAILY 30 Days Tgt Aspirin (Aspirin) 81 Mg Chw 162 Mg PO DAILY 30 Days Prilosec (Omeprazole Magnesium) 20 Mg Tab 20 Mg PO DAILY 14 Days Quetiapine (Quetiapine Fumarate) 100 Mg Tab 100 Mg PO HS Tramadol (Tramadol HCl) 50 Mg Tab 50 Mg PO Q6H PRN Walker with Front Wheels (Device) 1 Mis Mis Ea .ROUTE DIRECTED Gnp Vitamin B-1 (Thiamine HCl) 100 Mg Tab 100 Mg PO DAILY Folic Acid 1 Mg Tablet 1 Mg PO DAILY Sucralfate Liq (Sucralfate) 1 Gram/10 Ml Ade 1 Gm PO ACHS Magnesium Oxide 400 Mg Tab 400 Mg PO Q12H Multiple Vitamin 1 Tab 1 Tab PO DAILY Levothyroxine (Levothyroxine Sodium) 112 Mcg Tab 112 Mcg PO DAILY Review of Systems Except as stated in HPI: all other systems reviewed are Neg Physical Exam Narrative GENERAL: 76yo M in mild distress. SKIN: Focused skin assessment warm/dry. HEAD: Atraumatic. Normocephalic. EYES: Pupils equal and round at 3mm bilaterally. Left sided gaze. ENT: No nasal bleeding or discharge. Mucous membranes pink and moist. NECK: Trachea midline. No JVD. CARDIOVASCULAR: Regular rate and rhythm. No murmur appreciated. RESPIRATORY: No accessory muscle use. Clear to auscultation. Breath sounds equal bilaterally. GASTROINTESTINAL: Abdomen soft, non-tender, nondistended. Hepatic and splenic margins not palpable. MUSCULOSKELETAL: No obvious deformities. No clubbing. No cyanosis. No edema. NEUROLOGICAL: Awake and alert. Mild left facial droop. Bilateral lower extremity 3/5. Sensation intact. Mild dysarthria. NIH 12. Data Data Last Documented VS Vital Signs Date Time Temp Pulse Resp B/P (MAP) Pulse Ox O2 Delivery O2 Flow Rate FiO2 12/12/17 23:03 69 122/69 (86) 98 Nasal Cannula 2.00 12/12/17 21:49 [address] Brain W/O Iv Contrast(Rout) (12/12/17 ) Troponin I (12/12/17 21:22) Complete Blood Count With Diff (12/12/17 21:22) Basic Metabolic Panel (Bmp) (12/12/17 21:22) Magnesium (Mg) (12/12/17 21:22) Prothrombin Time / Inr (Pt) (12/12/17 21:22) Act Partial Throm Time (Ptt) (12/12/17 21:22) Electrocardiogram (12/12/17 21:22) Cta Brain W Iv Contrast W 3d (12/12/17 ) Cta Neck W Iv Contrast W 3d (12/12/17 ) Alcohol (Ethanol) (12/12/17 21:09) Iohexol 350 Inj (Omnipaque 350 Inj) (12/12/17 09:40) Place In Observation (12/12/17 ) Vital Signs (Adult) Q2HX12,Q4H (12/12/17 23:02) Nih Stroke Scale - Nihss .Daily (12/12/17 23:02) Neuro Checks Q2HX12,Q4H (12/12/17 23:02) Notify Dr: Other (12/12/17 23:02) Ot Request For Service (12/12/17 23:02) Pt Request For Service (12/12/17 23:02) Case Management Consult (12/12/17 ) Activity Oob Ad Viry (12/12/17 23:) Nursing Bedside Swallow Assess .ONCE (12/12/17 23:02) Scd Bilateral/Knee High SHAI.QSHIFT (12/12/17 23:02) Diet Npo (12/13/17 Breakfast) Complete Blood Count With Diff (12/13/17 06:00) Hemoglobin (Hgb) A1c (12/12/17 23:02) Basic Metabolic Panel (Bmp) (12/13/17 06:00) Lipid Profile (12/13/17 06:00) ^ Hold Medication (12/12/17 23:02) Sodium Chloride 0.9% Flush (Ns Flush) (12/13/17 09:00) Sodium Chloride 0.9% Flush (Ns Flush) (12/12/17 23:15) Aspirin (Aspirin) (12/13/17 09:00) Bedside Glucose SHAI.CSUGAR (12/12/17 23:02) ^ Discontinue Insulin Orders (12/12/17 23:02) Insulin Aspart Supplemtl Scale (Novolog (12/13/17 08:00) Dextrose 50% In [place]la (Vial) Inj (D50w (Vi (12/12/17 23:15) Glucagon Inj (Glucagon Inj) (12/12/17 23:15) Assistant Tennis Coach / Telemetry SHAI.Q8H (12/12/17 23:02) Consult Stroke Navigator (12/12/17 ) Scd Bilateral/Knee High SHAI.BID (12/12/17 23:02) Thai Bilateral/Knee High SHAI.QSHIFT (12/12/17 23:02) Consult Neurology (12/12/17 ) Admit Order (Ed Use Only) (12/12/17 23:06) Us Carotid Arteries Comp Bilat (12/13/17 ) Echo 2d Comp With Doppler (12/13/17 ) Mri Brain W/O Contrast (12/13/17 ) Mra Brain W/O Contrast (Cow) (12/13/17 ) Labs Laboratory Tests Test 12/12/17 21:09 White Blood Count 5.9 TH/MM3 Red Blood Count 4.12 MIL/MM3 Hemoglobin 12.4 GM/DL Hematocrit 36.2 % Mean Corpuscular Volume 87.9 FL Mean Corpuscular Hemoglobin 30.0 PG Mean Corpuscular Hemoglobin Concent 34.1 % Red Cell Distribution Width 13.4 % Platelet Count 303 TH/MM3 Mean Platelet Volume 8.1 FL Neutrophils (%) (Auto) 66.7 % Lymphocytes (%) (Auto) 23.0 % Monocytes (%) (Auto) 8.0 % Eosinophils (%) (Auto) 1.7 % Basophils (%) (Auto) 0.6 % Neutrophils # (Auto) 3.9 TH/MM3 Lymphocytes # (Auto) 1.4 TH/MM3 Monocytes # (Auto) 0.5 TH/MM3 Eosinophils # (Auto) 0.1 TH/MM3 Basophils # (Auto) 0.0 TH/MM3 CBC Comment DIFF FINAL Differential Comment Prothrombin Time 12.5 SEC Prothromb Time International Ratio 1.2 RATIO Activated Partial Thromboplast Time 27.1 SEC Blood Urea Nitrogen 10 MG/DL Creatinine 0.54 MG/DL Random Glucose 104 MG/DL Calcium Level 8.6 MG/DL Magnesium Level 2.1 MG/DL Sodium Level 133 MEQ/L Potassium Level 3.9 MEQ/L Chloride Level 99 MEQ/L Carbon Dioxide Level 24.1 MEQ/L Anion Gap 10 MEQ/L Estimat Glomerular Filtration Rate 148 ML/MIN Troponin I LESS THAN 0.02 NG/ML Ethyl Alcohol Level 174 MG/DL [facility] Medical Decision Making Medical Screen Exam Complete: Yes Emergency Medical Condition: Yes Interpretation(s) EKG: Paced rhythm at 70bpm. LAD. No concordance. Differential Diagnosis Stroke alert vs. alcohol intoxication Narrative Course 76yo M with alcohol abuse was initially called in as stroke alert. On initial assessment, pt did have mild slurred speech and would not move his bilateral lower extremity. He had left sided gaze and left facial droop. CT brain and CTA head and neck was ordered because NIH stroke scale was higher than 6. However, while in CT scan, pt's symptoms improved rapidly and now is able to move bilateral lower extremity. Also no longer has left facial droop or left sided gaze. NIH stroke scale is now essentially 0. Discussed case with Dr. Ordoñez who agrees that pt is not a TPA candidate because of rapidly improving symptoms. Recommend admission with routine neurology consult. Labs reviewed, no leukocytosis. Troponin negative. Mild hyponatremia at 133. Blood alcohol 174. CT brain showed no acute intracranial abnormality. Stable right parietal ventriculostomy catheter without hydrocephalus. I discussed with radiologist regarding CTA results and he does not see a large clot that needs intervention. Discussed with Dr. Coreen Toledo's PA and accepted to her service for TIA. Diagnosis Primary Impression: TIA (transient ischemic attack) Qualified Codes: G45.9 - Transient cerebral ischemic attack, unspecified Admitting Information Admitting Physician Requests: Holly Gaines DO Dec 12, 2017 21:57
[2017-12-12 22:24] VITALS: BP 118/70; PULSE 73; O2SAT 99
--- NOTE | 2017-12-12 22:25 | RADRPT ---
EXAM DATE/TIME: 12/12/2017 21:23 [facility] COMPARISON: CTA BRAIN W 3D RECON, December 12, 2017, 21:34. CT BRAIN W/O CONTRAST, August 27, 2017, 17:48. INDICATIONS : Stroke alert. Right side weakness. Syncope. RADIATION DOSE: 62.25 CTDIvol (mGy) This report was called by Dr. Vazquez to at 1015 pm. MEDICAL HISTORY : Non-responsive. SURGICAL HISTORY : Non-responsive. ENCOUNTER: Initial ACUITY: 1 day PAIN SCALE: Non-responsive LOCATION: cranial TECHNIQUE: Multiple contiguous axial images were obtained of the head. Using automated exposure control and adj ustment of the mA and/or kV according to patient size, radiation dose was kept as low as reasonably a chievable to obtain optimal diagnostic quality images. DICOM format image data is available electro nically for review and comparison. FINDINGS: CEREBRUM: Stable right parietal ventriculostomy catheter in place. 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 Ventricles are stable in size and midline. No nichole dence of midline shift, mass lesion, hemorrhage or acute infarction. No extra-axial fluid collection s are seen. POSTERIOR FOSSA: The cerebellum and brainstem are intact. The 4th ventricle is midline. The cerebellopontine angle i s unremarkable. EXTRACRANIAL: The visualized portion of the orbits is intact. SKULL: The calvaria is intact. No evidence of skull fracture. CONCLUSION: 1. No acute intracranial abnormality. 2. Stable right parietal ventriculostomy catheter without hydrocephalus. Galo Melvin MD on December 12, 2017 at 22:20 Board Certified Radiologist. This report was verified electronically.
[2017-12-12 23:03] VITALS: BP 122/69; PULSE 69; O2SAT 98
--- NOTE | 2017-12-12 23:13 | RADRPT ---
EXAM DATE/TIME: 12/12/2017 21:34 [facility] COMPARISON: No previous studies available for comparison. INDICATIONS : Stroke alert. Right side numbness. IV CONTRAST: 100 cc Omnipaque 350 (iohexol) IV ; Cumulative dose for multiple exams. RADIATION DOSE: 14.85 CTDIvol (mGy) ; Combined studies MEDICAL HISTORY : Non-responsive. SURGICAL HISTORY : Non-responsive. ENCOUNTER: Initial ACUITY: 1 day PAIN SCALE: Non-responsive LOCATION: cranial TECHNIQUE: Volumetric scanning was performed using a multi-row detector CT scanner. The data was post processed with a variety of visualization algorithms including full volume maximum intensity projection, multi -planar sliding thin slab reformation, curved planar reformation, and surface rendering techniques. Using automated exposure control and adjustment of the mA and/or kV according to patient size, radiat ion dose was kept as low as reasonably achievable to obtain optimal diagnostic quality images. DICO M format image data is available electronically for review and comparison. FINDINGS: Anterior circulation: Distal intracranial internal carotid arteries are patent with flow extending to the middle and anteri or cerebral arteries. There is no evidence for aneurysm, vessel truncation or stenosis, and no eviden ce for vascular malformation. Posterior circulation: Distal right vertebral artery is occluded. There is focal mild stenosis of the distal left vertebral artery secondary to eccentric calcified plaque. Flow extends to the basilar artery which is patent. S mall caliber left posterior cerebral artery with likely origin. There is no evidence for aneury sm, vessel truncation and no evidence for vascular malformation. CONCLUSION: 1. No focal flow limiting stenosis or large vessel occlusion in the anterior circulation. 2. 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 Mild stenosis of the distal left vertebral arter y at the basilar junction. 3. Small caliber left posterior cerebral artery with likely origin. Galo Melvin MD on December 12, 2017 at 23:08 Board Certified Radiologist. This report was verified electronically.
[2017-12-12] MEDS ORDERED: GLUCAGON 1 MG/ML VIAL OTHER PRN (23:15)
[2017-12-12] MEDS ORDERED: SODIUM CHLORIDE 0.9% FLUSH 10 ML FLUSH IV FLUSH PRN (23:15)
[2017-12-12] MEDS ORDERED: DEXTROSE 50% IN WATER 50 ML VIAL(D50) IV PUSH PRN (23:15)
--- NOTE | 2017-12-12 23:17 | RADRPT ---
EXAM DATE/TIME: 12/12/2017 21:34 [facility] COMPARISON: No previous studies available for comparison. INDICATIONS : Stroke alert. IV CONTRAST: 100 cc Omnipaque 350 (iohexol) IV ; Cumulative dose for multiple exams. RADIATION DOSE: 14.85 CTDIvol (mGy) ; Combined studies MEDICAL HISTORY : Non-responsive. SURGICAL HISTORY : Non-responsive. ENCOUNTER: Initial ACUITY: 1 day PAIN SCALE: Non-responsive LOCATION: cranial Elevated flow velocities and ICA/CCA ratios have been found to correlate with increased degrees of vessel stenosis, calculated as percentage of diameter relative to a normal segment of distal ICA/CCA. TECHNIQUE: Volumetric scanning was performed using a multirow detector CT scanner. The data was post processed with a variety of visualization algorithms including full-volume maximum intensity projection, multip lanar sliding thin-slab reformation, curved-planar reformation, and surface-rendering techniques. Us ing automated exposure control and adjustment of the mA and/or kV according to patient size, radiatio n dose was kept as low as reasonably achievable to obtain optimal diagnostic quality images. DICOM f ormat image data is available electronically for review and comparison. FINDINGS: AORTIC ARCH: There is a three-vessel origin of the great vessels from the aorta. No evidence of ostial narrowing. RIGHT CAROTID: The common carotid artery is intact. The carotid bulb has a normal configuration without ulceration o r narrowing. Eccentric calcified plaque in the distal bulb extending into the origin of the internal carotid artery with resultant less than 20% stenosis. Internal carotid artery is otherwise patent to the skull base. The external carotid artery is intact. LEFT CAROTID: The common carotid artery is intact. The carotid bulb has a normal configuration without ulceration or narrowing. Eccentric mixed plaque in the proximal internal carotid artery with resultant less than 10% stenosis. Internal carotid artery is otherwise patent to the skull base. The external carotid ar yonas is intact. VERTEBRALS: Right vertebral artery is occluded distally but patent in the cervical segment. Left vertebral artery is patent with mild to moderate stenosis distally secondary to eccentric plaque near the basilar sona ction. CONCLUSION: 1. No significant carotid flow limiting stenosis. 2. 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 3. [id number] stenosis of the distal left vertebral artery near the basilar junction secondary to eccentric calcified plaque. Galo Melvin MD on December 12, 2017 at 23:11 Board Certified Radiologist. This report was verified electronically.
[2017-12-13] VITALS (9 sets, daily range): BP systolic 101–143; BP diastolic 57–85; PULSE 71–86; RESP 16–20; TEMP 96.1–98.1; O2SAT 96–100
[2017-12-13] MEDS: ATORVASTATIN 40 MG TAB PO SCH ×2 (00:31→21:38)
[2017-12-13] MEDS: LEVOTHYROXINE SODIUM 112 MCG TAB PO SCH (06:12)
[2017-12-13 06:33] LABS: AUTOMATED NEUTROPHIL # 4.2 TH/MM3 (1.8-7.7); BASOPHIL % 0.3 % (0.0-2.0); EOSINOPHIL % 0.8 % (0.0-4.0); HEMATOCRIT 33.4 % (39.0-51.0); HEMOGLOBIN 11.7 GM/DL (13.0-17.0); LYMPH % 13.1 % (9.0-44.0); LYMPHOCYTE # 0.7 TH/MM3 (1.0-4.8); MEAN CELL VOLUME 88.8 FL (80.0-100.0); MEAN CORPUSCULAR HEMOGLOBIN 31.2 PG (27.0-34.0); MEAN CORPUSCULAR HGB CONC 35.1 % (32.0-36.0); MONO % 4.3 % (0.0-8.0); MONOCYTE # 0.2 TH/MM3 (0-0.9); NEUT % 81.5 % (16.0-70.0); PLATELET COUNT 247 TH/MM3 (150-450); RED BLOOD COUNT 3.76 MIL/MM3 (4.50-5.90); RED CELL DISTRIBUTION WIDTH 13.5 % (11.6-17.2); WHITE BLOOD COUNT 5.1 TH/MM3 (4.0-11.0)
[2017-12-13 06:43] LABS: CHLORIDE 100 MEQ/L (98-107); SODIUM (NA) 135 MEQ/L (136-145)
[2017-12-13 06:46] LABS: BICARBONATE 24.9 MEQ/L (21.0-32.0); BLOOD UREA NITROGEN 9 MG/DL (7-18); CALCIUM 8.3 MG/DL (8.5-10.1); GLUCOSE,RANDOM 94 MG/DL (74-106)
[2017-12-13 06:50] LABS: CREATININE 0.44 MG/DL (0.60-1.30); GLOMERULAR FILTRATION RATE 187 ML/MIN (>89)
--- NOTE | 2017-12-13 07:57 | EKG ---
Date Performed: 12/12/2017 Time Performed: 21:47:39 PTAGE: 76 years EKG: ELECTRONIC VENTRICULAR PACEMAKER ABNORMAL RHYTHM ECG PREVIOUS TRACING : 11/29/2017 21.38 DOCTOR: Hector Ryan Interpretating Date/Time 12/13/2017 07:53:54
[2017-12-13] MEDS: INSULIN ASPART SUPPLEMENTAL SCALE SQ SCH ×4 (07:59→20:24)
[2017-12-13] MEDS: SUCRALFATE 1 GM/10 ML CUP PO SCH ×4 (08:00→21:37)
--- NOTE | 2017-12-13 08:39 | HHI.HP ---
[facility] No Primary Care Physician Admission Diagnosis TIA Diagnoses: Chief Complaint: Stroke alert Travel History International Travel<30 Days: No Contact w/Intl Traveler <30 Da: No Traveled to Known Affected Are: No History of Present Illness 76-year-old male with a medical history significant for hypertension, alcohol dependence, atrial fibrillation, coronary artery disease who was brought in as a stroke alert. Patient reports he was sitting at the restaurant finishing a meal and had about 2-3 alcoholic drink. Reportedly he stopped talking all of a sudden and was looking to the left with a facial droop. Patient was brought in as a stroke alert. However his symptoms quickly resolved therefore not a candidate for TPA. Currently reports feeling lightheaded. He had 2 episodes of vomiting this morning. No focal weakness. His speech is clear. He is a poor historian. Review of Systems Constitutional: DENIES: Fever, Chills Respiratory: DENIES: Shortness of breath Cardiovascular: DENIES: Chest pain, Palpitations, Syncope Gastrointestinal: COMPLAINS OF: Nausea, Vomiting Genitourinary: DENIES: Dysuria Neurologic: COMPLAINS OF: Speech Problems Past Family Social History Past Medical History Hypertension Atrial fibrillation Alcohol dependency Coronary artery disease Past Surgical History Cholecystectomy Brain tumor Cardiac stent Pacemaker placement Reported Medications Reported Meds & Active Scripts Active Plavix (Clopidogrel Bisulfate) 75 Mg Tab 75 Mg PO DAILY 30 Days Atorvastatin (Atorvastatin Calcium) 80 Mg Tab 80 Mg PO HS 30 Days Plavix (Clopidogrel Bisulfate) 75 Mg Tab 75 Mg PO DAILY 30 Days Hydrochlorothiazide 25 Mg Tab 25 Mg PO DAILY 30 Days Lisinopril 10 Mg Tab 10 Mg PO DAILY 30 Days Tgt Aspirin (Aspirin) 81 Mg Chw 162 Mg PO DAILY 30 Days Prilosec (Omeprazole Magnesium) 20 Mg Tab 20 Mg PO DAILY 14 Days Quetiapine (Quetiapine Fumarate) 100 Mg Tab 100 Mg PO HS Tramadol (Tramadol HCl) 50 Mg Tab 50 Mg PO Q6H PRN Walker with Front Wheels (Device) 1 Mis Mis Ea .ROUTE DIRECTED Gnp Vitamin B-1 (Thiamine HCl) 100 Mg Tab 100 Mg PO DAILY Folic Acid 1 Mg Tablet 1 Mg PO DAILY Sucralfate Liq (Sucralfate) 1 Gram/10 Ml Ade 1 Gm PO ACHS Magnesium Oxide 400 Mg Tab 400 Mg PO Q12H Multiple Vitamin 1 Tab 1 Tab PO DAILY Levothyroxine (Levothyroxine Sodium) 112 Mcg Tab 112 Mcg PO DAILY Allergies: Coded Allergies: morphine (Verified Allergy, Severe, CONFUSION, 12/12/17) oyster extract (Verified Allergy, Mild, Anaphylaxis, 12/12/17) Family History Father with history of alcoholism. Social History Apparently patient is having marital problems. He has been drinking a lot more than he normally drinks. Denies tobacco. Physical Exam Vital Signs Vital Signs Date Time Temp Pulse Resp B/P (MAP) Pulse Ox O2 Delivery O2 Flow Rate FiO2 12/13/17 04:00 96.1 80 20 121/66 (84) 98 12/13/17 00:20 75 12/13/17 00:05 12/13/17 00:00 97.6 71 20 101/57 (72) 97 12/12/17 23:03 69 122/69 (86) 98 Nasal Cannula 2.00 12/12/17 22:24 73 118/70 (86) 99 Nasal Cannula 2.00 12/12/17 21:50 72 Nasal Cannula 2.00 12/12/17 21:49 97.5 70 16 125/70 (88) 99 Nasal Cannula 2.00 12/12/17 21:16 93 Nasal Cannula 2.00 12/12/17 21:16 93 2.00 12/12/17 21:15 Room Air Physical Exam GENERAL: Obese male, frail. SKIN: No rashes, ecchymoses or lesions. Cool and dry. HEAD: Atraumatic. Normocephalic. EYES: Pupils equal round and reactive. Extraocular motions intact. No scleral icterus. No injection or drainage. ENT: Nose without drainage. Uvula midline. Airway patent. NECK: Trachea midline. No JVD or lymphadenopathy. CARDIOVASCULAR: Regular rate and rhythm without murmurs, gallops, or rubs. RESPIRATORY: Clear to auscultation. Breath sounds equal bilaterally. GASTROINTESTINAL: Abdomen soft, non-tender, nondistended. No guarding. MUSCULOSKELETAL: Extremities without clubbing, cyanosis, or edema. NEUROLOGICAL: Awake and alert. Complains of dizziness. Cranial nerves II through XII intact. Motor and sensory grossly within normal limits. Normal speech. Laboratory Laboratory Tests Test 12/12/17 21:09 12/13/17 05:55 White Blood Count 5.9 5.1 Red Blood Count 4.12 3.76 Hemoglobin 12.4 11.7 Hematocrit 36.2 33.4 Mean Corpuscular Volume 87.9 88.8 Mean Corpuscular Hemoglobin 30.0 31.2 Mean Corpuscular Hemoglobin Concent 34.1 35.1 Red Cell Distribution Width 13.4 13.5 Platelet Count 303 247 Mean Platelet Volume 8.1 8.0 Neutrophils (%) (Auto) 66.7 81.5 Lymphocytes (%) (Auto) 23.0 13.1 Monocytes (%) (Auto) 8.0 4.3 Eosinophils (%) (Auto) 1.7 0.8 Basophils (%) (Auto) 0.6 0.3 Neutrophils # (Auto) 3.9 4.2 Lymphocytes # (Auto) 1.4 0.7 Monocytes # (Auto) 0.5 0.2 Eosinophils # (Auto) 0.1 0.0 Basophils # (Auto) 0.0 0.0 CBC Comment DIFF FINAL DIFF FINAL Differential Comment Prothrombin Time 12.5 Prothromb Time International Ratio 1.2 Activated Partial Thromboplast Time 27.1 Blood Urea Nitrogen 10 9 Creatinine 0.54 0.44 Random Glucose 104 94 Calcium Level 8.6 8.3 Magnesium Level 2.1 Sodium Level 133 135 Potassium Level 3.9 3.7 Chloride Level 99 100 Carbon Dioxide Level 24.1 24.9 Anion Gap 10 10 Estimat Glomerular Filtration Rate 148 187 Troponin I LESS THAN 0.02 Ethyl Alcohol Level 174 Result Diagram: 12/13/17 0555 12/13/17 0555 Imaging Last Impressions Carotid Artery Ultrasound 12/13/17 0000 Signed Impressions: Service Date/Time: Wednesday, December 13, 2017 08:29 - CONCLUSION: 1. Normal hemodynamic profile both carotids. 2. No flow documented in the right vertebral. Shubham Dempsey MD Neck CTA 12/12/17 0000 Signed Impressions: Service Date/Time: Tuesday, December 12, 2017 21:34 - CONCLUSION: 1. No significant carotid flow limiting stenosis. 2. 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 3. Wkns-nt-fngoijow stenosis of the distal left vertebral artery near the basilar junction secondary to eccentric calcified plaque. Galo Melvin MD Head CTA 12/12/17 0000 Signed Impressions: Service Date/Time: Tuesday, December 12, 2017 21:34 - CONCLUSION: 1. No focal flow limiting stenosis or large vessel occlusion in the anterior circulation. 2. 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 Mild stenosis of the distal left vertebral artery at the basilar junction. 3. Small caliber left posterior cerebral artery with likely origin. Galo Melvin MD Head CT 12/12/17 0000 Signed Impressions: Service Date/Time: Tuesday, December 12, 2017 21:23 - CONCLUSION: 1. No acute intracranial abnormality. 2. Stable right parietal ventriculostomy catheter without hydrocephalus. MD Patrick Lechuga VTE Risk Assessment Caprinkita VTE Risk Assessment: Mod/High Risk (score >= 2) Caprini Risk Assessment Model Point Value = 1 Point Value = 2 Point Value = 3 Point Value = 5 Age 41-60 Minor surgery BMI > 25 kg/m2 Swollen legs Varicose veins or History of unexplained or recurrent spontaneous Oral contraceptives or hormone replacement Sepsis (< 1 month) Serious lung disease, including pneumonia (< 1 month) Abnormal pulmonary function Acute myocardial infarction Congestive heart failure (< 1 month) History of inflammatory bowel disease Medical patient at bed rest Age 61-74 Arthroscopic surgery Major open surgery (> 45 min) Laparoscopic surgery (> 45 min) Malignancy Confined to bed (> 72 hours) Immobilizing plaster cast Central venous access Age >= 75 History of VTE Family history of VTE Factor V Leiden Prothrombin [id number] Lupus anticoagulant Anticardiolipin antibodies Elevated serum homocysteine Heparin-induced thrombocytopenia Other congenital or acquired thrombophilia Stroke (< 1 month) Elective arthroplasty Hip, pelvis, or leg fracture Acute spinal cord injury (< 1 month) Prophylaxis Regimen Total Risk Factor Score Risk Level Prophylaxis Regimen 0-1 Low Early ambulation 2 Moderate Order ONE of the following: *Sequential Compression Device (SCD) *Heparin 5000 units SQ BID 3-4 Higher Order ONE of the following medications: *Heparin 5000 units SQ TID *Enoxaparin/Lovenox 40 mg SQ daily (WT < 150 kg, CrCl > 30 mL/min) *Enoxaparin/Lovenox 30 mg SQ daily (WT < 150 kg, CrCl > 10-29 mL/min) *Enoxaparin/Lovenox 30 mg SQ BID (WT < 150 kg, CrCl > 30 mL/min) AND/OR *Sequential Compression Device (SCD) 5 or more Highest Order ONE of the following medications: *Heparin 5000 units SQ TID (Preferred with Epidurals) *Enoxaparin/Lovenox 40 mg SQ daily (WT < 150 kg, CrCl > 30 mL/min) *Enoxaparin/Lovenox 30 mg SQ daily (WT < 150 kg, CrCl > 10-29 mL/min) *Enoxaparin/Lovenox 30 mg SQ BID (WT < 150 kg, CrCl > 30 mL/min) AND *Sequential Compression Device (SCD) Assessment and Plan Problem List: (1) TIA (transient ischemic attack) ICD Code: G45.9 - Transient cerebral ischemic attack, unspecified Status: Acute Plan: Patient brought in as a stroke alert. Focal symptoms resolved. He complains of dizziness. Unclear if more related to alcohol versus stroke. Neurology consulted. Continue Plavix, statin EEG pending MRI pending. Has a history of pacemaker placement. To ensure it is compatible. PT consulted (2) Alcohol dependence ICD Code: F10.20 - Alcohol dependence, uncomplicated Plan: Very debilitating for this patient given his age. He was strongly counseled to stop using alcohol. He would benefit from alcohol rehabilitation. Case management consulted (3) Hypertension ICD Code: I10 - Essential (primary) hypertension Plan: Continue home dose antihypertensives. (4) Hypothyroid ICD Code: E03.9 - Hypothyroid Status: Acute Plan: Continue levothyroxine Discussed Condition With Patient, Dr. Zayas Problem Qualifiers (1) TIA (transient ischemic attack): Qualified Codes: G45.9 - Transient cerebral ischemic attack, unspecified Vielka Rome MD Dec 13, 2017 08:39
--- NOTE | 2017-12-13 09:43 | RADRPT ---
EXAM DATE/TIME: 12/13/2017 08:29 [place] COMPARISON: CTA CAROTID ARTERIES W 3D RECON, December 12, 2017, 21:34. INDICATIONS : Transient ischemic attack. MEDICAL HISTORY : Myocardial infarction. Hypercholesterolemia. Carcinoma, prostate. Thyroid disease. CVA. Coronary luz maria ry disease. Chest pain. HTN. Afib. GERD. Brain tumor. Anticoagulant therapy, Plavix. SURGICAL HISTORY : Coronary artery stent. Pacemaker. Cholecystectomy. Bilateral cataract. Cardiac cath. Plate in right w rist. Radiation therapy. Shunt in head. ENCOUNTER: Initial ACUITY: 1 day PAIN SCORE: 1/10 LOCATION: Bilateral neck PEAK SYSTOLIC VELOCITIES (cm/sec): ICA/CCA RATIO: Right: 1.0 Left: 1.1 ICA: Right: 55 Left: 81 CCA: Right: 55 Left: 76 ECA: Right: 59 Left: 69 VERTEBRAL: Right: Not visualized. absent Left: 44 antegrade Elevated flow velocities and ICA/CCA ratios have been found to correlate with increased degrees of vessel stenosis, calculated as percentage of diameter relative to a normal segment of distal ICA/CCA FINDINGS: RIGHT CAROTID: No significant stenosis is visualized. The waveforms are within normal limits. LEFT CAROTID: No significant stenosis is visualized. The waveforms are within normal limits. VERTEBRAL ARTERIES: Flow is seen in the left vertebral. Flow is not observed on the right. CONCLUSION: 1. Normal hemodynamic profile both carotids. 2. No flow documented in the right vertebral. Shubham Dempsey MD on December 13, 2017 at 9:38 Board Certified Radiologist. This report was verified electronically.
[2017-12-13] MEDS: PANTOPRAZOLE SOD 20 MG DELAYED RELEASE TAB PO SCH (09:46)
[2017-12-13] MEDS: LISINOPRIL 10 MG TAB PO SCH (09:46)
[2017-12-13] MEDS: ASPIRIN 325 MG TAB PO SCH (09:46)
[2017-12-13] MEDS: SODIUM CHLORIDE 0.9% FLUSH 10 ML FLUSH IV FLUSH SCH ×2 (09:46→21:38)
[2017-12-13] MEDS: CLOPIDOGREL 75 MG TAB PO SCH (09:47)
[2017-12-13 09:57] LABS: CHOLESTEROL 108 MG/DL (120-200); TRIGLYCERIDES 81 MG/DL (42-150)
[2017-12-13 09:59] LABS: CHOLESTEROL/ HDL RATIO 2.17 RATIO; HDL CHOLESTEROL 49.6 MG/DL (40.0-60.0); LDL CHOLESTEROL 42 MG/DL (0-99)
[2017-12-13] MEDS ORDERED: BISACODYL EC 5 MG TABEC PO ONE (12:15)
[2017-12-13] MEDS ORDERED: SENNOSIDES 8.6 MG TAB PO PRN (12:30)
[2017-12-13] MEDS ORDERED: LACTULOSE SYRUP 20 GM/30 ML CUP PO PRN (12:30)
[2017-12-13] MEDS ORDERED: BISACODYL 10 MG SUPP RECTAL PRN (12:30)
[2017-12-13] MEDS ORDERED: MAGNESIUM HYDROXIDE SUSP 30 ML CUP PO PRN (12:30)
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
[2017-12-13 13:20] LABS: HEMOGLOBIN A1C 5.4 % (4.3-6.0)
--- NOTE | 2017-12-13 13:44 | ECHRPT ---
Indication: CVA/TIA CONCLUSIONS The left ventricular systolic function is normal with an estimated ejection fraction in the range of 60-65%. Normal left ventricular size. Mild concentric left ventricular hypertrophy. No regional wall motion abnormalities are present. The left atrial size is mildly dilated. The right atrial size is jgad-sz-kzmsmuahji dilated. Jaspx-nl-nzno mitral valve regurgitation. Mild thickening of the aortic valve leaflets. There is trace tricuspid valve regurgitation. The estimated pulmonary arterial pressure is 36.8 mmHg. technically limited study BP: 121 / 66 HR: 84 Rhythm: Sinus MEASUREMENTS (Male / Female) Normal Values Technical Quality:Fair 2D ECHO LV Diastolic Diameter PLAX 4.6 cm 4.2 - 5.9 / 3.9 - 5.3 cm LV Systolic Diameter PLAX 3.3 cm IVS Diastolic Thickness 1.6 cm 0.6 - 1.0 / 0.6 - 0.9 cm LVPW Diastolic Thickness 1.6 cm 0.6 - 1.0 / 0.6 - 0.9 cm LV Relative Wall Thickness 0.7 RV Internal Dim ED PLAX 3.9 cm LVOT Diameter 2.3 cm LA Systolic Diameter LX 4.7 cm 3.0 - 4.0 / 2.7 - 3.8 cm LV Ejection Fraction MOD 4C 56.7 % LV Cardiac Index MOD 4C 3397.8 cm/minm LV Ejection Fraction 4C AL 56.2 % LV Cardiac Index 4C AL 3457.6 cm/minm M-MODE Aortic Root Diameter MM 3.4 cm LA Systolic Diameter MM 5.4 cm LA Ao Ratio MM 1.6 AV Cusp Separation MM 2.1 cm DOPPLER AV Peak Velocity 135.0 cm/s AV Peak Gradient 7.3 mmHg LVOT Peak Velocity 77.5 cm/s LVOT Peak Gradient 2.4 mmHg AV Area Cont Eq pk 2.4 cm MV Area PHT 2.8 cm LV E' Lateral Velocity 5.9 cm/s LV E' Septal Velocity 7.4 cm/s TR Peak Velocity 259.0 cm/s TR Peak Gradient 26.8 mmHg Right Atrial Pressure 10.0 mmHg Pulmonary Artery Systolic Pressu 36.8 mmHg Right Ventricular Systolic Press 36.8 mmHg PV Peak Velocity 117.0 cm/s PV Peak Gradient 5.5 mmHg FINDINGS LEFT VENTRICLE The left ventricular systolic function is normal with an estimated ejection fraction in the range of 60-65%. Normal left ventricular size. Mild concentric left ventricular hypertrophy. No regional wall motion abnormalities are present. RIGHT VENTRICLE Normal right ventricular size and systolic function. LEFT ATRIUM The left atrial size is mildly dilated. RIGHT ATRIUM The right atrial size is gpkm-vp-punwjxvbir dilated. ATRIAL SEPTUM Normal atrial septal thickness without atrial level shunting by limited color doppler interrogation. AORTA The aortic root and proximal ascending aorta are normal in size on limited imaging. MITRAL VALVE Structurally normal mitral valve. Dfasg-mo-yxws mitral valve regurgitation. AORTIC VALVE Trileaflet aortic valve. Mild thickening of the aortic valve leaflets. TRICUSPID VALVE Structurally normal tricuspid valve. There is trace tricuspid valve regurgitation. The estimated pulmonary arterial pressure is 36.8 mmHg. PULMONARY VALVE No pulmonary valve regurgitation or stenosis. VESSELS The inferior vena cava is normal in size. PERICARDIUM No pericardial effusion. Lawrence Monroe MD, FACC, FSCAI (Electronically Signed) Final Date:13 December 2017 13:43
[2017-12-13] MEDS: predniSONE 5 MG TAB PO SCH (15:06)
--- NOTE | 2017-12-13 19:11 | MG ---
cc: RAZA RIVER M.D. Lab No: Date: 12/13/2017 Age: 76 Sex: M Race: REQUESTING: Dr. Zayas. An EEG was obtained on this 76-year-old patient being awake and drowsy and with a history of hydrocephalus and stroke alert. This EEG shows a mixture of rhythms. There is low amplitude beta activity. There are some alpha and some theta rhythms bilaterally. The patient is awake and drowsy intermittently. Photic stimulation disclosed no change. INTERPRETATION: Mild EEG abnormality diffuse suggesting a mild diffuse disturbance of cerebral function. No epileptiform features present. MD HUMBERTO Pollock/RAULITO /6:46 PM /7:03 PM
[2017-12-14] VITALS: BP 138/78; PULSE 81; RESP 16; TEMP 97.4; O2SAT 98
[2017-12-14] MEDS: LEVOTHYROXINE SODIUM 112 MCG TAB PO SCH (05:56)
[2017-12-14 07:44] LABS: HEMATOCRIT 37.9 % (39.0-51.0); HEMOGLOBIN 12.9 GM/DL (13.0-17.0); MEAN CELL VOLUME 89.7 FL (80.0-100.0); MEAN CORPUSCULAR HEMOGLOBIN 30.4 PG (27.0-34.0); MEAN CORPUSCULAR HGB CONC 33.9 % (32.0-36.0); MEAN PLATELET VOLUME 8.4 FL (7.0-11.0); PLATELET COUNT 252 TH/MM3 (150-450); RED BLOOD COUNT 4.23 MIL/MM3 (4.50-5.90); RED CELL DISTRIBUTION WIDTH 13.6 % (11.6-17.2)
[2017-12-14 07:50] VITALS: BP 147/77; PULSE 80; RESP 20; TEMP 97.4; O2SAT 99
[2017-12-14] MEDS: INSULIN ASPART SUPPLEMENTAL SCALE SQ SCH ×4 (07:54→21:25)
[2017-12-14] MEDS: SUCRALFATE 1 GM/10 ML CUP PO SCH ×4 (07:55→21:25)
[2017-12-14 07:59] LABS: BICARBONATE 29.6 MEQ/L (21.0-32.0); CALCIUM 8.6 MG/DL (8.5-10.1)
[2017-12-14 08:03] LABS: CREATININE 0.55 MG/DL (0.60-1.30)
[2017-12-14] MEDS: SODIUM CHLORIDE 0.9% FLUSH 10 ML FLUSH IV FLUSH SCH ×2 (09:54→21:25)
[2017-12-14] MEDS: ASPIRIN 325 MG TAB PO SCH (09:55)
[2017-12-14] MEDS: LISINOPRIL 10 MG TAB PO SCH (09:55)
[2017-12-14] MEDS: predniSONE 5 MG TAB PO SCH (09:55)
[2017-12-14] MEDS: PANTOPRAZOLE SOD 20 MG DELAYED RELEASE TAB PO SCH (09:55)
[2017-12-14] MEDS: CLOPIDOGREL 75 MG TAB PO SCH (09:55)
[2017-12-14 11:47] VITALS: BP 159/77; PULSE 77; RESP 20; TEMP 96.4; O2SAT 100
--- NOTE | 2017-12-14 13:49 | HHI.PR ---
Subjective Remarks Patient seen today in follow-up for acute neurological complaints. He was originally admitted as a stroke alert. He does not appear to have had a stroke. TIA is being investigated with neurology assistance. Patient also was complaining of severe constipation which has resolved this morning. Images are not consistent with acute stroke. There appears to be some bilateral vertebral artery i stenosis y with subsequent vertebrobasilar insufficiency syndrome. He is a poor anticoagulation complaint due to his alcoholism and frequent falls. Rehab teams have recommended senior living rehab and the patient is agreeable to this Objective Vitals Vital Signs Date Time Temp Pulse Resp B/P (MAP) Pulse Ox O2 Delivery O2 Flow Rate FiO2 12/14/17 11:47 96.4 77 20 159/77 (104) 100 12/14/17 07:50 97.4 80 20 147/77 (100) 99 12/14/17 00:00 97.4 81 16 138/78 (98) 98 12/13/17 20:00 84 12/13/17 20:00 96.4 79 16 141/77 (98) 96 12/13/17 16:00 96.8 79 18 140/85 (103) 100 12/13/17 15:00 83 I/O 12/13/17 12/13/17 12/13/17 12/14/17 12/14/17 12/14/17 07:00 15:00 23:00 07:00 15:00 23:00 Intake Total 0 ml 120 ml Output Total 0 ml 220 ml 350 ml Balance 0 ml -220 ml -230 ml Intake Oral 0 ml 120 ml Output Urine Total 0 ml 350 ml Emesis 220 ml Bladder Scan Volume Amount 604 ml # Voids 1 # Bowel Movements 0 0 Result Diagram: 12/14/17 0715 12/14/17 0715 Objective Remarks GENERAL: This is a well-nourished, well-developed patient, still very dizzy with minimal movement CARDIOVASCULAR: Regular rate and rhythm without murmurs, gallops, or rubs. RESPIRATORY: Clear to auscultation. Breath sounds equal bilaterally. No wheezes , rales, or rhonchi. GASTROINTESTINAL: Abdomen soft, non-tender, nondistended. Normal active bowel sounds MUSCULOSKELETAL: Extremities without clubbing, cyanosis, or edema. NEURO: Alert & Oriented x4 to person, place, time, situation. Moves all ext x4 A/P Problem List: (1) TIA (transient ischemic attack) ICD Code: G45.9 - Transient cerebral ischemic attack, unspecified Status: Acute Plan: Patient brought in as a stroke alert. Focal symptoms resolved. He complains of dizziness. Unclear if more related to alcohol versus stroke. 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 He was strongly counseled to stop using alcohol. He would benefit from alcohol rehabilitation. (3) Hypertension ICD Code: I10 - Essential (primary) hypertension Plan: Continue home dose antihypertensives. (4) Hypothyroid ICD Code: E03.9 - Hypothyroid Status: Acute Plan: Continue levothyroxine, repeat TSH given patient's poor adherence and previously elevated values Discharge Planning Likely to senior living and rehab when arrangements made Problem Qualifiers (1) TIA (transient ischemic attack): Qualified Codes: G45.9 - Transient cerebral ischemic attack, unspecified Kelli Linder MD Dec 14, 2017 13:49
[2017-12-14 16:59] VITALS: BP 144/78; PULSE 80; RESP 18; TEMP 96.8; O2SAT 99
[2017-12-14 20:00] VITALS: BP 131/80; PULSE 83; RESP 16; TEMP 97.7; O2SAT 98
[2017-12-14] MEDS: ATORVASTATIN 40 MG TAB PO SCH (21:25)
[2017-12-15] VITALS: BP 141/75; PULSE 73; RESP 18; TEMP 98.9; O2SAT 99
[2017-12-15] MEDS: LEVOTHYROXINE SODIUM 112 MCG TAB PO SCH (05:40)
[2017-12-15] MEDS: SUCRALFATE 1 GM/10 ML CUP PO SCH ×4 (05:41→20:18)
[2017-12-15 08:00] VITALS: BP 147/82; PULSE 82; RESP 18; TEMP 98.1; O2SAT 97
[2017-12-15] MEDS: INSULIN ASPART SUPPLEMENTAL SCALE SQ SCH ×4 (08:03→20:18)
[2017-12-15] MEDS: ASPIRIN 325 MG TAB PO SCH (09:16)
[2017-12-15] MEDS: PANTOPRAZOLE SOD 20 MG DELAYED RELEASE TAB PO SCH (09:16)
[2017-12-15] MEDS: SODIUM CHLORIDE 0.9% FLUSH 10 ML FLUSH IV FLUSH SCH ×2 (09:16→20:18)
[2017-12-15] MEDS: CLOPIDOGREL 75 MG TAB PO SCH (09:16)
[2017-12-15] MEDS: predniSONE 5 MG TAB PO SCH (09:17)
[2017-12-15] MEDS: LISINOPRIL 10 MG TAB PO SCH (09:17)
[2017-12-15 12:00] VITALS: BP 147/81; PULSE 73; RESP 20; TEMP 96.9; O2SAT 98
[2017-12-15 16:00] VITALS: BP 138/75; PULSE 73; RESP 20; TEMP 97.7; O2SAT 97
[2017-12-15] MEDS ORDERED: MECLIZINE HCL 25 MG TAB PO PRN (16:00)
[2017-12-15] MEDS: MAGNESIUM OXIDE 400 MG TAB PO SCH (16:13)
[2017-12-15] MEDS: MULTIVITAMIN TAB PO SCH (16:24)
[2017-12-15] MEDS: FOLIC ACID 1 MG TAB PO SCH (16:24)
--- NOTE | 2017-12-15 17:28 | HHI.PR ---
Subjective Remarks Nursing denies any deterioration since last night. Patient wants to go to rehab for most aggressive recovery option. Has no new complaints. Objective Vital Signs Date Time Temp Pulse Resp B/P (MAP) Pulse Ox O2 Delivery O2 Flow Rate FiO2 12/15/17 12:00 96.9 73 20 147/81 (103) 98 12/15/17 08:00 98.1 82 18 147/82 (103) 97 12/15/17 00:00 98.9 73 18 141/75 (97) 99 12/14/17 20:00 97.7 83 16 131/80 (97) 98 I/O 12/14/17 12/14/17 12/14/17 12/15/17 12/15/17 12/15/17 07:00 15:00 23:00 07:00 15:00 23:00 Intake Total 120 ml 1315 ml 250 ml Output Total 350 ml 400 ml 600 ml Balance -230 ml 915 ml -350 ml Intake Oral 120 ml 1315 ml 240 ml IV Total 10 ml Output Urine Total 350 ml 400 ml 600 ml Bladder Scan Volume Amount 604 ml # Voids 1 # Bowel Movements 0 1 0 Result Diagram: 12/14/1715 12/14/17 0715 Objective Remarks Lying in bed, no acute distress, No facial droop, no slurred speech, is able to sit up on bed side without assistance, good motivation to work with rehab A/P Assessment and Plan (1) TIA (transient ischemic attack) ICD Code: G45.9 - Transient cerebral ischemic attack, unspecified Neurology consult is appreciated, EEG not consistent with seizure 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 He was strongly counseled to stop using alcohol. He would benefit from alcohol rehabilitation. (3) Hypertension ICD Code: I10 - Essential (primary) hypertension Plan: Continue home dose antihypertensives. (4) Hypothyroid ICD Code: E03.9 - Hypothyroid Status: Acute Plan: Continue levothyroxine; will take time for TSH to stabilize since his dose was recently adjusted since last discharge within last 3 weeks. Discharge Planning to SNF when approved Micky Sandoval MD Dec 15, 2017 17:28
[2017-12-15 20:00] VITALS: BP 139/73; PULSE 73; RESP 20; TEMP 97.6; O2SAT 97
[2017-12-15] MEDS: ATORVASTATIN 40 MG TAB PO SCH (20:18)
[2017-12-16] VITALS: BP 148/83; PULSE 79; RESP 20; TEMP 96.3; O2SAT 99
[2017-12-16] MEDS: MAGNESIUM OXIDE 400 MG TAB PO SCH (05:23)
[2017-12-16] MEDS: LEVOTHYROXINE SODIUM 112 MCG TAB PO SCH (05:23)
[2017-12-16 07:50] VITALS: BP 133/80; PULSE 72; RESP 20; TEMP 97.7; O2SAT 95
[2017-12-16] MEDS: INSULIN ASPART SUPPLEMENTAL SCALE SQ SCH (08:42)
[2017-12-16] MEDS: predniSONE 5 MG TAB PO SCH (08:48)
[2017-12-16] MEDS: SUCRALFATE 1 GM/10 ML CUP PO SCH ×2 (08:48→08:50)
[2017-12-16] MEDS: MULTIVITAMIN TAB PO SCH (08:48)
[2017-12-16] MEDS: FOLIC ACID 1 MG TAB PO SCH (08:48)
[2017-12-16] MEDS: LISINOPRIL 10 MG TAB PO SCH (08:48)
[2017-12-16] MEDS: CLOPIDOGREL 75 MG TAB PO SCH (08:49)
[2017-12-16] MEDS: PANTOPRAZOLE SOD 20 MG DELAYED RELEASE TAB PO SCH (08:49)
[2017-12-16] MEDS: ASPIRIN 325 MG TAB PO SCH (08:49)
[2017-12-16] MEDS: SODIUM CHLORIDE 0.9% FLUSH 10 ML FLUSH IV FLUSH SCH (08:49)
[2017-12-16 11:50] VITALS: BP 134/75; PULSE 71; RESP 20; TEMP 96.5; O2SAT 97
[2017-12-16] MEDS ORDERED: ACETAMINOPHEN 325 MG TAB PO PRN (13:45)
--- NOTE | 2017-12-16 15:29 | HHI.PR ---
Subjective Remarks no acute issues plan for dc today Objective Vitals Vital Signs Date Time Temp Pulse Resp B/P (MAP) Pulse Ox O2 Delivery O2 Flow Rate FiO2 12/16/17 11:50 96.5 71 20 134/75 (94) 97 12/16/17 07:50 97.7 72 20 133/80 (97) 95 12/16/17 00:00 96.3 79 20 148/83 (104) 99 12/15/17 20:00 97.6 73 20 139/73 (95) 97 12/15/17 16:00 97.7 73 20 138/75 (96) 97 I/O 12/15/17 12/15/17 12/15/17 12/16/17 12/16/17 12/16/17 07:00 15:00 23:00 07:00 15:00 23:00 Intake Total 250 ml 725 ml 750 ml 120 ml Output Total 600 ml 950 ml 625 ml Balance -350 ml 725 ml -200 ml -505 ml Intake Oral 240 ml 725 ml 750 ml 120 ml IV Total 10 ml Output Urine Total 600 ml 950 ml 625 ml # Voids 3 # Bowel Movements 0 0 0 Result Diagram: 12/14/1771412/14/1715 Objective Remarks GENERAL: This is a well-nourished, well-developed patient, in no apparent distress. NEURO: Alert & Oriented x4 to person, place, time, situation. 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 He was strongly counseled to stop using alcohol. He would benefit from alcohol rehabilitation. (3) Hypertension Essential (primary) hypertension Continue home dose antihypertensives. (4) Hypothyroid - Hypothyroid Discharge Planning dc today Problem Qualifiers (1) TIA (transient ischemic attack): Qualified Codes: G45.9 - Transient cerebral ischemic attack, unspecified oRnnie Grigsby MD Dec 16, 2017 15:29
--- NOTE | 2017-12-16 15:40 | HHI.DS ---
Discharge Summary Admission Date Dec 12, 2017 at 23:08 Admitting Diagnosis TIA (1) TIA (transient ischemic attack) ICD Code: G45.9 - Transient cerebral ischemic attack, unspecified Status: Acute (2) Alcohol dependence ICD Code: F10.20 - Alcohol dependence, uncomplicated (3) Hypertension ICD Code: I10 - Essential (primary) hypertension (4) Hypothyroid ICD Code: E03.9 - Hypothyroid Status: Acute Procedures None Brief History - From Admission 76-year-old male with a medical history significant for hypertension, alcohol dependence, atrial fibrillation, coronary artery disease who was brought in as a stroke alert. Patient reports he was sitting at the restaurant finishing a meal and had about 2-3 alcoholic drink. Reportedly he stopped talking all of a sudden and was looking to the left with a facial droop. Patient was brought in as a stroke alert. However his symptoms quickly resolved therefore not a candidate for TPA. Currently reports feeling lightheaded. He had 2 episodes of vomiting this morning. No focal weakness. His speech is clear. He is a poor historian. CBC/BMP: 12/14/17 0715 12/14/17 0715 Significant Findings Laboratory Tests Test 12/14/17 07:15 Red Blood Count 4.23 MIL/MM3 (4.50-5.90) Hemoglobin 12.9 GM/DL (13.0-17.0) Hematocrit 37.9 % (39.0-51.0) Creatinine 0.55 MG/DL (0.60-1.30) Sodium Level 135 MEQ/L (136-145) Thyroid Stimulating Hormone 3rd Gen 5.440 uIU/ML (0.358-3.740) PE at Discharge GENERAL: This is a well-nourished, well-developed patient, in no apparent distress. NEURO: Alert & Oriented x4 to person, place, time, situation. 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 Zayas who previously ordered MRI/MRA but hasn't been done, however she agreed on discharging patient and he can follow up with her as an outpatient, partially patient is not candidate for full anticoagulation (2) Alcohol dependence Alcohol dependence, uncomplicated Very debilitating for this patient given his age. He was strongly counseled to stop using alcohol. He would benefit from alcohol rehabilitation. (3) Hypertension Essential (primary) hypertension Continue home dose antihypertensives. (4) Hypothyroid - Hypothyroid [id number] encounter performed with the patient on discharge day, as well as physical exam, summary of hospitalization course and postdischarge plan has been D/W the patient. D/W nurse D/W transplant case manager. Also discussed with Dr. Zayas the neurologist Discharge medications reviewed and printed and signed, post discharge follow up visit with PCP and other specialist as well as Brief hospital course and discharge summary has been placed. Pt Condition on Discharge: Fair Discharge Disposition: Discharge to SNF Discharge Time: > 30 minutes Discharge Instructions DIET: Follow Instructions for: Heart Healthy Diet Activities you can perform: See Additionl Instruction Other Activity Instructions: per pT Follow up Referrals: Neurology - 1 Week with Yany Zayas MD Continued Medications: Aspirin (Tgt Aspirin) 81 Mg Chw 162 MG PO DAILY for Blood Clot Prevention for 30 Days, #60 TAB Atorvastatin (Atorvastatin) 80 Mg Tab 80 MG PO HS for Cholesterol Management for 30 Days, #30 TAB Clopidogrel (Plavix) 75 Mg Tab 75 MG PO DAILY for Blood Clot Prevention for 30 Days, #30 TAB Folic Acid (Folic Acid) 1 Mg Tablet 1 MG PO DAILY for Nutritional Supplement, #30 TAB Levothyroxine (Levothyroxine) 112 Mcg Tab 112 MCG PO DAILY for Thyroid, #30 TAB 0 Refills Lisinopril (Lisinopril) 10 Mg Tab 10 MG PO DAILY for Blood Pressure Management for 30 Days, #30 TAB 0 Refills Magnesium Oxide (Magnesium Oxide) 400 Mg Tab 400 MG PO Q12H for Nutritional Supplement, #60 TAB Multiple Vitamin (Multiple Vitamin) 1 Tab 1 TAB PO DAILY for Nutritional Supplement, #30 TAB 0 Refills Omeprazole Magnesium (Prilosec) 20 Mg Tab 20 MG PO DAILY for GERD for 14 Days, #14 TAB Quetiapine (Quetiapine) 100 Mg Tab 100 MG PO HS for Anxiety, #30 TAB Sucralfate Liq (Sucralfate Liq) 1 Gram/10 Ml Ade 1 GM PO ACHS for Heartburn Management, #120 GM Thiamine HCl (Gnp Vitamin B-1) 100 Mg Tab 100 MG PO DAILY for Nutritional Supplement, #30 TAB Tramadol (Tramadol) 50 Mg Tab 50 MG PO Q6H PRN for PAIN, #14 TAB 0 Refills Ronnie Grigsby MD Dec 16, 2017 15:40
[2017-12-16] MEDS ORDERED: TRAM50TA PO (15:45)
[2017-12-16 15:50] VITALS: BP 125/73; PULSE 71; RESP 20; TEMP 96.6; O2SAT 97
== END 2017-12-16 16:12 ==
LOC: PHED 21:15 → PHEDA 23:08 → PH3B 12-13 00:10
PROVIDERS: ADMIT Hospitalist; ATTEND Hospitalist
DX: G45.9 Transient cerebral ischemic attack, unspecified (principal); F10.20 Alcohol dependence, uncomplicated; I10 Essential (primary) hypertension; E03.9 Hypothyroidism, unspecified; I25.10 Atherosclerotic heart disease of native coronary artery without angina pectoris; I48.91 Unspecified atrial fibrillation; E87.1 Hypo-osmolality and hyponatremia; E78.00 Pure hypercholesterolemia, unspecified; K21.9 Gastro-esophageal reflux disease without esophagitis; I25.2 Old myocardial infarction; R29.6 Repeated falls; Y90.6 Blood alcohol level of 120-199 mg/100 ml; Z63.0 Problems in relationship with spouse or partner; Z85.46 Personal history of malignant neoplasm of prostate; Z95.0 Presence of cardiac pacemaker; Z95.5 Presence of coronary angioplasty implant and graft
CPT/HCPCS: 70450; 70496; 70498; 80048; 80061; 80307; 82607; 82948; 83036; 83735; 84443; 84484; 85025; 85027; 85610; 85730; 93005; 93306; 93880; 95819; 97110; 97116; 97162; 99285; G0378; G8987; G8988; J7512; Q9967

== ENCOUNTER 2018-01-20 16:34 | Emergency (ER) | payer OTHER ==
[~2018-01-20] VITALS: Ht 177.8 cm; Wt 86.0 kg
[~2018-01-20 16:34] MED LIST changes: -IOHEXOL 350 MG/ML 10 ML VIAL (for RAD DIAG) IVCONTRAST ONE
[2018-01-20 16:52] VITALS: BP 109/63; PULSE 75; RESP 16; TEMP 97.4; O2SAT 95
--- NOTE | 2018-01-20 17:06 | PD ---
HPI Chief Complaint: Chest Pain Time Seen by Provider: 17:04 Travel History International Travel<30 days: No Contact w/Intl Traveler<30days: No Traveled to known affect area: No History of Present Illness HPI Patient presents with complaints of left arm pain radiating into his chest since 4:00 yesterday. Constant nature. Denies shortness of breath diaphoresis diabetes tobacco use. Positive family history of cardiac disease. Positive personal history of cardiac disease with TN 3. He did take an aspirin prior to arrival. Pain is aggravated with left upper arm range of motion. Patient reports a recent history of falling of her coffee table with left distal radius fracture and possible right rib fractures. States he did not follow-up with orthopedics as he reports a myocardial infarction shortly after the injury. PFSH Past Medical History Hx Anticoagulant Therapy: Yes (asa) Atrial Fibrillation: Yes Heart Rhythm Problems: Yes (AFIB Hx.) Cancer: Yes (PROSTATE) Cardiac Catheterization: Yes Cardiovascular Problems: Yes (htn on meds, TN with stent placement, pacemaker) High Cholesterol: Yes Chemotherapy: No Chest Pain: Yes Cerebrovascular Accident: Yes Coronary Artery Disease: Yes Diabetes: No Diminished Hearing: No Endocrine: Yes GERD: Yes Genitourinary: No Hypertension: Yes Musculoskeletal: No Neurologic: Yes Psychiatric: No Reproductive: No Respiratory: No Myocardial Infarction: Yes Radiation Therapy: Yes (PROSTATE CANCER) Thyroid Disease: Yes Past Surgical History Cardiac Surgery: Yes ([place], STENT, PACEMAKER 2016) Cholecystectomy: Yes Coronary Stent: Yes Eye Surgery: Yes (BILATERAL CATARACT) Pacemaker: Yes Other Surgery: Yes (SHUNT IN HEAD, BRAIN TUMOR) Social History Alcohol Use: Yes (DAILY) Tobacco Use: No (QUIT 1984) Substance Use: No Allergies-Medications (Allergen,Severity, Reaction): Coded Allergies: morphine (Verified Allergy, Severe, CONFUSION, 12/12/17) oyster extract (Verified Allergy, Mild, Anaphylaxis, 12/12/17) MRI PRECAUTION (Verified Adverse Reaction, Severe, 12/14/17) Patient has a MRI compatible pacemaker, MICRA [id number] Patient has a shunt with no information, unable to scan until we have shunt info eg 12/14/2017 Reported Meds & Prescriptions Reported Meds & Active Scripts Active Plavix (Clopidogrel Bisulfate) 75 Mg Tab 75 Mg PO DAILY 30 Days Atorvastatin (Atorvastatin Calcium) 80 Mg Tab 80 Mg PO HS 30 Days Plavix (Clopidogrel Bisulfate) 75 Mg Tab 75 Mg PO DAILY 30 Days Hydrochlorothiazide 25 Mg Tab 25 Mg PO DAILY 30 Days Lisinopril 10 Mg Tab 10 Mg PO DAILY 30 Days Tgt Aspirin (Aspirin) 81 Mg Chw 162 Mg PO DAILY 30 Days Prilosec (Omeprazole Magnesium) 20 Mg Tab 20 Mg PO DAILY 14 Days Quetiapine (Quetiapine Fumarate) 100 Mg Tab 100 Mg PO HS Gnp Vitamin B-1 (Thiamine HCl) 100 Mg Tab 100 Mg PO DAILY Folic Acid 1 Mg Tablet 1 Mg PO DAILY Sucralfate Liq (Sucralfate) 1 Gram/10 Ml Ade 1 Gm PO ACHS Magnesium Oxide 400 Mg Tab 400 Mg PO Q12H Multiple Vitamin 1 Tab 1 Tab PO DAILY Levothyroxine (Levothyroxine Sodium) 112 Mcg Tab 112 Mcg PO DAILY Review of Systems General / Constitutional: No: Fever Eyes: No: Visual changes HENT: No: Headaches Cardiovascular: Positive: Chest Pain or Discomfort Respiratory: No: Shortness of Breath Gastrointestinal: No: Abdominal Pain Genitourinary: No: Dysuria Musculoskeletal: No: Pain Skin: No Rash Neurologic: No: Weakness Psychiatric: No: Depression Endocrine: No: Polydipsia Hematologic/Lymphatic: No: Easy Bruising Physical Exam Narrative GENERAL: Well-nourished, well-developed patient. SKIN: Focused skin assessment warm/dry. HEAD: Normocephalic. EYES: No scleral icterus. No injection or drainage. NECK: Supple, trachea midline. No JVD or lymphadenopathy. CARDIOVASCULAR: Regular rate and rhythm without murmurs, gallops, or rubs. RESPIRATORY: Breath sounds equal bilaterally. No accessory muscle use. GASTROINTESTINAL: Abdomen soft, non-tender, nondistended. MUSCULOSKELETAL: No cyanosis, or edema. BACK: Nontender without obvious deformity. No CVA tenderness. Data Data Last Documented VS Vital Signs Date Time Temp Pulse Resp B/P (MAP) Pulse Ox O2 Delivery O2 Flow Rate FiO2 01/20/18 17:09 98 Room Air 01/20/18 16:52 97.4 75 16 109/63 (78) Orders Orders Electrocardiogram (01/20/18 17:04) Ckmb (Isoenzyme) Profile (01/20/18 17:04) Complete Blood Count With Diff (01/20/18 17:04) Comprehensive Metabolic Panel (01/20/18 17:04) Magnesium (Mg) (01/20/18 17:04) Prothrombin Time / Inr (Pt) (01/20/18 17:04) Act Partial Throm Time (Ptt) (01/20/18 17:04) Troponin I (01/20/18 17:04) Ecg Monitoring (01/20/18 17:04) Bilateral Bp Monitoring (01/20/18 17:04) Iv Access Insert/Monitor (01/20/18 17:04) Oximetry (01/20/18 17:04) Oxygen Administration (01/20/18 17:04) Sodium Chloride 0.9% Flush (Ns Flush) (01/20/18 17:15) Chest, Pa & Lat (01/20/18 17:04) Potassium Chloride (Kcl) (01/20/18 18:45) Labs Laboratory Tests Test 01/20/18 17:34 01/20/18 18:00 White Blood Count 5.4 TH/MM3 Red Blood Count 3.88 MIL/MM3 Hemoglobin 11.7 GM/DL Hematocrit 34.1 % Mean Corpuscular Volume 88.0 FL Mean Corpuscular Hemoglobin 30.2 PG Mean Corpuscular Hemoglobin Concent 34.3 % Red Cell Distribution Width 14.0 % Platelet Count 171 TH/MM3 Mean Platelet Volume 8.7 FL CBC Comment AUTO DIFF Differential Total Cells Counted 100 Neutrophils % (Manual) 78 % Band Neutrophils % 2 % Lymphocytes % 14 % Monocytes % 5 % Basophils % 1 % Neutrophils # (Manual) 4.3 TH/MM3 Differential Comment FINAL DIFF MANUAL Platelet Estimate NORMAL Platelet Morphology Comment NORMAL Red Cell Morphology Comment NORMAL Prothrombin Time 13.2 SEC Prothromb Time International Ratio 1.3 RATIO Activated Partial Thromboplast Time 32.3 SEC Blood Urea Nitrogen 11 MG/DL Creatinine 0.76 MG/DL Random Glucose 109 MG/DL Total Protein 7.3 GM/DL Albumin 3.1 GM/DL Calcium Level 8.6 MG/DL Magnesium Level 1.7 MG/DL Alkaline Phosphatase 136 U/L Aspartate Amino Transf (AST/SGOT) 19 U/L Alanine Aminotransferase (ALT/SGPT) 15 U/L Total Bilirubin 0.9 MG/DL Sodium Level 128 MEQ/L Potassium Level 3.2 MEQ/L Chloride Level 94 MEQ/L Carbon Dioxide Level 25.8 MEQ/L Anion Gap 8 MEQ/L Estimat Glomerular Filtration Rate 99 ML/MIN Total Creatine Kinase 21 U/L Troponin I LESS THAN 0.02 NG/ML MDM Medical Decision Making Medical Screen Exam Complete: Yes Emergency Medical Condition: Yes Differential Diagnosis Left shoulder osteoarthritis, acute coronary syndrome, musculoskeletal pain Narrative Course Assessment plan discussed the patient at bedside. EKG reveals ventricular pacing rate of 79. Hypokalemia noted and replaced. Hyponatremia noted, slightly lower than normal but is not new. Cardiac enzymes negative. Last 72 hours Impressions Chest X-Ray 01/20/18 1704 Signed Impressions: Service Date/Time: Saturday, January 20, 2018 17:10 - CONCLUSION: Mild basilar atelectasis. Cardiomegaly. Subacute to old right rib fractures. Shunt tubing ends in superior vena cava. Nadeem Foster MD Diagnosis Primary Impression: Left arm pain Patient Instructions: General Instructions Additional Instructions: Encourage nonsteroidal anti-inflammatories and ice to left upper extremity after activity. Sling for comfort. Gentle range of motion exercise. Follow- up with PCP to assess healing and need for orthotic consult. Encouraged to return to emergency room with any onset of new symptoms. Med/Other Pt SpecificInfo: Prescription(s) given Scripts Tramadol (Tramadol) 50 Mg Tab 50 MG PO Q6H Y for PAIN, #14 TAB 0 Refills Prov: Marcelo Baez MD 01/20/18 Disposition: 01 DISCHARGE HOME Condition: Good Marcelo Baez MD Jan 20, 2018 17:06
[2018-01-20 17:08] VITALS: O2SAT 98
[2018-01-20] MEDS ORDERED: SODIUM CHLORIDE 0.9% FLUSH 10 ML FLUSH IVF PRN (17:15)
--- NOTE | 2018-01-20 17:35 | RADRPT ---
EXAM DATE/TIME: 01/20/2018 17:10 [facility] COMPARISON: No previous studies available for comparison. INDICATIONS : Chest pain MEDICAL HISTORY : Myocardial infarction. Hypercholesterolemia. Carcinoma, prostate. Thyroid disease. CVA. Coronary luz maria ry disease. Chest pain. HTN. Afib. GERD. Brain tumor. Anticoagulant therapy,Plavix SURGICAL HISTORY : Coronary artery stent. Pacemaker. Cholecystectomy. Bilateral cataract. Cardiac cath. Plate in right w rist. Radiation therapy. Shunt in head. ENCOUNTER: Initial ACUITY: 2 days PAIN SCORE: 6/10 LOCATION: Bilateral chest FINDINGS: There are subacute or old right-sided rib fractures fossa seen on the exam from November 29. Mild basi lar atelectasis. Cardiomegaly. Tortuous aorta. Loop recorder overlies lower left hemithorax. Degenera tive change in the spine. Right-sided shunt tubing ends in the superior vena cava. CONCLUSION: Mild basilar atelectasis. Cardiomegaly. Subacute to old right rib fractures. Shunt tubing ends in sup erior vena cava. Nadeem Foster MD on January 20, 2018 at 17:29 Board Certified Radiologist. This report was verified electronically.
[2018-01-20 17:48] LABS: HEMATOCRIT 34.1 % (39.0-51.0); HEMOGLOBIN 11.7 GM/DL (13.0-17.0); MEAN CORPUSCULAR HEMOGLOBIN 30.2 PG (27.0-34.0); MEAN CORPUSCULAR HGB CONC 34.3 % (32.0-36.0); MEAN PLATELET VOLUME 8.7 FL (7.0-11.0); PLATELET COUNT 171 TH/MM3 (150-450); RED BLOOD COUNT 3.88 MIL/MM3 (4.50-5.90); WHITE BLOOD COUNT 5.4 TH/MM3 (4.0-11.0)
[2018-01-20 18:05] LABS: BANDS 2 % (0-6); BASOPHILS 1 % (0-2); LYMPHOCYTES 14 % (9-44); MONOCYTES 5 % (0-8); NEUTROPHIL # MANUAL DIFF 4.3 TH/MM3 (1.8-7.7); POLYS (SEG NEUTROPHILS) 78 % (16-70)
[2018-01-20 18:18] LABS: CHLORIDE 94 MEQ/L (98-107); SODIUM (NA) 128 MEQ/L (136-145)
[2018-01-20 18:21] LABS: CALCIUM 8.6 MG/DL (8.5-10.1)
[2018-01-20 18:22] LABS: ALBUMIN 3.1 GM/DL (3.4-5.0); BICARBONATE 25.8 MEQ/L (21.0-32.0); BLOOD UREA NITROGEN 11 MG/DL (7-18); GLUCOSE,RANDOM 109 MG/DL (74-106); MAGNESIUM 1.7 MG/DL (1.5-2.5)
[2018-01-20 18:24] LABS: INTERNATIONAL NORMALIZED RATIO 1.3 RATIO; PROTHROMBIN TIME - PATIENT 13.2 SEC (9.8-11.6)
[2018-01-20 18:25] LABS: ALT (GPT) 15 U/L (12-78); AST (GOT) 19 U/L (15-37); CREATININE 0.76 MG/DL (0.60-1.30); GLOMERULAR FILTRATION RATE 99 ML/MIN (>89)
[2018-01-20 18:27] LABS: TOTAL BILIRUBIN ADULT 0.9 MG/DL (0.2-1.0); TOTAL PROTEIN 7.3 GM/DL (6.4-8.2)
[2018-01-20 18:28] LABS: ALKALINE PHOSPHATASE 136 U/L (45-117)
[2018-01-20 18:30] LABS: TROPONIN I LESS THAN 0.02 NG/ML (0.02-0.05)
[2018-01-20] MEDS ORDERED: POTASSIUM CHLORIDE 20 MEQ CONTROLLED RELEASE TAB PO ONE (18:45)
[2018-01-20] MEDS ORDERED: TRAM50TA PO ×2 (19:07→19:13)
[2018-01-20 19:32] VITALS: BP 106/62; PULSE 76; RESP 18; O2SAT 98
--- NOTE | 2018-01-21 12:29 | EKG ---
Date Performed: 01/20/2018 Time Performed: 16:40:17 PTAGE: 77 years EKG: ELECTRONIC VENTRICULAR PACEMAKER ABNORMAL RHYTHM ECG PREVIOUS TRACING 12/12/2017 21:47.39 Since the previous tracing, no significant change noted DOCTOR: Guillermo Caldera Interpretating Date/Time 01/21/2018 12:27:31
== END 2018-01-20 19:33 | disposition home or self-care (01) ==
LOC: PHED 16:34
DX: M79.602 Pain in left arm (principal); J98.11 Atelectasis; I51.7 Cardiomegaly; R94.31 Abnormal electrocardiogram [ECG] [EKG]; E87.6 Hypokalemia; E87.1 Hypo-osmolality and hyponatremia; I48.91 Unspecified atrial fibrillation; I10 Essential (primary) hypertension; I25.10 Atherosclerotic heart disease of native coronary artery without angina pectoris
CPT/HCPCS: 71046; 80053; 82550; 83735; 84484; 85007; 85027; 85610; 85730; 93005; 99285

== ENCOUNTER 2018-04-06 17:11 | Emergency (ER) | payer OTHER ==
[~2018-04-06] VITALS: Ht 177.8 cm; Wt 89.0 kg
[~2018-04-06 17:11] MED LIST changes: -WALKER WHEELS/F1 MIS
[2018-04-06 17:19] VITALS: BP 145/67; PULSE 77; RESP 18; TEMP 97.5; O2SAT 99
--- NOTE | 2018-04-06 17:47 | PD ---
HPI Chief Complaint: Fall Time Seen by Provider: 17:40 Travel History International Travel<30 days: No Contact w/Intl Traveler<30days: No Traveled to known affect area: No History of Present Illness HPI 77-year-old male presents emergency department for evaluation of left hip/butt pain that started approximately 2 days ago. Says that he was working on the pool deck when he tripped and fell, landing on his left buttock. He is here today because his family made him come. He says that the pain is not improving but it is also not getting better. He points to the left ischial tuberosity. No palliative or provocative factors. Denies weakness. Denies trauma elsewhere. Denies neck or back pain. Denies radicular pain. PFSH Past Medical History Hx Anticoagulant Therapy: Yes (ASA 81 mg daily) Atrial Fibrillation: Yes Heart Rhythm Problems: Yes (AFIB Hx.) Cancer: Yes (PROSTATE) Cardiac Catheterization: Yes Cardiovascular Problems: Yes ([place] x 3, stent x 1, pacemaker) High Cholesterol: Yes Chemotherapy: No Chest Pain: Yes Cerebrovascular Accident: Yes Coronary Artery Disease: Yes Diabetes: No Diminished Hearing: No Endocrine: Yes Gastrointestinal Disorders: Yes GERD: Yes Genitourinary: No Hypertension: Yes Implanted Vascular Access Dvce: Yes Musculoskeletal: No Neurologic: Yes Psychiatric: No Reproductive: No Respiratory: No Immunizations Current: Yes Myocardial Infarction: Yes Radiation Therapy: Yes (PROSTATE CANCER) Thyroid Disease: Yes Tetanus Vaccination: < 5 Years Influenza Vaccination: Yes ?: Not Past Surgical History Cardiac Surgery: Yes ([place], STENT, PACEMAKER 2016) Cholecystectomy: Yes Coronary Stent: Yes Eye Surgery: Yes (BILATERAL CATARACT) Pacemaker: Yes Other Surgery: Yes (SHUNT IN HEAD, BRAIN TUMOR) Social History Alcohol Use: Yes (DAILY) Tobacco Use: No (QUIT 1984) Substance Use: No Allergies-Medications (Allergen,Severity, Reaction): Coded Allergies: morphine (Verified Allergy, Severe, CONFUSION, 04/06/18) oyster extract (Verified Allergy, Mild, Anaphylaxis, 04/06/18) MRI PRECAUTION (Verified Adverse Reaction, Severe, 04/06/18) Patient has a MRI compatible pacemaker, MICRA [id number] Patient has a shunt with no information, unable to scan until we have shunt info eg 12/14/2017 Reported Meds & Prescriptions Reported Meds & Active Scripts Active Atorvastatin (Atorvastatin Calcium) 80 Mg Tab 80 Mg PO HS 30 Days Plavix (Clopidogrel Bisulfate) 75 Mg Tab 75 Mg PO DAILY 30 Days Lisinopril 10 Mg Tab 10 Mg PO DAILY 30 Days Reported Amlodipine (Amlodipine Besylate) 5 Mg Tab 5 Mg PO DAILY Meclizine (Meclizine HCl) 25 Mg Tab 25 Mg PO DIRECTED PRN Nitroglycerin SL (Nitroglycerin) 0.4 Mg Subl 0.4 Mg SL DIRECTED PRN ONE TABLET UNDER THE TONGUE NEEDED FOR CHEST PAIN, MAY REPEAT EVERY FIVE MINUTES FOR A TOTAL OF 3 DOSES OR CALL 911 IF NO RELIEF Prednisone 5 Mg Tab 5 Mg PO DAILY Levothyroxine (Levothyroxine Sodium) 137 Mcg Tab 137 Mcg PO DAILY Aspirin Children's (Aspirin) 81 Mg Chew 81 Mg CHEW DAILY Review of Systems Except as stated in HPI: all other systems reviewed are Neg Physical Exam Narrative GENERAL: Well-nourished, well-developed patient, in NAD SKIN: Focused skin assessment warm/dry. No rashes or lesions. HEAD: Normocephalic. Atraumatic. EYES: No scleral icterus. No injection or drainage. PERRLA, EOMI THROAT: No pharyngeal injection, exudates, or tonsillar hypertrophy. Airway is patent. NECK: Supple, trachea midline. No JVD or lymphadenopathy. No meningismus. CARDIOVASCULAR: Regular rate and rhythm without murmurs, gallops, or rubs. RESPIRATORY: Breath sounds equal bilaterally. No accessory muscle use. No wheezes, rales, or rhonchi MUSCULOSKELETAL: No cyanosis, or edema. No tenderness palpation on the left iliac hip. Tenderness palpation of the left initial tuberosity without crepitus. Tenderness palpation of the right hip for ischial tuberosity Pelvis stable. FROM of b/l lower extremities without weakness. BACK: Nontender without obvious deformity. No CVA tenderness. Data Data Last Documented VS Vital Signs Date Time Temp Pulse Resp B/P (MAP) Pulse Ox O2 Delivery O2 Flow Rate FiO2 04/06/18 17:19 97.5 77 18 145/67 (93) 99 Orders Orders Hip, Uni(Ap&Lat) W Ap Pelvis (04/06/18 ) Ed Discharge Order (04/06/18 18:25) MDM Medical Decision Making Medical Screen Exam Complete: Yes Emergency Medical Condition: Yes Differential Diagnosis Left hip fracture, left leg fracture, left hip contusion Narrative Course 77-year-old male presents emergency department for evaluation of left hip pain that started approximately 2 days ago. Says that he was working on the pool deck when he tripped and fell, landing on his left hip. He is here today because his family made him come. He says that the pain is not improving but it is also not getting better. He points to the left ischial tuberosity. No palliative or provocative factors. Denies weakness. Denies trauma elsewhere. Denies neck or back pain. Denies head trauma. Vital signs are stable. His exam findings consistent with contusion versus fracture the initial tuberosity on the left. No tenderness palpation of the back or neck. Pelvis is stable. Last Impressions Hip and Pelvis X-Ray 04/06/18 0000 Signed Impressions: CONCLUSION: No acute findings. Mild osteoarthritis of the hips. Extensive vascular calcific ations noted. Patient should follow-up with his primary care physician regarding these findings. Advised to return for worsening or persistent symptoms. Consider follow-up with orthopedics for further evaluation as well. Diagnosis Primary Impression: Contusion of pelvis Qualified Codes: S30.0XXA - Contusion of lower back and pelvis, initial encounter Referrals: Orthopedist Primary Care Physician Patient Instructions: Contusion in Adults (ED), General Instructions Additional Instructions: Follow up with your primary care physician within 2-3 days. You may ice or heat your injury as needed for pain. If your symptoms persist or worsen, return to the ED for further evaluation. Consider follow up with an orthopedist for further evaluation. Disposition: 01 DISCHARGE HOME Condition: Stable Sri Garcia Apr 06, 2018 17:47
--- NOTE | 2018-04-06 18:21 | RADRPT ---
EXAM DATE: 04/06/2018 6:12 PM EDT AGE/SEX: 77 years / Male INDICATIONS: Left hip pain post fall. CLINICAL DATA: This is the patient's initial encounter. Patient reports that signs and symptoms have been present for 3 days and indicates a pain score of 7/10. MEDICAL/SURGICAL HISTORY: . Myocardial infarction. Hypercholesterolemia. Carcinoma, prostate. T hyroid disease. CVA. Coronary artery disease. Chest pain. HTN. Afib. GERD. Brain tumor. . Coronary a rtery stent. Pacemaker. Cholecystectomy. Bilateral cataract. Cardiac cath. Plate in right wrist. Radi ation therapy. Shunt in head. COMPARISON: No prior exams available for comparison. FINDINGS: Bony structures are intact and in normal alignment. Mild osteoarthritis of the hips. Osseous density is normal. Soft tissues are unremarkable. No radiopaque foreign bodies seen. CONCLUSION: No acute findings. Mild osteoarthritis of the hips. Extensive vascular calcifications noted. Electronically signed by: Nadeem Foster MD 04/06/2018 6:20 PM EDT
[2018-04-06] MEDS ORDERED: ASPI81CH7 CHEW (18:24)
[2018-04-06] MEDS ORDERED: NITR1SUB3 SL (18:24)
[2018-04-06] MEDS ORDERED: LEVO137T2 PO (18:24)
[2018-04-06] MEDS ORDERED: MECL-62 PO (18:24)
[2018-04-06] MEDS ORDERED: PRED5TAB PO (18:24)
[2018-04-06] MEDS ORDERED: AMLO5TAB2 PO (18:25)
== END 2018-04-06 18:31 | disposition home or self-care (01) ==
LOC: PHEFT 17:11
DX: S30.0XXA Contusion of lower back and pelvis, initial encounter (principal); W01.0XXA Fall on same level from slipping, tripping and stumbling without subsequent striking against object, initial encounter; I48.91 Unspecified atrial fibrillation; M16.0 Bilateral primary osteoarthritis of hip; E78.00 Pure hypercholesterolemia, unspecified; I25.10 Atherosclerotic heart disease of native coronary artery without angina pectoris; K21.9 Gastro-esophageal reflux disease without esophagitis; I10 Essential (primary) hypertension; E07.9 Disorder of thyroid, unspecified; I25.2 Old myocardial infarction; Z95.0 Presence of cardiac pacemaker; Z86.73 Personal history of transient ischemic attack (TIA), and cerebral infarction without residual deficits; Z95.5 Presence of coronary angioplasty implant and graft; Z87.891 Personal history of nicotine dependence; Z79.899 Other long term (current) drug therapy
CPT/HCPCS: 73502; 99283